=== PATIENT | female | born 1990 | race Caucasian/White ===

== ENCOUNTER 2022-11-29 22:08 | Outpatient (REF) | payer BC, SELFPAY ==
[2022-12-04 10:08] LABS: Age Gdln ACOG Testing Note (.); HPV Aptima Negative (Negative); IGP, Aptima HPV, rfx 16/18,45 Note (.)
== END 2022-11-29 22:09 | disposition home or self-care (01) ==
LOC: LAB 22:08
PROVIDERS: Visit Provider Physician Assistant
DX: Z01.419 Encounter for gynecological examination (general) (routine) without abnormal findings (principal)
CPT/HCPCS: 87624; G0145

== ENCOUNTER 2024-08-06 13:46 | Outpatient (OUT) | payer BC, SELFPAY ==
[2024-08-06 14:48] LABS: BOX Test Reference Lab UNITY; BOX Test Sent Out UNITY BOX
[2024-08-06 14:50] LABS: Basophils Absolute Auto 0.1 10^3/uL (0.0-0.1); Basophils Percent Auto 0.5 % (0.2-2.0); Eosinophils Absolute Auto 0.1 10^3/uL (0.0-0.7); Eosinophils Percent Auto 0.9 % (0.9-7.0); Hematocrit 37.8 % (36.0-48.0); Hemoglobin 13.3 g/dL (12.0-16.0); Immature Granulocytes Abs Auto 0.03 10^3/uL (0.00-0.03); Immature Granulocytes Pct Auto 0.3 % (0.0-0.5); Lymphocytes Absolute Auto 2.6 10^3/uL (1.2-3.8); Lymphocytes Percent Auto 24.1 % (20.5-60.0); Mean Corpuscular HGB Conc 35.2 g/dL (29.9-35.2); Mean Corpuscular Hemoglobin 30.8 pg (26.7-34.0); Mean Corpuscular Volume 87.5 fL (81.0-99.0); Mean Platelet Volume 9.7 fL (9.5-13.5); Monocytes Absolute Auto 0.7 10^3/uL (0.3-0.8); Monocytes Percent Auto 6.1 % (1.7-12.0); Neutrophils Absolute Auto 7.4 10^3/uL (1.4-6.5); Neutrophils Percent Auto 68.1 % (43.0-75.0); Platelet Count 323 10^3/uL (150-450); Red Blood Count 4.32 10^6/uL (4.20-5.40); Red Cell Distribution Width 11.5 % (11.0-15.0); White Blood Count 10.8 10^3/uL (4.0-11.0)
[2024-08-06 15:08] LABS: Estimated Average Glucose 85 mg/dL; Glycohemoglobin A1C 4.6 % (4.5-6.2)
[2024-08-06 15:29] LABS: Amphetamine Screen Urine NEGATIVE (NEGATIVE); Barbiturates Screen Urine NEGATIVE (NEGATIVE); Benzodiazepines Screen Urine NEGATIVE (NEGATIVE); Buprenorphine Screen Urine NEGATIVE (NEGATIVE); Cannabinoid Screen Urine POSITIVE (NEGATIVE); Cocaine Screen Urine NEGATIVE (NEGATIVE); Methadone Screen Urine NEGATIVE (NEGATIVE); Methamphetamines Screen Urine NEGATIVE (NEGATIVE); Opiate Screen Urine NEGATIVE (NEGATIVE); Oxycodone Screen Urine NEGATIVE (NEGATIVE); Phencyclidine Screen Urine NEGATIVE (NEGATIVE); Tricyclic Antidepressant Urine NEGATIVE (NEGATIVE)
[2024-08-07 05:18] LABS: HIV Ab/p24 Ag Screen Non Reactive (Non Reactive)
[2024-08-07 06:08] LABS: HBsAg Screen Negative (Negative); HCV Ab Non Reactive (Non Reactive); Rubella Antibodies, IgG 6.09 index (Immune >0.99)
[2024-08-07 13:09] LABS: Rapid Plasma Reagin, Quant Non Reactive titer (NonRea<1:1)
[2024-08-08 21:09] LABS: Cannabinoid Positive (.); Carboxy THC Conf, MS, UR >750 ng/mL (Cutoff=10)
== END 2024-08-06 13:47 | disposition home or self-care (01) ==
PROVIDERS: PCP Internal Medicine; Visit Provider Obstetrics & Gynecology
DX: Z34.01 Encounter for supervision of normal first pregnancy, first trimester (principal); Z36.0 Encounter for antenatal screening for chromosomal anomalies; N92.6 Irregular menstruation, unspecified
CPT/HCPCS: 36415; 80307; 80349; 83036; 85025; 86592; 86762; 86803; 86850; 86900; 86901; 87086; 87340; 87389

== ENCOUNTER 2024-10-01 20:09 | Outpatient (REF) | payer BC, SELFPAY ==
--- OUTSIDE RECORDS SUMMARY | 2024-10-01 20:15 | XMS_ITS | CCD ---
Author Organization [facility] Care Team Providers Care Pot Runner Name Role Phone STEPHEN DOWNEY Unavailable Unavailable STEPHEN DOWNEY Unavailable Unavailable LUZMARIA BRUNO Unavailable Unavailable RONI JIMENEZ Admitting Unavailable BARBARA, RONI Attending Unavailable RONI JIMENEZ Consulting Unavailable LUZMARIA BRUNO Admitting Unavailable LUZMARIA BRUNO Attending Unavailable RONI JIMENEZ Admitting Unavailable RONI JIMENEZ Attending Unavailable STEPHANIE MONTGOMERY Consulting Unavailable RONI JIMENEZ Consulting Unavailable Colten Lam MD Primary Care Provider Colten Lam MD Unavailable Moraima-Nossek LEAD CASHIER-HARNESS BRUSHER, Ema M Unavailable Colten Lam MD Primary Care Provider [phone] MARY VAZQUEZ Attending Unavailable LUZMARIA BRUNO Referring Unavailable COLTEN LAM Primary Care Unavailable MARY VAZQUEZ Attending Unavailable COLTEN LAM Referring Unavailable COLTEN LAM Primary Care Unavailable LOIS VALDERRAMA Attending Unavailable COLTEN LAM Attending Unavailable TJ ODONNELL Attending Unavailable Medications Current Medications Medication Drug Class(es) Dates Sig (Normalized) Sig (Original) lamoTRIgine 200 mg oral tablet (19 sources) Mood Stabilizer, Anti-epileptic Agent Start: 01-09-2024 take 1 tablet by mouth once daily lamoTRIgine (LaMICtal) 200 MG tablet Indications: Bipolar affective disorder, currently depressed, mild (CMS/HCC) Take 1 tablet (200 mg) by mouth Daily 90 tablet 1 01/09/2024 Active Start: 10-03-2023 take 1 tablet by paulo once daily lamoTRIgine (LaMICtal) 200 MG tablet Indications: Bipolar affective disorder, currently depressed, mild (CMS/HCC) Take 1 tablet (200 mg) by mouth Daily 30 tablet 2 10/03/2023 Active Start: 03-30-2023 End: 08-07-2023 take 1 tablet by mouth in the morning lamoTRIgine (LaMICtal) 200 MG tablet Indications: Bipolar affective disorder, currently depressed, mild (CMS/HCC) Take 1 tablet (200 mg) by mouth in the morning. 30 tablet 2 06/08/2023 08/07/2023 Active magnesium oxide 400 mg oral tablet (2 sources) Start: 10-01-2024 End: 04-29-2025 take 1 tablet by mouth once daily magnesium oxide (Mag-Ox) 400 MG tablet Indications: Second trimester Take 1 tablet (400 mg) by mouth Daily 30 tablet 6 10/01/2024 04/29/2025 Active ondansetron 4 mg disintegrating oral tablet (5 sources) Serotonin-3 Receptor Antagonist Start: 09-03-2024 End: 10-03-2024 take 1 tablet by mouth every six hours for nausea ondansetron ODT (Zofran-ODT) 4 MG disintegrating tablet Indications: Nausea and vomiting, unspecified vomiting type Take 1 tablet (4 mg) by mouth every 6 (six) hours if needed for nausea or vomiting 30 tablet 2 09/03/2024 10/03/2024 Active MV & Min w/FA-DHA ( Gummies) 0.18-25 MG chewable tablet (2 sources) Start: 08-02-2024 End: 09-01-2024 MV & Min w/FA-DHA ( Gummies) 0.18-25 MG chewable tablet Indications: Encounter for supervision of normal first in first trimester Chew 1 tablet Daily 30 tablet 11 08/02/2024 09/01/2024 Active Vit-Fe Fumarate-FA (PNV Plus Multivitamin) 27-1 MG tablet (3 sources) Start: 08-07-2024 End: 09-06-2024 take 1 tablet by mouth once daily Vit-Fe Fumarate-FA (PNV Plus Multivitamin) 27-1 MG tablet Indications: Encounter for supervision of normal first in first trimester Take 1 tablet by mouth Daily 30 tablet 11 08/07/2024 09/06/2024 Active tiZANidine 4 mg oral tablet (18 sources) Central alpha-2 Adrenergic Agonist Start: 07-12-2024 take 1 tablet by mouth every eight hours for muscle spasms tiZANidine (Zanaflex) 4 MG tablet Indications: Trapezius muscle spasm Take 1 tablet (4 mg) by mouth every 8 (eight) hours if needed for muscle spasms 30 tablet 07/12/2024 Active Start: 05-28-2024 End: 06-25-2024 take 1 tablet by mouth every eight hours for muscle spasms tiZANidine (Zanaflex) 4 MG tablet Indications: Trapezius muscle spasm Take 1 tablet (4 mg) by mouth every 8 (eight) hours if needed for muscle spasms 30 tablet 05/28/2024 06/25/2024 Discontinued (Reorder) Start: 05-03-2024 take 1 tablet by paulo th every eight hours for muscle spasms tiZANidine (Zanaflex) 4 MG tablet Indications: Trapezius muscle spasm Take 1 tablet (4 mg) by mouth every 8 (eight) hours if needed for muscle spasms 30 tablet 05/03/2024 Active Start: 04-02-2024 End: 05-01-2024 take 1 tablet by mouth every eight hours as needed for muscle spasms tiZANidine (Zanaflex) 4 MG tablet Indications: Trapezius muscle spasm TAKE 1 TABLET BY MOUTH EVERY 8 HOURS NEEDED FOR MUSCLE SPASM 30 tablet 04/04/2024 05/01/2024 Discontinued (Reorder) Start: 03-07-2024 take 1 tablet by paulo th every eight hours for muscle spasms tiZANidine (Zanaflex) 4 MG tablet Indications: Trapezius muscle spasm Take 1 tablet (4 mg) by mouth every 8 (eight) hours if needed for muscle spasms 30 tablet 03/07/2024 Active Start: 01-31-2024 take 1 tablet by paulo th once daily tiZANidine (ZANAFLEX) 4 mg tablet Take 1 tablet (4 mg total) by mouth nightly. 01/31/2024 Active Start: 12-15-2023 take 1 tablet by paulo th every eight hours for muscle spasms tiZANidine (Zanaflex) 4 MG tablet Indications: Trapezius muscle spasm Take 1 tablet (4 mg) by mouth every 8 (eight) hours if needed for muscle spasms for up to 10 days 30 tablet 12/15/2023 Active 24 hr venlafaxine 150 mg extended release oral capsule (20 sources) Serotonin and Norepinephrine Reuptake Inhibitor Start: 08-09-2024 take 1 capsule by mouth once daily venlafaxine XR (Effexor XR) 150 MG 24 hr capsule Take 150 mg by mouth Daily 08/09/2024 Active Start: 07-06-2024 take 1 capsule by [facility] every twenty-four hours in the morning venlafaxine XR (EFFEXOR-XR) 150 mg 24 hr capsule Indications: Generalized anxiety disorder Take 1 capsule by mouth in the morning 30 capsule 07/06/2024 Active Start: 11-07-2023 End: 01-09-2024 take 1 capsule by mouth once daily in the morning venlafaxine XR (Effexor XR) 75 MG 24 hr capsule Indications: Bipolar affective disorder, currently depressed, mild (CMS/HCC) take 1 capsule by mouth every morning 30 capsule 1 11/07/2023 01/09/2024 Discontinued (Reorder) Start: 03-30-2023 End: 06-07-2024 take 1 capsule by mouth every twenty-four hours in the morning venlafaxine XR (Effexor XR) 37.5 MG 24 hr capsule Indications: Bipolar affective disorder, currently depressed, mild (CMS/HCC) Take 1 capsule by mouth in the morning 60 capsule 3 01/04/2024 Active Start: 03-30-2023 End: 06-07-2024 take 1 capsule by mouth every twenty-four hours in the morning venlafaxine XR (Effexor XR) 75 MG 24 hr capsule Indications: Bipolar affective disorder, currently depressed, mild (CMS/HCC) Take 1 capsule (75 mg) by mouth in the morning. 90 capsule 1 01/09/2024 Active Completed/Discontinued Medications Medication Drug Class(es) Dates Sig (Normalized) Sig (Original) Ethinyl Estradiol / Ferrous fumarate / Norethindrone (10 sources) Estrogen Start: 04-15-2023 End: 08-02-2024 take 1 tablet by mouth in the morning norethindrone-ethin yl estradiol-iron (Lo Loestrin Fe) 1 MG-10 MCG / 10 MCG tablet Indications: Amenorrhea Take 1 tablet by mouth in the morning. 28 tablet 11 04/15/2023 08/02/2024 Discontinued (Ineffective) Start: 04-15-2023 take 1 tablet by paulo th in the morning norethindrone-ethinyl estradiol-iron (Lo Loestrin Fe) 1 MG-10 MCG / 10 MCG tablet Indications: Amenorrhea Take 1 tablet by mouth in the morning. 28 tablet 11 04/15/2023 Active phentermine hydrochloride 37.5 mg oral tablet (17 sources) Sympathomimetic Amine Anorectic Start: 05-03-2024 End: 08-02-2024 take 31-31.9 tablets by mouth in the morning phentermine (Adipex-P) 37.5 MG tablet Indications: Class 1 obesity without serious comorbidity with body mass index (BMI) of 31.0 to 31.9 in adult, unspecified obesity type Take 1 tablet (37.5 mg) by mouth in the morning. 30 tablet 06/20/2024 08/02/2024 Discontinued (Therapy completed) Start: 02-13-2024 End: 05-01-2024 take 31-31.9 tablets by mouth in the morning phentermine (Adipex-P) 37.5 MG tablet Indications: Class 1 obesity without serious comorbidity with body mass index (BMI) of 31.0 to 31.9 in adult, unspecified obesity type Take 1 tablet (37.5 mg) by mouth in the morning. 30 tablet 03/19/2024 05/01/2024 Discontinued (Reorder) Start: 01-09-2024 take 31-31.9 tablets by mouth in the morning phentermine (Adipex-P) 37.5 MG tablet Indications: Class 1 obesity without serious comorbidity with body mass index (BMI) of 31.0 to 31.9 in adult, unspecified obesity type Take 1 tablet (37.5 mg) by mouth in the morning. 30 tablet 01/09/2024 Active Start: 12-15-2023 End: 01-09-2024 take 31-31.9 tablets by mouth in the morning phentermine (Adipex-P) 37.5 MG tablet Indications: Class 1 obesity without serious comorbidity with body mass index (BMI) of 31.0 to 31.9 in adult, unspecified obesity type TAKE 1 TABLET BY MOUTH IN THE MORNING 30 tablet 01/09/2024 01/09/2024 Discontinued (Reorder) Start: 05-19-2023 End: 06-18-2023 take 30-30.9 tablets by mouth before mealtime phentermine (Adipex-P) 37.5 MG tablet Indications: Class 1 obesity without serious comorbidity with body mass index (BMI) of 30.0 to 30.9 in adult, unspecified obesity type Take 1 tablet (37.5 mg) by mouth in the morning. Take before meals. 30 tablet 0 05/19/2023 06/18/2023 Active Problems Active Problems Problem Classification Problem Date Documented Date Episodic/Chronic Anxiety disorders (20 sources) Anxiety; Translations: [Anxiety disorder, unspecified] Onset: 08-31-2022 08-31-2022 Chronic Complication of device; implant or graft (4 sources) Unspecified complication of genitourinary prosthetic device, implant and graft, initial encounter; Translations: [UNS COMP PROS DEVC IMPL GFT INIT] Onset: 12-10-2019 Episodic Headache; including migraine (20 sources) Migraine without aura, not refractory ; Translations: [Migraine without aura, not intractable, with status migrainosus] Onset: 02-23-2023 02-23-2023 Chronic Immunizations and screening for infectious disease (2 sources) Exposure to sexually transmissible disorder; Translations: [Contact with and (suspected) exposure to infections with a predominantly sexual mode of transmission] 10-01-2024 Episodic Menstrual disorders (18 sources) Amenorrhea; Translations: [Amenorrhea, unspecified] Onset: 02-23-2023 02-23-2023 Chronic Mood disorders (20 sources) Bipolar affective disorder, currently depressed, mild; Translations: [Bipolar disorder, current episode depressed, mild] Onset: 08-31-2022 06-08-2023 Chronic Nausea and vomiting (2 sources) Nausea and vomiting; Translations: [Nausea with vomiting, unspecified] 09-03-2024 Episodic Normal and/or delivery (20 sources) Encounter for supervision of other normal , unspecified trimester; Translations: [Term ] Onset: 10-04-2017 02-23-2023 Episodic Other connective tissue disease (2 sources) Muscle spasm of cervical muscle of neck; Translations: [Other muscle spasm] 04-04-2024 Episodic Other nervous system disorders (17 sources) Disturbance of attention; Translations: [Attention and concentration deficit] Onset: 02-23-2023 02-23-2023 Chronic Other nervous system disorders (17 sources) Chronic pain; Translations: [Other chronic pain] Onset: 02-23-2023 02-23-2023 Chronic Other nutritional; endocrine; and metabolic disorders (17 sources) Insulin resistance; Translations: [Insulin resistance] Onset: 02-23-2023 02-23-2023 Chronic Other nutritional; endocrine; and metabolic disorders (20 sources) Obesity; Translations: [Obesity, unspecified] Onset: 04-19-2023 04-19-2023 Chronic Other screening for suspected conditions (not mental disorders or infectious disease) (6 sources) Encounter for screening for malignant neoplasm of cervix; Translations: [Patient encounter status] Onset: 06-12-2019 10-01-2024 Episodic Residual codes; unclassified (17 sources) Daytime hypersomnia; Translations: [Hypersomnia, unspecified] Onset: 02-23-2023 02-23-2023 Chronic Residual codes; unclassified (2 sources) Gestation period, 15 weeks; Translations: [15 weeks gestation of ] 09-03-2024 Episodic Residual codes; unclassified (2 sources) Gestation period, 19 weeks; Translations: [19 weeks gestation of ] 10-01-2024 Episodic Spondylosis; intervertebral disc disorders; other back problems (17 sources) Cervical spondylosis without myelopathy; Translations: [Spondylosis without myelopathy or radiculopathy, cervical region] Onset: 02-23-2023 02-23-2023 Chronic Past or Other Problems Problem Classification Problem Date Documented Date Episodic/Chronic Mood disorders (18 sources) Mood disorders Onset: 03-30-2023 Resolved: 02-06-2024 03-30-2023 Other female genital disorders (17 sources) Vaginal odor; Translations: [Other specified noninflammatory disorders of vagina] Onset: 02-23-2023 02-23-2023 Episodic Other upper respiratory infections (1 source) Upper respiratory infection; Translations: [Acute upper respiratory infection, unspecified] 01-03-2024 Episodic Spondylosis; intervertebral disc disorders; other back problems (17 sources) Stenosis of intervertebral foramina; Translations: [Spinal stenosis, cervical region] Onset: 02-23-2023 02-23-2023 Episodic Results Test Name Value Interpretation Reference Range Facility BOX TESTon 08-06-2024 BOX TEST SENT OUT [facility] BOX1 [facility] BOX2 08/06/24 [facility] HCG ( test) Ql (U)o n 08-02-2024 Interpretation and review of laboratory results Abnormal [facility] Preg Test, Ur Positive Negative [facility] US OB TRANSVAGINALon 025 US OB TRANSVAGINAL EXAM: US OB TRANSVAGINAL HISTORY: Dating. COMPARISON: None available. TECHNIQUE: Two-dimensional transvaginal grayscale ultrasound imaging of the pelvis was performed. Color Doppler evaluation of the ovaries was also performed. FINDINGS: The uterus demonstrates a normal homogeneous echotexture. The cervix measures 5.2 cm and the cervical os is closed. The right ovary measures 2.7 x 1.5 x 2.6 cm and demonstrates a normal echotexture. There is normal color Doppler flow. The left ovary is not visualized. No fluid is present within the cul-de-sac. There is a single, live intrauterine gestation identified with a heart rate of 168 beats per minute and a crown-rump length measurement of 3.4 cm, correlating to a gestational age of 10 weeks 2 days (+/- 6 days). There is a 1.5 cm subchorionic hemorrhage visualized. A yolk sac is visualized. IMPRESSION: 1. Single, live intrauterine gestation 10 weeks, 3 days by LMP. Today's ultrasound measurements correlate with a gestational age of 10 weeks 2 days (+/- 6 days). LAURA by today's ultrasound is 02/26/2025. 2. Subchorionic hemorrhage. A short-term follow-up ultrasound is recommended to monitor for resolution. 3. Normal color Doppler evaluation of the right ovary, the left ovary was not visualized. Electronically Signed:Electronically signed by RASHMI GUAJARDO II, MD, PHD at 03-Aug-2024 08:40:26 AM [facility] Normal Not Available Comment on above: Order Comment: US OB TRANSVAGINAL No LMP recorded. Urinalysis macro (dipstick) panel (U)on 08-02-2024 Bilirubin, UA Negative Negative - 4(70) +++ mg/dL [facility] Blood, UA Negative Negative - 50 Aneudy/mcL [facility] Clarity, UA Clear [facility] Color, UA Yellow [facility] Glucose, UA Negative Negative - 1999(110) ++++ mg/dL [facility] Interpretation and review of laboratory results Abnormal [facility] Ketones, UA Negative Negative - 160(16) ++++ mg/dL [facility] Leukocytes, UA Positive Negative - 500+++ Migdalia/mcL [facility] Comment on above: small Nitrite, UA Negative Negative - Positive [facility] pH, UA 6 5 - 9 [facility] Protein, UA Negative Negative - 1999(20) ++++ mg/dL [facility] Spec Grav, UA 1.02 1 - 1.03 [facility] Urobilinogen, UA 0.2 0.2 - 12 mg/dL [facility] XR Spine Cervical Complete w /Flex AND Rice 05-12-2021 XR Spine Cervical Complete w/Flex AND Ext FINDINGS: Minimal disc space loss, no significant oseophyte formation. Mild facet arthropathy, moderate. right C2-3, C4-5 neuroforaminal stenosis. No acute fracture or dislocation or significant spondylolisthesis is seen. Prevertebral soft tissues are normal. No significant carotid bulb calcifications are identified. Flexion and extension: Normal alignment, no instability. IMPRESSION: 1. 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 2. Normal alignment, no instability with flexion and extension. Report reported and signed by Miah Suero on 05/12/2021 1444 Normal [facility] Spindle Repairer US PELVIS AND TRANSVAGon US PELVIS AND TRANSVAG EXAMINATION: US PELVIS AND TRANSVAG HISTORY: Disorders of urogenital prostheses or implants ; pelvic pain since IUD placement 1 month ago COMPARISON: No relevant comparison available. TECHNIQUE: Transabdominal and transvaginal sonographic examination. FINDINGS: UTERUS: Normal size and appearance. Uterus size: 8.7 x 5.3 x 4.2 cm ENDOMETRIUM: IUD within the endometrial cavity. Normal thickness and echogenicity of the endometrium. Endometrial thickness: 8 mm RIGHT OVARY: Normal size and appearance. Blood flow present within ovary on color Doppler. Ovary size: 2.4 x 1.9 x 1.4 cm LEFT OVARY: Normal size and appearance. Blood flow present within ovary on color Doppler. Ovary size: 2.4 x 1.7 x 1.5 cm CUL-DE-SAC: Unremarkable. No significant free fluid. BLADDER: Unremarkable. OTHER: None. IMPRESSION: 1. The IUD appears normally positioned within the endometrium. No abnormal or suspicious findings. Electronically authenticated by: STEPHANIE MONTGOMERY Date: 2019-12-10 10:21 Normal [facility] PAP ONLYon 06-14-2019 COMMENT Comment Normal [facility] Comment on above: Result Comment: [id number] Performed By: #### [id number] #### [facility] [address] [place] [address] Leno Mac DIAGNOSIS: Comment Normal [facility] Comment on above: Result Comment: NEGATIVE FOR INTRAEPITHE LIAL LESION OR MALIGNANCY. Performed By: #### [id number] #### [facility] [address] [place] [address] Leno Mac Methodology: Comment Normal [facility] Comment on above: Result Comment: This liquid based ThinPr ep(R) pap test was screened with the use of an image guided system. Performed By: #### [id number] #### [facility] [address] [place] [address] Leno Mac Note: Comment Normal [facility] Comment on above: Result Comment: The Pap smear is a scree ricky test designed to aid in the detection of premalignant and malignant conditions of the uterine cervix. It is not a diagnostic procedure and should not be used as the sole means of detecting cervical cancer. Both false-positive and false-negative reports do occur. . Performed By: #### [id number] #### [facility] [address] [place] [address] Leno Mac Performed by: Comment Normal [facility] Comment on above: Result Comment: Lauryn Barraza, Cytotechno logist (ASCP) Performed By: #### [id number] #### [facility] [address] [place] [address] Leno Mac Specimen adequacy: Comment Normal [facility] Comment on above: Result Comment: Satisfactory for evaluat ion. Endocervical and/or squamous metaplastic cells (endocervical component) are present. Performed By: #### [id number] #### [facility] [address] [place] [address] Leno Mac . . Normal [facility] Comment on above: Performed By: #### [id number] #### [facility] [address] [place], [place] [address] Leno Mac Discharge Summaryon 10-08-19 18 HIM IP Note OR Jewelry Sales Representative Normal [facility] 10-07-2017 HIM IP Note OR Jewelry Sales Representative Normal [facility] HIM IP Note OR Jewelry Sales Representative Normal [facility] Progress Noteon 10-07-2017 HIM IP Note OR Jewelry Sales Representative Normal [facility] HIM IP Note OR Jewelry Sales Representative Normal [facility] HIM IP Note OR Jewelry Sales Representative Normal [facility] HIM IP Note OR Jewelry Sales Representative Normal [facility] HIM IP Note OR Jewelry Sales Representative Normal [facility] 10-06-2017 HIM IP Note OR Jewelry Sales Representative Normal [facility] HIM IP Note OR Jewelry Sales Representative Normal [facility] Progress Noteon 10-06-2017 HIM IP Note OR Jewelry Sales Representative Normal [facility] HIM IP Note OR Jewelry Sales Representative Normal [facility] HIM IP Note OR Jewelry Sales Representative Normal [facility] Surgical Pathologyon 018 Surgical Pathology (NOTE)[id number] LABORATORIESCONSULTING PATHOLOGISTS [facility] [id number] [place], [place] [phone] Fax: SURGICAL PATHOLOGY CONSULTATIONPatient Name: Mary GA Rec: [id number] Number: [id number]: 10/06/2017Received: 10/06/2017Reported: 10/07/2017 12:37-- Diagnosis --PLACENTA MEMBRANES AND UMBILICAL CORD: MATURE PLACENTA WITHINTERVILLOUS THROMBI, UNREMARKABLE MEMBRANES AND THREE-VESSELUMBILICAL CORD.Tammie NgElectronically Signed Out ajb/10/07/2017Clinical InformationOperative Findings: PLACENTA (PER CONTAINER)Source of Specimen1: PLACENTA (PER CONTAINER)Gross Description STEVAN GA, UNDESIGNATED Placenta with attached membranes andumbilical cord.UMBILICAL CORD Length: 47.0 cm Diameter: 1.5 cmTrue knots: NoNumber of vessels: 3Spiraling: NormalInsertion into surface: ParacentralMEMBRANESColor: Paoli-yates, focally opacified with a circummarginateinsertionMeconium staining: NoFETAL SURFACEColor: Purple-paulson, with a normal array of surface vesselsSubchorionic fibrin: Patchy and marginal and involvesapproximately 10% of the discMATERNAL SURFACECotyledons: -All present and intact: Yes-Focal lesions: There is a 0.4 cm area of yellow induration thatoccupies less than 5% of the disc.Placental size: 19.5 x 18.5 x 2.5 cmShape: OvoidWeight: 446 gramsNumber of cassettes: 5cs tmMicroscopic DescriptionUmbilical cord: Negative for funisitisMembranes: Negative for chorioamnionitisMeconium staining: NoInfarcts: NoIntervillous thrombi: PresentSubchorionic fibrin: Slight increaseVillous maturation: MatureNucleated erythrocytes invillous capillaries: RareOther: Few microcalcifications Normal [facility] CBC with Diffon 10-05-2017 Abs. Basophil <0.03 Normal 0.00-0.20 [facility] Comment on above: Performed By: #### CDP ####[address] [place] [address] Abs.Neutrophil (Seg) 7.93 k/uL Normal 1.50-8.10 [facility] Comment on above: Performed By: #### CDP ####[address] [place] [address] Basophils/100 WBC Auto (Bld) 0 % Normal 0-2 [facility] Comment on above: Performed By: #### CDP ####[address] [place] [address] Eosinophils 0.10 10*3/uL Normal 0.00-0.44 [facility] Comment on above: Performed By: #### CDP ####[address] [place] [address] Eosinophils/100 leukocytes 1 % Normal 1-4 [facility] Comment on above: Performed By: #### CDP ####[address] [place] [address] Erythrocyte distribution width Auto Ratio (RBC) 13.6 % Normal 11.8-14.4 [facility] Comment on above: Performed By: #### CDP ####[address] [place] [address] Erythrocytes (RBC) 4.18 10*6/uL Normal 3.95-5.11 [facility] Comment on above: Performed By: #### CDP ####[address] [place] [address] Erythrocytes (RBC) 0.0 per 100 WBC Normal 0.0 [facility] Comment on above: Performed By: #### CDP ####[address] [place] [address] Granulocytes/100 WBC (Bld) 0.15 k/uL Normal 0.00-0.30 [facility] Comment on above: Result Comment: Performed at [address] [place] [address] Performed By: #### C DP ####[address] [place] [address] Hematocrit (HCT) 36.5 % Normal 36.3-47.1 [facility] Comment on above: Performed By: #### CDP ####[address] [place] [address] Hemoglobin mass conc (Bld) 12.2 g/dL Normal 11.9-15.1 [facility] Comment on above: Performed By: #### CDP ####[address] [place] [address] Immature granulocytes #/vol (Bld) 1 % High 0 [facility] Comment on above: Performed By: #### CDP ####[address] [place] [address] Lymphocytes 2.28 10*3/uL Normal 1.10-3.70 [facility] Comment on above: Performed By: #### CDP ####[address] [place] [address] Lymphocytes/100 leukocytes 20 % Low 24-43 [facility] Comment on above: Performed By: #### CDP ####[address] , [facility]83 MCH 29.2 pg Normal 25.2-33.5 [facility] Comment on above: Performed By: #### CDP ####[address] [facility]83 MCHC mass conc (RBC) 33.4 g/dL Normal 28.4-34.8 [facility] Comment on above: Performed By: #### CDP ####[address] [place] [address] MCV 87.3 fL Normal 82.6-102.9 [facility] Comment on above: Performed By: #### CDP ####[address] [place] [address] Monocytes 0.81 10*3/uL Normal 0.10-1.20 [facility] Comment on above: Performed By: #### CDP ####[address] , [facility]83 Monocytes/100 leukocytes 7 % Normal 3-12 [facility] Comment on above: Performed By: #### CDP ####[address] [place] [address] Neutrophil (Seg) 71 % High 36-65 [facility] Comment on above: Performed By: #### CDP ####[address] [place] [address] Platelet mean volume (PMV) 10.4 fL Normal 8.1-13.5 [facility] Comment on above: Performed By: #### CDP ####[address] [place] [address] Platelets 207 10*3/uL Normal 138-453 [facility] Comment on above: Performed By: #### CDP ####[address] [place] [address] WBC (Leukocytes) 11.3 10*3/uL Normal 3.5-11.3 [facility] Comment on above: Performed By: #### CDP ####[address] [place] [address] Auto Diff Performed NOT REPORTED Normal [facility] Comment on above: Performed By: #### CDP ####[address] [place] [address] Erythrocyte morphology NOT REPORTED Normal [facility] Comment on above: Performed By: #### CDP ####[address] [place] [address] Platelets NOT REPORTED Normal [facility] Comment on above: Performed By: #### CDP ####[address] [place] [address] WBC Morphology NOT REPORTED Normal [facility] Comment on above: Performed By: #### CDP ####[address] [place] [address] Drug Scr, Abuse, Uron 2017 Amphetamine(s),U r Negative Normal NEG [facility] Comment on above: Performed By: #### GINA ####[address] [place] [address] Barbiturate(s),U r Negative Normal NEG [facility] Comment on above: Performed By: #### GINA ####[address] [place] [address] Base excess Negative Normal NEG [facility] Comment on above: Performed By: #### GINA ####[address] [place] [address] Benzodiazepine(s ) Negative Normal NEG [facility] Comment on above: Performed By: #### GINA ####[address] [place] [address] Buprenorphrine, Ur Negative Normal NEG [facility] Comment on above: Result Comment: Performed at [address] [place] [address] Performed By: #### D AU ####[address] [place] [address] Cannabinoid(s),U r Negative Normal NEG [facility] Comment on above: Performed By: #### GINA ####[address] [place] [address] Methamphetamine, Ur Negative Normal NEG [facility] Comment on above: Performed By: #### GINA ####[address] [place] [address] Opiate(s), Ur Negative Normal NEG [facility] Comment on above: Performed By: #### GINA ####[address] [place] [address] Oxycodone, Urine Negative Normal NEG [facility] Comment on above: Performed By: #### GINA ####[address] [place] [address] Phencyclidine, Ur Negative Normal NEG [facility] Comment on above: Performed By: #### GINA ####[address] [place] [address] Propoxyphene,Uri ne Negative Normal NEG [facility] Comment on above: Performed By: #### GINA ####[address] [place] [address] Urine, methadone presence Negative Normal NEG [facility] Comment on above: Performed By: #### GINA ####[address] [place], [place] [id number] Urine, tricyclic antidepressants Negative Normal NEG [facility] Comment on above: Result Comment: Drug screen results are to be used for medical purposes only. All positive results are unconfirmed. Testing for employment or legal uses should be sent to a reference laboratory for confirmation. Performed By: #### D AU ####[address] , [place] [id number] Interpretive Info NOT REPORTED Normal [facility] Comment on above: Performed By: #### GINA ####[address] , [place] [id number] MDMA, Urine NOT REPORTED Normal NEG [facility] Comment on above: Performed By: #### GINA ####[address] [place] [address] History and Physicalon 10-05 HIM IP Note OR Jewelry Sales Representative Normal [facility] Plan of Careon 10-05-2017 HIM IP Note OR Jewelry Sales Representative Normal [facility] HIM IP Note OR Jewelry Sales Representative Normal [facility] Progress Noteon 10-05-2017 HIM IP Note OR Jewelry Sales Representative Normal [facility] HIM IP Note OR Jewelry Sales Representative Normal [facility] HIM IP Note OR Jewelry Sales Representative Normal [facility] HIM IP Note OR Jewelry Sales Representative Normal [facility] Vital Signs Date Time Vital Sign Value Performing Clinician Estrada disla 10-01-2024 16:11-0400 Body mass index (BMI) [Ratio] 35.21 kg/m2 Uma WELLINGTON Work Phone: [facility] 10-01-2024 16:11-0400 Body weight 90.15 kg Uma WELLINGTON Work Phone: [facility] 10-01-2024 16:11-0400 Diastolic blood pressure 82 mm[Hg] Uma WELLINGTON Work Phone: [facility] 10-01-2024 16:11-0400 Systolic blood pressure 120 mm[Hg] Uma Da Silva PA Work Phone: [facility] 09-03-2024 15:51-0400 Body mass index (BMI) [Ratio] 34.26 kg/m2 Tj Blas DO Work Phone: [facility] 09-03-2024 15:51-0400 Body weight 87.73 kg Tj Blas DO Work Phone: [facility] 09-03-2024 15:51-0400 Diastolic blood pressure 68 mm[Hg] Jt Blas DO Work Phone: [facility] 09-03-2024 15:51-0400 Systolic blood pressure 112 mm[Hg] Tj Blas DO Work Phone: [facility] 08-02-2024 14:29-0400 Body mass index (BMI) [Ratio] 33.66 kg/m2 Nom Nurse [facility] 08-02-2024 14:29-0400 Body weight 86.18 kg [facility] Nurse [facility] 08-02-2024 14:29-0400 Diastolic blood pressure 72 mm[Hg] [facility] Nurse [facility] 08-02-2024 14:29-0400 Systolic blood pressure 120 mm[Hg] [facility] Nurse [facility] 06-20-2024 13:30-0500 Body height 160 cm Lois Valderrama COMPUTER SERVICE TECHNICIAN Work Phone: [facility] 06-20-2024 13:30-0500 Body mass index (BMI) [Ratio] 33.66 kg/m2 Lois Valderrama COMPUTER SERVICE TECHNICIAN Work Phone: [facility] 06-20-2024 13:30-0500 Body weight 86.18 kg Lois Valderrama COMPUTER SERVICE TECHNICIAN Work Phone: [facility] 06-20-2024 13:30-0500 Diastolic blood pressure 78 mm[Hg] Lois Valderrama COMPUTER SERVICE TECHNICIAN Work Phone: [facility] 06-20-2024 13:30-0500 Heart rate 78 /min Lois Valderrama COMPUTER SERVICE TECHNICIAN Work Phone: [facility] 06-20-2024 13:30-0500 Respiratory rate 17 /min Lois Valderrama COMPUTER SERVICE TECHNICIAN Work Phone: [facility] 06-20-2024 13:30-0500 SaO2% (BldA) [Mass fraction] 98 % Lois Valderrama COMPUTER SERVICE TECHNICIAN Work Phone: [facility] 06-20-2024 13:30-0500 Systolic blood pressure 138 mm[Hg] Lois Valderrama COMPUTER SERVICE TECHNICIAN Work Phone: [facility] Encounters Encounter Date Encounter Type Care Provider Facility Start: 10-01-2024 End: 10-01-2024 Patient encounter procedure Uma WELLINGTON Work Phone: [facility] Start: 10-01-2024 End: 10-01-2024 Periodic preventive med est patient 18-39 yrs Uma WELLINGTON Work Phone: [facility] Comment on above: Second trimester pre gnancy; 19 weeks gestation of ; Well woman exam with routine gynecological exam; Screening, , for anatomic survey; STD exposure Start: 10-01-2024 End: 10-01-2024 Bamboo flowsheet Uma WELLINGTON Work Phone: [facility] Start: 10-01-2024 End: 10-01-2024 Bamboo flowsheet Uma WELLINGTON Work Phone: [facility] Start: 09-03-2024 End: 09-03-2024 flow sheet Tj Blas DO Work Phone: [facility] Comment on above: Second trimester pre gnancy; 15 weeks gestation of ; Nausea and vomiting, unspecified vomiting type; Bipolar affective disorder, currently depressed, mild (CMS/[facility]) Start: 09-03-2024 End: 09-03-2024 ambulatory TJ BLAS Not Available Start: 09-03-2024 End: 09-03-2024 Bamboo flowsheet Tj Blas DO Work Phone: [facility] Start: 09-03-2024 End: 09-03-2024 Bamboo flowsheet Tj Blas DO Work Phone: [facility] Start: 08-16-2024 End: 08-16-2024 ambulatory MARY VAZQUEZ [facility] Start: 08-06-2024 End: 08-06-2024 Clinisync Result Encounter Generic External Data Provider [facility] Unsolicited Start: 08-06-2024 End: 08-06-2024 Clinisync Result Encounter Generic External Data Provider [facility] Unsolicited Start: 08-02-2024 End: 08-02-2024 Office outpatient visit 5 minutes [facility] Blas Nurse [facility] Comment on above: GA: 10w3d Start: 08-02-2024 End: 08-02-2024 ambulatory LOIS VALDERRAMA Not Available Start: 07-06-2024 End: 07-06-2024 Orders Only Mary Vazquez LEAD CASHIER-CHIEF PRIVACY OFFICER Work Phone: [facility] Start: 06-20-2024 End: 06-20-2024 Bamboo flowsheet Lois Valderrama COMPUTER SERVICE TECHNICIAN Work Phone: [facility] Start: 06-20-2024 End: 06-20-2024 Bamboo flowsheet Lois Valderrama COMPUTER SERVICE TECHNICIAN Work Phone: [facility] Start: 06-20-2024 End: 06-20-2024 Office outpatient visit 25 minutes Lois Valderrama COMPUTER SERVICE TECHNICIAN Work Phone: [facility] Comment on above: Class 1 obesity with out serious comorbidity with body mass index (BMI) of 31.0 to 31.9 in adult, unspecified obesity type Start: 06-20-2024 End: 06-20-2024 ambulatory LOIS VALDERRAMA Not Available Start: 05-01-2024 End: 05-03-2024 Refrobin Lam MD Work Phone: [facility] Comment on above: Class 1 obesity with out serious comorbidity with body mass index (BMI) of 31.0 to 31.9 in adult, unspecified obesity type; Trapezius muscle spasm Start: 04-04-2024 End: 04-04-2024 Refrobin Lam MD Work Phone: [facility] Comment on above: Trapezius muscle spa sm Start: 03-19-2024 End: 03-19-2024 Refill Estefania WELLINGTON Work Phone: [facility] Comment on above: Class 1 obesity with out serious comorbidity with body mass index (BMI) of 31.0 to 31.9 in adult, unspecified obesity type Start: 02-06-2024 End: 02-06-2024 ambulatory MARY WINSLOWAlexandre GARDUNODamari [facility] Start: 01-07-2024 End: 01-09-2024 Refill Colten Lam MD Work Phone: [facility] Comment on above: Class 1 obesity with out serious comorbidity with body mass index (BMI) of 31.0 to 31.9 in adult, unspecified obesity type; Bipolar affective disorder, currently depressed, mild (CMS/HCC) Start: 01-03-2024 End: 01-04-2024 Refill Colten Lam MD Work Phone: [facility] Comment on above: Upper respiratory tr act infection, unspecified type Start: 12-15-2023 End: 12-15-2023 ambulatory COLTEN LAM Not Available Start: 06-08-2023 Telephone encounter Allison Kirkpatrick [facility] Start: 12-10-2019 End: 12-11-2019 Patient encounter procedure RONI JIMENEZ Facility:[facility] Start: 11-23-2019 Patient encounter procedure LUZMARIA BRUNO Facility:[facility] Start: 06-12-2019 End: 06-12-2019 Patient encounter procedure RONI JIMENEZ Facility:[facility] Start: 10-05-2017 End: 10-07-2017 Evaluation and management of inpatient [facility] Procedures Date Procedure Procedure Detail Performing Clinician Start: 08-06-2024 BOX TEST Tj Fazi o DO Work Phone: Start: 08-02-2024 End: 08-02-2024 Urnls dip stick/tablet rgnt non-auto w/o micrscp Tj Blas DO Work Phone: Start: 02-06-2024 Adult depression scr eening assessment Mary Vazquez LEAD CASHIER-CHIEF PRIVACY OFFICER Work Phone: Start: 11-29-2022 Microscopic observat ion [Identifier] in Cervix by Cyto stain Uma WELLINGTON Work Phone: Start: 06-11-2019 Microscopic observat ion [Identifier] in Cervix by Cyto stain Allison Arreola MA Start: 10-07-2017 DISCHARGE PATIENT BRADLEY DOWNEY Start: 10-06-2017 SURGICAL PATHOLOGY HERRERA DOWNEY Start: 10-06-2017 ADVANCE DIET TOLE RATED (NURSING COMMUNICATION) STEPHEN DOWNEY Start: 10-06-2017 AMBULATE PATIENT STEPHEN DOWNEY Start: 10-06-2017 ASSESS STEPHEN PAZ GES Start: 10-06-2017 DIET GENERAL STEPHEN PAZ GES Start: 10-06-2017 FULL CODE STEPHEN PAZ GES Start: 10-06-2017 ICE TO AFFECTED AREA WE URSZULA PAREDESGeorgi Start: 10-06-2017 NOTIFY PHYSICIAN (SPECIFY) STEPHENSHERRY DOWNEY Start: 10-06-2017 PATIENT STATUS (DIRECT) STEPHEN SHAYAN Start: 10-06-2017 PLACE INTERMITTENT PNEUMATIC COMPRESSION DEVICE STEPHENSHERRY DOWNEY Start: 10-06-2017 SALINE LOCK IV STEPHEN Zhu EDGES Start: 10-06-2017 SPECIMEN TO PATHOLOGY W SHABBIR PAREDESGeorgi Start: 10-06-2017 STRAIGHT CATH STEPHEN DAMICO DGES Start: 10-06-2017 VITAL SIGNS STEPHEN PAZ GES Start: 10-06-2017 PATIENT STATUS (FROM ED OR OR/PROCEDURAL) STEPHEN PAREDESGeorgi Start: 10-06-2017 TRANSFER PATIENT STEPHEN DOWNEY Start: 10-05-2017 Blood count complete auto&auto difrntl wbc STEPHEN PAREDESGeorgi Start: 10-05-2017 IP CONSULT [facility] STEPHENSHERRY DOWNEY Start: 10-05-2017 URINE DRUG SCREEN BRADLEY DOWNEY Plan of Treatment Date Care Activity Detail Author Start: 12-11-2027 Screening for malign ant neoplasm of cervix [facility] Start: 09-28-2027 DTaP,Tdap and Td Vaccines (2 - Td or Tdap) DTaP,Tdap and Td Vaccines (2 - Td or Tdap) [facility] Start: 11-29-2025 Screening for malign ant neoplasm of cervix Pap Smear [facility] Start: 02-05-2025 Depression Screening Depression Scre ening [facility] Start: 02-05-2025 Tobacco Screening Tobacco Screening [facility] Start: 12-31-2024 Influenza vaccination Influenz a Vaccine (Season Ended) [facility] Start: 12-25-2024 End: 12-25-2024 Patient encounter procedure 12/25/2024 10:00 AM EDT Office Visit [facility] [address] [address] Tj Odonnell DO [address] [place] [address] [facility] Start: 10-01-2024 End: 10-01-2024 Patient encounter procedure [facility] Comment on above: Arrived Start: 10-01-2024 End: 10-31-2024 Alpha fetoprotein, maternal Alpha fetoprotein, maternal Lab Routine Second trimester Expected: 10/01/2024 (Approximate), Expires: 10/31/2024 [facility] Comment on above: Expected: 10/01/2024 (Approximate), Expires: 10/31/2024 Start: 10-01-2024 End: 01-01-2025 US for US OB 14+ weeks anatomy scan Imaging Routine Screening, , for anatomic survey Expected: 10/01/2024, Expires: 01/01/2025 [facility] Comment on above: Expected: 10/01/2024 , Expires: 01/01/2025 Start: 09-03-2024 End: 09-03-2024 Patient encounter procedure [facility] Comment on above: Arrived Start: 08-02-2024 End: 08-02-2025 ABO/Rh ABO/Rh Lab Routine Missed menses , unspecified gestational age Expected: 08/02/2024 (Approximate), Expires: 08/02/2025 [facility] Comment on above: Expected: 08/02/2024 (Approximate), Expires: 08/02/2025 Start: 08-02-2024 End: 08-02-2025 Blood type and Indirect antibody screen panel - Blood Type and screen Lab Routine Missed menses , unspecified gestational age Expected: 08/02/2024 (Approximate), Expires: 08/02/2025 [facility] Work Phone: Comment on above: Expected: 08/02/2024 (Approximate), Expires: 08/02/2025 Start: 08-02-2024 End: 08-02-2025 Drugs of abuse panel - Urine by Screen method Rapid drug screen, urine Lab Routine , unspecified gestational age Encounter for supervision of normal first in first trimester Expected: 08/02/2024 (Approximate), Expires: 08/02/2025 [facility] Comment on above: Expected: 08/02/2024 (Approximate), Expires: 08/02/2025 Start: 07-18-2024 End: 07-18-2024 Patient encounter procedure 07/18/2024 1:00 PM EDT Office Visit [facility] [address] [place] [address] Lois Valderrama, COMPUTER SERVICE TECHNICIAN [address] [place] [address] [facility] Start: 06-20-2024 End: 06-20-2024 Patient encounter procedure 06/20/2024 1:30 PM EST Office Visit [facility] [address] [place] [address] Lois Valderrama, COMPUTER SERVICE TECHNICIAN [address] [place] [address] Arrived [facility] Comment on above: Arrived Start: 06-11-2024 Screening for malign ant neoplasm of cervix Pap Smear [facility] Start: 04-18-2024 End: 04-18-2024 Patient encounter procedure 04/18/2024 10:30 AM EST Office Visit [facility] [address] [place] [address] Colten Lam MD [address] [place] [address] [facility] Start: 01-01-2024 Influenza vaccination [facility] Start: 10-30-2023 Influenza vaccination Influenza Vacc ine (#1) [facility] Comment on above: Postponed from 12/31 (Patient Refused) Start: 06-20-2023 End: 06-20-2023 Patient encounter procedure 06/20/2023 11:15 AM EST Office Visit [facility] [address] [facility] [address] [place] [address] Colten Lam MD [address] [facility] [address] [place] [address] [facility] Start: 06-11-2022 Screening for malign ant neoplasm of cervix Pap Smear [facility] Start: 09-13-2009 Adult BMI Screening Adult BMI Screen ing [facility] Bacteria identified in Urine by Culture Urine culture Microbiology Routine Missed menses Ordered: 08/02/2024 [facility] Comment on above: Ordered: 08/02/2024 CBC W Auto Different ial panel - Blood CBC and differential Lab Routine Missed menses , unspecified gestational age Ordered: 08/02/2024 [facility] Comment on above: Ordered: 08/02/2024 CHLAMYDIA TRACHOMATI S (GENITO/STI) CHLAMYDIA TRACHOMATIS (GENITO/STI) Lab Routine STD exposure Ordered: 10/01/2024 [facility] Comment on above: Ordered: 10/01/2024 Cytology Cervical or vaginal smear or scraping study Pap Smear Pathology and Cytology Routine Well woman exam with routine gynecological exam Ordered: 10/01/2024 [facility] Work Phone: Comment on above: Ordered: 10/01/2024 Hemoglobin A1c/Hemoglobin.total in Blood Hemoglobin A1c Lab Routine Missed menses , unspecified gestational age Ordered: 08/02/2024 [facility] Comment on above: Ordered: 08/02/2024 Hepatitis B virus surface Ag [Presence] in Serum or Plasma by Immunoassay Hepatitis B surface antigen Lab Routine Missed menses , unspecified gestational age Ordered: 08/02/2024 [facility] Comment on above: Ordered: 08/02/2024 Hepatitis C virus Ab [Presence] in Serum or Plasma by Immunoassay Hepatitis C antibody Lab Routine Missed menses , unspecified gestational age Ordered: 08/02/2024 [facility] Comment on above: Ordered: 08/02/2024 HIV-1/HIV-2 antigen/antibody combination immunoassay HIV-1 and HIV-2 antibodies Lab Routine Missed menses , unspecified gestational age Ordered: 08/02/2024 [facility] Comment on above: Ordered: 08/02/2024 Human papilloma viru s DNA [Presence] in Unspecified specimen by Probe with amplification HPV DNA probe, amplified Microbiology Routine Well woman exam with routine gynecological exam Ordered: 10/01/2024 [facility] Comment on above: Ordered: 10/01/2024 Neisseria gonorrhoea e DNA [Presence] in Unspecified specimen by MAURICE with probe detection Neisseria gonorrhea DNA probe, direct Lab Routine STD exposure Ordered: 10/01/2024 [facility] Comment on above: Ordered: 10/01/2024 Reagin Ab [Presence] in Serum by RPR RPR Lab Routine Missed menses , unspecified gestational age Ordered: 08/02/2024 [facility] Comment on above: Ordered: 08/02/2024 Rubella antibody, IgG Rubella an tibody, IgG Lab Routine Missed menses , unspecified gestational age Ordered: 08/02/2024 [facility] Comment on above: Ordered: 08/02/2024 SURESWAB(R) ADVANCED VAGINITIS PLUS, TMA SURESWAB(R) ADVANCED VAGINITIS PLUS, TMA Pathology and Cytology Routine STD exposure Ordered: 10/01/2024 [facility] Comment on above: Ordered: 10/01/2024 Immunizations Immunization Date Immunization Notes Care Provider Fa cility 09-27-2017 tetanus toxoid, redu sdae diphtheria toxoid, and acellular pertussis vaccine, adsorbed Allisonher Elba CABRAL [facility] 05-17-2017 influenza, injectabl e, quadrivalent, preservative free Allisonher [place] CABRAL [facility] 05-17-2017 influenza virus vacc ine, unspecified formulation Allisonher [place] CABRAL [facility] Payers Date Payer Category Payer [facility] [id number] 2023 [employer] Blue [employer] Managed Care - Other [employer] [place] [id number] 2023 Unknown BCBS BCBS xxxxxx [id number] 2023-Present [phone] [address] [place] [address] [id number] 2023 Unknown [id number] 2014 Unknown [id number] 1991 Unknown [id number] 9.2.593 1991 Unknown [id number] [id number] 1991 Unknown [id number] [id number] 1991 Unknown [id number] 9.2.1286 1991 Unknown [id number] 9.2.1286 1991 Unknown [id number] 9.2.1259 1991 Unknown [id number] 9.2.1259 1991 Unknown [id number] 9.2.1259 1991 Unknown [id number] 9.2.9 1991 Unknown [id number] 9.2.1259 1959 Self-pay 1959 Unknown [id number] Social History Date Type Detail Facility Start: 11-05-2022 End: 02-06-2024 Tobacco smoking status WYIS Never smoked tobacco [facility] Work Phone: Start: 11-05-2022 End: 02-06-2024 Tobacco use and exposure Smokeless tobacco non-user [facility] Start: 05-19-2023 End: 09-03-2024 Alcohol intake Current drinker of alcohol (finding) [facility] Start: 12-20-2022 End: 05-19-2023 Alcohol intake [facility] Start: 12-20-2022 End: 06-20-2024 Alcohol Use Disorder Identification Test - Consumption [AUDIT-C] [facility] How often to you hav e a drink containing alcohol? 2-4 times a month [facility] How many standard dr inks containing alcohol do you have on a typical day? 1 or 2 [facility] How often do you hav e 6 or more drinks on 1 occasion? Never [facility] Start: 09-16-2022 End: 02-06-2024 Education 13 [facility] Start: 12-20-2022 Alcohol Comment Caffeine intak e: 1-2 cups coffee per day [facility] Start: 1990 Sex Assigned At Not on file [facility] Adolescent depressio n screening assessment 10 [facility] Start: 02-06-2024 Alcohol Comment 1-2 times a month [facility] Start: 12-05-2014 Sex Female (finding) [facility] Start: 06-04-2024 [facility] NEGATED: Highlighted rowStart: NINF History of tobacco use Passive smoker [facility] Clinical Notes 06-08-2023 to 10-01-2024 AMISH Toussaint - 10/01/2024 3:20 PM EDIna Osman NP - 09/03/2024 3:40 PM EDCherie Ryan MA - 08/02/2024 1:30 PM Joan Valderrama NP - 06/20/2024 1:30 PM EST Note Date & Type Note Facility 10-01-2024 History of Presen t illness Narrative Reason for Appointment: Patient ID: Stevan Ga is a 34 y.o. female who presents for Routine Visit Patient presents today for Annual Exam. and Return OB appointment. MEDICATIONS Current Outpatient Medications Medication Instructions lamoTRIgine (LAMICTAL) 200 mg, Oral, Daily magnesium oxide (MAG-OX) 400 mg, Oral, Daily ondansetron ODT (ZOFRAN-ODT) 4 mg, Oral, Every 6 hours PRN tiZANidine (ZANAFLEX) 4 mg, Oral, Every 8 hours PRN venlafaxine XR (EFFEXOR XR) 37.5 mg, Oral, Daily venlafaxine XR (EFFEXOR XR) 75 mg, Oral, Every morning venlafaxine XR (EFFEXOR XR) 150 mg, Daily ALLERGIES No Known Allergies PROBLEMS Active Ambulatory Problems Diagnosis Date Noted Bipolar affective disorder, currently depressed, mild ([facility]) 08/31/2022 Anxiety 08/31/2022 Mild episode of recurrent major depressive disorder (HCC) (CMS/HCC) 08/31/2022 Amenorrhea 02/23/2023 Attention deficit 02/23/2023 Daytime hypersomnia 02/23/2023 Foraminal stenosis of cervical region 02/23/2023 Insulin resistance 02/23/2023 Migraine without aura and with status migrainosus, not intractable (CMS/HCC) 02/23/2023 Other chronic pain 02/23/2023 Spondylosis of cervical region without myelopathy or radiculopathy 02/23/2023 Tension headache 02/23/2023 Term 10/04/2017 Vaginal odor 02/23/2023 Class 1 obesity without serious comorbidity with body mass index (BMI) of 31.0 to 31.9 in adult 04/19/2023 Bipolar II disorder ([facility]/HCC) 02/06/2024 Generalized anxiety disorder ([facility]/HCC) 02/06/2024 Resolved Ambulatory Problems Diagnosis Date Noted No Resolved Ambulatory Problems Past Medical History: Diagnosis Date Acute headache Depression (CMS/HCC) IUD (intrauterine device) in place 05/2018 HISTORY PAST MEDICAL HISTORY SOCIAL HISTORY Past Medical History: Diagnosis Date Acute headache Anxiety Depression (CMS/HCC) IUD (intrauterine device) in place 05/2018 Liletta IUD Social History Tobacco Use Smoking status: Never Smokeless tobacco: Never Vaping Use Vaping status: Never Used Substance Use Topics Alcohol use: Yes Alcohol/week: 2.0 standard drinks of alcohol Types: 2 Standard drinks or equivalent per week Comment: Caffeine intake: 1-2 cups coffee per day Drug use: Never FAMILY HISTORY Family History Problem Relation Name Age of Onset Heart disease Father No Known Problems Brother No Known Problems Daughter Mental illness Paternal Grandfather committed suicide Diabetes Neg Hx Coronary artery disease Neg Hx Cancer Neg Hx Melanoma Neg Hx SURGICAL HISTORY No past surgical history on file. REVIEW OF SYSTEMS Review of Systems: Review of Systems Constitutional: Negative. HENT: Negative. Eyes: Negative. Respiratory: Negative. Cardiovascular: Negative. Gastrointestinal: Negative. Genitourinary: Negative. Musculoskeletal: Negative. Skin: Negative. Neurological: Negative. All other systems reviewed and are negative. Hematological: Negative. Endocrine: Negative. Allergic/Immunologic: Negative. OBJECTIVE Objective: Physical Exam Constitutional: Appearance: Normal appearance. She is normal weight. HENT: Head: Normocephalic. Cardiovascular: Rate and Rhythm: Normal rate. Pulses: Normal pulses. Pulmonary: Effort: Pulmonary effort is normal. Breath sounds: Normal breath sounds. Abdominal: Palpations: Abdomen is soft. Musculoskeletal: General: Normal range of motion. Neurological: General: No focal deficit present. Mental Status: She is alert and oriented to person, place, and time. Psychiatric: Mood and Affect: Mood normal. Behavior: Behavior normal. Thought Content: Thought content normal. Judgment: Judgment normal. Vitals and nursing note reviewed. Vitals: Estimated body mass index is 35.21 kg/m as calculated from the following: Height as of 06/20/24: 5' 3 . Weight as of this encounter: 198 lb 12 oz. BP: 120/82 Patient's last menstrual period was 05/21/2024. ASSESSMENT & PLAN ICD-10-CM 1. Second trimester Z34.92 Alpha fetoprotein, maternal Alpha fetoprotein, maternal magnesium oxide (Mag-Ox) 400 MG tablet 2. 19 weeks gestation of Z3A.19 3. Well woman exam with routine gynecological exam Z01.419 Pap Smear HPV DNA probe, amplified 4. Screening, , for anatomic survey Z36.89 US OB 14+ weeks anatomy scan US OB 14+ weeks anatomy scan 5. STD exposure Z20.2 SURESWAB(R) ADVANCED VAGINITIS PLUS, TMA CHLAMYDIA TRACHOMATIS (GENITO/STI) Neisseria gonorrhea DNA probe, direct Return OB/Annual Exam: Patient presents today for a annual exam/routine obstetrics appointment. Patient is currently 19w0d . Patient states she is doing well but has complaints of nausea in the morning. Pap and cultures was obtained without difficulty and patient was given orders for anatomy scan and msAFP to be obtained. Orders Placed This Encounter Procedures HPV DNA probe, amplified US OB 14+ weeks anatomy scan CHLAMYDIA TRACHOMATIS (GENITO/STI) Neisseria gonorrhea DNA probe, direct Alpha fetoprotein, maternal Follow Up: Patient is to schedule annual exam for next year and return to office in 4 weeks for OB appointment. Documented by AMISH Toussaint on behalf of: AMISH Toussaint documented in this encounter [facility] 09-03-2024 History of Presen t illness Narrative Reason for Appointment: Patient ID: Stevan Ga is a 33 y.o. female who presents for Routine Visit Patient presents today for Return OB appointment. MEDICATIONS Current Outpatient Medications Medication Instructions lamoTRIgine (LAMICTAL) 200 mg, Oral, Daily ondansetron ODT (ZOFRAN-ODT) 4 mg, Oral, Every 6 hours PRN Vit-Fe Fumarate-FA (PNV Plus Multivitamin) 27-1 MG tablet 1 tablet, Oral, Daily tiZANidine (ZANAFLEX) 4 mg, Oral, Every 8 hours PRN venlafaxine XR (EFFEXOR XR) 37.5 mg, Oral, Daily venlafaxine XR (EFFEXOR XR) 75 mg, Oral, Every morning venlafaxine XR (EFFEXOR XR) 150 mg, Daily ALLERGIES No Known Allergies PROBLEMS Active Ambulatory Problems Diagnosis Date Noted Bipolar affective disorder, currently depressed, mild ([facility]) 08/31/2022 Anxiety 08/31/2022 Mild episode of recurrent major depressive disorder (HCC) ([facility]) 08/31/2022 Amenorrhea 02/23/2023 Attention deficit 02/23/2023 Daytime hypersomnia 02/23/2023 Foraminal stenosis of cervical region 02/23/2023 Insulin resistance 02/23/2023 Migraine without aura and with status migrainosus, not intractable ([facility]) 02/23/2023 Other chronic pain 02/23/2023 Spondylosis of cervical region without myelopathy or radiculopathy 02/23/2023 Tension headache 02/23/2023 Term 10/04/2017 Vaginal odor 02/23/2023 Class 1 obesity without serious comorbidity with body mass index (BMI) of 31.0 to 31.9 in adult 04/19/2023 Bipolar II disorder ([facility]) 02/06/2024 Generalized anxiety disorder ([facility]) 02/06/2024 Resolved Ambulatory Problems Diagnosis Date Noted No Resolved Ambulatory Problems Past Medical History: Diagnosis Date Acute headache Depression ([facility]) IUD (intrauterine device) in place 05/2018 HISTORY PAST MEDICAL HISTORY SOCIAL HISTORY Past Medical History: Diagnosis Date Acute headache Anxiety Depression ([facility]) IUD (intrauterine device) in place 05/2018 Liletta IUD Social History Tobacco Use Smoking status: Never Smokeless tobacco: Never Vaping Use Vaping status: Never Used Substance Use Topics Alcohol use: Yes Alcohol/week: 2.0 standard drinks of alcohol Types: 2 Standard drinks or equivalent per week Comment: Caffeine intake: 1-2 cups coffee per day Drug use: Never FAMILY HISTORY Family History Problem Relation Name Age of Onset Heart disease Father No Known Problems Brother No Known Problems Daughter Mental illness Paternal Grandfather committed suicide Diabetes Neg Hx Coronary artery disease Neg Hx Cancer Neg Hx Melanoma Neg Hx SURGICAL HISTORY History reviewed. No pertinent surgical history. REVIEW OF SYSTEMS Review of Systems: Review of Systems Constitutional: Negative. HENT: Negative. Eyes: Negative. Respiratory: Negative. Cardiovascular: Negative. Gastrointestinal: Negative. Genitourinary: Negative. Musculoskeletal: Negative. Skin: Negative. Neurological: Negative. All other systems reviewed and are negative. Hematological: Negative. Endocrine: Negative. Allergic/Immunologic: Negative. OBJECTIVE Objective: Physical Exam Constitutional: Appearance: Normal appearance. She is well-developed. Cardiovascular: Rate and Rhythm: Normal rate and regular rhythm. Pulmonary: Effort: Pulmonary effort is normal. Breath sounds: Normal breath sounds. Abdominal: General: Bowel sounds are normal. There is no distension. Palpations: Abdomen is soft. Tenderness: There is no abdominal tenderness. There is no guarding or rebound. Musculoskeletal: General: No swelling. Normal range of motion. Right lower leg: No edema. Left lower leg: No edema. Neurological: Mental Status: She is alert and oriented to person, place, and time. Skin: General: Skin is warm and dry. Psychiatric: Mood and Affect: Mood normal. Behavior: Behavior normal. Vitals and nursing note reviewed. Exam conducted with a primary school teacher librarian present. Vitals: Estimated body mass index is 34.26 kg/m as calculated from the following: Height as of 06/20/24: 5' 3 . Weight as of this encounter: 193 lb 6.4 oz. BP: 112/68 Patient's last menstrual period was 05/21/2024. ASSESSMENT & PLAN ICD-10-CM 1. Second trimester Z34.92 2. 15 weeks gestation of Z3A.15 3. Nausea and vomiting, unspecified vomiting type R11.2 ondansetron ODT (Zofran-ODT) 4 MG disintegrating tablet 4. Bipolar affective disorder, currently depressed, mild (CMS/HCC) F31.31 Return OB: Patient presents today for a routine obstetrics appointment. Patient is currently 15w0d . Patient states she is doing well but has complaints of being tired due to current . Patient has verbalizes frequent movement. labor precautions was discussed/given and patient was instructed to perform kick counts three times a day. No orders of the defined types were placed in this encounter. Follow Up: Patient is to return to office in 4 week for routine OB appointment. Documented by Annabel Osman NP on behalf of: Tj Odonnell DO documented in this encounter [facility] 08-02-2024 History of Presen t illness Narrative Reason for Appointment: Patient ID: Stevan Ga is a 33 y.o. female who presents for Amenorrhea Patient presents today for a Nurse OB Intake appointment. Patient is 10w3d with a Estimated Date of Delivery: 02/25/25 OB History Para Term AB Living 3 1 1 1 1 SAB IAB Ectopic Multiple Live Births 1 # Outcome Date GA Lbr Joss/2nd Weight Sex Type Anes PTL Lv 3 Current 2 Term 10/06/17 40w1d 02:28 7 lb 8.4 oz F Vag-Spont EPI N LOREN 1 AB 2005 Current Medications: has a current medication list which includes the following prescription(s): lamotrigine, gummies, tizanidine, venlafaxine xr, and venlafaxine xr. Medical History: Active Ambulatory Problems Diagnosis Date Noted Bipolar affective disorder, currently depressed, mild ([facility]) 08/31/2022 Anxiety 08/31/2022 Mild episode of recurrent major depressive disorder (HCC) ([facility]) 08/31/2022 Amenorrhea 02/23/2023 Attention deficit 02/23/2023 Daytime hypersomnia 02/23/2023 Foraminal stenosis of cervical region 02/23/2023 Insulin resistance 02/23/2023 Migraine without aura and with status migrainosus, not intractable ([facility]) 02/23/2023 Other chronic pain 02/23/2023 Spondylosis of cervical region without myelopathy or radiculopathy 02/23/2023 Tension headache 02/23/2023 Term 10/04/2017 Vaginal odor 02/23/2023 Class 1 obesity without serious comorbidity with body mass index (BMI) of 31.0 to 31.9 in adult 04/19/2023 Bipolar II disorder ([facility]/HCC) 02/06/2024 Generalized anxiety disorder ([facility]) 02/06/2024 Resolved Ambulatory Problems Diagnosis Date Noted No Resolved Ambulatory Problems Past Medical History: Diagnosis Date Acute headache Depression ([facility]) IUD (intrauterine device) in place 05/2018 Family History Problem Relation Name Age of Onset Heart disease Father No Known Problems Brother No Known Problems Daughter Mental illness Paternal Grandfather committed suicide Diabetes Neg Hx Coronary artery disease Neg Hx Cancer Neg Hx Melanoma Neg Hx Social History Tobacco Use Smoking status: Never Smokeless tobacco: Never Vaping Use Vaping status: Never Used Substance Use Topics Alcohol use: Yes Alcohol/week: 2.0 standard drinks of alcohol Types: 2 Standard drinks or equivalent per week Comment: Caffeine intake: 1-2 cups coffee per day Drug use: Never No past surgical history on file. No Known Allergies Vitals: Estimated body mass index is 33.66 kg/m as calculated from the following: Height as of 06/20/24: 5' 3 . Weight as of this encounter: 190 lb. BP: 120/72 Patient's last menstrual period was 05/21/2024. Assessment/Plan Diagnoses and all orders for this visit: Missed menses - Type and screen; Future - ABO/Rh; Future - CBC and differential - Hemoglobin A1c - RPR - Rubella antibody, IgG - Hepatitis B surface antigen - Hepatitis C antibody - HIV-1 and HIV-2 antibodies - Urine culture - POCT , urine manually resulted - POCT urinalysis dipstick manually resulted , unspecified gestational age - Type and screen; Future - ABO/Rh; Future - CBC and differential - Hemoglobin A1c - RPR - Rubella antibody, IgG - Hepatitis B surface antigen - Hepatitis C antibody - HIV-1 and HIV-2 antibodies - Rapid drug screen, urine; Future Encounter for supervision of normal first in first trimester - Rapid drug screen, urine; Future - MV & Min w/FA-DHA ( Gummies) 0.18-25 MG chewable tablet; Chew 1 tablet Daily Nurse Note: Pt states she is on Lamitcal by her psychiatrist for bipolar along w/Effexor. Was advised by her doctor to discuss w/OB doctor. Pt will discuss these medications w/Dr. Odonnell at next visit. Pt will have [place] and labs done. Pt is in need of PNV and rx was sent to pharmacy. OB Intake: Patient presents today for first OB visit. Patients history has been reviewed in great detail including any potential risks. Patient signed consent forms and patient desires testing in both trimesters. Patient currently has no complaints and has been advised to drink 6-8 glasses of water a day, eat no raw or undercooked meat, and stay away from [facility]. Patient has also been advised to not change litter boxes and eat 6 small meals a day. Patient has been consulted regarding the do's and don'ts of . Patient was given labs and all questions and concerns were answered. Follow Up: Patient is to return in 4 weeks for routine OB appointment. Follow Up: Patient is to have labs drawn at directed and return to office for initial OB appointment with provider. Patient may call office as needed with any concerns or questions. Nurse Visit Completed by: Alida Ryan MA documented in this encounter [facility] 06-20-2024 History of Presen t illness Narrative Images from the original note were not included. Subjective Patient ID: Stevan Ga is a 33 y.o. female who presents for medication F/U. Stevan presents today for a medication F/U, weight check. She started Adipex on 04-19-23, weight was 174.2. On weight was 177 and today's weight is 190. She h.as been off the Adiopex for 2 months Current Outpatient Medications on File Prior to Visit Medication Sig Dispense Refill lamoTRIgine (LaMICtal) 200 MG tablet Take 1 tablet (200 mg) by mouth Daily 90 tablet 1 norethindrone-ethinyl estradiol-iron (Lo Loestrin Fe) 1 MG-10 MCG / 10 MCG tablet Take 1 tablet by mouth in the morning. 28 tablet 11 phentermine (Adipex-P) 37.5 MG tablet Take 1 tablet (37.5 mg) by mouth in the morning. 30 tablet 0 tiZANidine (Zanaflex) 4 MG tablet Take 1 tablet (4 mg) by mouth every 8 (eight) hours if needed for muscle spasms 30 tablet 0 venlafaxine XR (Effexor XR) 37.5 MG 24 hr capsule Take 1 capsule by mouth in the morning 60 capsule 3 venlafaxine XR (Effexor XR) 75 MG 24 hr capsule Take 1 capsule (75 mg) by mouth in the morning. 90 capsule 1 No current facility-administered medications on file prior to visit. I have reviewed and reconciled the history and medication list with the patient today. No Known Allergies Social History Tobacco Use Smoking status: Never Smokeless tobacco: Never Vaping Use Vaping status: Never Used Substance Use Topics Alcohol use: Yes Alcohol/week: 2.0 standard drinks of alcohol Types: 2 Standard drinks or equivalent per week Comment: Caffeine intake: 1-2 cups coffee per day Drug use: Never Family History Problem Relation Name Age of Onset Heart disease Father No Known Problems Brother No Known Problems Daughter Mental illness Paternal Grandfather committed suicide Diabetes Neg Hx Coronary artery disease Neg Hx Cancer Neg Hx Melanoma Neg Hx Past Medical History: Diagnosis Date Acute headache Anxiety Depression (CMS/HCC) IUD (intrauterine device) in place 05/2018 Liletta IUD History reviewed. No pertinent surgical history. Visit Vitals OB Status Having periods Smoking Status Never Review of Systems Constitutional: Negative. HENT: Negative. Eyes: Negative. Respiratory: Negative. Cardiovascular: Negative. Gastrointestinal: Negative. Genitourinary: Negative. Musculoskeletal: Negative. Skin: Negative. Neurological: Negative. Psychiatric/Behavioral: Negative. Hematological: Negative. Endocrine: Negative. Allergic/Immunologic: Negative. Objective Physical Exam Vitals reviewed. Constitutional: Appearance: Normal appearance. HENT: Head: Normocephalic and atraumatic. Right Ear: External ear normal. Left Ear: External ear normal. Mouth/Throat: Mouth: Mucous membranes are moist. Eyes: Conjunctiva/sclera: Conjunctivae normal. Cardiovascular: Rate and Rhythm: Normal rate and regular rhythm. Pulses: Normal pulses. Heart sounds: Normal heart sounds. Pulmonary: Effort: Pulmonary effort is normal. Breath sounds: Normal breath sounds. Abdominal: Palpations: Abdomen is soft. Musculoskeletal: General: Normal range of motion. Cervical back: Normal range of motion. Skin: General: Skin is warm and dry. Neurological: General: No focal deficit present. Mental Status: She is alert and oriented to person, place, and time. Psychiatric: Mood and Affect: Mood normal. Behavior: Behavior normal. Thought Content: Thought content normal. Judgment: Judgment normal. Assessment/Plan 1. Class 1 obesity without serious comorbidity with body mass index (BMI) of 31.0 to 31.9 in adult, unspecified obesity type Discussed diagnosis, use of adipex. Discussed its most common side effects. We discussed diet and exercise. She declines a vice president investor relations consult at this time. She states that her insurance will not cover the cost. We will restart the phentermine today - phentermine (Adipex-P) 37.5 MG tablet; Take 1 tablet (37.5 mg) by mouth in the morning. Dispense: 30 tablet; Refill: 0 No follow-ups on file. documented in this encounter [facility] 04-04-2024 Telephone encount er Note Refill sent. [facility] 04-04-2024 Miscellaneous Notes Formattin g of this note might be different from the original. Refill sent. documented in this encounter [facility] 01-09-2024 Telephone encount er Note OARRS reviewed, Rx sent into patient's pharmacy. [facility] 01-09-2024 Miscellaneous Notes Formattin g of this note might be different from the original. OARRS reviewed, Rx sent into patient's pharmacy. venlafaxine XR (Effexor XR) 75 MG 24 hr capsule lamoTRIgine (LaMICtal) 200 MG tablet BOTH OF THESE NEED SENT TO [facility] - the effexor 37.5 was sent already but she takes 75 mg as well. documented in this encounter [facility] 01-09-2024 Telephone encount er Note venlafaxine XR (Effexor XR) 75 MG 24 hr capsule lamoTRIgine (LaMICtal) 200 MG tablet BOTH OF THESE NEED SENT TO [facility] [place] - the effexor 37.5 was sent already but she takes 75 mg as well. [facility] 01-04-2024 Telephone encount er Note Refill not appropriate. [facility] 01-04-2024 Miscellaneous Notes Formattin g of this note might be different from the original. Refill not appropriate. Refills have been requested for the following medications: Other - Cough medicine Preferred pharmacy: [facility] [address] [place] [address] [address] Delivery method: Pickup documented in this encounter [facility] 01-03-2024 Telephone encount er Note Refills have been requested for the following medications: Other - Cough medicine Preferred pharmacy: [facility] [address] [place] [address] [address] Delivery method: Pickup [facility] 06-08-2023 Telephone encount er Note Pt is trying to get a different waiter and cashier and wanted to find out if you would be will in send in a refill lamictal, effexor both of these to [facility] [place] [facility] 06-08-2023 Miscellaneous Notes Formattin g of this note might be different from the original. Pt is trying to get a different waiter and cashier and wanted to find out if you would be will in send in a refill lamictal, effexor both of these to [facility] [place] documented in this encounter [facility] Evaluation note Diagnosis Bipolar affective disorder, currently depressed, mild (CMS/HCC) Bipolar I disorder, most recent episode (or current) depressed, mild documented in this encounter [facility]* Diagnosis Class 1 obesity without serious comorbidity with body mass index (BMI) of 31.0 to 31.9 in adult, unspecified obesity type documented [facility]* Diagnosis Trapezius muscle spasm documented [facility]* Diagnosis Upper respiratory tract infection, unspecified type documented [facility]* Diagnosis Class 1 obesity without serious comorbidity with body mass index (BMI) of 31.0 to 31.9 in adult, unspecified obesity type Bipolar affective disorder, currently depressed, mild (CMS/HCC) Bipolar I disorder, most recent episode (or current) depressed, mild [facility]* Diagnosis Class 1 obesity without serious comorbidity with body mass index (BMI) of 31.0 to 31.9 in adult, unspecified obesity type Trapezius muscle spasm documented [facility]* Diagnosis Class 1 obesity without serious comorbidity with body mass index (BMI) of 31.0 to 31.9 in adult, unspecified obesity type documented [facility]* Diagnosis Missed menses , unspecified gestational age Encounter for supervision of normal first in first trimester documented [facility]* Diagnosis Second trimester state, incidental 15 weeks gestation of Nausea and vomiting, unspecified vomiting type Bipolar affective disorder, currently depressed, mild (CMS/HCC) Bipolar I disorder, most recent episode (or current) depressed, mild [facility]* Diagnosis Second trimester state, incidental 19 weeks gestation of Well woman exam with routine gynecological exam Routine gynecological examination Screening, , for anatomic survey Encounter for anatomic survey STD exposure documented in this encounter [facility]Not on [facility]ocumented [facility] Purpose Family History No Family History Records FoundNo Family History Records FoundNo Family History Records FoundNo Family History Records FoundNo Family History Records Found Advance Directives No Advanced Directives Records FoundNo Advanced Directives Records FoundNo Advanced Directives Records FoundNo Advanced Directives Records FoundNo Advanced Directives Records Found Additional Source Comments INFORMATION SOURCE (unrecogn ized section and content) DATE CREATED AUTHOR 10/18/2017 [facility] DATE CREATED AUTHOR AUTHOR'S ORGANIZ ATION 12/19/2019 [facility] DATE CREATED AUTHOR AUTHOR'S ORGANIZ ATION 05/13/2021 [facility] dical Specialist DATE CREATED AUTHOR AUTHOR'S ORGANIZ ATION 08/19/2024 [facility] DATE CREATED AUTHOR AUTHOR'S ORGANIZ ATION 09/06/2024 [facility] dical Specialists EPIC Care Teams (unrecognized sec tion and content) Pot Runner Relationship Specialty Start Date End Date Colten Lam MD [address] [place] [address] PCP - General Internal Medicine 09/23/22 Pot Runner Relationship Specialty Start Date End Date Colten Lam MD [address] [place] [address] PCP - [employer] 04/01/22 Colten Lam MD [address] [place] [address] PCP - General Internal Medicine 09/23/22 Pot Runner Relationship Specialty Start Date End Date Colten Lam MD [address] [place] [address] PCP - [employer] 04/01/22 Colten Lam MD [address] [place] [address] PCP - General Internal Medicine 09/23/22 Pot Runner Relationship Specialty Start Date End Date Colten Lam MD [address] [place] [address] PCP - [employer] 04/01/22 Colten Lam MD [address] [place] [address] PCP - General Internal Medicine 09/23/22 Pot Runner Relationship Specialty Start Date End Date Colten Lam MD [address] [place] [address] PCP - [employer] 04/01/22 Colten Lam MD [address] [place] [address] PCP - General Internal Medicine 09/23/22 Pot Runner Relationship Specialty Start Date End Date Colten Lam MD [address] [place] [address] PCP - [employer] 04/01/22 Colten Lam MD [address] [place] [address] PCP - General Internal Medicine 09/23/22 Pot Runner Relationship Specialty Start Date End Date Colten Lam MD [address] [place] [address] PCP - General Internal Medicine 09/23/22 Ema Cruz [employer] BR[employer]HER [address] [place] [address] PCP - [employer] 04/01/24 Pot Runner Relationship Specialty Start Date End Date Colten Lam MD [address] [place] [address] PCP - General Internal Medicine 09/23/22 Ema Cruz LEAD CASHIER[employer]HARNESS BRUSHER [address] [place] [address] PCP - [employer] 04/01/24 Pot Runner Relationship Specialty Start Date End Date Colten Lam MD [address] [place] [address] PCP - General Internal Medicine 01/30/24 Pot Runner Relationship Specialty Start Date End Date Colten Lam MD [address] [place] [address] PCP - General Internal Medicine 09/23/22 Ema Cruz, [facility] [address] [place] [address] PCP - [employer] 04/01/24 Pot Runner Relationship Specialty Start Date End Date Colten Lam MD [address] [place] [address] PCP - General Internal Medicine 09/23/22 Ema Cruz, [facility] [address] [place] [address] PCP - [employer] 04/01/24 Pot Runner Relationship Specialty Start Date End Date Colten Lam MD [address] [place] [address] PCP - General Internal Medicine 09/23/22 Ema Cruz, [facility] [address] [place] [address] PCP - [employer] 04/01/24 Pot Runner Relationship Specialty Start Date End Date Colten Lam MD [address] [place] [address] PCP - General Internal Medicine 09/23/22 Pot Runner Relationship Specialty Start Date End Date Colten Lam MD [address] [place] [address] PCP - General Internal Medicine 09/23/22 Reason for Visit (unrecogniz ed section and content) Reason Onset Date Comments Med Refill 03/19/2024 Reason Comments Med Refill Reason Onset Date Comments Med Refill 01/03/2024 Reason Onset Date Comments Med Refill 05/01/2024 Reason Comments Amenorrhea Reason Comments Routine Visit FOR RECORDS PERTAINING TO PATIENTS WHO ARE OR HAVE BEEN ENROLLED IN A CHEMICAL DEPENDENCY/SUBSTANCEABUSE PROGRAM, SOME INFORMATION MAY BE OMITTED. This clinical summary was aggregated from multiple sources. Caution should be exercised in using it in the provision of clinical care. This summary normalizes information from multiple sources, and as a consequence, information in this document may materially change the coding, format and clinical context of patient data. In addition, data may be omitted in some cases. CLINICAL DECISIONS SHOULD BE BASED ON THE PRIMARY CLINICAL RECORDS. [employer] provides no warranty or guarantee of the accuracy or completeness of information in this document.
[2024-10-08 12:09] LABS: Age Gdln ACOG Testing Note (.); HPV Aptima Negative (Negative); IGP, Aptima HPV, rfx 16/18,45 Note (.)
== END 2024-10-01 20:10 | disposition home or self-care (01) ==
LOC: LAB 20:09
PROVIDERS: PCP Internal Medicine; Visit Provider Obstetrics & Gynecology
DX: Z01.419 Encounter for gynecological examination (general) (routine) without abnormal findings (principal)
CPT/HCPCS: 87624; 88175

== ENCOUNTER 2024-11-12 13:14 | Outpatient (OUT) | payer BC, SELFPAY ==
[2024-11-12 14:37] LABS: Hematocrit 33.6 % (36.0-48.0); Hemoglobin 11.5 g/dL (12.0-16.0); Immature Granulocytes Abs Auto 0.19 10^3/uL (0.00-0.03); Immature Granulocytes Pct Auto 1.3 % (0.0-0.5); Lymphocytes Absolute Auto 2.2 10^3/uL (1.2-3.8); Mean Corpuscular HGB Conc 34.2 g/dL (29.9-35.2); Mean Corpuscular Hemoglobin 30.7 pg (26.7-34.0); Mean Corpuscular Volume 89.8 fL (81.0-99.0); Platelet Count 253 10^3/uL (150-450); Red Blood Count 3.74 10^6/uL (4.20-5.40); White Blood Count 14.3 10^3/uL (4.0-11.0)
[2024-11-12 15:37] LABS: Glucose 1 Hour 105 mg/dL (<130)
== END 2024-11-12 13:15 | disposition home or self-care (01) ==
LOC: LAB 13:16
PROVIDERS: PCP Internal Medicine; Visit Provider Obstetrics & Gynecology
DX: Z13.1 Encounter for screening for diabetes mellitus (principal)
CPT/HCPCS: 36415; 82950; 85025

== ENCOUNTER 2024-12-27 17:22 | Observation (INO) | payer BC, SELFPAY ==
[2024-12-27 17:40] VITALS: BP 137/83; PULSE 96
--- NOTE | 2024-12-27 19:20 | US_ITS ---
[place] [id number] Patient Name: STEVAN GA MRN: [id number] date: 1990 Sex: F Assigned Patient Location: [facility] Current Patient Location: Accession/Order Number: [id number] Exam Date: 12/27/2024 19:25 Report Date: 12/27/2024 20:34 At the request of: TJ CALDWELL DO Procedure: US OB cervical length US OB placenta, US OB cervical length 12/27/2024 7:21 PM SIGNS AND SYMPTOMS: ^bleeding PROTOCOL: Transabdominal and transvaginal imaging of the gravid uterus COMPARISON: None FINDINGS: The placenta is homogeneous in appearance and anteriorly located. The cervix measures 4.2 cm in length. A small amount of fluid is noted in the cervical canal. The internal cervical os appears to be closed. Estimated gestational age: 31 weeks and 3 days heart rate: 164 bpm. presentation: Cephalic US/US OB placenta IMPRESSION: The placenta is homogeneous in appearance and anteriorly located. The cervix measures 4.2 cm in length. A small amount of fluid is noted in the cervical canal. The internal cervical os appears to be closed. Impression dictated by: Tyson Pina M.D. 12/27/2024 8:34 PM Dictation Location: [place] [address] Electronically authenticated by: [id number] Y Date: 12/27/2024 20:34
--- NOTE | 2024-12-27 19:21 | US_ITS ---
[address] [address] Patient Name: STEVAN GA MRN: [id number] date: 1990 Sex: F Assigned Patient Location: [facility] Current Patient Location: Accession/Order Number: [id number] Exam Date: 12/27/2024 19:25 Report Date: 12/27/2024 20:34 At the request of: TJ CALDWELL DO Procedure: US OB cervical length US OB placenta, US OB cervical length 12/27/2024 7:21 PM SIGNS AND SYMPTOMS: ^bleeding PROTOCOL: Transabdominal and transvaginal imaging of the gravid uterus COMPARISON: None FINDINGS: The placenta is homogeneous in appearance and anteriorly located. The cervix measures 4.2 cm in length. A small amount of fluid is noted in the cervical canal. The internal cervical os appears to be closed. Estimated gestational age: 31 weeks and 3 days heart rate: 164 bpm. presentation: Cephalic US/US OB cervical length IMPRESSION: The placenta is homogeneous in appearance and anteriorly located. The cervix measures 4.2 cm in length. A small amount of fluid is noted in the cervical canal. The internal cervical os appears to be closed. Impression dictated by: Tyson Pina M.D. 12/27/2024 8:34 PM Dictation Location: [place] [address] Electronically authenticated by: [id number] Y Date: 12/27/2024 20:34
== END 2024-12-27 20:05 | disposition home or self-care (01) ==
PROVIDERS: Admitting Provider Obstetrics & Gynecology; PCP Internal Medicine; Visit Provider Obstetrics & Gynecology
DX: O46.93 Antepartum hemorrhage, unspecified, third trimester (principal); Z3A.31 31 weeks gestation of pregnancy
CPT/HCPCS: 59025; 76815; 76817; G0378; G0379

== ENCOUNTER 2025-01-30 14:55 | Outpatient (OUT) | payer BC, SELFPAY ==
--- OUTSIDE RECORDS SUMMARY | 2025-01-16 11:20 | XMS_ITS | Encounter Summary ---
Author Organization [facility] Address [address] [facility] [place] [address] Care Team Providers Care Disposal Worker Name Role Phone Colten Lam MD Primary Care Provider [phone] Reason for Visit * Reason Comments Routine Visit Encounter Details Date Type Department Care Team (Late st Contact Info) Description 01/16/2025 11:20 AM EDT Routine LINDY RIOS [address] [place] [address] Uma Da Silva PA [address] [place], [id number] Third trimester ([facility]); 34 weeks gestation of ([facility]) Social History Tobacco Use Types Packs/Day Years Used Date Smoking Tobacco: Never Smokeless Tobacco: Never Alcohol Use Standard Drinks/Week Comments Yes 2 (1 standard drink = 0.6 oz pure alcohol) Caffeine intake: 1-2 cups coffee per day AUDIT-C Answer Date Recorded Q1: How often do you have a drink containing alc ohol? 2-4 times a month 12/20/2022 Q2: How many drinks containi ng alcohol do you have on a typical day when you are drinking? 1 or 2 12/20/2022 Q3: How often do you have si x or more drinks on one occasion? Never 12/20/2022 PHQ-2 Answer Date Recorded Patient Health Questionnaire-2 Score 3 12/20/2022 Education Answer Date Recorded What is the highest level of school you have completed or the highest degree you have received? 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 female who presents for Routine Visit Patient presents today for Return OB appointment. MEDICATIONS Current Outpatient Medications Medication Instructions lamoTRIgine (LAMICTAL) 200 mg, Oral, Daily magnesium oxide (MAG-OX) 400 mg, Oral, Daily promethazine (PHENERGAN) 12.5 mg, Oral, Every 4 hours tiZANidine (ZANAFLEX) 4 mg, Oral, Every 8 hours PRN venlafaxine XR (EFFEXOR XR) 37.5 mg, Oral, Daily venlafaxine XR (EFFEXOR XR) 75 mg, Oral, Every morning venlafaxine XR (EFFEXOR XR) 150 mg, Daily ALLERGIES No Known Allergies PROBLEMS Active Ambulatory Problems Diagnosis Date Noted Bipolar affective disorder, currently depressed, mild (HCC) 08/31/2022 Anxiety 08/31/2022 Mild episode of recurrent major depressive disorder 08/31/2022 Amenorrhea 02/23/2023 Attention deficit 02/23/2023 Daytime hypersomnia 02/23/2023 Foraminal stenosis of cervical region 02/23/2023 Insulin resistance 02/23/2023 Migraine without aura and with status migrainosus, not intractable 02/23/2023 Other chronic pain 02/23/2023 Spondylosis of cervical region without myelopathy or radiculopathy 02/23/2023 Tension headache 02/23/2023 Term ([facility]) 10/04/2017 Vaginal odor 02/23/2023 Class 1 obesity without serious comorbidity with body mass index (BMI) of 31.0 to 31.9 in adult 04/19/2023 Bipolar II disorder ([facility]) 02/06/2024 Generalized anxiety disorder 02/06/2024 32 weeks gestation of ([facility]) 01/02/2025 Resolved Ambulatory Problems Diagnosis Date Noted No Resolved Ambulatory Problems Past Medical History: Diagnosis Date Acute headache Depression IUD (intrauterine device) in place 05/2018 HISTORY PAST MEDICAL HISTORY SOCIAL HISTORY Past Medical History: Diagnosis Date Acute headache Anxiety Depression IUD (intrauterine device) in place 05/2018 Liletta [...] reviewed. Vitals: Estimated body mass index is 36.63 kg/m?? as calculated from the following: Height as of 06/20/24: 5' 3 . Weight as of this encounter: 206 lb 12.8 oz. BP: 112/76 Patient's last menstrual period was 05/21/2024. ASSESSMENT & PLAN ICD-10-CM 1. Third trimester ([facility]) Z34.93 POCT urinalysis dipstick manually resulted 2. 34 weeks gestation of ([facility]) Z3A.34 POCT urinalysis dipstick manually resulted Return OB: Patient presents today for a routine obstetrics appointment. Patient is currently 34w2d . Patient states she is doing well but has complaints of being tired due to current . Patient has verbalizes frequent movement. labor precautions was discussed/given and patient was instructed to perform kick counts three times a day. Orders Placed This Encounter Procedures POCT urinalysis dipstick manually resulted Follow Up: Patient is to return to office in 2 week for routine OB appointment. Documented by AMISH Toussaint on behalf of: AMISH Toussaint documented in this encounter Plan of Treatment Upcoming Encounters Date Type Department Care Team (Late st Contact Info) Description 02/06/2025 1:20 PM EDT Routine [facility] [address] [place] [address] Annabel Osman, QUALITY MEASUREMENT SPECIALIST [address] [place] [address] documented as of this encounter Procedures Procedure Name Priority Date/Time Associated Diagnosis Comments POCT URINALYSIS DIPSTICK Routine 01/16/2025 11:42 AM EDT Third trimester ([facility]) 34 weeks gestation of ([facility]) documented in this encounter Results * (ABNORMAL) POCT urinalysis dipstick manually resulted (01/16/2025 11:42 AM EDT) Color, UA Yellow Clarity, UA Clear Glucose, UA Negative Negative - 1999(110) ++++ mg/dL Bilirubin, UA Negative Negative - 4(70) +++ mg/dL Ketones, UA Negative Negative - 160(16) ++++ mg/dL Spec Grav, UA 1.025 1 - 1.03 Blood, UA Negative Negative - 50 Aneudy/mcL pH, UA 6.0 5 - 9 Protein, UA Negative Negative - 1999(20) ++++ mg/dL Urobilinogen, UA 1.0 0.2 - 12 mg/dL Leukocytes, UA Positive Negative - 500+++ Migdalia/mcL Nitrite, UA Negative Negative - Positive Urine 01/16/2025 11:4 2 AM EDT Dominik Odonnell DO POINT OF CARE TEST ENTER/EDIT OR DERABLES Final Result documented in this encounter Visit Diagnoses Diagnosis Third trimester ([facility]) state, incidental 34 weeks gestation of ([facility]) documented in this encounter Additional Health Concerns Assessment Noted Time PHQ-9 Depression Total Score: 15 023 2:06 PM EST documented as of this encounter Care Teams Disposal Worker Relationship Specialty Start Date End Date Colten Lam MD [address] [address] PCP - General Internal Medicine 09/23/22 documented as of this encounter
--- OUTSIDE RECORDS SUMMARY | 2025-01-30 13:30 | XMS_ITS ---
Author Name Auto Generated Organization [facility] Care Team Providers Care Manager Games Name Role Phone WERO VALDERRAMA Attending Unavailable TJ CALDWELL Attending Unavailable KATY MCCORMICK Attending Unavailable TJ CALDWELL Attending Unavailable KATY MCCORMICK Attending Unavailable TJ CALDWELL Attending Unavailable KATY MCCORMICK Attending Unavailable TJ CALDWELL Attending Unavailable KATY MCCORMICK Attending Unavailable QUINN MACIAS Attending Unavailable AYESHA VAZQUEZ Attending Unavailable LUZMARIA BRUNO Referring Unavailable LESLEY TONEY Primary Care Unavailable GEORGE AYESHA MAXWELL Attending Unavailable LESLEY TONEY Referring Unavailable LESLEY TONEY Primary Care Unavailable PROBLEMS DATE TYPE CONDITION / CODE ATTENDING STATUS JAY CARVAJAL 02/06/2024 Unknown Generalized anxi ety disorder / F41.1(ICD-10) NOAHDamari AYESHA MAXWELL Active [facility] 02/06/2024 Unknown Bipolar II disor kirstin / F31.81(ICD-10) SHAANSONY AYESHA MAXWELL Active [facility] PROCEDURES No Procedure Records Found RESULTS US OB FOLLOW UP TRANSABDOMINAL APPROACH Observed: 12/19/2024 10:18 AM Status: F Source: [facility] EPIC Order Comment: US OB SCAN FO R GROWTH Estimated Date of Delivery: 02/25/25 Gestational Age as of 12/05/2024: 28w2d EXAM: US OB FOLLOW UP TRANSA BDOMINAL APPROACH HISTORY: Inconsistent size. COMPARISON: Ob ultrasound 11/07/2024. TECHNIQUE: Two-dimensional transabdominal grayscale ultrasound imaging of the pelvis was performed. FINDINGS: Gestation: Single Presentation: Breech Cardiac Activity: 144 beats per minute Amniotic Fluid Index: 16.5 cm MEASUREMENTS: BPD: 7.3 cm EGA: 29 weeks 1 days HC: 28.1 cm EGA: 30 weeks 5 days AC: 28.2 cm EGA: 32 weeks 2 days FL: 6.0 cm EGA: 31 weeks 2 days HC/AC Ratio: 1.00 The gestational age by today's ultrasound is 30 weeks 6 days (+/- 15 days gestation). Estimated Weight: 1784 grams, +/- 268 grams ( 3 lb 15 oz). Weight Percentile for gestational age: 80 % IMPRESSION: 1. Single, live intrauterine gestation 30 weeks, 2 days by LMP. Today's ultrasound measurements correlate with a gestational age of 30 weeks 6 days. Estimated weight is 1784 grams, +/- 268 grams ( 3 lb 15 oz) which correlates to 80 %. LAURA by today's ultrasound is 02/21/2025. Interpreted by: Electronically signed by RASHMI GUAJARDO II, MD, PHD at 20-Dec-2024 08:06:10 AM [facility] US OB LIMITED 1+ FETUSES Observed: 11/07 10:23 AM Status: F Source: [facility] EPIC Order Comment: US OB INCOMPL ETE ANATOMY Estimated Date of Delivery: 02/25/25 Gestational Age as of 10/16/2024: 21w1d FINDINGS: Single viable intrauterine with anterior placenta not associated with the cervical os. Current heart rate identified at 155 bpm. Normal four chamber, RVOT, LVOT adequately visualized on today's exam, appropriate for gestational age. IMPRESSION: Normal cardiac morphology, single viable intrauterine . TRANSCRIBED BY: ELECTRONICALLY SIGNED BY: Miah Suero MD US OB 14+ WEEKS ANATOMY SCAN Observed: 0 10/01/2024 4:04 PM Status: F Source: [facility] EPIC Order Comment: US OB ANATOMY SINGLE W US OB CERVICAL LENGTH Estimated Date of Delivery: 02/25/25 Gestational Age as of 10/01/2024: 19w0d EXAM: US OB 14+ WEEKS ANATOM Y SCAN HISTORY: anatomy. COMPARISON: Ob ultrasound 08/02/2024. TECHNIQUE: Two-dimensional transabdominal grayscale ultrasound imaging of the pelvis was performed. Limited exam due to patient body habitus. FINDINGS: Gestation: Single Presentation: Transverse Cardiac Activity: 142 beats per minute Placental Location: Anterior with no sonographic abnormalities identified. Distance from Placental Tip to Cervix: 3.3 cm Cervical Length: 4.7 cm Amniotic Fluid: Appears adequate MEASUREMENTS: BPD: 4.6 cm EGA: 19 weeks 6 days HC: 17.6 cm EGA: 20 weeks 1 days AC: 14.6 cm EGA: 19 weeks 6 days FL: 3.4 cm EGA: 20 weeks 6 days HC/AC Ratio: 1.20 The gestational age by today's ultrasound is 20 weeks 1 days (+/- 10 days gestation). Estimated Weight: 345 grams, +/- 52 grams ( 0 lb 12 oz). Weight Percentile for gestational age: 46 % ANATOMY C-Spine: Unremarkable T-Spine: Unremarkable L-Spine: Unremarkable Sacrum: Unremarkable Four Chamber Heart: Limited LVOT: Not visualized RVOT: Not visualized Stomach: Unremarkable Kidneys: Unremarkable Bladder: Unremarkable Diaphragm: Unremarkable Cord insertion: Unremarkable Cord vessels: Three Lateral Ventricles: Unremarkable Cerebellum: Unremarkable Cisterna Magna: Unremarkable Posterior Fossa: Unremarkable Right Femur: Unremarkable Left Femur: Unremarkable Right Tib/Fib: Unremarkable Left Tib/Fib: Unremarkable Right Rad/Ulnar: Unremarkable Left Rad/Ulnar: Unremarkable Right Humerus: Unremarkable Left Humerus: Unremarkable Nose/Lips: Unremarkable Profile: Unremarkable Orbits: Unremarkable IMPRESSION: 1. Single, live intrauterine gestation 20 weeks, 2 days by LMP. Today's ultrasound measurements correlate with a gestational age of 20 weeks 1 days. Estimated weight is 345 grams, +/- 52 grams ( 0 lb 12 oz) which correlates to 46 %. LAURA is 02/26/2025. 2. Limited visualization of the four-chamber heart and outflow tracts. A short- term follow-up ultrasound is recommended. Interpreted by: Electronically signed by RASHMI GUAJARDO II, MD, PHD at 12-Oct-2024 10:22:11 AM [facility] US OB TRANSVAGINAL Observed: 08/02/2024 12:59 PM Status: F Source: [facility] EPIC Order Comment: US OB TRANSVA GINAL No LMP recorded. EXAM: US OB TRANSVAGINAL HISTORY: Dating. COMPARISON: [...] II, MD, PHD at 03-Aug-2024 08:40:26 AM [facility] ALLERGIES DATE TYPE / CODE NAME / CODE REACTION SEVERITY SOURCE Drug Class/[id number](SNO MED CT) NO KNOWN ALLERGIES [facility] ENCOUNTERS ADMIT/DISCHARGE ACCOUNT NUMBER ADMITTING ENCOUNTER CLASS LOCATION SOURCE 01/30/2025/01/31/20 [id number] Ambulatory Building:[facility] EPIC 01/16/2025/01/17/20 25 [id number] Ambulatory Building:[facility] 01/02/2025/01/03/20 25 [id number] Ambulatory Building:[facility] 12/19/2024/12/20/19 25 [id number] Ambulatory Building:[facility] OB [facility] 12/19/2024/12/20/19 25 [id number] Ambulatory Building:[facility] 12/05/2024/12/06/19 25 [id number] Ambulatory Building:[facility] 11/12/2024/11/13/19 25 [id number] Ambulatory Building:[facility] 11/07/2024/11/08/19 25 [id number] Ambulatory Building:[facility] 10/29/2024/10/30/19 25 [id number] Ambulatory Building:[facility] 10/10/2024/10/11/19 25 [id number] Ambulatory Building:[facility] 10/01/2024/10/02/19 25 [id number] Ambulatory Building:[facility] EPIC 09/03/2024/09/04/19 25 [id number] Ambulatory Building:[facility] OB [facility] 08/16/2024/08/17/19 25 [id number] Ambulatory Building:[facility] 08/02/2024/08/03/19 25 [id number] Ambulatory Building:[facility] OB [facility] 08/02/2024/08/03/19 25 [id number] Ambulatory Building:[facility] EPIC 06/20/2024/06/20/19 [id number] Ambulatory Building:[facility] EPIC 02/06/2024/02/06/20 24 [id number] Ambulatory Building:[facility] _BH [facility] PAYERS ENCOUNTER GUARANTOR PAYER SUBSCRIBER SOURCE 01/30/2025 STEVAN Laureano ADAMARISOB: [place] [address]Gpn: (HP) (WP) Primary Insurance:BCBSPol icy Number: [id number] tive Date:2023-05-02 KP BAILONOB: [id number] [place] [address] [facility] EPIC 01/16/2025 STEVAN Laureano ADAMARISOB: [place] [address]Fpf: (HP) (WP) Primary Insurance:BCBSPol icy Number: [id number] tive Date:2023-05-02 KP BAILONOB: [id number] INFRASTRUCTURE [facility] [facility] [address] [facility] EPIC 01/02/2025 STEVAN Laureano ADAMARISOB: INFRASTRUCTURE [facility] [place] [address]Oux: (HP) (WP) Primary Insurance:BCBSPol icy Number: [id number] tive Date:2023-05-02 KP BAILONOB: [id number] INFRASTRUCTURE ANALY[facility] [place] [address] [facility] EPIC 12/19/2024 STEVAN Laureano ADAMARISOB: INFRASTRUCTURE A[facility] [place] [address]Lte: (HP) (WP) Primary Insurance:BCBSPol icy Number: [id number] tive Date:2023-05-02 KP BAILONOB: [id number] [place] [address] [facility] EPIC 12/19/2024 STEVAN Laureano HOLLYGDOB: [place] [address]Fbq: (HP) (WP) Primary Insurance:BCBSPol icy Number: [id number] tive Date:2023-05-02 KP BAILONOB: [id number] [place] [address] [facility] EPIC 12/05/2024 STEVAN Laureano HOLLYGDOB: [place] [address]Nzv: (HP) (WP) Primary Insurance:BCBSPol icy Number: [id number] tive Date:2023-05-02 KP BAILONOB: [id number] [place] [address] [facility] EPIC 11/12/2024 STEVAN Laureano ADAMARISOB: [place] [address]Rcl: (HP) (WP) Primary Insurance:BCBSPol icy Number: [id number] tive Date:2023-05-02 KP BAILONOB: [id number] [place] [address] [facility] EPIC 11/07/2024 STEVAN Laureano ADAMARISOB: [place] [address]Cdq: (HP) (WP) Primary Insurance:BCBSPol icy Number: [id number] tive Date:2023-05-02 KP BAILONOB: [id number] [place] [address] [facility] EPIC 10/29/2024 STEVAN Laureano ADAMARSIOB: [place] [address]Ljv: (HP) (WP) Primary Insurance:BCBSPol icy Number: [id number] tive Date:2023-05-02 KP BAILONOB: [id number] [place] [address] [facility] EPIC 10/10/2024 STEVAN Laureano ADAMARISOB: [place] [address]Dja: (HP) (WP) Primary Insurance:BCBSPol icy Number: [id number] tive Date:2023-05-02 KP BAILONOB: [id number] [place] [address] [facility] EPIC 10/01/2024 STEVAN Laureano ADAMARISOB: [place] [address]Iyx: (HP) (WP) Primary Insurance:BCBSPol icy Number: [id number] tive Date:2023-05-02 KP BAILONOB: [id number] [place] [address] [facility] EPIC 09/03/2024 STEVAN Laureano ADAMARISOB: [place] [address]Wqp: (HP) (WP) Primary Insurance:BCBSPol icy Number: [id number] tive Date:2023-05-02 KP BAILONOB: [id number] [place] [address] [facility] EPIC 08/16/2024 STEVAN RUIZ ADAMARISOB: INFRASTRUCTURE ANALYST [place], [place] [address]Mfn: (HP) Primary Insurance:[employer] HMO/PPO/TRUSTPoli cy Number: [id number] tive Date:2023-05-02 KP Enio BARRERAGDOB: [id number] [place] [address] [facility] 08/02/2024 STEVAN Laureano HOLLYGDOB: [place] [address]Rkx: (HP) (WP) Primary Insurance[facility] icy Number: [id number] tive Date:2023-05-02 KP BAILONOB: [id number] [place] [address] [facility] EPIC 08/02/2024 STEVAN Laureano ADAMARISOB: [place] [address]Bcv: (HP) (WP) Primary Insurance:[facility] icy Number: [id number] tive Date:2023-05-02 KP BAILONOB: [id number] [place] [address] [facility] 06/20/2024 STEVAN Laureano ADAMARISOB: [place] [address]Wnm: (HP) (WP) Primary Insurance:[employer] icy Number: [id number] tive Date:2023-05-02 KP BAILONOB: [id number] [place] [address] [facility] EPIC 02/06/2024 STEVAN RUIZ ADAMARISOB: INFRASTRUCTURE [place] [address]Pxx: () Primary Insurance:[employer] HMO/PPO/TRUSTPoli cy Number: [id number] tive Date:2023-05-02 KP BAILONOB: [id number] [place] [id number] [place] [address]
--- OUTSIDE RECORDS SUMMARY | 2025-01-30 13:30 | XMS_ITS | Encounter Summary ---
Author Organization [facility] Address [address] [facility] [place] [address] Care Team Providers Care Leaf Blender Name Role Phone Colten Lam MD Primary Care Provider Reason for Visit * Reason Comments Routine Visit Encounter Details Date Type Department Care Team (Late st Contact Info) Description 01/30/2025 1:30 PM EDT Routine [facility] [place] [facility] [address] [place] [address] Annabel Osman, WEAPONS DESIGNER [address] [place] [address] 36 weeks gestation of ([facility]); Third trimester ([facility]); Excessive growth affecting management of , antepartum, single or unspecified fetus ([facility]); induced hypertension, antepartum ([facility]) Social History Tobacco Use Types Packs/Day Years [...] Job Start Date Job End Date 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 Not on fi le [...] PM EDT Routine [facility] [address] [place] [address] Annabel Osman, WEAPONS DESIGNER [address] [facility] [place] [address] Scheduled Orders Name Type Priority Associated Diagnoses Orde r Schedule CULTURE, GROUP B STREP WITH SUSCEPTIBLITY Lab Routine Third trimester ([facility]) Expected: 01/30/2025, Expires: 01/30/2026 Creatinine Lab Routine induced hypertension, antepartum ([facility]) Expected: 01/30/2025 (Approximate), Expires: 01/30/2026 Protein, urine, 24 hour Lab Routine induced hypertension, antepartum ([facility]) Expected: 01/30/2025 (Approximate), Expires: 01/30/2026 Pt and ptt Lab Routine induced hypertension, antepartum ([facility]) Expected: 01/30/2025, Expires: 01/30/2026 CBC and differential Lab Routine induced hypertension, antepartum ([facility]) Expected: 01/30/2025 (Approximate), Expires: 01/30/2026 Uric acid Lab Routine induced hypertension, antepartum ([facility]) Expected: 01/30/2025 (Approximate), Expires: 01/30/2026 Lactate dehydrogenase Lab Routine induced hypertension, antepartum ([facility]) Expected: 01/30/2025, Expires: 01/30/2026 ALT Lab Routine induced hypertension, antepartum ([facility]) Expected: 01/30/2025 (Approximate), Expires: 01/30/2026 AST Lab Routine induced hypertension, antepartum ([facility]) Expected: 01/30/2025 (Approximate), Expires: 01/30/2026 BUN Lab Routine induced hypertension, antepartum ([facility]) Expected: 01/30/2025, Expires: 01/30/2026 US biophysical profile w non stress test Imaging Routine 36 weeks gestation of ([facility]) Third trimester ([facility]) Excessive growth affecting management of , antepartum, single or unspecified fetus ([facility]) induced hypertension, antepartum ([facility]) Expected: 01/30/2025 (Approximate), Expires: 07/31/2025 documented as of this encounter Procedures Procedure Name Priority Date/Time Associated Diagnosis Comments POCT URINALYSIS DIPSTICK Routine 01/30/2025 1:47 PM EDT 36 weeks gestation of ([facility]) Third trimester ([facility]) documented in this encounter Results * [...] Visit Diagnoses Diagnosis 36 weeks gestation of ([facility]) Third trimester ([facility]) state, incidental Excessive growth affecting management of , antepartum, single or unspecified fetus ([facility]) induced hypertension, antepartum ([facility]) Transient hypertension of , antepartum documented in this encounter Additional Health Concerns Assessment Noted Time PHQ-9 Depression Total Score: 15 023 2:06 PM EST documented as of this encounter Care Teams Leaf Blender Relationship Specialty Start Date End Date Colten Lam MD [address] [place] [address] PCP - General Internal Medicine 09/23/22 documented as of this encounter
--- OUTSIDE RECORDS SUMMARY | 2025-01-30 14:40 | XMS_ITS | Encounter Summary ---
Author Organization [facility] Address [address] [place] [address] Care Team Providers Care Research Computing Specialist Name Role Phone Colten Lam MD Unavailable [phone] Colten Lam MD Primary Care Provider [phone] Ema Cruz CORK COMPOUNDER-AUTO CLEANER Unavailable Reason for Visit * Reason Comments Med Refill Encounter Details Date Type Department Care Team (Late st Contact Info) Description 02/17/2023 Refill [facility] [address] [facility] [address] [place] [address] Ema Cruz, CORK COMPOUNDER-[facility] 112 [facility] [address] [place] [address] Bipolar affective disorder, currently depressed, mild (HCC) Social History Tobacco Use Types Packs/Day Years [...] you have received? 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 Not on file Not on fi le Not on file documented as of this encounter Plan of Treatment Upcoming Encounters Date Type Department Care Team (Late st Contact Info) Description 02/06/2025 1:20 PM EDT Routine [facility] [address] [place] [address] Annabel Osman NP [address] [facility] [place] [address] documented as of this encounter Visit Diagnoses Diagnosis Bipolar affective disorder, currently depressed, mild (HCC) Bipolar I disorder, most recent episode (or current) depressed, mild documented in this encounter Additional Health Concerns Assessment Noted Time PHQ-9 Depression Total Score: 14 023 10:19 AM EDT documented as of this encounter Care Teams Research Computing Specialist Relationship Specialty Start Date End Date Colten Lam MD [address] [facility] 110 [place] [address] PCP - Brenda Commercial 04/01/2203/31 Colten Lam MD [address] [facility] 110 [place] [address] PCP - General Internal Medicine 09/23/22 Ema Cruz APRN-AUTO CLEANER [address] [facility] [address] [place] [address] PCP - Brenda Commercial 04/01/24 documented as of this encounter
--- OUTSIDE RECORDS SUMMARY | 2025-01-30 14:40 | XMS_ITS ---
Author Organization [facility] Source Produ ction (ClinicalSummary Clone) Address Unknown Care Team Providers Care Poultry Breeder Name Role Phone Unavailable Primary Care Physician Unavailab le Results * [UNITY] ANEUPLOIDY NIPT Performed by: Inveni Component Value Range Date Fraction 2.2% 08/12/2024 04 :13 pm UTC Rh(D) NIPT RhD DETECTED 08/12/2024 04:1 3 pm UTC Sex Chromosome Aneuploidy NOT DETECTED 04:13 pm UTC Monosomy X LOW RISK <1 in 10,000 2024 04:13 pm UTC Trisomy 13 LOW RISK <1 in 10,000 2024 04:13 pm UTC Trisomy 18 LOW RISK <1 in 10,000 2024 04:13 pm UTC Trisomy 21 LOW RISK <1 in 10,000 2024 04:13 pm UTC Sex FEMALE 08/12/2024 04:1 3 pm UTC Gestation PARRA 08/13/19 04:13 pm UTC For detailed report, see PDF See PDF 08/12/2024 04:13 pm UTC 08/12/2024 04:1 3 pm UTC Social History Observation Value Start Date End Date
--- OUTSIDE RECORDS SUMMARY | 2025-01-30 14:40 | XMS_ITS | Encounter Summary ---
Author Organization [facility] Address [address] [place] [address] Care Team Providers Care Electrical Controls Assembler Name Role Phone Colten Lam MD Unavailable [phone] Colten Lam MD Primary Care Provider [phone] MoraimaEma Hawkins ONSITE CASE MANAGER-MOONER Unavailable Encounter Details Date Type Department Care Team (Late Contact Info) Description 09/16/2022 Abstract [facility] [place] [facility] [address] [facility] [place] [address] Uma Da Silva PA [address] [facility] [address] [place], [facility] [address] Social History Tobacco Use Types Packs/Day Years Used Date Smoking Tobacco: Never Tobacco Cessation:Counseling Given: Not Answered Alcohol Use Standard Drinks/Week Comments Yes 2 (1 standard drink = 0.6 oz pure alcohol) Caffeine intake: 1-2 cups per day Education Answer Date Recorded What is the highest level of school you have completed or the highest degree you have received? 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 Not on file Not on fi le Not on file documented as of this encounter Plan of Treatment Upcoming Encounters Date Type Department Care Team (Late Contact Info) Description 02/06/2025 1:20 PM EDT Routine [facility] [address] [facility] [place] [address] Annabel Osman, CLINICAL ADMINISTRATIVE COORDINATOR [address] [facility] [place] [address] documented as of this encounter Visit Diagnoses Not on filedocumented in this encounter Care Teams Electrical Controls Assembler Relationship Specialty Start Date End Date Colten Lam MD 112 [facility] 110 [place] [address] PCP - [place] Commercial 04/01/2203/31 Colten Lam MD 112 [facility] 110 [place] [address] PCP - General Internal Medicine 09/23/22 Ema Cruz APRN-MOONER 112 [facility] 160 [place] [address] PCP - [place] Commercial 04/01/24 documented as of this encounter
--- OUTSIDE RECORDS SUMMARY | 2025-01-30 14:40 | XMS_ITS | Encounter Summary ---
Author Organization [facility] Address [address] [facility] [place] [address] Care Team Providers Care Server Security Administrator Name Role Phone Colten Lam MD Unavailable [phone] Colten Lam MD Primary Care Provider [phone] MoraimaEma Hawkins DRY PRESS OPERATOR HELPER-PROJECT MANAGEMENT ENGINEER Unavailable Encounter Details Date Type Department Care Team (Late st Contact Info) Description 11/03/2022 Abstract [facility] [address] [facility] [address] [place] [address] [place] [address] [place] [id number] Social History Tobacco Use Types Packs/Day Years Used Date Smoking Tobacco: Never Alcohol Use Standard Drinks/Week Comments [...] Job Start Date Job End Date 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 No / Unsure 11/05/2022 10:59 AM EDT documented as of this encounter Plan of Treatment Upcoming Encounters Date Type Department Care Team (Late st Contact Info) Description 02/06/2025 1:20 PM EDT Routine [facility] [address] [facility] [place] [address] Annabel Osman, CHOP SAW OPERATOR [address] [facility] [place] [address] documented as of this encounter Visit Diagnoses Not on filedocumented in this encounter Care Teams Server Security Administrator Relationship Specialty Start Date End Date Colten Lam MD [address] [facility] [address] [place] [address] PCP - [place] [employer] 04/01/2203/31 Colten Lam MD [address] [facility] 110 [place] [address] PCP - General Internal Medicine 09/23/22 Ema Cruz APRN-PROJECT MANAGEMENT ENGINEER [address] [facility] [address] [place] [address] PCP - [place] [employer] 04/01/24 documented as of this encounter
--- OUTSIDE RECORDS SUMMARY | 2025-01-30 14:40 | XMS_ITS | Encounter Summary ---
Author Organization [facility] Address [address] [place] [address] Care Team Providers Care Emulsion Coater Name Role Phone Colten Lam MD Primary Care Provider [phone] Ema Cruz CABINET ABRASIVE SANDBLASTER-SWING TYPE LATHE OPERATOR Unavailable Reason for Visit * Reason Onset Date Comments Med Refill 05/28/2024 Encounter Details Date Type Department Care Team (Late st Contact Info) Description 05/28/2024 [facility] [address] [facility] [address] [place] [phone] Colten Lam MD [address] [facility] 110 [place], [place] [id number] Class 1 obesity without serious comorbidity with body mass index (BMI) of 31.0 to 31.9 in adult, unspecified obesity type; Trapezius muscle spasm Social History Tobacco Use Types Packs/Day Years [...] Job Start Date Job End Date 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 No refill on Adipex until seen. She is two months overdue for a follow up. Last seen November. Please help pt get set up for an appointment. documented in this encounter Plan of Treatment Upcoming Encounters Date Type Department Care Team (Late st Contact Info) Description 02/06/2025 1:20 PM EDT Routine [facility] [address] [facility] [place] [address] Annabel Osman NP [address] [place] [address] documented as of this encounter Visit Diagnoses Diagnosis Class 1 obesity without serious comorbidity with body mass index (BMI) of 31.0 to 31.9 in adult, unspecified obesity type Trapezius muscle spasm documented in this encounter Additional Health Concerns Assessment Noted Time PHQ-9 Depression Total Score: 15 023 2:06 PM EST documented as of this encounter Care Teams Emulsion Coater Relationship Specialty Start Date End Date Colten Lam MD [address] [facility] 110 [place] [address] PCP - General Internal Medicine 09/23/22 Ema Cruz APRN-SWING TYPE LATHE OPERATOR [address] [facility] 160 [place] [address] PCP - Alexey Fairbanks 04/01/24 documented as of this encounter
--- OUTSIDE RECORDS SUMMARY | 2025-01-30 14:40 | XMS_ITS | Encounter Summary ---
Author Organization [facility] Address [address] [facility] [place] [address] Care Team Providers Care Shop Assistant Name Role Phone Colten Lam MD Unavailable [phone] Colten Lam MD Primary Care Provider [phone] MoraimaEma Hawkins SENIOR CYBER INTELLIGENCE ANALYST-CONCRETE BATCHING PLANT OPERATOR Unavailable Reason for Visit * Reason Comments Med Refill Encounter Details Date Type Department Care Team ([facility] Contact Info) Description 09/28/2022 Refill [facility] [address] [facility] [address] [place] [address] [place] [address] [place] [phone] Social History Tobacco Use Types Packs/Day Years [...] Job Start Date 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 Date 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 Not on file Not on fi le Not on file documented as of this encounter Plan of Treatment Upcoming Encounters Date Type Department Care Team (Late Contact Info) Description 02/06/2025 1:20 PM EDT Routine [facility] [address] [facility] [address] Annabel Osman, WALLY [address] [facility] [place] [address] documented as of this encounter Visit Diagnoses Not on filedocumented in this encounter Care Teams Shop Assistant Relationship Specialty Start Date End Date Colten Lam MD [address] [facility] [address] [place] [address] PCP - [place] [employer] 04/01/2203/31 Colten Lam MD [address] [facility] 110 [place] [address] PCP - General Internal Medicine 09/23/22 Ema Cruz, SENIOR CYBER INTELLIGENCE ANALYST-CONCRETE BATCHING PLANT OPERATOR [address] [facility] [address] [place] [address] PCP - [place] [employer] 04/01/24 documented as of this encounter
--- OUTSIDE RECORDS SUMMARY | 2025-01-30 14:40 | XMS_ITS | Encounter Summary ---
Author Organization [facility] Address [address] [place] [facility] [place] [address] Care Team Providers Care Instructional Developer Name Role Phone Colten Lam MD Unavailable [phone] Colten Lam MD Primary Care Provider [phone] Ema Cruz TAX COMPLIANCE MANAGER-TELETYPE ADJUSTER Unavailable Reason for Visit * Reason Onset Date Comments Med Refill 02/13/2024 Encounter Details Date Type Department Care Team (Late st Contact Info) Description 02/13/2024 [facility] [address] [facility] 110 [place] [address] Estefania Rashid PA [address] [facility] 110 [place] [address] Class 1 obesity without serious comorbidity with body mass index (BMI) of 31.0 to 31.9 in adult, unspecified obesity type Social History Tobacco Use Types Packs/Day Years [...] Job Start Date Job End Date 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 Please help pt get set up for her medication follow up in March. documented in this encounter Plan of Treatment Upcoming Encounters Date Type Department Care Team (Late st Contact Info) Description 02/06/2025 1:20 PM EDT Routine [facility] [address] [facility] [place] [address] Annabel Osman NP [address] [facility] [place] [address] documented as of this encounter Visit Diagnoses Diagnosis Class 1 obesity without serious comorbidity with body mass index (BMI) of 31.0 to 31.9 in adult, unspecified obesity type documented in this encounter Additional Health Concerns Assessment Noted Time PHQ-9 Depression Total Score: 15 023 2:06 PM EST documented as of this encounter Care Teams Instructional Developer Relationship Specialty Start Date End Date Colten Lam MD [address] [facility] 110 [place] [address] PCP - [place] [employer] 04/01/2203/31 Colten Lam MD [address] [facility] 110 [place], [place] [phone] PCP - General Internal Medicine 09/23/22 Ema Cruz, TAX COMPLIANCE MANAGER-TELETYPE ADJUSTER [address] [facility] 160 [place] [address] PCP - [place] [employer] 04/01/24 documented as of this encounter
--- OUTSIDE RECORDS SUMMARY | 2025-01-30 14:40 | XMS_ITS | Encounter Summary ---
Author Organization [facility] Address [address] [place] [address] Care Team Providers Care Deputy Assessor Name Role Phone Colten Lma MD Unavailable [phone] Colten Lam MD Primary Care Provider [phone] Ema Cruz DRY HEAT ROOM ATTENDANT-CANE FLUME WATCHMAN Unavailable Reason for Visit * Reason Onset Date Comments Med Refill 10/18/2023 Encounter Details Date Type Department Care Team (Late st Contact Info) Description 10/18/2023 Refill [facility] [address] [facility] [address] [place] [address] Colten Lam MD [address] [facility] [address] [place] [address] Class 1 obesity without serious comorbidity with [...] Job Start Date Job End Date 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 Last refill until seen. OARRS reviewed, Rx sent into patient's pharmacy. documented in this encounter Plan of Treatment Upcoming Encounters Date Type Department Care Team (Late st Contact Info) Description 02/06/2025 1:20 PM EDT Routine [facility] [address] [place] [address] Annabel Osman, WALLY [address] [place] [address] documented as of this encounter Visit Diagnoses Diagnosis Class 1 obesity without serious comorbidity with body mass index (BMI) of 31.0 to 31.9 in adult, unspecified obesity type documented in this encounter Additional Health Concerns Assessment Noted Time PHQ-9 Depression Total Score: 15 023 2:06 PM EST documented as of this encounter Care Teams Deputy Assessor Relationship Specialty Start Date End Date Colten Lam MD [address] [facility] [address] [place] [address] PCP - [place] [employer] 04/01/2203/31 Colten Lam MD [address] [facility] [address] [place] [address] PCP - General Internal Medicine 09/23/22 Ema Cruz, DRY HEAT ROOM ATTENDANT-CANE FLUME WATCHMAN 112 [facility] 160 [place] [address] PCP - [place] [employer] 04/01/24 documented as of this encounter
--- OUTSIDE RECORDS SUMMARY | 2025-01-30 14:40 | XMS_ITS | Encounter Summary ---
Author Organization [facility] Address [address] [facility] [place] [address] Care Team Providers Care Aircraft Tool Maker Name Role Phone Colten Lam MD Unavailable [phone] Colten Lam MD Primary Care Provider [phone] Moraima-Ema Hawkins SWITCH ENGINEER-SLACKLINE OPERATOR Unavailable Reason for Visit * Reason Comments Med Refill Encounter Details Date Type Department Care Team ([facility] Contact Info) Description 11/01/2022 Refill [facility] [address] [place] [address] [place] [address] [place] [address] Bipolar affective disorder, currently depressed, mild (HCC) [...] Date 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 Not on file Not on fi le Not on file documented as of this encounter Plan of Treatment Upcoming Encounters Date Type Department Care Team (Late Contact Info) Description 02/06/2025 1:20 PM EDT Routine [facility] [address] [place] [address] Annabel Osman, PREFLIGHT MECHANIC [address] [facility] [place] [address] documented as of this encounter Visit Diagnoses Diagnosis Bipolar affective disorder, currently depressed, mild (HCC) Bipolar I disorder, most recent episode (or current) depressed, mild documented in this encounter Care Teams Aircraft Tool Maker Relationship Specialty Start Date End Date Colten Lam MD [address] [facility] 110 [place] [address] PCP - [place] [employer] 04/01/2203/31 Colten Lam MD 112 [facility] 110 [place] [address] PCP - General Internal Medicine 09/23/22 Ema Cruz APRN-SLACKLINE OPERATOR 112 [facility] 160 [place] [address] PCP - [place] [employer] 04/01/24 documented as of this encounter
--- OUTSIDE RECORDS SUMMARY | 2025-01-30 14:41 | XMS_ITS | Encounter Summary ---
Author Organization [facility] Address [address] [place] [address] Care Team Providers Care Etl Consultant Name Role Phone Colten Lam MD Primary Care Provider [phone] Encounter Details Date Type Department Care Team (Late st Contact Info) Description 08/13/2024 Abstract [facility] [address] [facility] [address] Dominik Odonnell, [address] 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 [place] [address] documented as of this encounter Visit Diagnoses Not on filedocumented in this encounter Additional Health Concerns Assessment Noted Time PHQ-9 Depression Total Score: 15 03/30/ 023 2:06 PM EST documented as of this encounter Care Teams Etl Consultant Relationship Specialty Start Date End Date Colten Lam MD 112 [facility] 110 [place] [address] PCP - General Internal Medicine 09/23/22 documented as of this encounter
--- OUTSIDE RECORDS SUMMARY | 2025-01-30 14:41 | XMS_ITS | Clinical Summary ---
Author Organization [facility] Address [address] [place] [address] Care Team Providers Care Manager Channel Name Role Phone Colten Lam MD Primary Care Provider [phone] Allergies No known active allergies Medications venlafaxine XR (Effexor XR) 37.5 MG 24 hr capsuleIndicati ons:Bipolar affective disorder, currently depressed, mild (HCC) Take 1 capsule by mouth in the morning 60 capsule 3 4 Active venlafaxine XR (Effexor XR) 75 MG 24 hr capsuleIndicati ons:Bipolar affective disorder, currently depressed, mild (HCC) Take 1 capsule (75 mg) by mouth in the morning. 90 capsule 1 4 Active lamoTRIgine (LaMICtal) 200 MG tabletIndicatio ns:Bipolar affective disorder, currently depressed, mild (HCC) Take 1 tablet (200 mg) by mouth Daily 90 tablet 1 4 Active venlafaxine XR (Effexor XR) 150 MG 24 hr capsule Take 150 mg by mouth Daily 5 Active magnesium oxide (Mag-Ox) 400 MG tabletIndicatio ns:Second trimester (HHS-HCC) Take 1 tablet (400 mg) by mouth Daily 30 tablet 6 5 025 Active tiZANidine (Zanaflex) 4 MG tabletIndicatio ns:Trapezius muscle spasm Take 1 tablet (4 mg) by mouth every 8 (eight) hours if needed for muscle spasms 30 tablet 5 025 Discontinued promethazine (Phenergan) 12.5 MG tabletIndicatio ns:Nonintractab le headache, unspecified chronicity pattern, unspecified headache type Take 1 tablet (12.5 mg) by mouth every 4 (four) hours 180 tablet 1 5 025 Active Problems Problem Noted Date Diagnosed Date 32 weeks gestation of ([facility]) 2024 Bipolar II disorder 02/06/2024 Generalized anxiety disorder 02/06/2024 Class 1 obesity without seri ous comorbidity with body mass index (BMI) of 31.0 to 31.9 in adult 04/19/2023 Amenorrhea 02/23/2023 Attention deficit 02/23/2023 Daytime hypersomnia 02/23/2023 Foraminal stenosis of cervical region 02/23/2023 Insulin resistance 02/23/2023 Migraine without aura and wi th status migrainosus, not intractable 02/23/2023 Other chronic pain 02/23/2023 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 02/23/2023 Tension headache 02/23/2023 Vaginal odor 02/23/2023 Bipolar affective disorder, currently depressed, mild 08/31/2022 Anxiety 08/31/2022 Mild episode of recurrent major depressive disor kirstin 08/31/2022 Term ([facility]) 10/04/2017 Estimated Date of Delivery Comme nts Yes 02/25/2025 Based on last me nstrual period of 05/21/2024 Encounters Date Type Department Care Team Description 01/30/2025 1:30 PM ED[place] [id number] Annabel Osman NP 36 weeks gestation of ([facility]); Third trimester ([facility]); Excessive growth affecting management of , antepartum, single or unspecified fetus ([facility]); induced hypertension, antepartum ([facility]) 01/30/2025 [place]amboo [place] [id number] Annabel Osman NP 01/16/2025 11:20 AM EDT Routine [facility] [address] [place] [address] Uma Da Silva PA Third trimester ([facility]); 34 weeks gestation of ([facility]) 01/16/2025 Bamboo flowsheet [facility] [address] [place] [address] Uma Da Silva PA 01/02/2025 11:00 AM EDT Routine [facility] [address] [place] [address] Tj Odonnell, 32 weeks gestation of ([facility]); Third trimester ([facility]); Excessive growth affecting management of , antepartum, single or unspecified fetus ([facility]) 01/02/2025 Bamboo flowsheet [facility] [address] [place] [address] Tj Odonnell, 12/27/2024 Clinisync Result Encounter [facility]OM[facility] External Department Unsolicited jT Odonnell, DO 12/27/2024 Clinisync Result Encounter NOMS External Department Unsolicited Tj Odonnell, DO 12/27/2024 Telephone [facility] [address] [place] [address] Tj Odonnell, DO 12/19/2024 11:20 AM EDT Routine [facility] [address] [place] [address] Uma Da Silva PA Third trimester ([facility]); 30 weeks gestation of ([facility]) 12/19/2024 10:30 AM EDT Ancillary Procedure [facility] [address] [place] [address] size inconsistent with dates ([facility]) 12/05/2024 3:30 PM EDT Routine [facility] [address] [place] [address] Tj Odonnell, DO Third trimester ([facility]); 28 weeks gestation of ([facility]); size inconsistent with dates ([facility]) 12/05/2024 Bamboo flowsheet [facility] [place] [address] Tj Odonnell, 11/12/2024 3:50 PM EDT Routine [facility] [address] Uma Da Silva PA Second trimester ([facility]); 25 weeks gestation of ([facility]) 11/12/2024 Clinisync Result Encounter NOMS External Department Unsolicited Tj Odonnell, 11/07/2024 10:30 AM EDT Ancillary Procedure [facility] [address] [place] [address] Encounter for follow-up ultrasound of anatomy ([facility]) from Last 3 Months Immunizations Immunization Administration Dates Next Due Influenza, injectable, quadrivalent, preservativ e free 05/17/2017 Tdap 09/27/2017 Family History Medical History Relation Name Comments No Known Problems Brother No Known Problems Daughter Heart disease Father Mental illness Paternal Grandfather commi tted suicide Cancer Neg Hx Coronary artery disease Neg Hx Diabetes Neg Hx Melanoma Neg Hx Relation Name Status Comments Brother 1 brother Daughter Alive 1 daughter Father Mother Alive Paternal Grandfather Social History Tobacco Use Types Packs/Day Years Used Date Smoking Tobacco: Never Smokeless Tobacco: Never Tobacco Cessation:Counseling Given: Yes Alcohol Use Standard Drinks/Week Comments Yes 2 [...] Date Job End Date 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 Not on file Not on fi le Not on file Last Filed Vital Signs Vital Sign Reading Time Taken Comments Blood Pressure 112/76 01/16/2025 11:37 AM EDT Pulse 78 06/20/2024 1:30 PM EST Temperature 37.1 C (98.7 F) 02/23/2023 10:31 AM EDT Respiratory Rate 17 06/20/2024 1:30 PM EST Oxygen Saturation 98% 06/20/2024 1:30 PM EST Inhaled Oxygen Concentration - - Weight 107 kg (236 lb 6.4 oz) 01/30/2025 1:41 PM EDT Height 160 cm (5' 3 ) 06/20/2024 1:30 PM EST Body Mass Index 41.88 06/20/2024 1:30 PM EST Plan of Treatment Upcoming Encounters Date Type Department Care Team (Late st Contact Info) Description 02/06/2025 1:20 PM EDT Routine [facility] OBANNE MARIEN [address] [place] [address] Annabel Osman, W[place] [address] [place] [address] Health Maintenance Due Date Last Done Comments Influenza Vaccine (#1) 2024 05/17/2017 Pap Smear 10/02/2027 10/01/2024, 11/29/2022, 06/02 Cervical Cancer Screening 12/11/2027 HPV/Cotest 12/11/2027 12/10/2022 Procedures Procedure Name Priority Date/Time Associated Diagnosis Comments POCT URINALYSIS DIPSTICK Routine 01/30/2025 1:47 PM EDT 36 weeks gestation of ([facility]) Third trimester ([facility] POCT URINALYSIS DIPSTICK Routine 01/16/2025 11:42 AM EDT Third trimester ([facility]) 34 weeks gestation of ([facility]) US OB CERVICAL LENGTH 12/27/2024 8:34 PM EDT US OB PLACENTA 12/27/2024 8:34 PM EDT US OB FOLLOW UP TRANSABDOMINAL APPROACH Routine 12/19/2024 10:55 AM EDT size inconsistent with dates ([facility]) POCT URINALYSIS DIPSTICK Routine 12/05/2024 3:45 PM EDT Third trimester ([facility]) POCT URINALYSIS DIPSTICK Routine 11/12/2024 3:58 PM EDT Second trimester ([facility]) GLUCOSE 1 HOUR Routine 11/12/2024 2:24 PM EDT ALL CBC WITH AUTO DIFF Routine 2:24 PM EDT US OB LIMITED 1+ FETUSES Routine 11/07/2024 11:08 AM EDT Encounter for follow-up ultrasound of anatomy ([facility]) PAP SMEAR Routine 10/01/2024 12:00 AM EDT THINPREP PAP AND HPV MRNA E6/E7 W/RFL HPV 16,18/45 Routine 12/10/2022 8:18 AM EDT Well woman exam with routine gynecological exam from Last 3 Months or Most Recently Relevant to Health Maintenance Results * (ABNORMAL) POCT urinalysis dipstick manually resulted (01/30/2025 1:47 PM EDT) Only the most recent of4 resultswithin the time period is included. Color, UA Yellow Clarity, UA Clear Glucose, UA Negative Negative - 1999(110) ++++ mg/dL Bilirubin, UA Negative Negative - 4(70) +++ mg/dL Ketones, UA Negative Negative - 160(16) ++++ mg/dL Spec Grav, UA 1.015 1 - 1.03 Blood, UA Negative Negative - 50 Aneudy/mcL pH, UA 7.0 5 - 9 Protein, UA Positive Negative - 1999(20) ++++ mg/dL Urobilinogen, UA 1.0 0.2 - 12 mg/dL Leukocytes, UA Positive Negative - 500+++ Migdalia/mcL Comment:1+ Nitrite, UA Negative Negative - Positive Urine 01/30/2025 1:47 PM EDT Annabel Osman NP POINT OF CARE TEST ENTER/EDIT ORDERABLES Final Result * US OB PLACENTA (12/27/2024 8:34 PM EDT) Anatomical Region Laterality Modality Other 12/27/2024 8:34 PM EDT Narrative 12/27/2024 8:44 PM EDT [address] [address] Ultrasound Report Signed Patient: STEVAN GA MR#: [id number] : 1990 Acct:[id number] Age/Sex: 34 / F ADM Date: Loc: [facility] [address]: Tj Odonnell D.O. Ordering Physician: Tj Odonnell D.O. Date of Service: 12/27/24 Procedure(s): US OB placenta Accession Number(s): [id number] cc: COLTEN LAM ; Tj Odonnell D.O. [address] [address] Patient Name: STEVAN GA MRN: [facility]:[id number] date: 1990 Sex: F Assigned Patient Location: [facility] Current Patient Location: Accession/Order Number: [id number] Exam Date: 12/27/2024 19:25 Report Date: 12/27/2024 20:34 At the request of: TJ ODONNELL DO Procedure: US OB cervical length US OB placenta, US OB cervical length 12/27/2024 7:21 PM SIGNS AND SYMPTOMS: bleeding PROTOCOL: Transabdominal and transvaginal imaging of the gravid uterus COMPARISON: None FINDINGS: The placenta is homogeneous in appearance and anteriorly located. The cervix measures 4.2 cm in length. A small amount of fluid is noted in the cervical canal. The internal cervical os appears to be closed. Estimated gestational age: 31 weeks and 3 days heart rate: 164 bpm. presentation: Cephalic US/US OB placenta IMPRESSION: The placenta is homogeneous in appearance and anteriorly located. The cervix measures 4.2 cm in length. A small amount of fluid is noted in the cervical canal. The internal cervical os appears to be closed. Impression dictated by: Tyson Pina M.D. 12/27/2024 8:34 PM Dictation Location: [place] [address] Electronically authenticated by: [id number] Y Date: 12/27/2024 20:34 Dictated By: Tyson Pina M.D. Signed By: 12/27/242043 DD/ 33 TD/TT: Boat Designer: Procedure Note Radiology, Radiologist, MD - 12/27/2024 [place] [address] Ultrasound Report Signed Patient: STEVAN GA [facility]#: [id number] : 1990Acct:[id number] Age/Sex: 34 / FADM Date: Loc: [facility] 250-[address]: Tj Odonnell D.O. Ordering Physician: Tj Odonnell D.O. Date of Service: 12/27/24 Procedure(s): US OB placenta Accession Number(s): [id number] cc: COLTEN LAM ; Tj Odonnell D.O. The [place] [address] Patient Name: STEVAN GA MRN: [facility]:[id number] date: 1990 Sex: F Assigned Patient Location: [facility] Current Patient Location: Accession/Order Number: [id number] Exam Date: 12/27/2024 19:25 Report Date: 12/27/2024 20:34 At the request of: TJ ODONNELL DO Procedure: US OB cervical length US OB placenta, US OB cervical length 12/27/2024 7:21 PM SIGNS AND SYMPTOMS: bleeding PROTOCOL: Transabdominal and transvaginal imaging of the gravid uterus COMPARISON: None FINDINGS: The placenta is homogeneous in appearance and anteriorly located. Thecervix measures 4.2 cm in length. A small amount of fluid is noted in thecervical canal. The internal cervical os appears to be closed. Estimated gestational age: 31 weeks and 3 days heart rate: 164 bpm. presentation: Cephalic US/US OB placenta IMPRESSION: The placenta is homogeneous in appearance and anteriorly located. The cervix measures 4.2 cm in length. A small amount of fluid is notedin the cervical canal. The internal cervical os appears to be closed. Impression dictated by: Tyson Pina M.D. 12/27/2024 8:34 PM Dictation Location: [place] [address] Electronically authenticated by: [id number] Y Date: 0:34 Dictated By: Tyson Pina M.D. Signed By:12/27/242043 DD/ 33 TD/TT: Boat Designer: us Tj Odonnell DO [facility] Final Result * US OB CERVICAL LENGTH (12/27/2024 8:34 PM EDT) Anatomical Region Laterality Modality Other 12/27/2024 8:34 PM EDT Narrative 12/27/2024 8:44 PM EDT [address] [address] Ultrasound Report Signed Patient: STEVAN GA MR#: [id number] : 1990 Acct:[id number] Age/Sex: 34 / F ADM Date: Loc: [facility] 250- Attending Dr: Tj Odonnell D.O. Ordering Physician: Tj Odonnell D.O. Date of Service: 12/27/24 Procedure(s): US OB cervical length Accession Number(s): [id number] cc: COLTEN LAM ; Tj Odonnell D.O. The [place] [address] Patient Name: STEVAN GA MRN: [facility]:[id number] date: 1990 Sex: F Assigned Patient Location: [facility] Current Patient Location: Accession/Order Number: [id number] Exam Date: 12/27/2024 19:25 Report Date: 12/27/2024 20:34 At the request of: TJ ODONNELL DO Procedure: US OB cervical length US OB placenta, US OB cervical length 12/27/2024 7:21 PM SIGNS AND SYMPTOMS: bleeding PROTOCOL: Transabdominal and transvaginal imaging of the gravid uterus COMPARISON: None FINDINGS: The placenta is homogeneous in appearance and anteriorly located. The cervix measures 4.2 cm in length. A small amount of fluid is noted in the cervical canal. The internal cervical os appears to be closed. Estimated gestational age: 31 weeks and 3 days heart rate: 164 bpm. presentation: Cephalic US/US OB cervical length IMPRESSION: The placenta is homogeneous in appearance and anteriorly located. The cervix measures 4.2 cm in length. A small amount of fluid is noted in the cervical canal. The internal cervical os appears to be closed. Impression dictated by: Tyson Pina M.D. 12/27/2024 8:34 PM Dictation Location: [place] [address] Electronically authenticated by: [id number] Y Date: 12/27/2024 20:34 Dictated By: Tyson Pina M.D. Signed By: 12/27/242043 DD/ 33 TD/TT: Boat Designer: Procedure Note Radiology, Radiologist, MD - 12/27/2024 [place] [address] Ultrasound Report Signed Patient: STEVAN GA [facility]#: [id number] : 1990Acct:[id number] Age/Sex: 34 / FADM Date: Loc: [facility] 250-[address]: Tj Odonnell D.O. Ordering Physician: Tj Odonnell D.O. Date of Service: 12/27/24 Procedure(s): US OB cervical length Accession Number(s): [id number] cc: COLTEN LAM ; Tj Odonnell D.O. [place] [address] Patient Name: STEVAN GA MRN: [facility]:[id number] date: 1990 Sex: F Assigned Patient Location: [facility] Current Patient Location: Accession/Order Number: [id number] Exam Date: 12/27/2024 19:25 Report Date: 12/27/2024 20:34 At the request of: TJ ODONNELL DO Procedure: US OB cervical length US OB placenta, US OB cervical length 12/27/2024 7:21 PM SIGNS AND SYMPTOMS: bleeding PROTOCOL: Transabdominal and transvaginal imaging of the gravid uterus COMPARISON: None FINDINGS: The placenta is homogeneous in appearance and anteriorly located. Thecervix measures 4.2 cm in length. A small amount of fluid is noted in thecervical canal. The internal cervical os appears to be closed. Estimated gestational age: 31 weeks and 3 days heart rate: 164 bpm. presentation: Cephalic US/US OB cervical length IMPRESSION: The placenta is homogeneous in appearance and anteriorly located. The cervix measures 4.2 cm in length. A small amount of fluid is notedin the cervical canal. The internal cervical os appears to be closed. Impression dictated by: Tyson Pina M.D. 12/27/2024 8:34 PM Dictation Location: [place] [address] Electronically authenticated by: [id number] Y Date: 0:34 Dictated By: Tyson Pina M.D. Signed By:12/27/242043 DD/ 33 TD/TT: Boat Designer: us Tj Odonnell DO [facility] Final Result * US OB follow up transabdominal approach (12/19/2024 10:55 AM EDT) Anatomical Region Laterality Modality Body Ultrasound 12/20/2024 8:07 AM EDT Narrative 12/20/2024 8:07 AM EDT EXAM: US OB FOLLOW UP TRANSABDOMINAL APPROACH HISTORY: Inconsistent size. COMPARISON: Ob ultrasound [...] II, MD, PHD at 20-Dec-2024 08:06:10 AM [facility] Procedure Note Rashmi Guajardo MD - 12/20/2024 EXAM: US OB FOLLOW UP TRANSABDOMINAL APPROACH HISTORY: Inconsistent size. COMPARISON: Ob ultrasound 11/07/2024. TECHNIQUE: Two-dimensional transabdominal grayscale ultrasound imaging ofthe pelvis was performed. FINDINGS: Gestation: Single Presentation: [...] is 30 weeks 6 days (+/- 15 daysgestation). Estimated Weight: 1784 grams, +/- 268 grams ( 3 lb 15 oz). Weight Percentile for gestational age: 80 % IMPRESSION: 1. Single, live intrauterine gestation 30 weeks, 2 days by LMP. Today'sultrasound measurements correlate with a gestational age of 30 weeks 6days. Estimated weight is 1784 grams, +/- 268 grams ( 3 lb 15 oz)which correlates to 80 %. LAURA by today's ultrasound is 02/21/2025. Interpreted by: Electronically signed by RASHMI GUAJARDO II, MD, PHD [id number] 08:06:10 AM [facility] us Tj Bals DO IMG OB US PROCEDURES Final Resul t * GLUCOSE 1 HOUR (11/12/2024 2:24 PM EDT) Pathologist [facility] GLUCOSE 1 HOUR 105 <130 mg/dL [facility] 11/12/2024 2:24 PM EDT 11/12/2024 2:25 PM EDT Narrative [facility] - 11/12/2024 3:42 PM EDT us Generic External Data Provider LAB BLOOD ORDERAB LES Final Result [facility] * (ABNORMAL) ALL CBC WITH AUTO DIFF (11/12/2024 2:24 PM EDT) [facility] WBC 14.3(H) 4.0 - 11.0 10 3/uL [facility] RBC 3.74(L) 4.20 - 5.40 10 6/uL [facility] HGB 11.5(L) 12.0 - 16.0 g/dL [facility] HCT 33.6(L) 36.0 - 48.0 % [facility] MCV 89.8 81.0 - 99.0 fL TBH [facility] MCH 30.7 26.7 - 34.0 pg TBH [facility] MCHC 34.2 29.9 - 35.2 g/dL [facility] RDW 13.1 11.0 - 15.0 % [facility] PLT 253 150 - 450 10 3/uL TBH TBH MPV 9.2(L) 9.5 - 13.5 fL [facility] NEUTROPHILS PERCENT AUTO 76.4(H) 43.0 - 75.0 % [facility] LYMPHOCYTES PERCENT AUTO 15.3(L) 20.5 - 60.0 % [facility] MONOCYTES PERCENT AUTO 5.7 1.7 - 12.0 % [facility] EO % 0.8(L) 0.9 - 7.0 % [facility] BASOPHILS PERCENT AUTO 0.5 0.2 - 2.0 % [facility] IMMATURE GRANULOCYTES PCT AUTO 1.3(H) 0.0 - 0.5 % [facility] NEUTROPHILS ABSOLUTE AUTO 10.9(H) 1.4 - 6.5 10 3/uL [facility] LYMPHOCYTES ABSOLUTE AUTO 2.2 1.2 - 3.8 10 3/uL [facility] MONOCYTES ABSOLUTE AUTO 0.8 0.3 - 0.8 10 3/uL TB[facility] TBH EO # 0.1 0.0 - 0.7 10 3/uL [facility] BASOPHILS ABSOLUTE AUTO 0.1 0.0 - 0.1 10 3/uL [facility] IMMATURE GRANULOCYTES ABS AUTO 0.19(H) 0.00 - 0.03 10 3/uL [facility] 11/12/2024 2:24 PM EDT 11/12/2024 2:25 PM EDT Narrative [facility] - 11/12/2024 2:45 PM EDT us Generic External Data Provider [facility] F inal Result [facility] * US OB limited 1+ fetuses (11/07/2024 11:08 AM EDT) Anatomical Region Laterality Modality Body Ultrasound 11/08/2024 1:23 PM EDT Impressions 11/08/2024 1:47 PM EDT Normal cardiac morphology, single viable intrauterine . TRANSCRIBED BY: ELECTRONICALLY SIGNED BY: Miah Suero MD Narrative 11/08/2024 1:47 PM EDT FINDINGS: Single viable intrauterine with anterior placenta not associated with the cervical os. Current heart rate identified at 155 bpm. Normal four chamber, RVOT, LVOT adequately visualized on today's exam, appropriate for gestational age. Procedure Note Miah Suero MD - 11/08/2024 FINDINGS: Single viable intrauterine with anterior placenta not associatedwith the cervical os. Current heart rate identified at 155 bpm. Normalfour chamber, RVOT, LVOT adequately visualized on today's exam,appropriate for gestational age. IMPRESSION: Normal cardiac morphology, single viable intrauterine . TRANSCRIBED BY: ELECTRONICALLY SIGNED BY: Miah Suero MD us Tj Blas DO IMG OB US PROCEDURES Final Resul t * Pap Smear (10/01/2024 12:00 AM EDT) Swab Cervical swab / Unknown us Tj Blas DO LAB CYTOLOGY ORDERABLES Final Re sult Performing Organization Address [facility]/ZIP Co de Phone Number EXTERNAL LAB * THINPREP PAP AND HPV MRNA E6/E7 W/RFL HPV 16,18/45 (12/10/2022 8:18 AM EDT) us Uma [facility] LAB BLOOD ORDERABLES Final Resul t Performing Organization Address [facility] Co de Phone Number EXTERNAL LAB from Last 3 Months or Most Recently Relevant to Health Maintenance Insurance [facility] Care Teams Manager Channel Relationship Specialty Start Date End Date Colten Lam MD [address] [address] PCP - General Internal Medicine 09/23/22
--- OUTSIDE RECORDS SUMMARY | 2025-01-30 14:41 | XMS_ITS | Clinical Summary ---
Author Organization [facility] Address [address], [address] [place] [address] Care Team Providers Care Pharmacy Data Analyst Name Role Phone Hortensia Sheriff MD Primary Care Provider [phone] Allergies No known active allergies Medications Sjpdnizt-Kxo-Nj -FA ( 1 + IRON PO) Take by mouth daily Active ibuprofen (ADVIL;MOTRIN) 800 MG tablet Take 1 tablet by mouth every 8 hours 120 tablet 3 8 Active benzocaine-ment hol (DERMOPLAST) 20-0.5 % AERO spray Apply topically 2 times daily 1 Can 2 8 Active docusate sodium (COLACE, DULCOLAX) 100 MG CAPS Take 100 mg by mouth 2 times daily as needed for Constipation 120 capsule 2 8 Active Active Problems Problem Noted Date Diagnosed Date Term 10/04/2017 Family History Medical History Relation Name Comments Cancer Maternal Grandmother Relation Name Status Comments Maternal Grandmother Social History Tobacco Use Types Packs/Day Years Used Date Smoking Tobacco: Never Smokeless Tobacco: Never Alcohol Use Standard Drinks/Week Comments No 0 (1 standard drink = 0.6 oz pur e alcohol) Comments No Sex and Gender Information Value Date Recorded Sex Assigned at Not on file Legal Sex Female 2:12 PM EST Gender Identity Not on file Sexual Orientation Not on file Last Filed Vital Signs Vital Sign Reading Time Taken Comments Blood Pressure 133/77 10/07/2017 8:00 AM EDT Pulse 85 10/07/2017 8:00 AM EDT Temperature 36.5 C (97.7 F) 10/07/2017 8:00 AM EDT Respiratory Rate 18 10/07/2017 8:00 AM EDT Oxygen Saturation - - Inhaled Oxygen Concentration - - Weight 112 kg (247 lb) 10/06/2017 2:58 AM EDT Height 160 cm (5' 3 ) 10/06/2017 2:58 AM EDT Body Mass Index 43.75 10/06/2017 2:58 AM EDT Plan of Treatment Not on file Insurance [place] [employer] Advance Directives * Full Code (Latest Code Status on File) Date Activated Date Inactivated Comments 10/06/2017 3:44 AM 10/07/2017 5:06 PM * Full Code Date Activated Date Inactivated Comments 10/05/2017 6:02 AM 10/06/2017 3:44 AM Care Teams Pharmacy Data Analyst Relationship Specialty Start Date End Date Hortensia Sheriff MD [address] [place] [address] PCP - General 10/06/17
--- OUTSIDE RECORDS SUMMARY | 2025-01-30 14:41 | XMS_ITS | Clinical Summary ---
Author Organization [facility] tem Address [id number] [address] [place] [address] Care Team Providers Care Long Lines Operator Name Role Phone Colten Lam MD Primary Care Provider [phone] Allergies No known active allergies Medications * This document contains information received from the source organization and may not represent a complete record from that organization. lamoTRIgine (LaMICtal) 200 mg tabletIndicatio ns:Bipolar II disorder ([facility]) Take 1 tablet (200 mg total) by mouth in the morning. 90 tablet 1 08/16/2024 Active venlafaxine XR (EFFEXOR-XR) 150 mg 24 hr capsuleIndicati ons:Generalized anxiety disorder Take 1 capsule (150 mg total) by mouth in the morning. Take with the Effexor XR 75mg capsule for a total daily dose of 225mg. 90 capsule 1 08/16/2024 Active venlafaxine XR (EFFEXOR XR) 75 mg 24 hr capsuleIndicati ons:Bipolar II disorder ([facility]),Gener alized anxiety disorder Take 1 capsule (75 mg total) by mouth in the morning. Take with Effexor XR 150mg capsule for a total daily dose of 225mg. 90 capsule 1 08/16/2024 Active Active Problems Problem Noted Date Diagnosed Date 13 weeks gestation of 08/17/2024 Bipolar II disorder 02/06/2024 Generalized anxiety disorder 02/06/2024 Comments Yes Family History Medical History Relation Name Comments Suicide Attempts Paternal Grandfather Relation Name Status Comments Paternal Grandfather Social History Tobacco Use Types Packs/Day Years Used Date Smoking Tobacco: Never Passive Smoke Exposure: Never Smokeless Tobacco: Never Tobacco Cessation:Counseling Given: Not Answered Alcohol Use Standard Drinks/Week Comments Yes 2 (1 standard drink = 0.6 oz pur e alcohol) 1-2 times a month PHQ-2 Answer Date Recorded Total Score 10 02/06/2024 Childcare Answer Date Recorded Childcare Unknown 10/11/2018 Employment Answer Date Recorded Employment Unknown 10/11/2018 Hunger Screening Answer Date Recorded Within the past 12 months we worried whether our food would run out before we got money to buy more. Patient Declined 024 Within the past 12 months th e food we bought just didn't last and we didn't have money to get more. Patient Declined 10/2023 Purpose - Life Answer Date Recorded Purpose and direction in life Unknown Education Answer Date Recorded What is the highest level of school you have completed or the highest degree you have received? High school graduate 02/06/2024 Comments Yes Sex and Gender Information Value Date Recorded Sex Assigned at Not on file Legal Sex Female 11:45 AM EDT Gender Identity Not on file Sexual Orientation Not on file Last Filed Vital Signs Vital Sign Reading Time Taken Comments Blood Pressure 130/84 02/06/2024 9:27 AM EDT Pulse 84 02/06/2024 9:27 AM EDT Temperature - - Respiratory Rate - - Oxygen Saturation - - Inhaled Oxygen Concentration - - Weight 82.6 kg (182 lb) 02/06/2024 9:27 AM EDT Height - - Body Mass Index - - Plan of Treatment Health Maintenance Due Date Last Done Comments Adult BMI Screening 09/13/2009 Pap Smear 06/11/2022 06/11/2019 Influenza Vaccine 12/31/2024 05/17/2017 Depression Screening 02/05/2025 02/06/2024 Tobacco Screening 08/17/2025 08/17/2024 DTaP,Tdap and Td Vaccines (2 - Td or Tdap) 09/28/2027 09/27/2017 Medical Devices Not on file Insurance [place] [address] Care Teams Long Lines Operator Relationship Specialty Start Date End Date Colten Lam MD [address] [place] [address] PCP - General Internal Medicine 01/30/24
--- OUTSIDE RECORDS SUMMARY | 2025-01-30 14:41 | XMS_ITS | Encounter Summary ---
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 on file Not on fi le Not on file documented as of this encounter Plan of Treatment Upcoming Encounters Date Type Department Care Team (Late st Contact Info) Description 02/06/2025 1:20 PM EDT Routine [facility] [address] [facility] [place] [address] Annabel Osman, WALLY [address] [facility] [place] [address] documented as of this encounter Procedures Procedure Name Priority Date/Time Associated Diagnosis Comments PAP SMEAR Routine 10/01/2024 12:00 AM EDT documented in this encounter Results * Pap Smear (10/01/2024 12:00 AM EDT) Swab Cervical swab / Unknown us Dominik Blas DO LAB CYTOLOGY ORDERABLES Final Re sult EXTERNAL LAB documented in this encounter Visit Diagnoses Not on filedocumented in this encounter Additional Health Concerns Assessment Noted Time PHQ-9 Depression Total Score: 15 023 2:06 PM EST documented as of this encounter Care Teams Aircraft Ordnance Systems Mechanic Relationship Specialty Start Date End Date Colten Lam MD 112 [facility] [address] [place] [address] PCP - General Internal Medicine 09/23/22 documented as of this encounter
--- OUTSIDE RECORDS SUMMARY | 2025-01-30 14:41 | XMS_ITS | Encounter Summary ---
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 Not on fi le Not on file documented as of this encounter Miscellaneous Notes * Result Encounter Note - Gemini Hanna LPN - 10/16/2024 2:10 PM EDT Pt notified * Result Encounter Note - Gemini Hanna LPN - 10/16/2024 11:14 AM EDT Left detailed voicemail for pt to call office back documented in this encounter Plan of Treatment Upcoming Encounters Date Type Department Care Team (Late st Contact Info) Description 02/06/2025 1:20 PM EDT Routine [facility] [address] [facility] [place] [address] Annabel Osman NP [address] [place] [address] documented as of this encounter Visit Diagnoses Not on filedocumented in this encounter Additional Health Concerns Assessment Noted Time PHQ-9 Depression Total Score: 15 023 2:06 PM EST documented as of this encounter Care Teams Microstrategy Architect Relationship Specialty Start Date End Date Colten Lam MD [address] [address] [place] [address] PCP - General Internal Medicine 09/23/22 documented as of this encounter
--- OUTSIDE RECORDS SUMMARY | 2025-01-30 14:41 | XMS_ITS | Encounter Summary ---
Author Organization [facility] Address [address] [place] [address] Care Team Providers Care Diesel Technician Name Role Phone Colten Lam MD Primary Care Provider [phone] Encounter Details Date Type Department Care Team (Late st Contact Info) Description 01/16/2025 Bamboo flowsheet [facility] [address] 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 Not on fi le Not on file documented as of this encounter Plan of Treatment Upcoming Encounters Date Type Department Care Team (Late st Contact Info) Description 02/06/2025 1:20 PM EDT Routine [facility] [address] [facility] [place] [address] Annabel Osman NP [address] [facility] [place] [address] documented as of this encounter Visit Diagnoses Not on filedocumented in this encounter Additional Health Concerns Assessment Noted Time PHQ-9 Depression Total Score: 15 03/30/ 023 2:06 PM EST documented as of this encounter Care Teams Diesel Technician Relationship Specialty Start Date End Date Colten Lam MD [address] [facility] 110 [place] [address] PCP - General Internal Medicine 09/23/22 documented as of this encounter
--- OUTSIDE RECORDS SUMMARY | 2025-01-30 14:41 | XMS_ITS | Encounter Summary ---
Author Organization [facility] Address [address] [facility], [address] [place] [address] Care Team Providers Care Specimen Accessioner Name Role Phone Hortensia Sheriff MD Primary Care Provider [phone] Encounter Details Date Type Department Care Team (Late st Contact Info) Description 10/13/2017 FollowUp Telephone Encounter [facility] [address] [place], [place] [id number] Sharon Oswald, IBCLC OB Unit at [place] [id number] Social History Tobacco Use Types Packs/Day Years Used Date Smoking Tobacco: Never Smokeless Tobacco: Never Alcohol Use Standard Drinks/Week Comments No 0 (1 standard drink = 0.6 oz pur e alcohol) Comments No Sex and Gender Information Value Date Recorded Sex Assigned at Not on file Legal Sex Female 2:12 PM EST Gender Identity Not on file Sexual Orientation Not on file documented as of this encounter Progress Notes * Sharon Oswald RN - 10/13/2017 2:51 PM EDT Discharge Phone Call Log Patient Name: Shobha Dougherty OB Care Provider: No admitting provider for patient encounter. Most Recent Discharge Date: 10/07/17 Disposition of baby: (home) Call made 10/13/2017 2:51 PM [x] No answer [x] Message left [x] Postcard sent [] documented in this encounter Plan of Treatment Not on file documented as of this encounter Visit Diagnoses Not on filedocumented in this encounter Care Teams Specimen Accessioner Relationship Specialty Start Date End Date Hortensia Sheriff MD [address] [place] [address] PCP - General 10/06/17 documented as of this encounter
--- OUTSIDE RECORDS SUMMARY | 2025-01-30 14:41 | XMS_ITS | Encounter Summary ---
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 Not on file Not on fi le Not on file documented as of this encounter Plan of Treatment Upcoming Encounters Date Type Department Care Team (Late st Contact Info) Description 02/06/2025 1:20 PM EDT Routine [facility] [address] [facility] [address] Annabel Osman NP [address] [facility] [place] [address] documented as of this encounter Visit Diagnoses Not on filedocumented in this encounter Additional Health Concerns Assessment Noted Time PHQ-9 Depression Total Score: 15 03/30/ 023 2:06 PM EST documented as of this encounter Care Teams Rotating Field Assembler Relationship Specialty Start Date End Date Colten Lam MD 112 [facility] [address] [place] [address] PCP - General Internal Medicine 09/23/22 documented as of this encounter
--- OUTSIDE RECORDS SUMMARY | 2025-01-30 14:41 | XMS_ITS | Encounter Summary ---
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 Not on fi le Not on file documented as of this encounter Plan of Treatment Upcoming Encounters Date Type Department Care Team (Late st Contact Info) Description 02/06/2025 1:20 PM EDT Routine [facility] [address] [facility] [place] [address] Annabel Osman, WALLY [address] [facility] [place] [address] documented as of this encounter Procedures Procedure Name Priority Date/Time Associated Diagnosis Comments PAP SMEAR Routine 11/29/2022 12:00 AM EDT documented in this encounter Results * Pap Smear (11/29/2022 12:00 AM EDT) Swab Cervical swab / Unknown us Blas Nurse [facility] LAB CYTOLOGY ORDERABLES Final Result EXTERNAL LAB documented in this encounter Visit Diagnoses Not on filedocumented in this encounter Additional Health Concerns Assessment Noted Time PHQ-9 Depression Total Score: 15 023 2:06 PM EST documented as of this encounter Care Teams Baler Operator Relationship Specialty Start Date End Date Colten Lam MD 112 [facility] 110 [place] [address] PCP - General Internal Medicine 09/23/22 documented as of this encounter
--- NOTE | 2025-01-30 15:14 | US_ITS ---
[place] [address] Patient Name: STEVAN GA MRN: [id number] date: 1990 Sex: F Assigned Patient Location: [facility] Current Patient Location: Accession/Order Number: [id number] Exam Date: 01/30/2025 16:09 Report Date: 01/30/2025 19:43 At the request of: QUINN MACIAS Procedure: US OB growth US OB BPP w non-stress, US OB growth 01/30/2025 4:54 PM SIGNS AND SYMPTOMS: increased bp ^Y COMPARISON: 12/27/2024. TECHNIQUE: Limited pelvic ultrasound using transvesical sonography. FINDINGS: An intrauterine is identified. The visualized pole has an estimated gestational age of 36 weeks and 5 days. A heart rate is identified at 142 bpm. A normal amount of amniotic fluid is present. The amniotic fluid index is 19.4 cm centimeters vertical pocket measuring 6.3 cm. There is no evidence for placenta previa or subchorionic hemorrhage. Estimated weight is 6 lbs. 13 oz. Pelvic survey reveals no gross abnormalities. Biophysical profile: breathing movements: 2/2 Gross body movements: 2/2 tone: 2/2. Amniotic fluid behind: 2/2 US/US OB growth IMPRESSION: Single live IUP with an estimated gestational age of 36 weeks and 5 days with a normal heart rate. Amniotic fluid index: 19.4 cm Biophysical profile: 12/07 Impression dictated by: Tyson Pina M.D. 01/30/2025 7:43 PM Dictation Location: [place] [address] Electronically authenticated by: [id number] Y Date: 01/30/2025 19:43
--- NOTE | 2025-01-30 15:14 | US_ITS ---
[address] [address] Patient Name: STEVAN GA MRN: [facility]:[id number] date: 1990 Sex: F Assigned Patient Location: [facility] Current Patient Location: Accession/Order Number: [id number] Exam Date: 01/30/2025 16:09 Report Date: 01/30/2025 19:43 At the request of: QUINN MACIAS Procedure: US OB growth US OB BPP w non-stress, US OB growth 01/30/2025 4:54 PM SIGNS AND SYMPTOMS: increased bp ^Y COMPARISON: 12/27/2024. TECHNIQUE: Limited pelvic ultrasound using transvesical sonography. FINDINGS: An intrauterine is identified. The visualized pole has an estimated gestational age of 36 weeks and 5 days. A heart rate is identified at 142 bpm. A normal amount of amniotic fluid is present. The amniotic fluid index is 19.4 cm centimeters vertical pocket measuring 6.3 cm. There is no evidence for placenta previa or subchorionic hemorrhage. Estimated weight is 6 lbs. 13 oz. Pelvic survey reveals no gross abnormalities. Biophysical profile: breathing movements: 2/2 Gross body movements: 2/2 tone: 2/2. Amniotic fluid behind: 2/2 US/US OB BPP w non-stress IMPRESSION: Single live IUP with an estimated gestational age of 36 weeks and 5 days with a normal heart rate. Amniotic fluid index: 19.4 cm Biophysical profile: 12/07 Impression dictated by: Tyson Pina M.D. 01/30/2025 7:43 PM Dictation Location: [facility] Electronically authenticated by: [id number] Y Date: 01/30/2025 19:43
[2025-01-30 15:20] VITALS: BP 146/93; PULSE 82
[2025-01-30 15:21] LABS: Aspartate Amino Transferase 20 U/L (15-37); Blood Urea Nitrogen 5.0 mg/dL (7.0-18.0); Estimated GFR (African America >60 (>=60 mL/min/1.73m^2); Estimated GFR (Non-African Ame >60 (>=60 mL/min/1.73m^2); Uric Acid 5.2 mg/dL (2.6-6.0)
[2025-01-30 15:37] VITALS: BP 135/86; PULSE 73
[2025-01-30 15:45] LABS: Hematocrit 30.9 % (36.0-48.0); Hemoglobin 10.7 g/dL (12.0-16.0); Immature Granulocytes Abs Auto 0.25 10^3/uL (0.00-0.03); Immature Granulocytes Pct Auto 1.9 % (0.0-0.5); Lymphocytes Absolute Auto 2.0 10^3/uL (1.2-3.8); Mean Corpuscular HGB Conc 34.6 g/dL (29.9-35.2); Mean Corpuscular Hemoglobin 30.0 pg (26.7-34.0); Mean Corpuscular Volume 86.6 fL (81.0-99.0); Platelet Count 176 10^3/uL (150-450); Red Blood Count 3.57 10^6/uL (4.20-5.40); White Blood Count 13.5 10^3/uL (4.0-11.0)
[2025-01-30 15:57] LABS: INR 0.97; Partial Thromboplastin Time 21.9 sec (22.3-36.2); Prothrombin Time 10.3 sec (9.0-11.6)
[2025-01-30 16:44] VITALS: BP 159/98; PULSE 82
--- OUTSIDE RECORDS SUMMARY | 2025-02-01 03:43 | XMS_ITS | CCD ---
Author Organization [facility] Care Team Providers Care Car Racer Name Role Phone STEPHEN DOWNEY Unavailable Unavailable STEPHEN DOWNEY Unavailable Unavailable LUZMARIA BRUNO Unavailable Unavailable RONI JIMENEZ Admitting Unavailable RONI JIMENEZ Attending Unavailable RONI JIMENEZ Consulting Unavailable LUZMARIA BRUNO Admitting Unavailable LUZMARIA BRUNO Attending Unavailable RONI JIMENEZ Admitting Unavailable RONI JIMENEZ Attending Unavailable STEPHANIE MONTGOMERY Consulting Unavailable RONI JIMENEZ Consulting Unavailable Colten Lam MD Primary Care Provider [phone] Colten Lam MD Unavailable Moraima-Shruthi FABRIC COATING SUPERVISOR-NURSE ANESTHETIST, Ema M Unavailable Colten Lam MD Primary Care Provider AYESHA VAZQUEZ Attending Unavailable KIANA, LUZMARIA F Referring Unavailable COLTEN LAM Primary Care Unavailable AYESHA VAZQUEZ Attending Unavailable COLTEN LAM Referring Unavailable COLTEN LAM Primary Care Unavailable WERO VALDERRAMA Attending Unavailable DOMINIK ODONNELL Attending Unavailable UMA MCCORMICK Attending Unavailable DOMINIK ODONNELL Attending Unavailable UMA MCCORMICK Attending Unavailable DOMINIK ODONNELL Attending Unavailable UMA MCCORMICK Attending Unavailable DOMINIK ODONNELL Attending Unavailable UMA MCCORMICK Attending Unavailable Medications Current Medications Medication Drug Class(es) Dates Sig (Normalized) Sig (Original) lamoTRIgine 200 mg oral tablet (20 sources) Mood Stabilizer, Anti-epileptic Agent Start: 01-09-2024 take 1 tablet by mouth once daily lamoTRIgine (LaMICtal) 200 MG tablet Indications: Bipolar affective disorder, currently depressed, mild (HCC) Take 1 tablet (200 mg) by mouth Daily 90 tablet 1 01/09/2024 Active Start: 10-03-2023 take 1 tablet by paulo th once daily lamoTRIgine (LaMICtal) 200 MG tablet [...] Active magnesium oxide 400 mg oral tablet (20 sources) Start: 10-01-2024 End: 04-29-2025 take 1 tablet by mouth once daily magnesium oxide (Mag-Ox) 400 MG tablet Indications: Second trimester (HHS-HCC) Take 1 tablet (400 mg) by mouth Daily 30 tablet 6 10/01/2024 04/29/2025 Active ondansetron 4 mg disintegrating oral tablet (12 sources) Serotonin-3 Receptor Antagonist Start: 10-26-2024 End: 11-25-2024 take 1 tablet by mouth every six hours ondansetron ODT (Zofran-ODT) 4 MG disintegrating tablet Indications: Nausea and vomiting, unspecified vomiting type Take 1 tablet (4 mg) by mouth every 6 (six) hours 120 tablet 10/26/2024 11/25/2024 Active Start: 09-03-2024 End: 10-03-2024 take 1 tablet [...] Daily 30 tablet 11 08/07/2024 09/06/2024 Active promethazine hydrochloride 12.5 mg oral tablet (19 sources) Phenothiazine Start: 10-23-2024 End: 01-21-2025 take 1 tablet by mouth every four hours for headache and headache promethazine (Phenergan) 12.5 MG tablet Indications: Nonintractable headache, unspecified chronicity pattern, unspecified headache type Take 1 tablet (12.5 mg) by mouth every 4 (four) hours 180 tablet 1 10/23/2024 01/21/2025 Active tiZANidine 4 mg oral tablet (20 sources) Central alpha-2 Adrenergic Agonist Start: 07-12-2024 [...] Start: 05-03-2024 take 1 tablet by paulo every eight hours for muscle spasms tiZANidine [...] Active Start: 07-06-2024 take 1 capsule by mo [facility] every twenty-four hours in the morning [...] Indications: Bipolar affective disorder, currently depressed, mild (HCC) Take 1 capsule by mouth in the morning 60 capsule 3 01/04/2024 Active Start: 03-30-2023 End: 06-07-2024 take 1 capsule by mouth every twenty-four hours in the morning venlafaxine XR (Effexor XR) 75 MG 24 hr capsule Indications: Bipolar affective disorder, currently depressed, mild (HCC) Take [...] mode of transmission] 10-01-2024 Episodic Menstrual disorders (20 sources) Amenorrhea; Translations: [Amenorrhea, unspecified] Onset: 02-23-2023 [...] [Term ] Onset: 10-04-2017 02-23-2023 Episodic Other complications of (2 sources) size does not accord with dates; Translations: [Uterine size-date discrepancy, unspecified trimester] 12-05-2024 Episodic Other complications of (2 sources) Excessive growth affecting management of mother; Translations: [Maternal care for excessive growth, unspecified trimester, not applicable or unspecified] 01-02-2025 Episodic Other connective tissue disease (2 sources) Muscle spasm of cervical muscle of neck; Translations: [Other muscle spasm] 04-04-2024 Episodic Other nervous system disorders (20 sources) Disturbance of attention; Translations: [Attention and concentration deficit] Onset: 02-23-2023 02-23-2023 Chronic Other nervous system disorders (20 sources) Chronic pain; Translations: [Other chronic pain] Onset: 02-23-2023 02-23-2023 Chronic Other nutritional; endocrine; and metabolic disorders (20 sources) Insulin resistance; Translations: [Insulin resistance] Onset: 02-23-2023 02-23-2023 Chronic Other nutritional; endocrine; and metabolic disorders (20 sources) Obesity; Translations: [Obesity, unspecified] Onset: 04-19-2023 04-19-2023 Chronic Other screening for suspected conditions (not mental disorders or infectious disease) (8 sources) Encounter for screening for malignant neoplasm of cervix; Translations: [Patient encounter status] Onset: 06-12-2019 10-01-2024 Episodic Residual codes; unclassified (20 sources) Daytime hypersomnia; Translations: [Hypersomnia, unspecified] Onset: 02-23-2023 02-23-2023 Chronic Residual codes; unclassified (2 sources) Gestation period, 15 weeks; Translations: [15 weeks gestation of ] 09-03-2024 Episodic Residual codes; unclassified (2 sources) Gestation period, 19 weeks; Translations: [19 weeks gestation of ] 10-01-2024 Episodic Residual codes; unclassified (2 sources) Gestation period, 23 weeks; Translations: [23 weeks gestation of ] 10-29-2024 Episodic Residual codes; unclassified (2 sources) Gestation period, 25 weeks; Translations: [25 weeks gestation of ] 11-12-2024 Episodic Residual codes; unclassified (2 sources) Gestation period, 28 weeks; Translations: [28 weeks gestation of ] 12-05-2024 Episodic Residual codes; unclassified (2 sources) Gestation period, 30 weeks; Translations: [30 weeks gestation of ] 12-19-2024 Episodic Residual codes; unclassified (7 sources) Gestation period, 32 weeks; Translations: [32 weeks gestation of ] Onset: 01-02-2025 01-02-2025 Episodic Residual codes; unclassified (2 sources) Gestation period, 34 weeks; Translations: [34 weeks gestation of ] 01-16-2025 Episodic Spondylosis; intervertebral disc disorders; other back problems (20 sources) Cervical spondylosis without myelopathy; Translations: [Spondylosis without myelopathy or radiculopathy, cervical region] Onset: 02-23-2023 02-23-2023 Chronic Past or Other Problems Problem Classification Problem Date Documented Date Episodic/Chronic Mood disorders (20 sources) Mood disorders Onset: 03-30-2023 Resolved: 02-06-2024 03-30-2023 Other female genital disorders (20 sources) Vaginal odor; Translations: [Other specified noninflammatory disorders of vagina] Onset: 02-23-2023 02-23-2023 Episodic Other upper respiratory infections (1 source) Upper respiratory infection; Translations: [Acute upper respiratory infection, unspecified] 01-03-2024 Episodic Spondylosis; intervertebral disc disorders; other back problems (20 sources) Stenosis of intervertebral foramina; Translations: [Spinal stenosis, cervical region] Onset: 10-25-2023 10-25-2023 Episodic Results Test Name Value Interpretation Reference Range Facility Urinalysis macro (dipstick) panel (U)on 01-16-2025 Bilirubin, UA Negative Negative - 4(70) +++ mg/dL [facility] Blood, UA Negative Negative - 50 Aneudy/mcL [facility] Clarity, UA Clear [facility] Color, UA Yellow [facility] Glucose, UA Negative Negative - 1999(110) ++++ mg/dL [facility] Interpretation and review of laboratory results Abnormal [facility] Ketones, UA Negative Negative - 160(16) ++++ mg/dL [facility] Leukocytes, UA Positive Negative - 500+++ Migdalia/mcL [facility] Nitrite, UA Negative Negative - Positive [facility] pH, UA 6 5 - 9 [facility] Protein, UA Negative Negative - 1999(20) ++++ mg/dL [facility] Spec Grav, UA 1.025 1 - 1.03 [facility] Urobilinogen, UA 1.0 0.2 - 12 mg/dL [facility] No Panel InformationOrdered By: Radiologist Radiology on 12-27-2024 [facility] Work Phone: No Panel Informationon 12-27 Radiology Study observation (narrative) [facility] US OB CERVICAL LENGTHon 12-01 [place] [address] Ultrasound Report Signed Patient: SHOBHA GA MR#: [id number] : 1990 Acct:[id number] Age/Sex: 34 / F ADM Date: Loc: [place] [address]- Attending Dr: Dominik Odonnell D.O. Ordering Physician: Dominik Odonnell D.O. Date of Service: 12/27/24 Procedure(s): US OB cervical length Accession Number(s): [id number] cc: COLTEN LAM ; Dominik Odonnell D.O. [address] [address] Patient Name: SHOBHA GA MRN: [facility]:[id number] date: 1990 Sex: F Assigned Patient Location: [facility] Current Patient Location: Accession/Order Number: [id number] Exam Date: 12/27/2024 19:25 Report Date: 12/27/2024 20:34 At the request of: DOMINIK ODONNELL DO Procedure: US OB cervical length [...] Pina M.D. 12/27/2024 8:34 PM Dictation Location: [place] [address] Electronically authenticated by: [id number] Y Date: 12/27/2024 20:34 Dictated By: Tyson Pina M.D. Signed By: 12/27/242043 DD/ 33 TD/TT: Compilation Clerk: [facility], Radiologi MD romi - 12/27/2024 [place] [address] Ultrasound Report Signed Patient: SHOBHA GA MR#: [id number] : 1990 Acct:[id number] Age/Sex: 34 / F ADM Date: Loc: [facility] 250-[address]: Dominik Odonnell D.O. Ordering Physician: Dominik Odonnell D.O. Date of Service: 12/27/24 Procedure(s): US OB cervical length Accession Number(s): [id number] cc: COLTEN LAM ; Dominik Odonnell D.O. The [address] [address] Patient Name: SHOBHA GA MRN: [facility]:[id number] date: 1990 Sex: F Assigned Patient Location: [facility] Current Patient Location: Accession/Order Number: [id number] Exam Date: 12/27/2024 19:25 Report Date: 12/27/2024 20:34 At the request of: DOMINIK ODONNELL DO Procedure: US OB cervical length [...] Pina M.D. 12/27/2024 8:34 PM Dictation Location: [place] [address] Electronically authenticated by: [id number] Y Date: 12/27/2024 20:34 Dictated By: Tyson Pina M.D. Signed By: 12/27/242043 DD/ 33 TD/TT: Compilation Clerk: [facility] US OB PLACENTAon 12-27-2024 [place] [address] Ultrasound Report Signed Patient: SHOBHA GA MR#: [id number] : 1990 Acct:[id number] Age/Sex: 34 / F ADM Date: Loc: [facility] 250- Attending Dr: Dominik Odonnell D.O. Ordering Physician: Dominik Odonnell D.O. Date of Service: 12/27/24 Procedure(s): US OB placenta Accession Number(s): [id number] cc: COLTEN LAM ; Dominik Odonnell D.O. [place] [address] Patient Name: SHOBHA GA MRN: [facility]:[id number] date: 1990 Sex: F Assigned Patient Location: [facility] Current Patient Location: Accession/Order Number: [id number] Exam Date: 12/27/2024 19:25 Report Date: 12/27/2024 20:34 At the request of: DOMINIK ODONNELL DO Procedure: US OB cervical length [...] Pina M.D. 12/27/2024 8:34 PM Dictation Location: [place] [address] Electronically authenticated by: [id number] Y Date: 12/27/2024 20:34 Dictated By: Tyson Pina M.D. Signed By: 12/27/242043 DD/ 33 TD/TT: Compilation Clerk: [facility] Radiology, Radiologi MD romi - 12/27/2024 [place] [address] Ultrasound Report Signed Patient: SHOBHA GA MR#: [id number] : 1990 Acct:[id number] Age/Sex: 34 / F ADM Date: Loc: [facility] 250-[address]: Dominik Odonnell D.O. Ordering Physician: Dominik Odonnell D.O. Date of Service: 12/27/24 Procedure(s): US OB placenta Accession Number(s): [id number] cc: COLTEN LAM ; Dominik Odonnell D.O. [place] [address] Patient Name: SHOBHA GA MRN: [facility]:[id number] date: 1990 Sex: F Assigned Patient Location: [facility] Current Patient Location: Accession/Order Number: [id number] Exam Date: 12/27/2024 19:25 Report Date: 12/27/2024 20:34 At the request of: DOMINIK ODONNELL DO Procedure: US OB cervical length [...] Pina M.D. 12/27/2024 8:34 PM Dictation Location: [place] [address] Electronically authenticated by: [id number] Y Date: 12/27/2024 20:34 Dictated By: Tyson Pina M.D. Signed By: 12/27/242043 DD/ 33 TD/TT: Compilation Clerk: [facility] US OB FOLLOW UP TRANSABDOMIN AL APPROACHon 12-19-2024 US OB FOLLOW UP TRANSABDOMINAL APPROACH EXAM: US OB FOLLOW UP TRANSABDOMINAL APPROACH [...] II, MD, PHD at 20-Dec-2024 08:06:10 AM [facility] Normal Not Available Comment on above: Order Comment: US OB SCAN FOR GROWTH Estimated Date of Delivery: 02/25/25 Gestational Age as of 12/05/2024: 28w2d Urinalysis macro (dipstick) panel (U)on 12-05-2024 Bilirubin, UA Negative Negative - 4(70) +++ mg/dL [facility] Blood, UA Negative Negative - 50 Aneudy/mcL [facility] Clarity, UA Clear [facility] Color, UA Yellow [facility] Glucose, UA Negative Negative - 1999(110) ++++ mg/dL [facility] Interpretation and review of laboratory results Abnormal [facility] Ketones, UA Negative Negative - 160(16) ++++ mg/dL [facility] Leukocytes, UA 2+ Negative - 500+++ Migdalia/mcL [facility] Nitrite, UA Negative Negative - Positive [facility] pH, UA 7.5 5 - 9 [facility] Protein, UA Negative Negative - 1999(20) ++++ mg/dL [facility] Spec Grav, UA 1.015 1 - 1.03 [facility] Urobilinogen, UA 1.0 0.2 - 12 mg/dL [facility] ALL CBC WITH AUTO DIFFon BASOPHILS ABSOLUTE AUTO 0.1 [facility] Basophils/100 WBC (Bld) 0.5 % 0.2 - 2.0 % [facility] Eosinophils/100 WBC (Bld) 0.8 % Low 0.9 - 7.0 % [facility] Erythrocyte distribution width (RBC) [Ratio] 13.1 % 11.0 - 15.0 % [facility] Hematocrit (Bld) [Volume fraction] 33.6 % Low 36.0 - 48.0 % [facility] Hemoglobin (Bld) [Mass/Vol] 11.5 g/dL Low 12.0 - 16.0 g/dL [facility] IMMATURE GRANULOCYTES ABS AUTO 0.19 High [facility] Immature granulocytes/100 WBC (Bld) 1.3 % High 0.0 - 0.5 % [facility] Interpretation and review of laboratory results Abnormal [facility] LYMPHOCYTES ABSOLUTE AUTO 2.2 [facility] Lymphocytes/100 WBC (Bld) 15.3 % Low 20.5 - 60.0 % [facility] MCH (RBC) [Entitic mass] 30.7 pg 26.7 - 34.0 pg [facility] MCHC (RBC) [Mass/Vol] 34.2 g/dL 29.9 - 35.2 g/dL [facility] MCV (RBC) [Entitic vol] 89.8 fL 81.0 - 99.0 fL [facility] MONOCYTES ABSOLUTE AUTO 0.8 [facility] Monocytes/100 WBC (Bld) 5.7 % 1.7 - 12.0 % [facility] NEUTROPHILS ABSOLUTE AUTO 10.9 High [facility] Neutrophils/100 WBC (Bld) 76.4 % High 43.0 - 75.0 % [facility] Platelet mean volume (Bld) [Entitic vol] 9.2 fL Low 9.5 - 13.5 fL [facility] EO # 0.1 [facility] TB PLT 253 [facility] RBC 3.74 Low [facility] WBC 14.3 High [facility] Urinalysis macro (dipstick) panel (U)on 11-12-2024 Bilirubin, UA Negative Negative - 4(70) +++ mg/dL [facility] Blood, UA Negative Negative - 50 Aneudy/mcL [facility] Clarity, UA Clear [facility] Color, UA Yellow [facility] Glucose, UA Negative Negative - 2000(110) ++++ mg/dL [facility] Interpretation and review of laboratory results Normal [facility] Ketones, UA Negative Negative - 160(16) ++++ mg/dL [facility] Leukocytes, UA Moderate Negative - 500+++ Migdalia/mcL [facility] Nitrite, UA Negative Negative - Positive [facility] pH, UA 7 5 - 9 [facility] Protein, UA Negative Negative - 2000(20) ++++ mg/dL [facility] Spec Grav, UA 1.015 1 - 1.03 [facility] Urobilinogen, UA 0.2 0.2 - 12 mg/dL [facility] US OB LIMITED 1+ FETUSESon 0 11-07-2024 US OB LIMITED 1+ FETUSES FINDINGS: Single viable intrauterine with anterior placenta not associated with the cervical os. Current heart rate identified at 155 bpm. Normal four chamber, RVOT, LVOT adequately visualized on today's exam, appropriate for gestational age. IMPRESSION: Normal cardiac morphology, single viable intrauterine . TRANSCRIBED BY: ELECTRONICALLY SIGNED BY: Miah Suero MD Normal Not Available Comment on above: Order Comment: US OB INCOMPLETE ANATOMY Estimated Date of Delivery: 02/25/25 Gestational Age as of 10/16/2024: 21w1d IGP,APTIMA HPV,AGE GDLNon AGE GDLN ACOG TESTING Note . [facility] Comment on above: TESTS RESULT FLAG UN ITS REF RANGE LAB Clinician Provided Cytology Information Source.............Endocervix No. of containers..01 ThinPrep Vial Age Algo ACOG Jayne... 30-65 01 FLAG LEGEND: L-Low Normal,H-High Normal,LL-Alert Low,HH-Alert High <-Panic Low,>-Panic High,A-Abnormal,AA-Critical Abnormal Performed at: 01 =[address] [address] Chelo Watt MD, HPV APTIMA Negative Negative [facility] Comment on above: This nucleic acid am plification test detects fourteen high- risk HPV types (16,18,31,33,35,39,45,51,52,56,58,59,66,68) without differentiation. Performed at: =[address] [id number] Hand Funnel Coater: Chelo Watt MD, Phone: [phone] Performed at: [address] [id number] Hand Funnel Coater: Chelo Watt MD, Phone: [phone] IGP, APTIMA HPV, RFX 16/18,45 Note . [facility] Comment on above: TESTS RESULT FLAG UN ITS REF RANGE LAB DIAGNOSIS: 02 UNSATISFACTORY FOR EVALUATION. Recommendation: 02 Suggest follow up as clinically appropriate. Specimen adequacy: 02 Specimen processed and examined but unsatisfactory for evaluation of epithelial abnormality because of obscuring inflammatory exudate. Performed by: 02 Omar Gilmore, Nursing Home Physician ([facility]) QC reviewed by: 02 Paty Bear, Supervisory Nursing Home Physician ([facility]) . 02 Note: Note 02 The Pap smear is a screening test designed to aid in the detection of premalignant and malignant conditions of the uterine cervix. It is not a diagnostic procedure and should not be used as the sole means of detecting cervical cancer. Both false-positive and false-negative reports do occur. Test Methodology: Note 02 The [employer] Ch[employer](R) Amusement Equipment Operator was unable to read this specimen. Therefore a manual review was performed. FLAG LEGEND: L-Low Normal,H-High Normal,LL-Alert Low,HH-Alert High <-Panic Low,>-Panic High,A-Abnormal,AA-Critical Abnormal Performed at: [address] [address] Chelo Watt MD, HPV Genotype Reflex Note 02 Criteria not met, HPV Genotype not performed. Criteria not met, HPV Genotype not performed. SPATULA-ALONE ENDOCERVIX [facility] RECURRENT VAGINITIS (HTRX)on 10-03-2024 ATOPOBIUM VAGINAE 0 [facility] ATOPOBIUM VAGINAE Not detected [facility] BVAB 2,3 (BACTERIAL VAGINOSIS ASSOCIATED BACTERIA 2, 3); MOBILUNCUS SPP 0 [facility] BVAB 2,3 (BACTERIAL VAGINOSIS ASSOCIATED BACTERIA 2, 3); MOBILUNCUS SPP Not detected [facility] MANUELA ALBICANS, PARAPSILOSIS, TROPICALIS 0 [facility] MANUELA ALBICANS, PARAPSILOSIS, TROPICALIS Not detected [facility] MANUELA GLABRATA 0 [facility] MANUELA GLABRATA Not detected [facility] MANUELA KRUSEI 0 [facility] MANUELA KRUSEI Not detected [facility] CHLAMYDIA TRACHOMATIS 0 [facility] CHLAMYDIA TRACHOMATIS Not detected [facility] GARDNERELLA VAGINALIS 0 [facility] GARDNERELLA VAGINALIS Not detected [facility] MEGASPHAERA (TYPES 1, 2) 0 [facility] MEGASPHAERA (TYPES 1, 2) Not detected [facility] MYCOPLASMA GENITALIUM 0 [facility] MYCOPLASMA GENITALIUM Not detected [facility] NEISSERIA GONORRHOEAE 0 [facility] NEISSERIA GONORRHOEAE Not detected [facility] TRICHOMONAS VAGINALIS 0 [facility] TRICHOMONAS VAGINALIS Not detected [facility] US OB 14+ WEEKS ANATOMY SCAN on 10-01-2024 US OB 14+ WEEKS ANATOMY SCAN EXAM: US OB 14+ WEEKS ANATOMY SCAN HISTORY: anatomy. COMPARISON: Ob ultrasound 08/02/2024. [...] the four-chamber heart and outflow tracts. A short-term follow-up ultrasound is recommended. Interpreted by: Electronically signed by RASHMI GUAJARDO II, MD, PHD at 12-Oct-2024 10:22:11 AM [facility] Normal Not Available Comment on above: Order Comment: US OB ANATOMY SINGLE W US OB CERVICAL LENGTH Estimated Date of Delivery: 02/25/25 Gestational Age as of 10/01/2024: 19w0d BOX TESTon 08-06-2024 BOX TEST SENT OUT [employer] [facility] BOX1 [facility] BOX2 08/06/24 [facility] HCG ( test) Ql (U)o n 08-02-2024 Interpretation and review of laboratory results Abnormal [facility] Preg Test, Ur Positive Negative [facility] US OB TRANSVAGINALon 025 US OB TRANSVAGINAL EXAM: US OB TRANSVAG INAL HISTORY: Dating. COMPARISON: None available. TECHNIQUE: Two-dimensional [...] II, MD, PHD at 03-Aug-2024 08:40:26 AM [facility] Normal Not Available Comment on above: Order Comment: US OB TRANSVAGINAL No LMP recorded. Urinalysis macro (dipstick) panel (U)on 08-02-2024 Bilirubin, UA Negative Negative - 4(70) +++ mg/dL [facility] Blood, UA Negative Negative - 50 Aneudy/mcL [facility] Clarity, UA Clear [facility] Color, UA Yellow [facility] Glucose, UA Negative Negative - 1999(110) ++++ mg/dL [facility] Interpretation and review of laboratory results Abnormal [facility] Ketones, UA Negative Negative - 160(16) ++++ mg/dL [facility] Leukocytes, UA Positive Negative - 500+++ Migdalia/mcL [facility] Comment on above: small Nitrite, UA Negative Negative - Positive [facility] pH, UA 6 5 - 9 [facility] Protein, UA Negative Negative - 1999(20) ++++ mg/dL [facility] Spec Grav, UA 1.02 1 - 1.03 [facility] Urobilinogen, UA 0.2 0.2 - 12 mg/dL [facility] XR Spine Cervical Complete w /Flex AND [place] 05-12-2021 XR Spine Cervical Complete w/Flex AND [...] by Miah Suero on 05/12/2021 1444 Normal [facility] Hearing Therapist US PELVIS AND TRANSVAGon US PELVIS AND [...] by: STEPHANIE MONTGOMERY Date: 2019-12-10 10:21 Normal [facility] PAP ONLYon 06-14-2019 COMMENT Comment Normal [facility] Comment on above: Result Comment: Z01. [id number] Performed By: #### [id number] #### [facility] [address] [place] [address] Leno Mac DIAGNOSIS: Comment Normal [facility] Comment on above: Result Comment: NEGA TIVE FOR INTRAEPITHELIAL LESION OR MALIGNANCY. Performed By: #### [id number] #### [facility] [address] [place] [address] Leno Mac Methodology: Comment Normal [facility] Comment on above: Result Comment: This liquid based ThinPrep(R) pap test was screened with the use of an image guided system. Performed By: #### [id number] #### [facility] [address] [place] [address] Leno Mac Note: Comment [facility] Comment on above: Result Comment: The Pap smear is a screening test designed to aid in the detection of premalignant and malignant conditions of the uterine cervix. It is not a diagnostic procedure and should not be used as the sole means of detecting cervical cancer. Both false-positive and false-negative reports do occur. . Performed By: #### [id number] #### [facility] [address] [place] [address] Leno Mac Performed by: Comment Normal [facility] Comment on above: Result Comment: Stephanie Barraza Tractor Operator (ASCP) Performed By: #### [id number] #### [facility] [address] [place] [address] Leno Mac Specimen adequacy: Comment [facility] Comment on above: Result Comment: Sati sfactory for evaluation. Endocervical and/or squamous metaplastic cells (endocervical component) are present. Performed By: #### [id number] #### [facility] [address], [place] [address] Leno Mac . . Normal [facility] Comment on above: Performed By: #### [id number] #### [facility] [address] [place], [place] [address] Leno Mac Discharge Summaryon 10-08-19 18 HIM IP Note OR Pediatrician/Medical Doctor Normal [facility] Plan of Careon 10-07-2017 HIM IP Note OR Pediatrician/Medical Doctor Normal [facility] HIM IP Note OR Pediatrician/Medical Doctor Normal [facility] Progress Noteon 10-07-2017 HIM IP Note OR Pediatrician/Medical Doctor [facility] HIM IP Note OR Pediatrician/Medical Doctor [facility] HIM IP Note OR Pediatrician/Medical Doctor [facility] HIM IP Note OR Pediatrician/Medical Doctor Normal [facility] HIM IP Note OR Pediatrician/Medical Doctor Normal [facility] Plan of Careon 10-06-2017 HIM IP Note OR Pediatrician/Medical Doctor Normal [facility] HIM IP Note OR Pediatrician/Medical Doctor Normal [facility] Progress Noteon 10-06-2017 HIM IP Note OR Pediatrician/Medical Doctor Normal [facility] HIM IP Note OR Pediatrician/Medical Doctor [facility] HIM IP Note OR Pediatrician/Medical Doctor Normal [facility] Surgical Pathologyon 018 Surgical Pathology (NOTE)[id number] RIVER MEM[facility]IAL [facility]OSP[facility]ALSUN[facility] PATHOLOGISTS [facility]USANATOMIC [id number] [place], [place] [id number] Fax: SURGICAL PATHOLOGY CONSULTATIONPatient Name: Mary GA Rec: [id number] Number: [id number]: 10/06/2017Received: 10/06/2017Reported: 10/07/2017 12:37-- Diagnosis --PLACENTA MEMBRANES AND UMBILICAL CORD: MATURE PLACENTA WITHINTERVILLOUS THROMBI, UNREMARKABLE MEMBRANES AND THREE-VESSELUMBILICAL CORD.Tammie NgElectronically Signed Out ajb/10/07/2017Clinical InformationOperative Findings: PLACENTA (PER CONTAINER)Source of Specimen1: PLACENTA (PER CONTAINER)Gross Description SHOBHA GA, UNDESIGNATED Placenta with attached membranes andumbilical cord.UMBILICAL CORD Length: 47.0 cm Diameter: 1.5 cmTrue knots: NoNumber of vessels: 3Spiraling: NormalInsertion into surface: ParacentralMEMBRANESColor: [place]-yates, focally opacified with a circummarginateinsertionMeconi um staining: NoFETAL SURFACEColor: Purple-paulson, with a normal [...] erythrocytes invillous capillaries: RareOther: Few microcalcifications Normal [facility] CBC with Diffon 10-05-2017 Abs. Basophil <0.03 Normal 0.00-0.20 [facility] Comment on above: Performed By: #### C DP ####[address] [place] [id number] Abs.Neutrophil (Seg) 7.93 k/uL Normal 1.50-8.10 [facility] Comment on above: Performed By: #### C DP ####[address] [place] [id number] Basophils/100 WBC Auto (Bld) 0 % Normal 0-2 [facility] Comment on above: Performed By: #### C DP ####[address] [place] [id number] Eosinophils 0.10 10*3/uL Normal 0.00-0.44 [facility] Comment on above: Performed By: #### C DP ####[address] [place] [address] Eosinophils/100 leukocytes 1 % Normal 1-4 [facility] Comment on above: Performed By: #### C DP ####[address] [place] [address] Erythrocyte distribution width Auto Ratio (RBC) 13.6 % Normal 11.8-14.4 [facility] Comment on above: Performed By: #### C DP ####[address] [place] [address] Erythrocytes (RBC) 4.18 10*6/uL Normal 3.95-5.[address] [facility] Comment on above: Performed By: #### C DP ####[address] [place] [address] Erythrocytes (RBC) 0.0 per 100 WBC Normal 0.0 [facility] Comment on above: Performed By: #### C DP ####[address] [place] [address] Granulocytes/100 WBC (Bld) 0.15 k/uL Normal 0.00-0.30 [facility] Comment on above: Result Comment: Perf ormed at [address] [place] [address] Performed By: #### C DP ####[address] [place] [address] Hematocrit (HCT) 36.5 % Normal 36.3-47.1 [facility] Comment on above: Performed By: #### C DP ####[address] [place] [address] Hemoglobin mass conc (Bld) 12.2 g/dL Normal 11.9-15.1 [facility] Comment on above: Performed By: #### C DP ####[address] [place] [address] Immature granulocytes #/vol (Bld) 1 % High 0 [facility] Comment on above: Performed By: #### C DP ####[facility] [place] [id number] Lymphocytes 2.28 10*3/uL Normal 1.10-3.70 [facility] Comment on above: Performed By: #### C DP ####[address] , [facility]83 Lymphocytes/100 leukocytes 20 % Low 24-43 [facility] Comment on above: Performed By: #### C DP ####[address] [place] [id number] MCH 29.2 pg Normal 25.2-33.5 [facility] Comment on above: Performed By: #### C DP ####[address] , [facility]83 MCHC mass conc (RBC) 33.4 g/dL Normal 28.4-34.8 [facility] Comment on above: Performed By: #### C DP ####[address] [place] [id number] MCV 87.3 fL Normal 82.6-102.9 [facility] Comment on above: Performed By: #### C DP ####[address] , [facility]83 Monocytes 0.81 10*3/uL Normal 0.10-1.20 [facility] Comment on above: Performed By: #### C DP ####[address] [place] [id number] Monocytes/100 leukocytes 7 % Normal 3-12 [facility] Comment on above: Performed By: #### C DP ####[address] , [facility]83 Neutrophil (Seg) 71 % High 36-65 [facility] Comment on above: Performed By: #### C DP ####[address] [place] [address] Platelet mean volume (PMV) 10.4 fL Normal 8.1-13.5 [facility] Comment on above: Performed By: #### C DP ####[address] [place] [address] Platelets 207 10*3/uL Normal 138-453 [facility] Comment on above: Performed By: #### C DP ####[address] [place] [address] WBC (Leukocytes) 11.3 10*3/uL Normal 3.5-11.3 [facility] Comment on above: Performed By: #### C DP ####[address] [place] [address] Auto Diff Performed NOT REPORTED Normal [facility] Comment on above: Performed By: #### C DP ####[address] [place] [address] Erythrocyte morphology NOT REPORTED Normal [facility] Comment on above: Performed By: #### C DP ####[address] [place] [address] Platelets NOT REPORTED Normal [facility] Comment on above: Performed By: #### C DP ####[address] [place] [address] WBC Morphology NOT REPORTED Normal [facility] Comment on above: Performed By: #### C DP ####[address] [place] [address] Drug Scr, Abuse, Uron 2017 Amphetamine(s),Ur Negative Normal NEG [facility] Comment on above: Performed By: #### D AU ####[address] [place] [address] Barbiturate(s),Ur Negative Normal NEG [facility] Comment on above: Performed By: #### D AU ####[address] [place] [address] Base excess Negative Normal [facility] Comment on above: Performed By: #### D AU ####[address] [place] [address] Benzodiazepine(s) Negative Normal NEG [facility] Comment on above: Performed By: #### D AU ####[address] [place] [address] Buprenorphrine, Ur Negative Normal NEG [facility] Comment on above: Result Comment: Perf ormed at [address] [place] [address] Performed By: #### D AU ####[address] [place] [address] Cannabinoid(s),Ur Negative Normal [facility] Comment on above: Performed By: #### D AU ####[address] [place] [address] Methamphetamine, Ur Negative Normal [facility] Comment on above: Performed By: #### D AU ####[address] [place] [address] Opiate(s), Ur Negative Normal [facility] Comment on above: Performed By: #### D AU ####[address] [place] [address] Oxycodone, Urine Negative Normal [facility] Comment on above: Performed By: #### D AU ####[address] [place] [address] Phencyclidine, Ur Negative Normal NEG [facility] Comment on above: Performed By: #### D AU ####[address] [place] [address] Propoxyphene,Urine Negative Normal NEG [facility] Comment on above: Performed By: #### D AU ####[address] [place] [address] Urine, methadone presence Negative Normal NEG [facility] Comment on above: Performed By: #### D AU ####[address] [place] [address] Urine, tricyclic antidepressants Negative Normal NEG [facility] Comment on above: Result Comment: Drug screen results are to be used for medical purposes only. All positive results are unconfirmed. Testing for employment or legal uses should be sent to a reference laboratory for confirmation. Performed By: #### D AU ####[address] [place] [address] Interpretive Info NOT REPORTED Normal [facility] Comment on above: Performed By: #### D AU ####[address] [place] [address] MDMA, Urine NOT REPORTED Normal NEG [facility] Comment on above: Performed By: #### D AU ####[address] , [place] [id number] History and Physicalon 10-05 HIM IP Note OR Pediatrician/Medical Doctor Normal [facility] Plan of Careon 10-05-2017 HIM IP Note OR Pediatrician/Medical Doctor Normal [facility] HIM IP Note OR Pediatrician/Medical Doctor Normal [facility] Progress Noteon 10-05-2017 HIM IP Note OR Pediatrician/Medical Doctor Normal [facility] HIM IP Note OR Pediatrician/Medical Doctor Normal [facility] HIM IP Note OR Pediatrician/Medical Doctor Normal [facility] HIM IP Note OR Pediatrician/Medical Doctor Normal [facility] Vital Signs Date Time Vital Sign Value Performing Clinician Faci [facility] 01-16-2025 11:37-0400 Body mass index (BMI) [Ratio] 36.63 kg/m2 Uma WELLINGTON Work Phone: [facility] 01-16-2025 11:37-0400 Body weight 93.8 kg Uma [place] PA Work Phone: [facility] 01-16-2025 11:37-0400 Diastolic blood pressure 76 mm[Hg] Uma Avinash PA Work Phone: [facility] 01-16-2025 11:37-0400 Systolic blood pressure 112 mm[Hg] Uma [place] PA Work Phone: [facility] 01-02-2025 11:20-0400 Body mass index (BMI) [Ratio] 39.4 kg/m2 Dominik Blas DO Work Phone: [facility] 01-02-2025 11:20-0400 Body weight 100.88 kg Dominik Blas DO Work Phone: [facility] 01-02-2025 11:20-0400 Diastolic blood pressure 78 mm[Hg] Dominik Blas DO Work Phone: [facility] 01-02-2025 11:20-0400 Systolic blood pressure 122 mm[Hg] Dominik Blas DO Work Phone: [facility] 12-19-2024 11:03-0400 Body mass index (BMI) [Ratio] 38.75 kg/m2 Uma Avinash PA Work Phone: [facility] 12-19-2024 11:03-0400 Body weight 99.22 kg Uma [place] PA Work Phone: [facility] 12-19-2024 11:03-0400 Diastolic blood pressure 74 mm[Hg] Uma Avinash PA Work Phone: [facility] 12-19-2024 11:03-0400 Systolic blood pressure 130 mm[Hg] Uma [place] PA Work Phone: [facility] 12-05-2024 15:42-0400 Body mass index (BMI) [Ratio] 37.55 kg/m2 Dominik Blas DO Work Phone: [facility] 12-05-2024 15:42-0400 Body weight 96.16 kg Dominik Blas DO Work Phone: [facility] 12-05-2024 15:42-0400 Diastolic blood pressure 70 mm[Hg] Dominik Blas DO Work Phone: [facility] 12-05-2024 15:42-0400 Systolic blood pressure 122 mm[Hg] Dominik Blas DO Work Phone: [facility] 11-12-2024 15:57-0400 Body mass index (BMI) [Ratio] 37.02 kg/m2 Uma Avinash PA Work Phone: [facility] 11-12-2024 15:57-0400 Body weight 94.8 kg Uma Avinash PA Work Phone: [facility] 11-12-2024 15:57-0400 Diastolic blood pressure 78 mm[Hg] Uma Avinash PA Work Phone: [facility] 11-12-2024 15:57-0400 Systolic blood pressure 122 mm[Hg] Uma Mccormick PA Work Phone: [facility] 10-29-2024 15:52-0400 Body mass index (BMI) [Ratio] 36.23 kg/m2 Dominik Blas DO Work Phone: [facility] 10-29-2024 15:52-0400 Body weight 92.76 kg Dominik Blas DO Work Phone: [facility] 10-29-2024 15:52-0400 Diastolic blood pressure 76 mm[Hg] Dominik Blas DO Work Phone: [facility] 10-29-2024 15:52-0400 Systolic blood pressure 140 mm[Hg] Dominik Blas DO Work Phone: [facility] 10-01-2024 16:11-0400 Body mass index (BMI) [Ratio] 35.21 kg/m2 Uma Avinash PA Work Phone: [facility] 10-01-2024 16:11-0400 Body weight 90.15 kg Uma Avinash PA Work Phone: [facility] 10-01-2024 16:11-0400 Diastolic blood pressure 82 mm[Hg] Uma Mccormick PA Work Phone: [facility] 10-01-2024 16:11-0400 Systolic blood pressure 120 mm[Hg] Uma Pateley PA Work Phone: [facility] 09-03-2024 15:51-0400 Body mass index (BMI) [Ratio] 34.26 kg/m2 Dominik Blas DO Work Phone: [facility] 09-03-2024 15:51-0400 Body weight 87.73 kg Dominik Blas DO Work Phone: [facility] 09-03-2024 15:51-0400 Diastolic blood pressure 68 mm[Hg] Dominik Blas DO Work Phone: [facility] 09-03-2024 15:51-0400 Systolic blood pressure 112 mm[Hg] Dominik Blas DO Work Phone: [facility] 08-02-2024 14:29-0400 Body mass index (BMI) [Ratio] 33.66 kg/m2 [facility] Nurse [facility] 08-02-2024 14:29-0400 Body weight 86.18 kg [facility] Nurse [facility] 08-02-2024 14:29-0400 Diastolic blood pressure 72 mm[Hg] [facility] Nurse [facility] 08-02-2024 14:29-0400 Systolic blood pressure 120 mm[Hg] [facility] Nurse [facility] 06-20-2024 13:30-0500 Body height 160 cm Wero Valderrama [employer]IVE [employer] Work Phone: [facility] 06-20-2024 13:30-0500 Body mass index (BMI) [Ratio] 33.66 kg/m2 Wero Valderrama [employer] Work Phone: [facility] 06-20-2024 13:30-0500 Body weight 86.18 kg Wero Valderrama [employer]IVE [employer] Work Phone: [facility] 06-20-2024 13:30-0500 Diastolic blood pressure 78 mm[Hg] Wero Valderrama [employer]IVE [employer]ER[employer]ER Work Phone: [facility] 06-20-2024 13:30-0500 Heart rate 78 /min Wero Valderrama [employer]OMOTIVE BOILER[employer]KER Work Phone: [facility] 06-20-2024 13:30-0500 Respiratory rate 17 /min Wero Valderrama [employer]OMOTIVE BOILER[employer]KER Work Phone: [facility] 06-20-2024 13:30-0500 SaO2% (BldA) [Mass fraction] 98 % Wero Valderrama [employer]ER[employer] Work Phone: [facility] 06-20-2024 13:30-0500 Systolic blood pressure 138 mm[Hg] Wero Valderrama [employer]OMOTIVE BO[employer]ER[employer]KER Work Phone: [facility] Encounters Encounter Date Encounter Type Care Provider Facility Start: 01-16-2025 End: 01-16-2025 Bamboo flowsheet Uma WELLINGTON Work Phone: [facility] Start: 01-16-2025 End: 01-16-2025 Bamboo flowsheet Uma Mccormick PA Work Phone: [facility] Start: 01-16-2025 End: 01-16-2025 ambulatory UMA MCCORMICK Not Available Start: 01-16-2025 End: 01-16-2025 flow sheet Uma WELLINGTON Work Phone: [facility] Comment on above: Third trimester preg ramon ([facility]); 34 weeks gestation of ([facility]) Start: 01-02-2025 End: 01-02-2025 Bamboo flowsheet Dominik Blas DO Work Phone: [facility] Start: 01-02-2025 End: 01-02-2025 Bamboo flowsheet Dominik Blas DO Work Phone: [facility] Start: 01-02-2025 End: 01-02-2025 ambulatory DOMINIK BLAS Not Available Start: 01-02-2025 End: 01-02-2025 flow sheet Dominik Blas DO Work Phone: [facility] Comment on above: 32 weeks gestation o f ([facility]); Third trimester ([facility]); Excessive growth affecting management of , antepartum, single or unspecified fetus ([facility]) Start: 12-27-2024 End: 12-27-2024 Clinisync Result Encounter Dominik Blas DO Work Phone: [facility] Unsolicited Start: 12-27-2024 End: 12-27-2024 Clinisync Result Encounter Dominik Blas DO Work Phone: [facility]solic[facility] Start: 12-19-2024 End: 12-19-2024 flow sheet Uma WELLINGTON Work Phone: [facility] OBANNE MARIEN Comment on above: Third trimester preg ramon ([facility]); 30 weeks gestation of ([facility]) Start: 12-19-2024 End: 12-19-2024 ambulatory UMA MCCORMICK Not Available Start: 12-05-2024 End: 12-05-2024 flow sheet Dominik Blas DO Work Phone: [facility] Comment on above: Third trimester preg ramon ([facility]); 28 weeks gestation of ([facility]); size inconsistent with dates ([facility]) Start: 12-05-2024 End: 12-05-2024 ambulatory DOMINIK BLAS Not Available Start: 12-05-2024 End: 12-05-2024 Bamboo flowsheet Dominik Blas DO Work Phone: [facility] Start: 12-05-2024 End: 12-05-2024 Bamboo flowsheet Dominik Blas DO Work Phone: [facility] Start: 11-12-2024 End: 11-12-2024 flow sheet Uma WELLINGTON Work Phone: [facility] Comment on above: Second trimester pre gnancy ([facility]); 25 weeks gestation of ([facility]) Start: 11-12-2024 End: 11-12-2024 ambulatory UMA MCCORMICK Not Available Start: 11-12-2024 End: 11-12-2024 Clinisync Result Encounter Dominik Blas DO Work Phone: [facility] External Department Unsolicited Start: 11-12-2024 End: 11-12-2024 Clinisync Result Encounter Dominik Blas DO Work Phone: [facility] External Department Unsolicited Start: 11-07-2024 End: 11-07-2024 ambulatory WERO VALDERRAMA Not Available Start: 10-29-2024 End: 10-29-2024 ambulatory DOMINIK BLAS Not Available Start: 10-29-2024 End: 10-29-2024 flow sheet Dominik Blas DO Work Phone: [facility] Comment on above: Diabetes mellitus sc reening; Second trimester ([facility]); 23 weeks gestation of ([facility]) Start: 10-29-2024 End: 10-29-2024 Bamboo flowsheet Dominik Blas DO Work Phone: [facility] Start: 10-29-2024 End: 10-29-2024 Bamboo flowsheet Dominik Blas DO Work Phone: [facility] Start: 10-10-2024 End: 10-10-2024 ambulatory WERO VALDERRAMA Not Available Start: 10-01-2024 End: 10-01-2024 Patient encounter procedure Uma WELLINGTON Work Phone: [facility] Start: 10-01-2024 End: 10-01-2024 Periodic preventive med est patient 18-39 yrs Uma WELLINGTON Work Phone: [facility] Comment on above: Second trimester pre gnancy; 19 weeks gestation of ; Well woman exam with routine gynecological exam; Screening, , for anatomic survey; STD exposure Start: 10-01-2024 End: 10-01-2024 ambulatory UMA MCCORMICK Not Available Start: 10-01-2024 End: 10-01-2024 Bamboo flowsheet Uma WELLINGTON Work Phone: [facility] Start: 10-01-2024 End: 10-08-2024 Bamboo flowsheet Uma WELLINGTON Work Phone: [facility] Start: 10-01-2024 End: 10-08-2024 Clinisync Result Encounter Generic External Data Provider [facility] Unsolicited Start: 10-01-2024 End: 10-03-2024 External Result Encounter Uma Avinash AMISH Work Phone: [facility] Unsolicited Start: 09-03-2024 End: 09-03-2024 flow sheet Dominik Blas DO Work Phone: [facility] Comment on above: Second trimester pre gnancy; 15 weeks gestation of ; Nausea and vomiting, unspecified vomiting type; Bipolar affective disorder, currently depressed, mild (CMS/HCC) Start: 09-03-2024 End: 09-03-2024 ambulatory DOMINIK BLAS Not Available Start: 09-03-2024 End: 09-03-2024 Bamboo flowsheet Dominik Blas DO Work Phone: [facility] Start: 09-03-2024 End: 09-03-2024 Bamboo flowsheet Dominik Blas DO Work Phone: [facility] Start: 08-16-2024 End: 08-16-2024 ambulatory AYESHA VAZQUEZ [facility] Start: 08-06-2024 End: 08-06-2024 Clinisync Result Encounter Generic External Data Provider [facility] Unsolicited Start: 08-06-2024 End: 08-06-2024 Clinisync Result Encounter Generic External Data Provider [facility] Unsolicited Start: 08-02-2024 End: 08-02-2024 Office outpatient visit 5 minutes [facility] Nurse [facility] Comment on above: GA: 10w3d Start: 08-02-2024 End: 08-02-2024 ambulatory WERO VALDERRAMA Not Available Start: 07-06-2024 End: 07-06-2024 Orders Only Ayesha Vazquez [employer] Work Phone: [facility] Start: 06-20-2024 End: 06-20-2024 Bamboo flowsheet Wero C Valderrama LOCOMOTIVE BOILERMAKER Work Phone: [facility] Start: 06-20-2024 End: 06-20-2024 Bamboo flowsheet Wero Valderrama LOCOMOTIVE BOILERMAKER Work Phone: [facility] Start: 06-20-2024 End: 06-20-2024 Office outpatient visit 25 minutes Wero Valderrama LOCOMOTIVE BOILERMAKER Work Phone: [facility] Comment on above: Class 1 obesity with out serious comorbidity with body mass index (BMI) of 31.0 to 31.9 in adult, unspecified obesity type Start: 06-20-2024 End: 06-20-2024 ambulatory WERO VALDERRAMA Not Available Start: 05-01-2024 End: 05-03-2024 Refill Colten Lam MD Work Phone: [facility] Comment on above: Class 1 obesity with out serious comorbidity with body mass index (BMI) of 31.0 to 31.9 in adult, unspecified obesity type; Trapezius muscle spasm Start: 04-04-2024 End: 04-04-2024 Refrobin Lam MD Work Phone: [facility] Comment on above: Trapezius muscle spa sm Start: 03-19-2024 End: 03-19-2024 Refill Estefania Rashid PA Work Phone: [facility] Comment on above: Class 1 obesity with out serious comorbidity with body mass index (BMI) of 31.0 to 31.9 in adult, unspecified obesity type Start: 02-06-2024 End: 02-06-2024 ambulatory [facility] Start: 01-07-2024 End: 01-09-2024 Refrobin Lam MD Work Phone: [facility] Comment on above: Class 1 obesity with out serious comorbidity with body mass index (BMI) of 31.0 to 31.9 in adult, unspecified obesity type; Bipolar affective disorder, currently depressed, mild (CMS/HCC) Start: 01-03-2024 End: 01-04-2024 Refrobin Lam MD Work Phone: [facility] Comment on above: Upper respiratory tr act infection, unspecified type Start: 06-08-2023 Telephone encounter Allison Arreola Tammie Kirkpatrick [facility] Start: 12-10-2019 End: 12-11-2019 Patient encounter procedure RONI JIMENEZ Facility:[facility] Start: 11-23-2019 Patient encounter procedure LUZMARIA BRUNO Facility:[facility] Start: 06-12-2019 End: 06-12-2019 Patient encounter procedure RONI JIMENEZ Facility:[facility] Start: 10-05-2017 End: 10-07-2017 Evaluation and management of inpatient [facility] Procedures Date Procedure Procedure Detail Performing Clinician Start: 01-16-2025 Urnls dip stick/tabl et rgnt non-auto w/o micrscp Dominik Blas DO Work Phone: Start: 12-27-2024 US OB CERVICAL LENGTH C orey Blas DO Work Phone: Start: 12-27-2024 US OB PLACENTA Dominik Fa zio DO Work Phone: Start: 12-05-2024 Urnls dip stick/tabl et rgnt non-auto w/o micrscp Dominik Blas DO Work Phone: Start: 11-12-2024 Urnls dip stick/tabl et rgnt non-auto w/o micrscp Uma WELLINGTON Work Phone: Start: 11-12-2024 ALL CBC WITH AUTO DIFF Generic External Data Provider Start: 10-01-2024 RECURRENT VAGINITIS (HTRX) Uma WELLINGTON Work Phone: Start: 10-01-2024 IGP,APTIMA HPV,AGE GDLN Dominik Blas DO Work Phone: Start: 10-01-2024 Microscopic observat ion [Identifier] in Cervix by Cyto stain Dominik Blas DO Work Phone: Start: 08-06-2024 BOX TEST Dominik Fazi o DO Work Phone: Start: 08-02-2024 End: 08-02-2024 Urnls dip stick/tablet rgnt non-auto w/o micrscp Dominik Blas DO Work Phone: Start: 02-06-2024 Adult depression scr eening assessment Ayesha Vazquez [employer]PER[employer]TER Work Phone: Start: 11-29-2022 Microscopic observat ion [Identifier] in Cervix by Cyto stain Uma WELLINGTON Work Phone: Start: 06-11-2019 Microscopic observat ion [Identifier] in Cervix by Cyto stain Allison Arreola MA Start: 10-07-2017 DISCHARGE PATIENT BRADLEY PAREDESGeorgi Start: 10-06-2017 SURGICAL PATHOLOGY LEXIL JUDSON DOWNEY Start: 10-06-2017 ADVANCE DIET TOLE RATED (NURSING COMMUNICATION) STEPHEN DOWNEY Start: 10-06-2017 AMBULATE PATIENT STEPHEN DOWNEY Start: 10-06-2017 ASSESS STEPHEN PAZ GES Start: 10-06-2017 DIET GENERAL STEPHEN PAZ GES Start: 10-06-2017 FULL CODE STEPHEN HED GES Start: 10-06-2017 ICE TO AFFECTED AREA WE URSZULA DOWNEY Start: 10-06-2017 NOTIFY PHYSICIAN (SPECIFY) STEPHEN DOWNEY Start: 10-06-2017 PATIENT STATUS (DIRECT) STEPHEN DOWNEY Start: 10-06-2017 PLACE INTERMITTENT PNEUMATIC COMPRESSION DEVICE STEPHEN DOWNEY Start: 10-06-2017 SALINE LOCK IV STEPHEN H EDGES Start: 10-06-2017 SPECIMEN TO PATHOLOGY W SHABBIR DOWNEY Start: 10-06-2017 STRAIGHT CATH STEPHEN HE DGES Start: 10-06-2017 VITAL SIGNS STEPHEN HED GES Start: 10-06-2017 PATIENT STATUS (FROM ED OR OR/PROCEDURAL) STEPHEN DOWNEY Start: 10-06-2017 TRANSFER PATIENT STEPHEN DOWNEY Start: 10-05-2017 Blood count complete auto&auto difrntl wbc STEPHEN DOWNEY Start: 10-05-2017 IP CONSULT TO [facility] STEPHEN DOWNEY Start: 10-05-2017 URINE DRUG SCREEN BRADLEY DOWNEY Plan of Treatment Date Care Activity Detail Author Start: 12-11-2027 Screening for malign ant neoplasm of cervix [facility] Start: 10-02-2027 Screening for malign ant neoplasm of cervix Pap Smear [facility] Start: 09-28-2027 DTaP,Tdap and Td Vaccines (2 - Td or Tdap) DTaP,Tdap and Td Vaccines (2 - Td or Tdap) [facility] Start: 11-29-2025 Screening for malign ant neoplasm of cervix Pap Smear [facility] Start: 02-05-2025 Depression Screening Depression Scre ening [facility] Start: 02-05-2025 Tobacco Screening Tobacco Screening [facility] Start: 01-30-2025 End: 01-30-2025 Patient encounter procedure 01/30/2025 1:30 PM EDT Routine [facility] [address] [phone] Annabel Osman, LOCOMOTIVE BOILERMAKER [address] [place] [address] [facility] Start: 01-30-2025 End: 01-30-2025 Professional / ancillary services management 01/30/2025 1:00 PM EDT Ancillary Procedure [facility] [address] [phone] [facility] Start: 01-16-2025 End: 01-16-2025 Patient encounter procedure 01/16/2025 11:20 AM EDT Routine [facility] [address] [address] Uma Mccormick PA [address] [place], [place] [id number] [facility] Start: 01-02-2025 End: 05-04-2025 US for US OB follow up transabdominal approach Imaging Routine Excessive growth affecting management of , antepartum, single or unspecified fetus ([facility]) Expected: 01/02/2025, Expires: 05/04/2025 [facility] Work Phone: Comment on above: Expected: 01/02/2025 , Expires: 05/04/2025 Start: 01-02-2025 End: 01-02-2025 Patient encounter procedure 01/02/2025 11:00 AM EDT Routine [facility] [address] [phone] Dominik Odonnell, [address] [place] [address] [facility] Start: 12-31-2024 Influenza vaccination [facility] Start: 12-25-2024 End: 12-25-2024 Patient encounter procedure 12/25/2024 10:00 AM EDT Office Visit [facility] [address] [address] Dominik Odonnell, [address] [place] [address] [facility] Start: 12-19-2024 End: 12-19-2024 Patient encounter procedure 12/19/2024 11:20 AM EDT Routine [facility] [address] [phone] Uma Mccormick PA [address] [place] [address] [facility] Start: 12-19-2024 End: 12-19-2024 Professional / ancillary services management 12/19/2024 10:30 AM EDT Ancillary Procedure [facility] [address] [phone] [facility] Start: 12-05-2024 End: 12-05-2024 Patient encounter procedure 12/05/2024 3:30 PM EDT Routine [facility] [address] [place] [phone] Dominik Odonnell, DO [address] [place] [address] Arrived [facility] Comment on above: Arrived Start: 12-05-2024 End: 04-06-2025 US for US OB follow up transabdominal approach Imaging Routine size inconsistent with dates ([facility]) Expected: 12/05/2024, Expires: 04/06/2025 [facility] Work Phone: Comment on above: Expected: 12/05/2024 , Expires: 04/06/2025 Start: 11-12-2024 End: 11-12-2024 Patient encounter procedure 11/12/2024 3:50 PM EDT Routine [facility] [address] [place] [address] Uma Mccormick PA [address] [place], [place] [id number] [facility] Start: 11-07-2024 End: 11-07-2024 Professional / ancillary services management 11/07/2024 10:30 AM EDT Ancillary Procedure [facility] [address] [place] [address] [facility] Start: 10-29-2024 End: 10-29-2024 Patient encounter procedure 10/29/2024 3:40 PM EDT Routine [facility] [address] [place] [address] Dominik Odonnell DO [address] [place], [place] [id number] [facility] Start: 10-29-2024 End: 10-29-2025 CBC panel - Blood by Automated count CBC Lab Routine Diabetes mellitus screening Expected: 10/29/2024 (Approximate), Expires: 10/29/2025 [facility] Work Phone: Comment on above: Expected: 10/29/2024 (Approximate), Expires: 10/29/2025 Start: 10-29-2024 End: 10-29-2025 Measurement of glucose 1 hour after glucose challenge for glucose tolerance test Glucose tolerance, 1 hour Lab Routine Diabetes mellitus screening Expected: 10/29/2024 (Approximate), Expires: 10/29/2025 [facility] Comment on above: Expected: 10/29/2024 (Approximate), Expires: 10/29/2025 Start: 10-10-2024 End: 10-10-2024 Professional / ancillary services management 10/10/2024 11:00 AM EDT Ancillary Procedure [facility] [address] [address] [facility] Start: 10-01-2024 End: 10-01-2024 Patient encounter procedure [facility] Comment on above: Arrived Start: 10-01-2024 End: 10-31-2024 Alpha fetoprotein, maternal Alpha fetoprotein, maternal Lab Routine Second trimester Expected: 10/01/2024 (Approximate), Expires: 10/31/2024 [facility] Comment on above: Expected: 10/01/2024 (Approximate), Expires: 10/31/2024 Start: 10-01-2024 End: 01-01-2025 US for US OB 14+ weeks anatomy scan Imaging Routine Screening, , for anatomic survey Expected: 10/01/2024, Expires: 01/01/2025 [facility] Comment on above: Expected: 10/01/2024 , Expires: 01/01/2025 Start: 09-03-2024 End: 09-03-2024 Patient encounter procedure [facility] Comment on above: Arrived Start: 08-02-2024 End: 08-02-2025 ABO/Rh ABO/Rh Lab Routine Missed menses , unspecified gestational age Expected: 08/02/2024 (Approximate), Expires: 08/02/2025 [facility] Comment on above: Expected: 08/02/2024 (Approximate), Expires: 08/02/2025 Start: 08-02-2024 End: 08-02-2025 Blood type and Indirect antibody screen panel - Blood Type and screen Lab Routine Missed menses , unspecified gestational age Expected: 08/02/2024 (Approximate), Expires: 08/02/2025 [facility] Work Phone: Comment on above: Expected: [...] [facility] [address] [place] [address] Wero Valderrama, LOCOMOTIVE BOILERMAKER [address] [place] [address] [facility] Start: 06-20-2024 End: 06-20-2024 Patient encounter procedure 06/20/2024 1:30 PM EST Office Visit [facility] [address] [place] [address] Wero Valderrama, LOCOMOTIVE BOILERMAKER [address] [place] [address] Arrived [facility] Comment on above: Arrived Start: 06-11-2024 Screening for malign ant neoplasm of cervix Pap Smear [facility] Start: 04-18-2024 End: 04-18-2024 Patient encounter procedure 04/18/2024 10:30 AM EST Office Visit [facility] [address] [place] [address] Colten [place] MD [address] [place] [address] [facility] Start: 01-01-2024 Influenza vaccination [facility] Start: 10-30-2023 Influenza vaccination Influenza Vacc ine (#1) [facility] Comment on above: Postponed from 12/31 (Patient Refused) Start: 06-20-2023 End: 06-20-2023 Patient encounter procedure 06/20/2023 11:15 AM EST Office Visit [facility] [address] [facility] [address] [place] [phone] Colten Lam MD [address] [facility] [address] [place] [address] [facility] Start: 06-11-2022 Screening for malign ant neoplasm of cervix Pap Smear [facility] Start: 09-13-2009 Adult BMI Screening Adult BMI Screen ing [facility] Bacteria identified in Urine by Culture Urine culture Microbiology Routine Missed menses Ordered: 08/02/2024 [facility] Comment on above: Ordered: 08/02/2024 CBC W Auto Different ial panel - Blood CBC and differential Lab Routine Missed menses , unspecified gestational age Ordered: 08/02/2024 [facility] Comment on above: Ordered: 08/02/2024 CHLAMYDIA TRACHOMATI S (GENITO/STI) CHLAMYDIA TRACHOMATIS (GENITO/STI) Lab Routine STD exposure Ordered: 10/01/2024 [facility] Comment on above: Ordered: 10/01/2024 Cytology Cervical or vaginal smear or scraping study Pap Smear Pathology and Cytology Routine Well woman exam with routine gynecological exam Ordered: 10/01/2024 [facility] Work Phone: Comment on above: Ordered: 10/01/2024 Hemoglobin A1c/Hemoglobin.total in Blood Hemoglobin A1c Lab Routine Missed menses , unspecified gestational age Ordered: 08/02/2024 [facility] Comment on above: Ordered: 08/02/2024 Hepatitis B virus surface Ag [Presence] in Serum or Plasma by Immunoassay Hepatitis B surface antigen Lab Routine Missed menses , unspecified gestational age Ordered: 08/02/2024 [facility] Comment on above: Ordered: 08/02/2024 Hepatitis C virus Ab [Presence] in Serum or Plasma by Immunoassay Hepatitis C antibody Lab Routine Missed menses , unspecified gestational age Ordered: 08/02/2024 [facility] Comment on above: Ordered: 08/02/2024 HIV-1/HIV-2 antigen/antibody combination immunoassay HIV-1 and HIV-2 antibodies Lab Routine Missed menses , unspecified gestational age Ordered: 08/02/2024 [facility] Comment on above: Ordered: 08/02/2024 Human papilloma viru s DNA [Presence] in Unspecified specimen by Probe with amplification HPV DNA probe, amplified Microbiology Routine Well woman exam with routine gynecological exam Ordered: 10/01/2024 [facility] Comment on above: Ordered: 10/01/2024 Neisseria gonorrhoea e DNA [Presence] in Unspecified specimen by MAURICE with probe detection Neisseria gonorrhea DNA probe, direct Lab Routine STD exposure Ordered: 10/01/2024 [facility] Comment on above: Ordered: 10/01/2024 Reagin Ab [Presence] in Serum by RPR RPR Lab Routine Missed menses , unspecified gestational age Ordered: 08/02/2024 [facility] Comment on above: Ordered: 08/02/2024 Rubella antibody, IgG Rubella an tibody, IgG Lab Routine Missed menses , unspecified gestational age Ordered: 08/02/2024 [facility] Comment on above: Ordered: 08/02/2024 SURESWAB(R) ADVANCED VAGINITIS PLUS, TMA SURESWAB(R) ADVANCED VAGINITIS PLUS, TMA Pathology and Cytology Routine STD exposure Ordered: 10/01/2024 [facility] Comment on above: Ordered: 10/01/2024 Immunizations Immunization Date Immunization Notes Care Provider Stacey saunders 09-27-2017 tetanus toxoid, redu sade diphtheria toxoid, and acellular pertussis vaccine, adsorbed Allison Arreola MA [facility] 05-17-2017 influenza, injectabl e, quadrivalent, preservative free Allisonher Elba CABRAL [facility] 05-17-2017 influenza virus vacc ine, unspecified formulation Allisonher Elba CABRAL [facility] Payers Date Payer Category Payer [facility] [id number] 2023 [employer] Blue [employer] Managed Care - Other [employer] [place] [id number] 2023 Unknown BCBS BCBS xxxxxx [id number] 2023-Present [phone] [address] [place] [address] [id number] 2023 Unknown [id number] 2014 Unknown [id number] 1991 Unknown [id number] [id number] 9.2.593 1991 Unknown [id number] 2.16840.1.626224.3.57 9.2.593 1991 Unknown [id number] 2.16840.1.330282.3.57 9.2.593 1991 Unknown [id number] 2.16840.1.735901.3.57 9.2.1286 1991 Unknown [id number] 2.16840.1.845980.3.57 9.2.1286 1991 Unknown [id number] 2.16.840.1.107004.3.57 9.2.1259 1991 Unknown [id number] 2.16.840.1.843375.3.57 9.2.1258 1991 Unknown [id number] 2.16.840.1.063025.3.57 9.2.1258 1991 Unknown [id number] 2.16.840.1.415355.3.57 9.2.1258 1991 Unknown [id number] 2.16.840.1.055551.3.57 9.2.1258 1991 Unknown [id number] 2.16.840.1.704298.3.57 9.2.1258 1991 Unknown [id number] 2.16.840.1.850194.3.57 9.2.1258 1991 Unknown [id number] 2.16.840.1.941942.3.57 9.2.1258 1991 Unknown [id number] 2.16.840.1.828243.3.57 9.2.1258 1991 Unknown [id number] 2.16.840.1.579770.3.57 9.2.1258 1991 Unknown [id number] 2.16.840.1.725142.3.57 9.2.1258 1991 Unknown [id number] 2.16.840.1.634819.3.57 9.2.1258 1991 Unknown [id number] 2.16.840.1.172547.3.57 9.2.1258 1991 Unknown [id number] [id number] 9.2.1259 1959 Self-pay 1959 Unknown [id number] Social History Date Type Detail Facility Start: 11-05-2022 End: 02-06-2024 Tobacco smoking status NYIS Never smoked tobacco [facility] Work Phone: Start: 11-05-2022 End: 02-06-2024 Tobacco use and exposure Smokeless tobacco non-user [facility] Start: 05-19-2023 End: 01-16-2025 Alcohol intake Current drinker of alcohol (finding) [facility] Start: 12-20-2022 End: 05-19-2023 Alcohol intake [...] or more drinks on 1 occasion? Never [facility] Start: 09-16-2022 End: 02-06-2024 Education 13 [facility] Start: 12-20-2022 Alcohol Comment Caffeine intak e: 1-2 cups coffee per day [facility] Start: 1990 Sex Assigned At Not on file [facility] Adolescent depressio n screening assessment 10 [facility] Start: 02-06-2024 Alcohol Comment 1-2 times a month Pr [facility] Start: 12-05-2014 Sex Female (finding) [facility] Start: 06-04-2024 [facility] NEGATED: Highlighted rowStart: NINF History of tobacco use Passive smoker [facility] Clinical Notes 06-08-2023 to 01-16-2025 AMISH Toussaint - 01/16/2025 11:20 AM Slim Haddad LPN - 01/02/2025 11:00 AM AMISH Cline - 12/19/2024 11:20 AM Slim Haddad LPN - 12/05/2024 3:30 PM AMISH Cline - 11/12/2024 3:50 PM EDT Note Date & Type Note Facility 01-16-2025 History of Presen t illness Narrative Reason for Appointment: Patient ID: Shobha Ga is a 34 y.o. female who [...] or radiculopathy 02/23/2023 Tension headache 02/23/2023 Term ([facility]) 10/04/2017 Vaginal odor 02/23/2023 Class 1 obesity without serious comorbidity with body mass index (BMI) of 31.0 to 31.9 in adult 04/19/2023 Bipolar II disorder (HCC) 02/06/2024 Generalized anxiety disorder 02/06/2024 32 weeks gestation of ([facility]) 01/02/2025 Resolved Ambulatory Problems Diagnosis Date Noted [...] Vitals: Estimated body mass index is 36.63 kg/m as calculated from the following: Height as of 06/20/24: 5' 3 . Weight as of this encounter: 206 lb 12.8 oz. BP: 112/76 Patient's last menstrual period was 05/21/2024. ASSESSMENT & PLAN ICD-10-CM 1. Third trimester ([facility]) Z34.93 POCT urinalysis dipstick manually resulted 2. 34 weeks gestation of ([facility]) Z3A.34 POCT urinalysis dipstick manually resulted Return [...] of: AMISH Toussaint documented in this encounter [facility] 01-02-2025 History of Presen t illness Narrative Reason for Appointment: Patient ID: Shobha Ga is a 34 y.o. female who presents for Routine Visit (Patient has no concerns at this time. Patient unable to void. ) Patient presents today for Return OB appointment. [...] Noted Bipolar affective disorder, currently depressed, mild ([facility]) 08/31/2022 Anxiety 08/31/2022 Mild episode of recurrent major depressive disorder 08/31/2022 Amenorrhea 02/23/2023 Attention deficit 02/23/2023 Daytime hypersomnia 02/23/2023 Foraminal stenosis of cervical region 02/23/2023 Insulin resistance 02/23/2023 Migraine without aura and with status migrainosus, not intractable 02/23/2023 Other chronic pain 02/23/2023 Spondylosis of cervical region without myelopathy or radiculopathy 02/23/2023 Tension headache 02/23/2023 Term ([facility]) 10/04/2017 Vaginal odor 02/23/2023 Class 1 obesity without serious comorbidity with body mass index (BMI) of 31.0 to 31.9 in adult 04/19/2023 Bipolar II disorder ([facility]) 02/06/2024 Generalized anxiety disorder 02/06/2024 32 weeks gestation of ([facility]) 01/02/2025 Resolved Ambulatory Problems Diagnosis Date Noted No Resolved Ambulatory Problems Past Medical History: Diagnosis Date Acute headache Depression IUD (intrauterine device) in place 05/2018 HISTORY PAST MEDICAL HISTORY SOCIAL HISTORY Past Medical History: Diagnosis Date Acute headache Anxiety Depression IUD (intrauterine device) in place 05/2018 Lydia IUD Social History Tobacco Use Smoking status: [...] nursing note reviewed. Exam conducted with a reliability technician present. Vitals: Estimated body mass index is 39.4 kg/m as calculated from the following: Height as of 06/20/24: 5' 3 . Weight as of this encounter: 222 lb 6.4 oz. BP: 122/78 Patient's last menstrual period was 05/21/2024. ASSESSMENT & PLAN ICD-10-CM 1. 32 weeks gestation of ([facility]) Z3A.32 2. Third trimester ([facility]) Z34.93 Return OB: Patient presents today for a routine obstetrics appointment. Patient is currently 32w2d . Patient states she is doing well [...] week for routine OB appointment. Documented by Estefania Haddad LPN on behalf of: Dominik Odonnell DO documented in this encounter [facility] 12-19-2024 History of Presen t illness Narrative Reason for Appointment: Patient ID: Shobha Ga is a 34 y.o. female who [...] or radiculopathy 02/23/2023 Tension headache 02/23/2023 Term ([facility]) 10/04/2017 Vaginal odor 02/23/2023 Class 1 obesity without serious comorbidity with body mass index (BMI) of 31.0 to 31.9 in adult 04/19/2023 Bipolar II disorder (HCC) 02/06/2024 Generalized anxiety disorder 02/06/2024 Resolved Ambulatory Problems Diagnosis Date Noted [...] reviewed. Vitals: Estimated body mass index is 38.75 kg/m as calculated from the following: Height as of 06/20/24: 5' 3 . Weight as of this encounter: 218 lb 12 oz. BP: 130/74 Patient's last menstrual period was 05/21/2024. ASSESSMENT & PLAN ICD-10-CM 1. Third trimester ([facility]) Z34.93 2. 30 weeks gestation of ([facility]) Z3A.30 Return OB: Patient presents today for a routine obstetrics appointment. Patient is currently 30w2d . Patient states she is doing well [...] of: AMISH Toussaint documented in this encounter [facility] 12-05-2024 History of Presen t illness Narrative Reason for Appointment: Patient ID: Shobha Ga is a 34 y.o. female who [...] Noted Bipolar affective disorder, currently depressed, mild ([facility]) 08/31/2022 Anxiety 08/31/2022 Mild episode of recurrent major depressive disorder 08/31/2022 Amenorrhea 02/23/2023 Attention deficit 02/23/2023 Daytime hypersomnia 02/23/2023 Foraminal stenosis of cervical region 02/23/2023 Insulin resistance 02/23/2023 Migraine without aura and with status migrainosus, not intractable 02/23/2023 Other chronic pain 02/23/2023 Spondylosis of cervical region without myelopathy or radiculopathy 02/23/2023 Tension headache 02/23/2023 Term ([facility]) 10/04/2017 Vaginal odor 02/23/2023 Class 1 obesity without serious comorbidity with body mass index (BMI) of 31.0 to 31.9 in adult 04/19/2023 Bipolar II disorder ([facility]) 02/06/2024 Generalized anxiety disorder 02/06/2024 Resolved Ambulatory Problems Diagnosis Date Noted [...] nursing note reviewed. Exam conducted with a reliability technician present. Vitals: Estimated body mass index is 37.55 kg/m as calculated from the following: Height as of 06/20/24: 5' 3 . Weight as of this encounter: 212 lb. BP: 122/70 Patient's last menstrual period was 05/21/2024. ASSESSMENT & PLAN ICD-10-CM 1. Third trimester ([facility]) Z34.93 POCT urinalysis dipstick manually resulted 2. 28 weeks gestation of ([facility]) Z3A.28 Return OB: Patient presents today for a routine obstetrics appointment. Patient is currently 28w2d . Patient states she is doing well [...] week for routine OB appointment. Documented by Estefania Haddad LPN on behalf of: Dominik Odonnell DO documented in this encounter [facility] 11-12-2024 History of Presen t illness Narrative Reason for Appointment: Patient ID: Shobha Ga is a 34 y.o. female who presents for Routine Visit Patient presents today for Return OB appointment. MEDICATIONS Current Outpatient Medications Medication Instructions lamoTRIgine (LAMICTAL) 200 mg, Oral, Daily magnesium oxide (MAG-OX) 400 mg, Oral, Daily ondansetron ODT (ZOFRAN-ODT) 4 mg, Oral, Every 6 hours promethazine (PHENERGAN) 12.5 mg, Oral, Every 4 [...] or radiculopathy 02/23/2023 Tension headache 02/23/2023 Term ([facility]) 10/04/2017 Vaginal odor 02/23/2023 Class 1 obesity without serious comorbidity with body mass index (BMI) of 31.0 to 31.9 in adult 04/19/2023 Bipolar II disorder ([facility]) 02/06/2024 Generalized anxiety disorder 02/06/2024 Resolved Ambulatory Problems Diagnosis Date Noted [...] Negative. Endocrine: Negative. Allergic/Immunologic: Negative. OBJECTIVE Objective: OBGyn Exam Vitals: Estimated body mass index is 37.02 kg/m as calculated from the following: Height as of 06/20/24: 5' 3 . Weight as of this encounter: 209 lb. BP: 122/78 Patient's last menstrual period was 05/21/2024. ASSESSMENT & PLAN ICD-10-CM 1. Second trimester ([facility]) Z34.92 POCT urinalysis dipstick manually resulted 2. 25 weeks gestation of ([facility]) Z3A.25 Return OB: Patient presents today for a routine obstetrics appointment. Patient is currently 25w0d . Patient states she is doing well but has complaints of being tired due to current . Patient has verbalizes frequent movement. Orders Placed This Encounter Procedures POCT urinalysis dipstick manually resulted Follow Up: Patient is to return to office in 3week for routine OB appointment. Documented by AMISH Toussaint on behalf of: AMISH Toussaint documented in this encounter [facility] 10-29-2024 History of Presen t illness Narrative Reason for Appointment: Patient ID: Shobha Ga is a 34 y.o. female who presents for Routine Visit Patient presents today for Return OB appointment. MEDICATIONS Current Outpatient Medications Medication Instructions lamoTRIgine (LAMICTAL) 200 mg, Oral, Daily magnesium oxide (MAG-OX) 400 mg, Oral, Daily ondansetron ODT (ZOFRAN-ODT) 4 mg, Oral, Every 6 hours promethazine (PHENERGAN) 12.5 mg, Oral, Every 4 hours tiZANidine (ZANAFLEX) 4 mg, Oral, Every 8 hours PRN venlafaxine XR (EFFEXOR XR) 37.5 mg, Oral, Daily venlafaxine XR (EFFEXOR XR) 75 mg, Oral, Every morning venlafaxine XR (EFFEXOR XR) 150 mg, Daily ALLERGIES No Known Allergies PROBLEMS Active Ambulatory Problems Diagnosis Date Noted Bipolar affective disorder, currently depressed, mild ([facility]) 08/31/2022 Anxiety 08/31/2022 Mild episode of recurrent major depressive disorder 08/31/2022 Amenorrhea 02/23/2023 Attention deficit 02/23/2023 Daytime hypersomnia 02/23/2023 Foraminal stenosis of cervical region 02/23/2023 Insulin resistance 02/23/2023 Migraine without aura and with status migrainosus, not intractable 02/23/2023 Other chronic pain 02/23/2023 Spondylosis of cervical region without myelopathy or radiculopathy 02/23/2023 Tension headache 02/23/2023 Term ([facility]) 10/04/2017 Vaginal odor 02/23/2023 Class 1 obesity without serious comorbidity with body mass index (BMI) of 31.0 to 31.9 in adult 04/19/2023 Bipolar II disorder ([facility]) 02/06/2024 Generalized anxiety disorder 02/06/2024 Resolved Ambulatory Problems Diagnosis Date Noted [...] nursing note reviewed. Exam conducted with a reliability technician present. Vitals: Estimated body mass index is 36.23 kg/m as calculated from the following: Height as of 06/20/24: 5' 3 . Weight as of this encounter: 204 lb 8 oz. BP: 140/76 Patient's last menstrual period was 05/21/2024. ASSESSMENT & PLAN ICD-10-CM 1. Diabetes mellitus screening Z13.1 CBC Glucose tolerance, 1 hour CBC Glucose tolerance, 1 hour 2. Second trimester ([facility]) Z34.92 3. 23 weeks gestation of ([facility]) Z3A.23 Return OB: Patient presents today for a routine obstetrics appointment. Patient is currently 23w0d . Patient states she is doing well but has complaints of being tired due to current . Patient has verbalizes frequent movement. labor precautions was discussed/given and patient was instructed to perform kick counts three times a day. Orders Placed This Encounter Procedures CBC Glucose tolerance, 1 hour Follow Up: Patient is to return to office in 2 week for routine OB appointment. Documented by Annabel Osman NP on behalf of: Dominik Odonnell DO documented in this encounter [facility] 10-01-2024 History of Presen t illness Narrative Reason for Appointment: Patient ID: Shobha Ga is a 34 y.o. female who [...] Noted Bipolar affective disorder, currently depressed, mild ([facility]) 08/31/2022 Anxiety 08/31/2022 Mild episode of recurrent major depressive disorder (HCC) ([facility]) 08/31/2022 Amenorrhea 02/23/2023 Attention deficit 02/23/2023 Daytime hypersomnia 02/23/2023 Foraminal stenosis of cervical region 02/23/2023 Insulin resistance 02/23/2023 Migraine without aura and with status migrainosus, not intractable ([facility]) 02/23/2023 Other chronic pain 02/23/2023 Spondylosis of cervical region without myelopathy or radiculopathy 02/23/2023 Tension headache 02/23/2023 Term 10/04/2017 Vaginal odor 02/23/2023 Class 1 obesity without serious comorbidity with body mass index (BMI) of 31.0 to 31.9 in adult 04/19/2023 Bipolar II disorder ([facility]) 02/06/2024 Generalized anxiety disorder ([facility]) 02/06/2024 Resolved Ambulatory Problems Diagnosis Date Noted No Resolved Ambulatory Problems Past Medical History: Diagnosis Date Acute headache Depression ([facility]) IUD (intrauterine device) in place 05/2018 HISTORY PAST MEDICAL HISTORY SOCIAL HISTORY Past Medical History: Diagnosis Date Acute headache Anxiety Depression ([facility]) IUD (intrauterine device) in place 05/2018 Liletta [...] of: AMISH Toussaint documented in this encounter [facility] 09-03-2024 History of Presen t illness Narrative Reason for Appointment: Patient ID: Shobha Ga is a 33 y.o. female who [...] Noted Bipolar affective disorder, currently depressed, mild ([facility]) 08/31/2022 Anxiety 08/31/2022 Mild episode of recurrent [...] 31.9 in adult 04/19/2023 Bipolar II disorder (CMS/HCC) 02/06/2024 Generalized anxiety disorder (CMS/HCC) 02/06/2024 Resolved Ambulatory Problems Diagnosis Date Noted [...] nursing note reviewed. Exam conducted with a reliability technician present. Vitals: Estimated body mass index is [...] by Annabel Osman NP on behalf of: Dominik Odonnell DO documented in this encounter [facility] 08-02-2024 History of Presen t illness Narrative Reason for Appointment: Patient ID: Shobha Ga is a 33 y.o. female who [...] Noted Bipolar affective disorder, currently depressed, mild (CMS/HCC) 08/31/2022 Anxiety 08/31/2022 Mild episode of recurrent major depressive disorder (HCC) ([facility]) 08/31/2022 Amenorrhea 02/23/2023 Attention deficit 02/23/2023 Daytime [...] 31.9 in adult 04/19/2023 Bipolar II disorder ([facility]) 02/06/2024 Generalized anxiety disorder ([facility]) 02/06/2024 Resolved Ambulatory Problems Diagnosis Date Noted No Resolved Ambulatory Problems Past Medical History: Diagnosis Date Acute headache Depression ([facility]) IUD (intrauterine device) in place 05/2018 Family [...] Odonnell at next visit. Pt will have [place] and labs done. Pt is in need [...] or undercooked meat, and stay away from [facility]. Patient has also been advised to not [...] Alida Ryan MA documented in this encounter [facility] 06-20-2024 History of Presen t illness Narrative Images from the original note were not included. Subjective Patient ID: Shobha Ga is a 33 y.o. female who presents for medication F/U. Shobha presents today for a medication F/U, weight [...] discussed diet and exercise. 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 She states that her insurance will not cover the cost. We will restart the phentermine today - phentermine (Adipex-P) 37.5 MG tablet; Take 1 tablet (37.5 mg) by mouth in the morning. Dispense: 30 tablet; Refill: 0 No follow-ups on file. documented in this encounter [facility] 04-04-2024 Telephone encount er Note Refill sent. [facility] 04-04-2024 Miscellaneous Notes Formattin g of this note might be different from the original. Refill sent. documented in this encounter [facility] 01-09-2024 Telephone encount er Note OARRS reviewed, Rx sent into patient's pharmacy. [facility] 01-09-2024 Miscellaneous Notes Formattin g of this note might be different from the original. OARRS reviewed, Rx sent into patient's pharmacy. venlafaxine XR (Effexor XR) 75 MG 24 hr capsule lamoTRIgine (LaMICtal) 200 MG tablet BOTH OF THESE NEED SENT TO [facility] [place] - the effexor 37.5 was sent already but she takes 75 mg as well. documented in this encounter [facility] 01-09-2024 Telephone encount er Note venlafaxine XR (Effexor XR) 75 MG 24 hr capsule lamoTRIgine (LaMICtal) 200 MG tablet BOTH OF THESE NEED SENT TO [facility] [place] - the effexor 37.5 was sent already but she takes 75 mg as well. [facility] 01-04-2024 Telephone encount er Note Refill not appropriate. [facility] 01-04-2024 Miscellaneous Notes Formattin g of this note might be different from the original. Refill not appropriate. Refills have been requested for the following medications: Other - Cough medicine Preferred pharmacy: [facility] [address] [place] [address] [address] Delivery method: Pickup documented in this encounter [facility] 01-03-2024 Telephone encount er Note Refills have been requested for the following medications: Other - Cough medicine Preferred pharmacy: [facility] [address] [place] [address] [address] Delivery method: Pickup [facility] 06-08-2023 Telephone encount er Note Pt is trying to get a different performance improvement manager and wanted to find out if you would be will in send in a refill lamictal, effexor both of these to in [place] [facility] 06-08-2023 Miscellaneous Notes Formattin g of this note might be different from the original. Pt is trying to get a different performance improvement manager and wanted to find out if you would be will in send in a refill lamictal, effexor both of these to [facility] in [place] documented in this encounter [facility] Evaluation note Diagnosis Bipolar affective disorder, currently [...] STD exposure [facility] Diagnosis Diabetes mellitus screening Screening for diabetes mellitus Second trimester ([facility]) state, incidental 23 weeks gestation of ([facility]) [facility] Diagnosis Second trimester ([facility]) state, incidental 25 weeks gestation of ([facility]) [facility] Diagnosis Third trimester ([facility]) state, incidental 28 weeks gestation of ([facility]) size inconsistent with dates ([facility]) [facility] Diagnosis Third trimester ([facility]) state, incidental 30 weeks gestation of ([facility]) [facility] Diagnosis 32 weeks gestation of ([facility]) Third trimester ([facility]) state, incidental Excessive growth affecting management of , antepartum, single or unspecified fetus ([facility]) [facility] Diagnosis Third trimester ([facility]) state, incidental 34 weeks gestation of ([facility]) documented in this encounter [facility]ructionsNot on filedocumented [facility] Purpose Family History No [...] section and content) DATE CREATED AUTHOR 10/18/2017 [facility] DATE CREATED AUTHOR AUTHOR'S ORGANIZ ATION 12/19/2019 [facility] DATE CREATED AUTHOR AUTHOR'S ORGANIZ ATION 05/13/2021 [facility] dical Specialist DATE CREATED AUTHOR AUTHOR'S ORGANIZ ATION 08/19/2024 [facility] DATE CREATED AUTHOR AUTHOR'S ORGANIZ ATION 01/17/2025 [facility] dical Specialists EPIC Care Teams (unrecognized sec tion and content) Car Racer Relationship Specialty Start Date End Date Colten Lam MD [address] [place] [address] PCP - General Internal Medicine 09/23/22 Car Racer Relationship Specialty Start Date End Date Colten Lam MD [address] [place] [address] PCP - Fernando Salinas Commercial 04/01/22 Colten Lam MD [address] [place] [address] PCP - General Internal Medicine 09/23/22 Car Racer Relationship Specialty Start Date End Date Colten Lam MD [address] [place] [address] PCP - Fernando Salinas Commercial 04/01/22 Colten Lam MD [address] [place] [address] PCP - General Internal Medicine 09/23/22 Car Racer Relationship Specialty Start Date End Date Colten Lam MD [address] [place] [address] PCP - Fernando Salinas Commercial 04/01/22 Colten Lam MD [address] [place] [address] PCP - General Internal Medicine 09/23/22 Car Racer Relationship Specialty Start Date End Date Colten Lam MD [address] [place] [address] PCP - Fernando Salinas Commercial 04/01/22 Colten Lam MD [address] [place] [address] PCP - General Internal Medicine 09/23/22 Car Racer Relationship Specialty Start Date End Date Colten Lam MD [address] [place] [address] PCP - Fernando Salinas Commercial 04/01/22 Colten Lam MD [address] [place] [address] PCP - General Internal Medicine 09/23/22 Car Racer Relationship Specialty Start Date End Date Colten Lam MD [address] [place] [address] PCP - General Internal Medicine 09/23/22 Ema Cruz, FABRIC COATING SUPERVISOR-NURSE ANESTHETIST [address] [place] [address] PCP - Fernando Salinas Commercial 04/01/24 Car Racer Relationship Specialty Start Date End Date Colten Lam MD [address] [place] [address] PCP - General Internal Medicine 09/23/22 Ema Cruz, FABRIC COATING SUPERVISOR-NURSE ANESTHETIST [address] [place] [address] PCP - Fernando Salinas Commercial 04/01/24 Car Racer Relationship Specialty Start Date End Date Colten Lam MD [address] [place] [address] PCP - General Internal Medicine 01/30/24 Car Racer Relationship Specialty Start Date End Date Colten Lam MD [address] [place] [address] PCP - General Internal Medicine 09/23/22 Ema Cruz, [facility] [address] [place] [address] PCP - Fernando Salinas Commercial 04/01/24 Car Racer Relationship Specialty Start Date End Date Colten Lam MD [address] [place] [address] PCP - General Internal Medicine 09/23/22 Ema Cruz, [facility] [address] [place] [address] PCP - Fernando Salinas Commercial 04/01/24 Car Racer Relationship Specialty Start Date End Date Colten Lam MD [address] [place] [address] PCP - General Internal Medicine 09/23/22 Ema Cruz, [facility] [address] [place] [address] PCP - Fernando Salinas Commercial 04/01/24 Car Racer Relationship Specialty Start Date End Date Colten Lam MD [address] [place] [address] PCP - General Internal Medicine 09/23/22 Car Racer Relationship Specialty Start Date End Date Colten Lam MD [address] [place] [address] PCP - General Internal Medicine 09/23/22 Car Racer Relationship Specialty Start Date End Date Colten Lam MD [address] [place] [address] PCP - General Internal Medicine 09/23/22 Car Racer Relationship Specialty Start Date End Date Colten Lam MD [address] [place] [address] PCP - General Internal Medicine 09/23/22 Car Racer Relationship Specialty Start Date End Date Cotlen Lam MD [address] [place] [address] PCP - General Internal Medicine 09/23/22 Car Racer Relationship Specialty Start Date End Date Colten Lam MD [address] [place] [address] PCP - General Internal Medicine 09/23/22 Car Racer Relationship Specialty Start Date End Date Colten Lam MD [address] [place] [address] PCP - General Internal Medicine 09/23/22 Car Racer Relationship Specialty Start Date End Date Colten Lam MD [address] [place] [address] PCP - General Internal Medicine 09/23/22 Car Racer Relationship Specialty Start Date End Date Colten Lam MD [address] [place] [address] PCP - General Internal Medicine 09/23/22 Reason for Visit (unrecogniz ed section and content) Reason Onset Date Comments Med Refill 03/19/2024 Reason Comments Med Refill Reason Onset Date Comments Med Refill 01/03/2024 Reason Onset Date Comments Med Refill 05/01/2024 Reason Comments Amenorrhea Reason Comments Routine Visit Reason Comments Routine Visit Patient has no co ncerns at this time. Patient unable to void. FOR RECORDS PERTAINING TO PATIENTS WHO ARE [...] BE BASED ON THE PRIMARY CLINICAL RECORDS. [facility]. provides no warranty or guarantee of the accuracy or completeness of information in this document.
== END 2025-01-30 17:00 | disposition home or self-care (01) ==
LOC: FBC 16:53 → FBCO 02-01 03:40
PROVIDERS: PCP Internal Medicine; Visit Provider Nurse Practitioner Family
DX: O36.63X0 Maternal care for excessive fetal growth, third trimester, not applicable or unspecified (principal); O13.3 Gestational [pregnancy-induced] hypertension without significant proteinuria, third trimester; Z3A.36 36 weeks gestation of pregnancy
CPT/HCPCS: 36415; 76816; 76818; 82565; 83615; 84450; 84520; 84550; 85025; 85610; 85730; 87081

== ENCOUNTER 2025-01-30 20:08 | Outpatient (REF) | payer BC, SELFPAY ==
--- OUTSIDE RECORDS SUMMARY | 2025-01-30 13:30 | XMS_ITS ---
Author Name Auto Generated Organization [facility] Care Team Providers Care Child Welfare Worker Name Role Phone AYESHA VAZQUEZ Attending Unavailable LUZMARIA BRUNO Referring Unavailable LESLEY TONEY Primary Care Unavailable AYESHA VAZQUEZ Attending Unavailable LESLEY TONEY Referring Unavailable LESLEY TONEY Primary Care Unavailable WERO VALDERRAMA Attending Unavailable TJ CALDWELL Attending Unavailable KATY MCCORMICK Attending Unavailable JAVI, TJ Attending Unavailable JACE, KATY Attending Unavailable JAVI, TJ Attending Unavailable JACE, KATY Attending Unavailable JAVI, TJ Attending Unavailable JACE, KATY Attending Unavailable QUINN MACIAS Attending Unavailable PROBLEMS DATE TYPE CONDITION / CODE ATTENDING STATUS [facility] 02/06/2024 Unknown Generalized anxi ety disorder / F41.1(ICD-10) NOAHALYSSA WetzelWANG MAXWELL Active [facility] 02/06/2024 Unknown Bipolar II disor ikrstin / F31.81(ICD-10) SHAANFEDEDamari AYESHA MAXWELL Active [facility] PROCEDURES No Procedure Records Found RESULTS US OB FOLLOW UP TRANSABDOMINAL APPROACH Observed: 12/19/2024 10:18 AM Status: F Source: [facility] EP[facility] Order Comment: US OB [...] II, MD, PHD at 20-Dec-2024 08:06:10 AM [facility] US OB LIMITED 1+ FETUSES Observed: 11/07 10:23 AM Status: F Source: [facility] EPIC Order Comment: US OB INCOMPL [...] 0 10/01/2024 4:04 PM Status: F Source: [facility] EPIC Order Comment: US OB ANATOMY [...] II, MD, PHD at 12-Oct-2024 10:22:11 AM [facility] US OB TRANSVAGINAL Observed: 08/02/2024 12:59 PM Status: F Source: [facility] EPIC Order Comment: US OB [...] II, MD, PHD at 03-Aug-2024 08:40:26 AM [facility] ALLERGIES DATE TYPE / CODE NAME / CODE REACTION SEVERITY SOURCE Drug Class/[id number](SNO MED CT) NO KNOWN ALLERGIES [facility] ENCOUNTERS ADMIT/DISCHARGE ACCOUNT NUMBER ADMITTING ENCOUNTER CLASS LOCATION SOURCE 01/30/2025/01/31/20 [id number] Ambulatory Building:[facility] EPIC 01/16/2025/01/17/20 25 [id number] Ambulatory Building:[facility] 01/02/2025/01/03/20 25 [id number] Ambulatory Building:[facility] 12/19/2024/12/20/19 25 [id number] Ambulatory Building:[facility] OB [facility] 12/19/2024/12/20/19 25 [id number] Ambulatory Building:[facility] 12/05/2024/12/06/19 25 [id number] Ambulatory Building:[facility] 11/12/2024/11/13/19 25 [id number] Ambulatory Building:[facility] 11/07/2024/11/08/19 25 [id number] Ambulatory Building:[facility] 10/29/2024/10/30/19 25 [id number] Ambulatory Building:[facility] 10/10/2024/10/11/19 25 [id number] Ambulatory Building:[facility] 10/01/2024/10/02/19 25 [id number] Ambulatory Building:[facility] EPIC 09/03/2024/09/04/19 25 [id number] Ambulatory Building:[facility] OB [facility] 08/16/2024/08/17/19 25 [id number] Ambulatory Building:[facility] 08/02/2024/08/03/19 25 [id number] Ambulatory Building:[facility] OB [facility] 08/02/2024/08/03/19 25 [id number] Ambulatory Building:[facility] EPIC 06/20/2024/06/20/19 [id number] Ambulatory Building:[facility] EPIC 02/06/2024/02/06/20 24 [id number] Ambulatory Building:[facility] _BH [facility] PAYERS ENCOUNTER GUARANTOR PAYER SUBSCRIBER SOURCE 01/30/2025 STEVAN Laureano ADAMARISOB: [place] [address]Yhu: (HP) (WP) Primary Insurance:BCBSPol icy Number: [id number] tive Date:2023-05-02 KP BAILONOB: [id number] [place] [address] [facility] EPIC 01/16/2025 STEVAN Laureano ADAMARISOB: [place] [address]Dlh: (HP) (WP) Primary Insurance:BCBSPol icy Number: [id number] tive Date:2023-05-02 KP BAILONOB: [id number] PA[place]ING [place] [address] [facility] EPIC 01/02/2025 STEVAN Laureano ADAMARISOB: [place]ING [place] [address]Otk: (HP) (WP) Primary Insurance:BCBSPol icy Number: [id number] tive Date:2023-05-02 KP BAILONOB: [id number] PA[place]ING [place] [address] [facility] EPIC 12/19/2024 STEVAN Laureano ADAMARISOB: [place]ING [place] [address]Vuk: (HP) (WP) Primary Insurance:BCBSPol icy Number: [id number] tive Date:2023-05-02 KP BAILONOB: [id number] [place] [address] [facility] EPIC 12/19/2024 STEVAN Laureano HOLLYGDOB: [place] [address]Xcw: (HP) (WP) Primary Insurance:BCBSPol icy Number: [id number] tive Date:2023-05-02 KP BAILONOB: [id number] [place] [address] [facility] EPIC 12/05/2024 STEVAN Laureano HOLLYGDOB: [place] [address]Xig: (HP) (WP) Primary Insurance:BCBSPol icy Number: [id number] tive Date:2023-05-02 KP BAILONOB: [id number] [place] [address] [facility] EPIC 11/12/2024 STEVAN Laureano ADAMARISOB: [place] [address]Zle: (HP) (WP) Primary Insurance:BCBSPol icy Number: [id number] tive Date:2023-05-02 KP BAILONOB: [id number] [place] [address] [facility] EPIC 11/07/2024 STEVAN Laureano ADAMARISOB: [place] [address]Thv: (HP) (WP) Primary Insurance:BCBSPol icy Number: [id number] tive Date:2023-05-02 KP BAILONOB: [id number] [place] [address] [facility] EPIC 10/29/2024 STEVAN Laureano ADAMARISOB: [place] [address]Igg: (HP) (WP) Primary Insurance:BCBSPol icy Number: [id number] tive Date:2023-05-02 KP BAILONOB: [id number] [place] [address] [facility] EPIC 10/10/2024 STEVAN Laureano ADAMARISOB: [place] [address]Awa: (HP) (WP) Primary Insurance:BCBSPol icy Number: [id number] tive Date:2023-05-02 KP BAILONOB: [id number] [place] [address] [facility] EPIC 10/01/2024 STEVAN Laureano ADAMARISOB: [place] [address]Lzf: (HP) (WP) Primary Insurance:BCBSPol icy Number: [id number] tive Date:2023-05-02 KP BAILONOB: [id number] [place] [address] [facility] EPIC 09/03/2024 STEVAN Laureano ADAMARISOB: [place] [address]Akf: (HP) (WP) Primary Insurance:BCBSPol icy Number: [id number] tive Date:2023-05-02 KP BAILONOB: [id number] [place] [address] [facility] EPIC 08/16/2024 STEVAN RUIZ ADAMARISOB: PAINTING [place] [address]Rjx: (HP) Primary Insurance:[facility] HMO/PPO/TRUSTPoli cy Number: [id number] tive Date:2023-05-02 KP Enio BARRERAGDOB: [id number] [place] [address] [facility] 08/02/2024 STEVAN Laureano HOLLYGDOB: [place] [address]Anb: (HP) (WP) [facility] Number: [id number] tive Date:2023-05-02 KP BAILONOB: [id number] [place] [address] [facility] EPIC 08/02/2024 STEVAN Laureano ADAMARISOB: [place] [address]Mrw: (HP) (WP) Primary Insurance:[facility] icy Number: [id number] tive Date:2023-05-02 KP BAILONOB: [id number] [place] [address] [facility] 06/20/2024 STEVAN Laureano ADAMARISOB: [place] [address]Bux: (HP) (WP) Primary Insurance:[employer] icy Number: [id number] tive Date:2023-05-02 KP BAILONOB: [id number] [place] [address] [facility] EPIC 02/06/2024 STEVAN RUIZ ADAMARISOB: PAINTING [place] [address]Yyi: () Primary Insurance:[facility] HMO/PPO/TRUSTPoli cy Number: [id number] tive Date:2023-05-02 KP BAILONOB: [id number] [place] [address] [place] [address]
== END 2025-01-30 20:09 | disposition home or self-care (01) ==
LOC: LAB 20:08
PROVIDERS: PCP Internal Medicine; Visit Provider Nurse Practitioner Family
DX: Z34.93 Encounter for supervision of normal pregnancy, unspecified, third trimester (principal); Z3A.36 36 weeks gestation of pregnancy
CPT/HCPCS: 87081

== ENCOUNTER 2025-02-01 12:58 | Outpatient (REF) | payer BC, SELFPAY ==
--- OUTSIDE RECORDS SUMMARY | 2025-01-30 13:30 | XMS_ITS | Encounter Summary ---
Author Organization [facility] Address [address] [facility] [place] [address] Care Team Providers Care [employer] Officer Name Role Phone Colten Lam MD Primary Care Provider Reason for Visit * Reason Comments Routine Visit Encounter Details Date Type Department Care Team (Late st Contact Info) Description 01/30/2025 1:30 PM EDT Routine [facility] [place] [facility] 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 Not on file Not on fi le Not on file documented as of this encounter Last Filed Vital Signs Vital Sign Reading Time Taken Comments Blood Pressure - - Pulse - - Temperature - - Respiratory Rate - - Oxygen Saturation - - Inhaled Oxygen Concentration - - Weight 107 kg (236 lb 6.4 oz) 01/30/2025 1:41 PM EDT Height - - Body Mass Index 41.88 06/20/2024 1:30 PM EST documented in this encounter Plan of Treatment Upcoming Encounters Date Type Department Care Team (Late st Contact Info) Description 02/06/2025 1:20 PM EDT Routine [facility] [address] [address] Annabel Osman, SOLAR DEVELOPMENT ENGINEER [address] [place] [address] Scheduled Orders Name Type Priority Associated Diagnoses Orde r Schedule CULTURE, GROUP B STREP WITH SUSCEPTIBLITY Lab Routine Third trimester ([facility]) Expected: 01/30/2025, Expires: 01/30/2026 Creatinine Lab Routine induced hypertension, antepartum ([facility]) Expected: 01/30/2025 (Approximate), Expires: 01/30/2026 Protein, urine, 24 hour Lab Routine induced hypertension, antepartum ([facility]) Expected: 01/30/2025 (Approximate), Expires: 01/30/2026 Pt and ptt Lab Routine induced hypertension, antepartum ([facility]) Expected: 01/30/2025, Expires: 01/30/2026 CBC and differential Lab Routine induced hypertension, antepartum ([facility]) Expected: 01/30/2025 (Approximate), Expires: 01/30/2026 Uric acid Lab Routine induced hypertension, antepartum ([facility]) Expected: 01/30/2025 (Approximate), Expires: 01/30/2026 Lactate dehydrogenase Lab Routine induced hypertension, antepartum ([facility]) Expected: 01/30/2025, Expires: 01/30/2026 ALT Lab Routine induced hypertension, antepartum ([facility]) Expected: 01/30/2025 (Approximate), Expires: 01/30/2026 AST Lab Routine induced hypertension, antepartum ([facility]) Expected: 01/30/2025 (Approximate), Expires: 01/30/2026 BUN Lab Routine induced hypertension, antepartum ([facility]) Expected: 01/30/2025, Expires: 01/30/2026 US biophysical profile w non stress test Imaging Routine 36 weeks gestation of ([facility]) Third trimester ([facility]) Excessive growth affecting management of , antepartum, single or unspecified fetus ([facility]) induced hypertension, antepartum ([facility]) Expected: 01/30/2025 (Approximate), Expires: 07/31/2025 documented as of this encounter Procedures Procedure Name Priority Date/Time Associated Diagnosis Comments POCT URINALYSIS DIPSTICK Routine 01/30/2025 1:47 PM EDT 36 weeks gestation of ([facility]) Third trimester ([facility]) documented in this encounter Results * (ABNORMAL) POCT urinalysis dipstick manually resulted (01/30/2025 1:47 PM EDT) Color, UA Yellow Clarity, UA Clear Glucose, UA Negative Negative - 2000(110) ++++ mg/dL Bilirubin, UA Negative Negative - 4(70) +++ mg/dL Ketones, UA Negative Negative - 160(16) ++++ mg/dL Spec Grav, UA 1.015 1 - 1.03 Blood, UA Negative Negative - 50 Aneudy/mcL pH, UA 7.0 5 - 9 Protein, UA Positive Negative - 2000(20) ++++ mg/dL Urobilinogen, UA 1.0 0.2 - 12 mg/dL Leukocytes, UA Positive Negative - 500+++ Migdalia/mcL Comment:1+ Nitrite, UA Negative Negative - Positive Urine 01/30/2025 1:47 PM EDT Annabel Osman NP POINT OF CARE TEST ENTER/EDIT ORDERABLES Final Result documented in this encounter Visit Diagnoses Diagnosis 36 weeks gestation of ([facility]) Third trimester ([facility]) state, incidental Excessive growth affecting management of , antepartum, single or unspecified fetus ([facility]) induced hypertension, antepartum ([facility]) Transient hypertension of , antepartum documented in this encounter Additional Health Concerns Assessment Noted Time PHQ-9 Depression Total Score: 15 023 2:06 PM EST documented as of this encounter Care Teams [employer] Officer Relationship Specialty Start Date End Date Colten Lam MD [address] [place] [address] PCP - General Internal Medicine 09/23/22 documented as of this encounter
--- OUTSIDE RECORDS SUMMARY | 2025-02-01 13:00 | XMS_ITS | Encounter Summary ---
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 Not on fi le Not on file documented as of this encounter Plan of Treatment Upcoming Encounters Date Type Department Care Team (Late st Contact Info) Description 02/06/2025 1:20 PM EDT Routine [facility] [address] [place] [address] Annabel Osman, [place] [address] [place] [address] documented as of this encounter Visit Diagnoses Not on filedocumented in this encounter Additional Health Concerns Assessment Noted Time PHQ-9 Depression Total Score: 15 03/30/ 023 2:06 PM EST documented as of this encounter Care Teams Patient Biller Relationship Specialty Start Date End Date Colten Lam MD [address] [facility] [address] [place] [address] PCP - General Internal Medicine 09/23/22 documented as of this encounter
--- OUTSIDE RECORDS SUMMARY | 2025-02-01 13:00 | XMS_ITS | Encounter Summary ---
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 [place] [id number] documented as of this encounter Procedures Procedure Name Priority Date/Time Associated Diagnosis Comments US OB GROWTH 01/30/2025 7:43 PM EDT documented in this encounter Results * US OB GROWTH (01/30/2025 7:43 PM EDT) Anatomical Region Laterality Modality Other 01/30/2025 7:43 PM EDT Narrative 01/30/2025 7:45 PM EDT [address] [address] Ultrasound Report Signed Patient: SHOBHA GA MR#: [id number] : 1990 Acct:[id number] Age/Sex: 34 / F ADM Date: Loc: [facility] 250-[address]: Quinn Osman Ordering Physician: Quinn Osman Date of Service: 01/30/25 Procedure(s): US OB growth Accession Number(s): [id number] cc: COLTEN LAM ; Quinn Osmna The [address] [address] Patient Name: SHOBHA GA MRN: [id number] date: 1990 Sex: F Assigned Patient Location: [facility] Current Patient Location: Accession/Order Number: [id number] Exam Date: 01/30/2025 16:09 Report Date: 01/30/2025 19:43 At the request of: QUINN OSMAN Procedure: US OB growth US OB BPP w non-stress, US OB growth 01/30/2025 4:54 PM SIGNS AND SYMPTOMS: increased bp Y COMPARISON: 12/27/2024. TECHNIQUE: Limited pelvic ultrasound using transvesical sonography. FINDINGS: An intrauterine is identified. The visualized pole has an estimated gestational age of 36 weeks and 5 days. A heart rate is identified at 142 bpm. A normal amount of amniotic fluid is present. The amniotic fluid index is 19.4 cm centimeters vertical pocket measuring 6.3 cm. There is no evidence for placenta previa or subchorionic hemorrhage. Estimated weight is 6 lbs. 13 oz. Pelvic survey reveals no gross abnormalities. Biophysical profile: breathing movements: 2/2 Gross body movements: 2/2 tone: 2/2. Amniotic fluid behind: 2/2 US/US OB growth IMPRESSION: Single live IUP with an estimated gestational age of 36 weeks and 5 days with a normal heart rate. Amniotic fluid index: 19.4 cm Biophysical profile: 12/07 Impression dictated by: Tyson Pina M.D. 01/30/2025 7:43 PM Dictation Location: [place] [address] Electronically authenticated by: [id number] Y Date: 01/30/2025 19:43 Dictated By: Tyson Pina M.D. Signed By: 01/30/251944 DD/ 42 TD/TT: Guard Driver: Procedure Note Radiology, Radiologist, MD - 01/30/2025 [place] [address] Ultrasound Report Signed Patient: SHOBHA GA [facility]#: [id number] : 1990Acct:[id number] Age/Sex: 34 / FADM Date: Loc: [facility] 250-[address]: Quinn Osman Ordering Physician: Quinn Osman Date of Service: 01/30/25 Procedure(s): US OB growth Accession Number(s): [id number] cc: COLTEN LAM ; Quinn Osman The [place] [id number] Patient Name: SHOBHA GA MRN: [id number] date: 1990 Sex: F Assigned Patient Location: [facility] Current Patient Location: Accession/Order Number: [id number] Exam Date: 01/30/2025 16:09 Report Date: 01/30/2025 19:43 At the request of: QUINN OSMAN Procedure: US OB growth US OB BPP w non-stress, US OB growth 01/30/2025 4:54 PM SIGNS AND SYMPTOMS: increased bp Y COMPARISON: 12/27/2024. TECHNIQUE: Limited pelvic ultrasound using transvesical sonography. FINDINGS: An intrauterine is identified. The visualized pole has an estimated gestational age of 36 weeks and 5 days. A heart rate isidentified at 142 bpm. A normal amount of amniotic fluid is present. The amnioticfluid index is 19.4 cm centimeters vertical pocket measuring 6.3 cm. There isno evidence for placenta previa or subchorionic hemorrhage. Estimated weight is 6 lbs. 13 oz. Pelvic survey reveals no gross abnormalities. Biophysical profile: breathing movements: 2/2 Gross body movements: 2/2 tone: 2/2. Amniotic fluid behind: 2/2 US/US OB growth IMPRESSION: Single live IUP with an estimated gestational age of 36 weeks and 5 dayswith a normal heart rate. Amniotic fluid index: 19.4 cm Biophysical profile: 12/07 Impression dictated by: Tyson Pina M.D. 01/30/2025 7:43 PM Dictation Location: [place] [address] Electronically authenticated by: [id number] Y Date: 9:43 Dictated By: Tyson Pina M.D. Signed By:01/30/251944 DD/ 42 TD/TT: Guard Driver: Quinn Osman LEAD [employer] [facility] Final Resul t documented in this encounter Visit Diagnoses Not on filedocumented in this encounter Additional Health Concerns Assessment Noted Time PHQ-9 Depression Total Score: 15 03/30/ 023 2:06 PM EST documented as of this encounter Care Teams Gluten Settling Tender Relationship Specialty Start Date End Date Colten Lam MD [address] [facility] [address] [place] [id number] PCP - General Internal Medicine 09/23/22 documented as of this encounter
--- OUTSIDE RECORDS SUMMARY | 2025-02-01 13:00 | XMS_ITS | Encounter Summary ---
Author Organization [facility] Address [address] [place] [address] Care Team Providers Care Dewaterer Operator Name Role Phone Colten Lam MD Unavailable [phone] Colten Lam MD Primary Care Provider [phone] Ema Cruz SUPERVISOR ROCKET PROPELLANT PLANT-WORKDAY MANAGER Unavailable Reason for Visit * Reason Onset Date Comments Med Refill 10/18/2023 Encounter Details Date Type Department Care Team (Late st Contact Info) Description 10/18/2023 Refill [facility] [address] [facility] 110 [place] [address] Colten Lam MD [address] [facility] 110 [place] [address] Class 1 obesity without serious comorbidity with [...] Start Date 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 Not on fi [...] [facility] [address] [place] [address] Annabel Osman, WALLY [address] [place] [address] documented as of this encounter Visit Diagnoses Diagnosis Class 1 obesity without serious comorbidity with body mass index (BMI) of 31.0 to 31.9 in adult, unspecified obesity type documented in this encounter Additional Health Concerns Assessment Noted Time PHQ-9 Depression Total Score: 15 023 2:06 PM EST documented as of this encounter Care Teams Dewaterer Operator Relationship Specialty Start Date End Date Colten Lam MD [address] [facility] 110 [place] [address] PCP - [place] [employer] 04/01/2203/31 Colten Lam MD [address] [facility] 110 [place] [address] PCP - General Internal Medicine 09/23/22 Ema Cruz, SUPERVISOR ROCKET PROPELLANT PLANT-WORKDAY MANAGER 112 [facility] 160 [place] [address] PCP - [place] [employer] 04/01/24 documented as of this encounter
--- OUTSIDE RECORDS SUMMARY | 2025-02-01 13:00 | XMS_ITS | Encounter Summary ---
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 [place] [address] documented as of this encounter Visit Diagnoses Not on filedocumented in this encounter Additional Health Concerns Assessment Noted Time PHQ-9 Depression Total Score: 15 03/30/ 023 2:06 PM EST documented as of this encounter Care Teams Logistics Clerk Relationship Specialty Start Date End Date Colten Lam MD 112 [facility] 110 [place] [address] PCP - General Internal Medicine 09/23/22 documented as of this encounter
--- OUTSIDE RECORDS SUMMARY | 2025-02-01 13:00 | XMS_ITS | Encounter Summary ---
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 110 [place] [address] PCP - General Internal Medicine 09/23/22 documented as of this encounter
--- OUTSIDE RECORDS SUMMARY | 2025-02-01 13:00 | XMS_ITS | Clinical Summary ---
Author Organization [facility] Address [address] [facility] [address], [address] [place] [address] Care Team Providers Care Retirement Officer Name Role Phone Hortensia Sheriff MD Primary Care Provider [phone] Allergies No known active allergies Medications [id number] -FA ( 1 + IRON PO) Take [...] Plan of Treatment Not on file Insurance [place] Directives * Full Code (Latest Code Status on File) Date Activated Date Inactivated Comments 10/06/2017 3:44 AM 10/07/2017 5:06 PM * Full Code Date Activated Date Inactivated Comments 10/05/2017 6:02 AM 10/06/2017 3:44 AM Care Teams Retirement Officer Relationship Specialty Start Date End Date Hortensia Sheriff MD [address] [place] [address] PCP - General 10/06/17
--- OUTSIDE RECORDS SUMMARY | 2025-02-01 13:00 | XMS_ITS | Encounter Summary ---
Author Organization [facility] Address [address] [facility] [place] [address] Care Team Providers Care Air Sealing Technician Name Role Phone Colten Lam MD Primary Care Provider [phone] Ema Cruz BRUSH STAINER-PRACTICE BILLING ASSOCIATE Unavailable Reason for Visit * Reason Onset Date Comments Med Refill 05/28/2024 Encounter Details Date Type Department Care Team (Late st Contact Info) Description 05/28/2024 [facility] [address] [facility] 110 [place] [phone] Colten Lam MD 112 [facility] 110 [place], [place] [id number] Class 1 obesity without serious comorbidity with [...] 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 Date 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 Not on [...] PM EDT Routine [facility] [address] [facility] [address] Annabel Osman NP [address] [place] [address] documented as of this encounter Visit Diagnoses Diagnosis Class 1 obesity without serious comorbidity with body mass index (BMI) of 31.0 to 31.9 in adult, unspecified obesity type Trapezius muscle spasm documented in this encounter Additional Health Concerns Assessment Noted Time PHQ-9 Depression Total Score: 15 023 2:06 PM EST documented as of this encounter Care Teams Air Sealing Technician Relationship Specialty Start Date End Date Colten Lam MD [address] [facility] 110 [place] [address] PCP - General Internal Medicine 09/23/22 Ema Cruz APRN-PRACTICE BILLING ASSOCIATE [address] [facility] 160 [place] [address] PCP - [place] 04/01/24 documented as of this encounter
--- OUTSIDE RECORDS SUMMARY | 2025-02-01 13:00 | XMS_ITS | Encounter Summary ---
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 [place] [address] documented as of this encounter Procedures Procedure Name Priority Date/Time Associated Diagnosis Comments TBH CREATININE Routine 01/30/2025 3:03 PM EDT [facility] PROTHROMBIN TIME INR W/O COUM Routine 01/30/2025 3:03 PM EDT [facility] AST Routine 01/30/2025 3:03 PM EDT [facility] APTT Routine 01/30/2025 3:03 PM EDT ALL URIC ACID Routine 01/30/2025 3:03 PM EDT ALL LDH Routine 01/30/2025 3:03 PM EDT ALL CBC WITH AUTO DIFF Routine 01/30/2025 3:03 PM EDT ALL BUN Routine 01/30/2025 3:03 PM EDT documented in this encounter Results * (ABNORMAL) [facility] APTT (01/30/2025 3:03 PM EDT) PARTIAL THROMBOPLASTIN TIME 21.9(L) 22.3 - 36.2 sec [facility] 01/30/2025 3:03 PM EDT 01/30/2025 3:05 PM EDT Narrative CLINISYNC - 01/30/2025 4:07 PM EDT Annabel Osman NP REINA Final Result Performing Organization Address [facility] Co de Phone Number [facility] * [facility] PROTHROMBIN TIME INR W/O COUM (01/30/2025 3:03 PM EDT) PROTHROMBIN TIME 10.3 9.0 - 11.6 sec TB TB INR 0.97 TB Comment: DESIRED INR: 2.0-3.0 CONDITIONS NOT LISTED BELOW 2.5-3.5 FOR PROSTHETIC HEART VALVE REPLACEMENT 2.5-3.5 RECURRENT THROMBOSIS 01/30/2025 3:03 PM EDT 01/30/2025 3:[address] [facility] CLINISYNC - 01/30/2025 4:07 PM EDT Annabel Osman NP REINA Final Result Performing Organization Address [facility] de Phone Number [facility] * (ABNORMAL) ALL CBC WITH AUTO DIFF (01/30/2025 3:03 PM EDT) TBH WBC 13.5(H) 4.0 - 11.0 10 3/uL TBH TBH RBC 3.57(L) 4.20 - 5.40 10 6/uL TBH TBH HGB 10.7(L) 12.0 - 16.0 g/dL TBH TBH HCT 30.9(L) 36.0 - 48.0 % TBH TBH MCV 86.6 81.0 - 99.0 fL TBH TBH MCH 30.0 26.7 - 34.0 pg TBH TBH MCHC 34.6 29.9 - 35.2 g/dL TBH TBH RDW 13.2 11.0 - 15.0 % TBH TBH PLT 176 150 - 450 10 3/uL TBH TBH MPV 10.1 9.5 - 13.5 fL TBH NEUTROPHILS PERCENT AUTO 74.7 43.0 - 75.0 % TBH LYMPHOCYTES PERCENT AUTO 15.0(L) 20.5 - 60.0 % TBH MONOCYTES PERCENT AUTO 7.3 1.7 - 12.0 % TBH TBH EO % 0.7(L) 0.9 - 7.0 % TBH BASOPHILS PERCENT AUTO 0.4 0.2 - 2.0 % TBH IMMATURE GRANULOCYTES PCT AUTO 1.9(H) 0.0 - 0.5 % TBH NEUTROPHILS ABSOLUTE AUTO 10.1(H) 1.4 - 6.5 10 3/uL TBH LYMPHOCYTES ABSOLUTE AUTO 2.0 1.2 - 3.8 10 3/uL TBH MONOCYTES ABSOLUTE AUTO 1.0(H) 0.3 - 0.8 10 3/uL TBH TBH EO # 0.1 0.0 - 0.7 10 3/uL TBH BASOPHILS ABSOLUTE AUTO 0.1 0.0 - 0.1 10 3/uL TBH IMMATURE GRANULOCYTES ABS AUTO 0.25(H) 0.00 - 0.03 10 3/uL TBH 01/30/2025 3:03 PM EDT 01/30/2025 3:05 PM EDT Narrative CLINISYNC - 01/30/2025 3:52 PM EDT Annabel Osman NP CLINISYNC Final Result Performing Organization Address [facility] Co de Phone Number CL[facility]NC TB * (ABNORMAL) ALL LDH (01/30/2025 3:03 PM EDT) LACTATE DEHYDROGENASE 308(H) 81 - 234 U/L TBH 01/30/2025 3:03 PM EDT 01/30/2025 3:05 PM EDT Narrative CLINISYNC - 01/30/2025 3:25 PM EDT Annabel Osman NP CLINISYNC Final Result Performing Organization Address City/[facility]/ZIP Co de Phone Number CL[facility]NC TB * [facility] AST (01/30/2025 3:03 PM EDT) ASPARTATE AMINO TRANSFERASE 20 15 - 37 U/L TBH 01/30/2025 3:03 PM EDT 01/30/2025 3:05 PM EDT Narrative CLINISYNC - 01/30/2025 3:25 PM EDT us Annabel Osman NP CLINISYNC Final Result CLINISYNC TBH * ALL URIC ACID (01/30/2025 3:03 PM EDT) URIC ACID 5.2 2.6 - 6.0 mg/dL TBH 01/30/2025 3:03 PM EDT 01/30/2025 3:05 PM EDT Narrative CLINISYNC - 01/30/2025 3:25 PM EDT us Annabel Osman NP CLINISYNC Final Result Performing Organization Address [facility]/ZIP Co de Phone Number CLINISYNC TBH * (ABNORMAL) TBH CREATININE (01/30/2025 3:03 PM EDT) CREATININE 0.48(L) 0.55 - 1.02 mg/dL TBH TBH EGFR-AF MONEGASQUE >60 >=60 mL/min/1.7 3m 2 TBH TBH EGFR-NON AF MONEGASQUE >60 >=60 mL/min/1.7 3m 2 TBH 01/30/2025 3:03 PM EDT 01/30/2025 3:05 PM EDT Narrative CLINISYNC - 01/30/2025 3:25 PM EDT us Annabel Osman NP CLINISYNC Final Result CLINISYNC TBH * (ABNORMAL) ALL BUN (01/30/2025 3:03 PM EDT) BLOOD UREA NITROGEN 5.0(L) 7.0 - 18.0 mg/dL TBH 01/30/2025 3:03 PM EDT 01/30/2025 3:05 PM EDT Narrative CLINISYNC - 01/30/2025 3:25 PM EDT Annabel Osman E MARKETING SPECIALIST CLINISYNC Final Result CLINISYNC [facility] documented in this encounter Visit Diagnoses Not on filedocumented in this encounter Additional Health Concerns Assessment Noted Time PHQ-9 Depression Total Score: 15 023 2:06 PM EST documented as of this encounter Care Teams Hotel Registration Clerk Relationship Specialty Start Date End Date Colten Lam MD 112 [place] [address] PCP - General Internal Medicine 09/23/22 documented as of this encounter
--- OUTSIDE RECORDS SUMMARY | 2025-02-01 13:00 | XMS_ITS | Clinical Summary ---
Author Organization [facility] Address [id number] [address] [place] [address] Care Team Providers Care Nurse Discharge Planner Name Role Phone Colten Lam MD Primary Care Provider [phone] Allergies No known active allergies Medications * This document contains information received from the source organization and may not represent a complete record from that organization. lamoTRIgine (LaMICtal) 200 mg tabletIndicatio ns:Bipolar II disorder ([facility]) Take 1 tablet (200 mg total) by [...] mg 24 hr capsuleIndicati ons:Bipolar II disorder ([facility]),Gener alized anxiety disorder Take 1 capsule (75 [...] 09/27/2017 Medical Devices Not on file [place] [address] [place] [address] Care Teams Nurse Discharge Planner Relationship Specialty Start Date End Date Colten Lam MD 112 [place] [address] PCP - General Internal Medicine 01/30/24
--- OUTSIDE RECORDS SUMMARY | 2025-02-01 13:00 | XMS_ITS | Encounter Summary ---
Author Organization [facility] Address [address] [place] [address] Care Team Providers Care Tin Recovery Worker Name Role Phone Colten Lam MD Unavailable [phone] Colten Lam MD Primary Care Provider [phone] Ema Cruz CASHIER TICKET SELLING-LEAD CASTER Unavailable Reason for Visit * Reason Comments Med Refill Encounter Details Date Type Department Care Team (Late st Contact Info) Description 02/17/2023 Refill [facility] 112 [facility] 160 [place] [address] Ema Cruz, CASHIER TICKET SELLING-[facility] 112 [facility] 160 [place] [address] Bipolar affective disorder, currently depressed, mild (HCC) [...] End Date 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 Not on file Not on fi le Not on file documented as of this encounter Plan of Treatment Upcoming Encounters Date Type Department Care Team (Late st Contact Info) Description 02/06/2025 1:20 PM EDT Routine [facility] [address] [place] [address] Annabel Osman NP [address] [facility] [place] [address] documented as of this encounter Visit Diagnoses Diagnosis Bipolar affective disorder, currently depressed, mild (HCC) Bipolar I disorder, most recent episode (or current) depressed, mild documented in this encounter Additional Health Concerns Assessment Noted Time PHQ-9 Depression Total Score: 14 023 10:19 AM EDT documented as of this encounter Care Teams Tin Recovery Worker Relationship Specialty Start Date End Date Colten Lam MD [address] [facility] 110 [place] [address] PCP - [place] [employer] 04/01/2203/31 Colten Lam MD [address] [facility] 110 [place] [address] PCP - General Internal Medicine 09/23/22 Ema Cruz APRN-LEAD CASTER [address] [facility] 160 [place] [address] PCP - [place] [employer] 04/01/24 documented as of this encounter
--- OUTSIDE RECORDS SUMMARY | 2025-02-01 13:00 | XMS_ITS | Encounter Summary ---
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 [place] [address] Annabel Osman, WALLY [address] [facility] [place] [address] documented as of this encounter Procedures [...] documented as of this encounter Care Teams Historic Sites Registrar Relationship Specialty Start Date End Date Colten Lam MD 112 [facility] 110 [place] [address] PCP - General Internal Medicine 09/23/22 documented as of this encounter
--- OUTSIDE RECORDS SUMMARY | 2025-02-01 13:00 | XMS_ITS | Encounter Summary ---
Author Organization [facility] Address [address] [place] [facility] [place] [address] Care Team Providers Care Channel Rebuilder Name Role Phone Colten Lam MD Unavailable [phone] Colten Lam MD Primary Care Provider [phone] Moraima-Ema Hawkins ROSE GROWER-BINDERY CHIEF Unavailable Reason for Visit * Reason Comments Med Refill Encounter Details Date Type Department Care Team ([facility] Contact Info) Description 11/01/2022 Refill [facility] [address] [place] [address] [place] [address] [place] [address] [place] [address] Bipolar affective disorder, currently depressed, mild (HCC) [...] Job Start Date Job End Date 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 file Not on fi le Not on file documented as of this encounter Plan of Treatment Upcoming Encounters Date Type Department Care Team (Late Contact Info) Description 02/06/2025 1:20 PM EDT Routine [facility] [address] [facility] [place] [address] Annabel Osman, ASSISTANT DIRECTOR OF ADMISSIONS [address] [facility] [place] [address] documented as of this encounter Visit Diagnoses Diagnosis Bipolar affective disorder, currently depressed, mild (HCC) Bipolar I disorder, most recent episode (or current) depressed, mild documented in this encounter Care Teams Channel Rebuilder Relationship Specialty Start Date End Date Colten Lam MD 112 [facility] 110 [place] [address] PCP - [place] [employer] 04/01/2203/31 Colten Lam MD 112 [facility] 110 [place] [address] PCP - General Internal Medicine 09/23/22 Ema Cruz APRN-BINDERY CHIEF 112 [facility] 160 [place] [address] PCP - [place] [employer] 04/01/24 documented as of this encounter
--- OUTSIDE RECORDS SUMMARY | 2025-02-01 13:00 | XMS_ITS | Encounter Summary ---
Author Organization [facility] Address [address] [facility] [place] [address] Care Team Providers Care Php Lamp Developer Name Role Phone Colten Lam MD Unavailable [phone] Colten Lam MD Primary Care Provider [phone] MoraimaEma Hawkins STAKING TECHNICIAN-COOPERAGE SHOP SUPERVISOR Unavailable Encounter Details Date Type Department Care Team (Late st Contact Info) Description 11/03/2022 Abstract [facility] [address] [facility] [place] [address] [place] [address] [place] [address] [place] [phone] Social History Tobacco Use Types Packs/Day Years [...] Job Start Date 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 Not on file Not on fi [...] PM EDT Routine [facility] [address] [facility] [place] [address] Annabel Osman, SHIRT MARKER [address] [facility] [place] [address] documented as of this encounter Visit Diagnoses Not on filedocumented in this encounter Care Teams Php Lamp Developer Relationship Specialty Start Date End Date Colten aLm MD [address] [facility] 110 [place] [address] PCP - [place] [employer] 04/01/2203/31 Colten Lam MD [address] [facility] 110 [place] [address] PCP - General Internal Medicine 09/23/22 Ema Cruz APRN-COOPERAGE SHOP SUPERVISOR [address] [facility] 160 [place] [address] PCP - [place] [employer] 04/01/24 documented as of this encounter
--- OUTSIDE RECORDS SUMMARY | 2025-02-01 13:00 | XMS_ITS | Clinical Summary ---
Author Organization [facility] Address [address] [place] [address] Care Team Providers Care Furnace Utility Operator Name Role Phone Colten Lam MD Primary Care Provider [phone] Allergies No known active allergies Medications venlafaxine [...] Date Diagnosed Date 32 weeks gestation of ([facility]) 2024 Bipolar II disorder 02/06/2024 Generalized anxiety [...] recurrent major depressive disor kirstin 08/31/2022 Term ([facility]) 10/04/2017 Estimated Date of Delivery Comme nts Yes 02/25/2025 Based on last me nstrual period of 05/21/2024 Encounters Date Type Department Care Team Description 01/30/2025 1:30 PM EDT Routine LINDY RIOS [address] [place] [address] [place] [address] Annabel Osman NP 36 weeks gestation of ([facility]); Third trimester ([facility]); Excessive growth affecting management of , antepartum, single or unspecified fetus ([facility]); induced hypertension, antepartum ([facility]) 01/30/2025 Clinisync Result Encounter NOMS External Department Unsolicited Annabel Osman NP 01/30/2025 Clinisync Result Encounter NOMS External Department Unsolicited Annabel Osman NP 01/30/2025 Clinisync Result Encounter NOMS External Department Unsolicited Annabel Osman, WALLY 01/30/2025 Bamboo flowsheet [facility] [address] [facility] [place] [phone] Annabel Osman, WALLY 01/16/2025 11:20 AM EDT Routine [facility] [address] [facility] [place] [address] Uma Da Silva PA Third trimester ([facility]); 34 weeks gestation of ([facility]) 01/16/2025 Bamboo flowsheet [facility] [address] [facility] [place] [phone] Uma Da Silva PA 01/02/2025 11:00 AM EDT Routine [facility] [address] [facility] [place] [address] Tj Odonnell, DO 32 weeks gestation of ([facility]); Third trimester ([facility]); Excessive growth affecting management of , antepartum, single or unspecified fetus ([facility]) 01/02/2025 Bamboo flowsheet [facility] [address] [facility] [place] [phone] Tj Odonnell, DO 12/27/2024 Clinisync Result Encounter NOMS External Department Unsolicited Tj Odonnell, DO 12/27/2024 Clinisync Result Encounter NOMS External Department Unsolicited Tj Odonnell, DO 12/27/2024 Telephone [facility] [address] [place] [address] Tj Odonnell, DO 12/19/2024 11:20 AM EDT Routine [facility] [address] [facility] [place] [address] Uma Da Silva PA Third trimester ([facility]); 30 weeks gestation of ([facility]) 12/19/2024 10:30 AM EDT Ancillary [place] [address] size inconsistent with dates ([facility]) 12/05/2024 3:30 PM EDT [facility]ine [facility] [place] [address] Tj Odonnell, Third trimester ([facility]); 28 weeks gestation of ([facility]); size inconsistent with dates ([facility]) 12/05/2024 Bamboo flowsheet [facility] [place] [address] Tj Odonnell DO 11/12/2024 3:50 PM EDT Routine [facility] [place] [phone] Uma Da Silva PA Second trimester ([facility]); 25 weeks gestation of ([facility]) 11/12/2024 Clinisync Result Encounter NOMS External Department Unsolicited Tj Odonnell DO 11/07/2024 10:30 AM EDT Ancillary [place] [phone] Encounter for follow-up ultrasound of anatomy ([facility]) from Last 3 Months Immunizations Immunization Administration [...] Job End Date 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 on 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 Not on fi le [...] [facility] [address] [place] [address] Annabel Osman, WALLY [address] [place] [address] Health Maintenance Due Date Last Done Comments Influenza Vaccine (#1) 2024 05/17/2017 Pap Smear 10/02/2027 10/01/2024, 11/29/2022, 06/02 Cervical Cancer Screening 12/11/2027 HPV/Cotest 12/11/2027 12/10/2022 Procedures Procedure Name Priority Date/Time Associated Diagnosis Comments US OB BPP W NON-STRESS 01/30/2025 7:43 PM EDT US OB GROWTH 01/30/2025 7:43 PM EDT C[facility] APTT Routine 01/30/2025 3:03 PM EDT SRMCOH PROTHROMBIN TIME INR W/O COUM Routine 01/30/2025 3:03 PM EDT ALL CBC WITH AUTO DIFF Routine 3:03 PM EDT ALL LDH Routine 01/30/2025 3:03 PM EDT CCF AST Routine 01/30/2025 3:03 PM EDT ALL URIC ACID Routine 01/30/2025 3:03 PM EDT TBH CREATININE Routine 01/30/2025 3:03 PM EDT ALL BUN Routine 01/30/2025 3:03 PM EDT POCT URINALYSIS DIPSTICK Routine 01/30/2025 1:47 PM EDT 36 weeks gestation of ([facility]) Third trimester ([facility]) POCT URINALYSIS DIPSTICK Routine 01/16/2025 11:42 AM EDT Third trimester ([facility]) 34 weeks gestation of ([facility]) US OB CERVICAL LENGTH 12/27/2024 8:34 PM EDT US OB PLACENTA 12/27/2024 8:34 PM EDT US OB FOLLOW UP TRANSABDOMINAL APPROACH Routine 12/19/2024 10:55 AM EDT size inconsistent with dates ([facility]) POCT URINALYSIS DIPSTICK Routine 12/05/2024 3:45 PM EDT Third trimester ([facility]) POCT URINALYSIS DIPSTICK Routine 11/12/2024 3:58 PM EDT Second trimester ([facility]) GLUCOSE 1 HOUR Routine 11/12/2024 2:24 PM EDT ALL CBC WITH AUTO DIFF Routine 2:24 PM EDT US OB LIMITED 1+ FETUSES Routine 11/07/2024 11:08 AM EDT Encounter for follow-up ultrasound of anatomy ([facility]) PAP SMEAR Routine 10/01/2024 12:00 AM EDT THINPREP PAP AND HPV MRNA E6/E7 W/RFL HPV 16,18/45 Routine 12/10/2022 8:18 AM EDT Well woman exam with routine gynecological exam from Last 3 Months or Most Recently Relevant to Health Maintenance Results * US OB GROWTH (01/30/2025 7:43 PM EDT) Anatomical Region Laterality Modality Other 01/30/2025 7:43 PM EDT Narrative 01/30/2025 7:45 [place] [address] Ultrasound Report Signed Patient: STEVAN GA MR#: [id number] : 1990 Acct:[id number] Age/Sex: 34 / F ADM Date: Loc: [facility] 250-[address]: Annabel Osman Ordering Physician: Annabel Osman Date of Service: 01/30/25 Procedure(s): US OB growth Accession Number(s): [id number] cc: COLTEN LAM ; Annabel Osman [address] [address] Patient Name: STEVAN GA MRN: TBH:[id number] date: 1990 Sex: F Assigned Patient Location: [facility] Current Patient Location: Accession/Order Number: [id number] Exam Date: 01/30/2025 16:09 Report Date: 01/30/2025 19:43 At the request of: ANNABEL OSMAN Procedure: US OB growth US OB [...] Pina M.D. 01/30/2025 7:43 PM Dictation Location: [place] [address] Electronically authenticated by: [id number] Y Date: 01/30/2025 19:43 Dictated By: Tyson Pina M.D. Signed By: 01/30/251944 DD/ 42 TD/TT: Cd Manufacturing Supervisor: Procedure Note Radiology, Radiologist, - 01/30/[address] [address] Ultrasound Report Signed Patient: STEVAN GA SMR#: [id number] : 1990Acct:[id number] Age/Sex: 34 / FADM Date: Loc: [facility] 250-[address]: Annabel Osman Ordering Physician: Annabel Osman Date of Service: 01/30/25 Procedure(s): US OB growth Accession Number(s): [id number] cc: COLTEN LAM ; Annabel Osman [place] [address] Patient Name: STEVAN GA MRN: [facility]:[id number] date: 1990 Sex: F Assigned Patient Location: [facility] Current Patient Location: Accession/Order Number: [id number] Exam Date: 01/30/2025 16:09 Report Date: 01/30/2025 19:43 At the request of: ANNABEL OSMAN Procedure: US OB growth US OB [...] Pina M.D. 01/30/2025 7:43 PM Dictation Location: [place] [address] Electronically authenticated by: [id number] Y Date: 9:43 Dictated By: Tyson Pina M.D. Signed By:01/30/251944 DD/ 42 TD/TT: Cd Manufacturing Supervisor: us Annabel Osman PENSION EXAMINER [facility] Final Resul t * US OB BPP W NON-STRESS (01/30/2025 7:43 PM EDT) Anatomical Region Laterality Modality Other 01/30/2025 7:43 PM EDT Narrative 01/30/2025 7:46 [place] [address] Ultrasound Report Signed Patient: STEVAN GA MR#: [id number] : 1990 Acct:[id number] Age/Sex: 34 / F ADM Date: Loc: [place] [address]: Annabel Osman Ordering Physician: Annabel Osman Date of Service: 01/30/25 Procedure(s): US OB BPP w non-stress Accession Number(s): [id number] cc: COLTEN LAM ; Annabel Osman [place] [id number] Patient Name: STEVAN GA MRN: TB[facility]:[id number] date: 1990 Sex: F Assigned Patient Location: [facility] Current Patient Location: Accession/Order Number: [id number] Exam Date: 01/30/2025 16:09 Report Date: 01/30/2025 19:43 At the request of: ANNABEL OSMAN Procedure: US OB growth US OB [...] 2/2. Amniotic fluid behind: 2/2 US/US OB BPP w non-stress IMPRESSION: Single live IUP with an estimated gestational age of 36 weeks and 5 days with a normal heart rate. Amniotic fluid index: 19.4 cm Biophysical profile: 12/07 Impression dictated by: Tyson Pina M.D. 01/30/2025 7:43 PM Dictation Location: [facility] Electronically authenticated by: [id number] Y Date: 01/30/2025 19:43 Dictated By: Tyson Pina M.D. Signed By: 01/30/251945 DD/ 42 TD/TT: Cd Manufacturing Supervisor: Procedure Note Radiology, Radiologist, MD - 01/30/2025 [place] [address] Ultrasound Report Signed Patient: STEVAN GA SMR#: [id number] : 1990Acct:[id number] Age/Sex: 34 / FADM Date: Loc: [place] [address]- Attending Dr: Annabel Osman Ordering Physician: Annabel Osman Date of Service: 01/30/25 Procedure(s): US OB BPP w non-stress Accession Number(s): [id number] cc: COLTEN LAM ; Annabel Osman The [place] [address] Patient Name: STEVAN GA MRN: [id number] date: 1990 Sex: F Assigned Patient Location: [facility] Current Patient Location: Accession/Order Number: [id number] Exam Date: 01/30/2025 16:09 Report Date: 01/30/2025 19:43 At the request of: ANNABEL OSMAN Procedure: US OB growth US OB [...] 2/2. Amniotic fluid behind: 2/2 US/US OB BPP w non-stress IMPRESSION: Single live IUP with an estimated gestational age of 36 weeks and 5 dayswith a normal heart rate. Amniotic fluid index: 19.4 cm Biophysical profile: 12/07 Impression dictated by: Tyson Pina M.D. 01/30/2025 7:43 PM Dictation Location: [facility] Electronically authenticated by: [id number] Y Date: 9:43 Dictated By: Tyson Pina M.D. Signed By:01/30/251945 DD/ 42 TD/TT: Cd Manufacturing Supervisor: us Annabel Osman NP [facility] Final Resul t * (ABNORMAL) TBH CREATININE (01/30/2025 3:03 PM EDT) CREATININE 0.48(L) 0.55 - 1.02 mg/dL TBH TBH EGFR-AF [place] >60 >=60 mL/min/1.7 3m 2 TBH TBH EGFR-NON AF [place] >60 >=60 mL/min/1.7 3m 2 TBH 01/30/2025 3:03 PM EDT 01/30/2025 3:05 PM EDT Narrative CLINISYNC - 01/30/2025 3:25 PM EDT us Annabel Osman NP CLINISYNC Final Result Performing Organization Address [facility] Co de Phone Number CLINISYAK TB * SRMCOH PROTHROMBIN TIME INR W/O COUM (01/30/2025 3:03 PM EDT) PROTHROMBIN TIME 10.3 9.0 - 11.6 sec TBH TBH INR 0.97 TBH Comment: DESIRED INR: 2.0-3.0 CONDITIONS NOT LISTED BELOW 2.5-3.5 FOR PROSTHETIC HEART VALVE REPLACEMENT 2.5-3.5 RECURRENT THROMBOSIS 01/30/2025 3:03 PM EDT 01/30/2025 3:05 PM EDT Narrative CLINISYNC - 01/30/2025 4:07 PM EDT us Annabel Osman NP CLINISYNC Final Result Performing Organization Address [facility] de Phone Number CLINISYNC TB * CCF AST (01/30/2025 3:03 PM EDT) ASPARTATE AMINO TRANSFERASE 20 15 - 37 U/L TB 01/30/2025 3:03 PM EDT 01/30/2025 3:05 PM EDT Narrative CLINISYNC - 01/30/2025 3:25 PM EDT us Annabel Osman NP CLINISYNC Final Result Performing Organization Address [facility] de Phone Number [facility] * (ABNORMAL) [facility]CF APTT (01/30/2025 3:03 PM EDT) PARTIAL THROMBOPLASTIN TIME 21.9(L) 22.3 - 36.2 sec TB 01/30/2025 3:03 PM EDT 01/30/2025 3:05 PM EDT Narrative CLINISYNC - 01/30/2025 4:07 PM EDT us Annabel Osman NP CLINISYNC Final Result Performing Organization Address [facility]/ZIP Co de Phone Number CLINISYNC TB * ALL URIC ACID (01/30/2025 3:03 PM EDT) URIC ACID 5.2 2.6 - 6.0 mg/dL TBH 01/30/2025 3:03 PM EDT 01/30/2025 3:05 PM EDT Narrative CLINISYNC - 01/30/2025 3:25 PM EDT Annabel Osman PENSION EXAMINER CLINISYNC Final Result Performing Organization Address [facility] de Phone Number CLINISYAK TB * (ABNORMAL) ALL LDH (01/30/2025 3:03 PM EDT) LACTATE DEHYDROGENASE 308(H) 81 - 234 U/L TBH 01/30/2025 3:03 PM EDT 01/30/2025 3:05 PM EDT Narrative CLINISYNC - 01/30/2025 3:25 PM EDT Annabel Osman NP CLINISYNC Final Result Performing Organization Address [facility] Phone Number CLINISYAK TB * (ABNORMAL) ALL CBC WITH AUTO DIFF (01/30/2025 3:03 PM EDT) Only the most recent of2 resultswithin the time period is included. TBH WBC 13.5(H) 4.0 - 11.0 10 [...] NP CLINISYNC Final Result Performing Organization Address City/[facility]/ZIP Co de Phone Number CLINISYNC TB * (ABNORMAL) ALL BUN (01/30/2025 3:03 PM EDT) [facility] BLOOD UREA NITROGEN 5.0(L) 7.0 - 18.0 mg/dL TBH 01/30/2025 3:03 PM EDT 01/30/2025 3:05 PM EDT Narrative CLINISYNC - 01/30/2025 3:25 PM EDT Annabel Osman NP CLINISYNC Final Result CLINISYNC TBH * (ABNORMAL) POCT urinalysis dipstick manually resulted [...] PM EDT Narrative 12/27/2024 8:44 PM EDT [address] [address] Ultrasound Report Signed Patient: STEVAN GA MR#: [id number] : 1990 Acct:[id number] Age/Sex: 34 / F ADM Date: Loc: [facility] 250- Attending Dr: Tj Odonnell D.O. Ordering Physician: Tj Odonnell D.O. Date of Service: 12/27/24 Procedure(s): US OB placenta Accession Number(s): [id number] cc: COLTEN LAM ; Tj Odonnell D.O. [address] [address] Patient Name: STEVAN GA MRN: [facility]:[id number] date: 1990 Sex: F Assigned Patient Location: [facility] Current Patient Location: Accession/Order Number: [id number] Exam Date: 12/27/2024 19:25 Report Date: 12/27/2024 [...] Pina M.D. 12/27/2024 8:34 PM Dictation Location: [place] [address] Electronically authenticated by: [id number] Y Date: 12/27/2024 20:34 Dictated By: Tyson Pina M.D. Signed By: 12/27/242043 DD/ 33 TD/TT: Cd Manufacturing Supervisor: Procedure Note Radiology, Radiologist, MD - 12/27/2024 [place] [address] Ultrasound Report Signed Patient: STEVAN GA [facility]#: [id number] : 1990Acct:[id number] Age/Sex: 34 / FADM Date: Loc: [facility] 250-[address]: Tj Odonnell D.O. Ordering Physician: Tj Odonnell D.O. Date of Service: 12/27/24 Procedure(s): US OB placenta Accession Number(s): [id number] cc: COLTEN LAM ; Tj Odonnell D.O. The [place] [address] Patient Name: STEVAN GA MRN: [facility]:[id number] date: 1990 Sex: F Assigned Patient Location: [facility] Current Patient Location: Accession/Order Number: [id number] Exam Date: 12/27/2024 19:25 Report Date: 12/27/2024 [...] Pina M.D. 12/27/2024 8:34 PM Dictation Location: [place] [address] Electronically authenticated by: [id number] Y Date: 0:34 Dictated By: Tyson Pina M.D. Signed By:12/27/242043 DD/ 33 TD/TT: Cd Manufacturing Supervisor: us Tj Odonnell DO [facility] Final Result * US OB CERVICAL LENGTH (12/27/2024 8:34 PM EDT) Anatomical Region Laterality Modality Other 12/27/2024 8:34 PM EDT Narrative 12/27/2024 8:44 [place] [address] Ultrasound Report Signed Patient: STEVAN GA MR#: [id number] : 1990 Acct:[id number] Age/Sex: 34 / F ADM Date: Loc: [facility] 250-[address]: Tj Odonnell D.O. Ordering Physician: Tj Odonnell D.O. Date of Service: 12/27/24 Procedure(s): US OB cervical length Accession Number(s): [id number] cc: COLTEN LAM ; Tj Odonnell D.O. The [place] [address] Patient Name: STEVAN GA MRN: [facility]:[id number] date: 1990 Sex: F Assigned Patient Location: [facility] Current Patient Location: Accession/Order Number: [id number] Exam Date: 12/27/2024 19:25 Report Date: 12/27/2024 [...] Pina M.D. 12/27/2024 8:34 PM Dictation Location: [place] [address] Electronically authenticated by: [id number] Y Date: 12/27/2024 20:34 Dictated By: Tyson Pina M.D. Signed By: 12/27/242043 DD/ 33 TD/TT: Cd Manufacturing Supervisor: Procedure Note Radiology, Radiologist, MD - 12/27/[address] [address] Ultrasound Report Signed Patient: STEVAN GA SMR#: [id number] : 1990Acct:[id number] Age/Sex: 34 / FADM Date: Loc: [facility] 250-[address]: Tj Odonnell D.O. Ordering Physician: Tj Odonnell D.O. Date of Service: 12/27/24 Procedure(s): US OB cervical length Accession Number(s): [id number] cc: COLTEN LAM ; Tj Odonnell D.O. The [place] [address] Patient Name: STEVAN GA MRN: [facility]:[id number] date: 1990 Sex: F Assigned Patient Location: [facility] Current Patient Location: Accession/Order Number: [id number] Exam Date: 12/27/2024 19:25 Report Date: 12/27/2024 [...] Pina M.D. 12/27/2024 8:34 PM Dictation Location: [facility] Electronically authenticated by: [id number] Y Date: 0:34 Dictated By: Tyson Pina M.D. Signed By:12/27/242043 DD/ 33 TD/TT: Cd Manufacturing Supervisor: us Tj Blas DO [facility] Final Result * US [...] II, MD, PHD at 20-Dec-2024 08:06:10 AM [facility] Procedure Note Rashmi Guajardo MD - [...] signed by RASHMI GUAJARDO II, MD, PHD [id number] 08:06:10 AM [facility] us Tj Blas DO IMG OB US PROCEDURES Final Resul t * GLUCOSE 1 HOUR (11/12/2024 2:24 PM EDT) GLUCOSE 1 HOUR 105 <130 mg/dL TBH 11/12/2024 2:24 PM EDT 11/12/2024 2:25 PM EDT Narrative REINA - 11/12/2024 3:42 PM EDT us Generic External Data Provider LAB BLOOD ORDERAB LES Final Result [facility] * US OB limited 1+ fetuses (11/07/2024 [...] ORDERABLES Final Re sult Performing Organization Address City/[facility] Co de Phone Number EXTERNAL LAB * THINPREP PAP AND HPV MRNA E6/E7 W/RFL HPV 16,18/45 (12/10/2022 8:18 AM EDT) us Uma [place] [facility] BLOOD ORDERABLES Final Resul t Performing Organization Address [facility] Co de Phone Number EXTERNAL LAB from Last 3 Months or Most Recently Relevant to Health Maintenance Insurance [facility] Care Teams Furnace Utility Operator Relationship Specialty Start Date End Date Cotlen Lam MD [address] [address] PCP - General Internal Medicine 09/23/22
--- OUTSIDE RECORDS SUMMARY | 2025-02-01 13:00 | XMS_ITS | Encounter Summary ---
Author Organization [facility] Address [address] [facility] [place] [address] Care Team Providers Care Predatory Hunter Name Role Phone Colten Lam MD Unavailable [phone] Colten Lam MD Primary Care Provider [phone] MoraimaEma Hawkins FUEL CELL ENGINEER-CHILD CARE CENTER ADMINISTRATOR Unavailable Reason for Visit * Reason Comments Med Refill Encounter Details Date Type Department Care Team ([facility] Contact Info) Description 09/28/2022 Refill [facility] [address] [facility] [address] [place] [phone] [place] [address] [place] [phone] Social History Tobacco Use Types Packs/Day Years [...] 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 Not on fi le Not on file documented as of this encounter Plan of Treatment Upcoming Encounters Date Type Department Care Team (Late Contact Info) Description 02/06/2025 1:20 PM EDT Routine [facility] [address] [facility] [place] [address] Annabel Osman, WALLY [address] [facility] [place] [address] documented as of this encounter Visit Diagnoses Not on filedocumented in this encounter Care Teams Predatory Hunter Relationship Specialty Start Date End Date Colten Lam MD [address] [facility] [address] [place] [address] PCP - [place] [employer] 04/01/2203/31 Colten Lam MD [address] [facility] [address] [place] [address] PCP - General Internal Medicine 09/23/22 Ema Cruz, FUEL CELL ENGINEER-CHILD CARE CENTER ADMINISTRATOR [address] [facility] [address] [place] [address] PCP - [place] [employer] 04/01/24 documented as of this encounter
--- OUTSIDE RECORDS SUMMARY | 2025-02-01 13:00 | XMS_ITS | Encounter Summary ---
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 Not [...] PM EDT Routine [facility] [address] [place] [address] Annabel Osman NP [address] [address] documented as of this encounter Visit Diagnoses Not on filedocumented in this encounter Additional Health Concerns Assessment Noted Time PHQ-9 Depression Total Score: 15 023 2:06 PM EST documented as of this encounter Care Teams Microbiological Lab Technician Relationship Specialty Start Date End Date Colten Lam MD [address] [facility] [address] [place] [address] PCP - General Internal Medicine 09/23/22 documented as of this encounter
--- OUTSIDE RECORDS SUMMARY | 2025-02-01 13:00 | XMS_ITS | Encounter Summary ---
Author Organization [facility] Address [address], [address] [place] [address] Care Team Providers Care Clearance Center Manager Name Role Phone Hortensia Sheriff MD Primary Care Provider [phone] Encounter Details Date Type Department Care Team (Late st Contact Info) Description 10/13/2017 FollowUp Telephone Encounter [facility] [address] [place], [place] [id number] Sharon Oswald, IBCLC OB Unit at [place] [id number] Social History Tobacco Use Types Packs/Day Years [...] on filedocumented in this encounter Care Teams Clearance Center Manager Relationship Specialty Start Date End Date Hortensia Sheriff MD [address] [place] [address] PCP - General 10/06/17 documented as of this encounter
--- OUTSIDE RECORDS SUMMARY | 2025-02-01 13:00 | XMS_ITS | Encounter Summary ---
Author Organization [facility] Address [address] [place] [address] Care Team Providers Care Exploration Manager Name Role Phone Colten Lam MD Unavailable Colten Lam MD Primary Care Provider [phone] MoraimaEma Hawkins CHILD CARE TEACHER-DOBBY LOOM FIXER Unavailable Encounter Details Date Type Department Care Team (Late Contact Info) Description 09/16/2022 Abstract [facility] [place] [facility] [address] [place] [address] Uma Da Silva PA [address] [place], [facility] Social History Tobacco Use Types Packs/Day Years [...] 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 Not on fi le Not on file documented as of this encounter Plan of Treatment Upcoming Encounters Date Type Department Care Team (Late Contact Info) Description 02/06/2025 1:20 PM EDT Routine [facility] [place] [facility] [address] [place] [address] Annabel Osman, HORTICULTURE/FLORICULTURE TEACHER [address] [place] [address] documented as of this encounter Visit Diagnoses Not on filedocumented in this encounter Care Teams Exploration Manager Relationship Specialty Start Date End Date Colten Lam MD [address] [facility] [address] [place] [address] PCP - [employer] 04/01/2203/31 Colten Lam MD [address] [facility] [address] [place] [address] PCP - General Internal Medicine 09/23/22 Ema Cruz APRN-DOBBY LOOM FIXER [address] [facility] [address] [place] [address] PCP - [employer] 04/01/24 documented as of this encounter
--- OUTSIDE RECORDS SUMMARY | 2025-02-01 13:00 | XMS_ITS | Encounter Summary ---
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 Not on file Not on fi le Not on file documented as of this encounter Plan of Treatment Upcoming Encounters Date Type Department Care Team (Late st Contact Info) Description 02/06/2025 1:20 PM EDT Routine [facility] [place] [facility] [address] [place] [id number] Quinn Osman, DIE CLEANER [address] [place] [phone] documented as of this encounter Procedures Procedure Name Priority Date/Time Associated Diagnosis Comments US OB BPP W NON-STRESS 01/30/2025 7:43 PM EDT documented in this encounter Results * US OB BPP W NON-STRESS (01/30/2025 7:43 PM EDT) Anatomical Region Laterality Modality Other 01/30/2025 7:43 PM EDT Narrative 01/30/2025 7:46 PM EDT [address] [address] Ultrasound Report Signed Patient: SHOBHA GA MR#: [id number] : 1990 Acct:[id number] Age/Sex: 34 / F ADM Date: Loc: [facility] 250-[address]: Quinn Osman Ordering Physician: Quinn Osman Date of Service: 01/30/25 Procedure(s): US OB BPP w non-stress Accession Number(s): [id number] cc: COLTEN LAM ; Quinn Osman The [address] [address] Patient Name: SHOBHA GA MRN: [id number] date: 1990 Sex: F Assigned Patient Location: [facility] Current Patient Location: Accession/Order Number: [id number] Exam Date: 01/30/2025 16:09 Report Date: 01/30/2025 [...] Pina M.D. 01/30/2025 7:43 PM Dictation Location: [place] [address] Electronically authenticated by: [id number] Y Date: 01/30/2025 19:43 Dictated By: Tyson Pina M.D. Signed By: 01/30/251945 DD/ 42 TD/TT: Graduate Rn: Procedure Note Radiology, Radiologist, - 01/30/2025 [place] [address] Ultrasound Report Signed Patient: SHOBHA GA [facility]#: [id number] : 1990Acct:[id number] Age/Sex: 34 / FADM Date: Loc: [facility] 250-[address]: Quinn Osman Ordering Physician: Quinn Osman Date of Service: 01/30/25 Procedure(s): US OB BPP w non-stress Accession Number(s): [id number] cc: COLTEN LAM ; Quinn Osman [place] [address] Patient Name: SHOBHA GA MRN: [facility]:[id number] date: 1990 Sex: F Assigned Patient Location: [facility] Current Patient Location: Accession/Order Number: [id number] Exam Date: 01/30/2025 16:09 Report Date: 01/30/2025 [...] Pina M.D. 01/30/2025 7:43 PM Dictation Location: [place] [address] Electronically authenticated by: [id number] Y Date: 9:43 Dictated By: Tyson Pina M.D. Signed By:01/30/251945 DD/ 42 TD/TT: Graduate Rn: Quinn Osman DIE [facility] Final Resul t documented in this encounter Visit Diagnoses Not on filedocumented in this encounter Additional Health Concerns Assessment Noted Time PHQ-9 Depression Total Score: 15 023 2:06 PM EST documented as of this encounter Care Teams Sourcing Specialist Relationship Specialty Start Date End Date Colten Lam MD [address] [facility] [address] [place] [address] PCP - General Internal Medicine 09/23/22 documented as of this encounter
--- OUTSIDE RECORDS SUMMARY | 2025-02-01 13:03 | XMS_ITS | CCD ---
Author Organization [facility] Care Team Providers Care Jack Tamp Operator Name Role Phone STEPHEN DOWNEY Unavailable Unavailable STEPHEN DOWNEY Unavailable Unavailable LUZMARIA BRUNO Unavailable Unavailable RONI JIMENEZ Admitting Unavailable RONI JIMENEZ Attending Unavailable RONI JIMENEZ Consulting Unavailable LUZMARIA BRUNO Admitting Unavailable LUZMARIA BRUNO Attending Unavailable RONI JIMENEZ Admitting Unavailable RONI JIMENEZ Attending Unavailable STEPHANIE MONTGOMERY Consulting Unavailable RONI JIMENEZ Consulting Unavailable Colten Lam MD Primary Care Provider Colten Lam MD Unavailable Moraima-Shruthi TECHNICAL PRODUCER-INTEGRITY DIRECTOR, Ema M Unavailable Colten Lam MD Primary Care Provider [phone] AYESHA VAZQUEZ Attending Unavailable KIANA, LUZMARIA F [...] Start: 07-06-2024 take 1 capsule by mo [facility] every twenty-four hours in the [...] UA Negative Negative - 4(70) +++ mg/dL [facility] Blood, UA Negative Negative - 50 Aneudy/mcL [facility] Clarity, UA Clear [facility] Color, UA Yellow [facility] Glucose, UA Negative Negative - 1999(110) ++++ mg/dL [facility] Interpretation and review of laboratory results Abnormal [facility] Ketones, UA Negative Negative - 160(16) ++++ mg/dL [facility] Leukocytes, UA Positive Negative - 500+++ Migdalia/mcL [facility] Nitrite, UA Negative Negative - Positive [facility] pH, UA 6 5 - 9 [facility] Protein, UA Negative Negative - 1999(20) ++++ mg/dL [facility] Spec Grav, UA 1.025 1 - 1.03 [facility] Urobilinogen, UA 1.0 0.2 - 12 mg/dL [facility] No Panel InformationOrdered By: Radiologist Radiology on 12-27-2024 [facility] Work Phone: No Panel Informationon 12-27 Radiology Study observation (narrative) [facility] US OB CERVICAL LENGTHon 12-01 [place] [address] Ultrasound Report Signed Patient: SHOBHA GA MR#: [id number] : 1990 Acct:[id number] Age/Sex: 34 / F ADM Date: Loc: [place] [address]- Attending Dr: Dominik Odonnell D.O. Ordering Physician: Dominik Odonnell D.O. Date of Service: 12/27/24 Procedure(s): US OB cervical length Accession Number(s): [id number] cc: COLTEN LAM ; Dominik Odonnell D.O. [address] [address] Patient Name: SHOBHA GA MRN: [id number] date: 1990 Sex: F Assigned Patient Location: [facility] Current Patient Location: Accession/Order Number: [id number] Exam Date: 12/27/2024 19:25 Report Date: 12/27/2024 [...] Pina M.D. 12/27/2024 8:34 PM Dictation Location: [place] [address] Electronically authenticated by: [id number] Y Date: 12/27/2024 20:34 Dictated By: Tyson Pina M.D. Signed By: 12/27/242043 DD/ 33 TD/TT: Equipment Service Technician: [facility], Radiologi MD romi - 12/27/2024 [place] [address] Ultrasound Report Signed Patient: SHOBHA GA MR#: [id number] : 1990 Acct:[id number] Age/Sex: 34 / F ADM Date: Loc: [facility] 250-[address]: Dominik Odonnell D.O. Ordering Physician: Dominik Odonnell D.O. Date of Service: 12/27/24 Procedure(s): US OB cervical length Accession Number(s): [id number] cc: COLTEN LAM ; Dominik Odonnell D.O. The [address] [address] Patient Name: SHOBHA GA MRN: [facility]:[id number] date: 1990 Sex: F Assigned Patient Location: [facility] Current Patient Location: Accession/Order Number: [id number] Exam Date: 12/27/2024 19:25 Report Date: 12/27/2024 [...] Pina M.D. 12/27/2024 8:34 PM Dictation Location: [place] [address] Electronically authenticated by: [id number] Y Date: 12/27/2024 20:34 Dictated By: Tyson Pina M.D. Signed By: 12/27/242043 DD/ 33 TD/TT: Equipment Service Technician: [facility] US OB PLACENTAon 12-27-2024 [place] [address] Ultrasound Report Signed Patient: SHOBHA GA MR#: [id number] : 1990 Acct:[id number] Age/Sex: 34 / F ADM Date: Loc: [facility] 250- Attending Dr: Dominik Odonnell D.O. Ordering Physician: Dominik Odonnell D.O. Date of Service: 12/27/24 Procedure(s): US OB placenta Accession Number(s): [id number] cc: COLTEN LAM ; Dominik Odonnell D.O. [place] [address] Patient Name: SHOBHA GA MRN: [facility]:[id number] date: 1990 Sex: F Assigned Patient Location: [facility] Current Patient Location: Accession/Order Number: [id number] Exam Date: 12/27/2024 19:25 Report Date: 12/27/2024 [...] Pina M.D. 12/27/2024 8:34 PM Dictation Location: [place] [address] Electronically authenticated by: [id number] Y Date: 12/27/2024 20:34 Dictated By: Tyson Pina M.D. Signed By: 12/27/242043 DD/ 33 TD/TT: Equipment Service Technician: [facility] Radiology, Radiologi MD romi - 12/27/2024 [place] [address] Ultrasound Report Signed Patient: SHOBHA GA MR#: [id number] : 1990 Acct:[id number] Age/Sex: 34 / F ADM Date: Loc: [facility] 250-[address]: Dominik Odonnell D.O. Ordering Physician: Dominik Odonnell D.O. Date of Service: 12/27/24 Procedure(s): US OB placenta Accession Number(s): [id number] cc: COLTEN LAM ; Dominik Odonnell D.O. [place] [address] Patient Name: SHOBHA GA MRN: [id number] date: 1990 Sex: F Assigned Patient Location: [facility] Current Patient Location: Accession/Order Number: [id number] Exam Date: 12/27/2024 19:25 Report Date: 12/27/2024 [...] Pina M.D. 12/27/2024 8:34 PM Dictation Location: [place] [address] Electronically authenticated by: [id number] Y Date: 12/27/2024 20:34 Dictated By: Tyson Pina M.D. Signed By: 12/27/242043 DD/ 33 TD/TT: Equipment Service Technician: [employer] Ludesi US OB FOLLOW UP TRANSABDOMIN AL APPROACHon [...] II, MD, PHD at 20-Dec-2024 08:06:10 AM [facility] Normal Not Available Comment on above: Order Comment: US OB SCAN FOR GROWTH Estimated Date of Delivery: 02/25/25 Gestational Age as of 12/05/2024: 28w2d Urinalysis macro (dipstick) panel (U)on 12-05-2024 Bilirubin, UA Negative Negative - 4(70) +++ mg/dL [facility] Blood, UA Negative Negative - 50 Aneudy/mcL [facility] Clarity, UA Clear [facility] Color, UA Yellow [facility] Glucose, UA Negative Negative - 1999(110) ++++ mg/dL [facility] Interpretation and review of laboratory results Abnormal [facility] Ketones, UA Negative Negative - 160(16) ++++ mg/dL [facility] Leukocytes, UA 2+ Negative - 500+++ Migdalia/mcL [facility] Nitrite, UA Negative Negative - Positive [facility] pH, UA 7.5 5 - 9 [facility] Protein, UA Negative Negative - 1999(20) ++++ mg/dL [facility] Spec Grav, UA 1.015 1 - 1.03 [facility] Urobilinogen, UA 1.0 0.2 - 12 mg/dL [facility] ALL CBC WITH AUTO DIFFon BASOPHILS ABSOLUTE AUTO 0.1 [facility] Basophils/100 WBC (Bld) 0.5 % 0.2 - 2.0 % [facility] Eosinophils/100 WBC (Bld) 0.8 % Low 0.9 - 7.0 % [facility] Erythrocyte distribution width (RBC) [Ratio] 13.1 % 11.0 - 15.0 % [facility] Hematocrit (Bld) [Volume fraction] 33.6 % Low 36.0 - 48.0 % [facility] Hemoglobin (Bld) [Mass/Vol] 11.5 g/dL Low 12.0 - 16.0 g/dL [facility] IMMATURE GRANULOCYTES ABS AUTO 0.[address] [facility] Immature granulocytes/100 WBC (Bld) 1.3 % High 0.0 - 0.5 % [facility] Interpretation and review of laboratory results Abnormal [facility] LYMPHOCYTES ABSOLUTE AUTO 2.2 [facility] Lymphocytes/100 WBC (Bld) 15.3 % Low 20.5 - 60.0 % [facility] MCH (RBC) [Entitic mass] 30.7 pg 26.7 - 34.[address] [facility] MCHC (RBC) [Mass/Vol] 34.2 g/dL 29.9 - 35.2 g/dL [facility] MCV (RBC) [Entitic vol] 89.8 fL 81.0 - 99.[address] [facility] MONOCYTES ABSOLUTE AUTO 0.8 [facility] Monocytes/100 WBC (Bld) 5.7 % 1.7 - 12.0 % [facility] NEUTROPHILS ABSOLUTE AUTO 10.[address] [facility] Neutrophils/100 WBC (Bld) 76.4 % High 43.0 - 75.0 % [facility] Platelet mean volume (Bld) [Entitic vol] 9.2 fL Low 9.5 - 13.5 fL [facility] EO # 0.1 [facility] TB PLT 253 [facility] RBC 3.74 Low [facility] WBC 14.[address] [facility] Urinalysis macro (dipstick) panel (U)on 11-12-2024 Bilirubin, UA Negative Negative - 4(70) +++ mg/dL [facility] Blood, UA Negative Negative - 50 Aneudy/mcL [facility] Clarity, UA Clear [facility] Color, UA Yellow [facility] Glucose, UA Negative Negative - 2000(110) ++++ mg/dL [facility] Interpretation and review of laboratory results Normal [facility] Ketones, UA Negative Negative - 160(16) ++++ mg/dL [facility] Leukocytes, UA Moderate Negative - 500+++ Migdalia/mcL [facility] Nitrite, UA Negative Negative - Positive [facility] pH, UA 7 5 - 9 [facility] Protein, UA Negative Negative - 2000(20) ++++ mg/dL [facility] Spec Grav, UA 1.015 1 - 1.03 [facility] Urobilinogen, UA 0.2 0.2 - 12 mg/dL [facility] US OB LIMITED 1+ FETUSESon 0 11-07-2024 [...] GDLNon AGE GDLN ACOG TESTING Note . [facility] Comment on above: TESTS RESULT FLAG UN ITS REF RANGE LAB Clinician Provided Cytology Information Source.............Endocervix No. of containers..01 ThinPrep Vial Age Algo ACOG Jayne... 30-65 01 FLAG LEGEND: L-Low Normal,H-High Normal,LL-Alert Low,HH-Alert High <-Panic Low,>-Panic High,A-Abnormal,AA-Critical Abnormal Performed at: 01 =[address] [address] Chelo Watt MD, HPV APTIMA Negative Negative [facility] Comment on above: This nucleic acid am plification test detects fourteen high- risk HPV types (16,18,31,33,35,39,45,51,52,56,58,59,66,68) without differentiation. Performed at: =[address] [id number] Remedy Developer: Chelo Watt MD, Phone: [phone] Performed at: [address] [id number] Remedy Developer: Chelo Watt MD, Phone: [phone] IGP, APTIMA HPV, RFX 16/18,[address] [facility] Comment on above: TESTS RESULT FLAG UN ITS REF RANGE LAB DIAGNOSIS: 02 UNSATISFACTORY FOR EVALUATION. Recommendation: 02 Suggest follow up as clinically appropriate. Specimen adequacy: 02 Specimen processed and examined but unsatisfactory for evaluation of epithelial abnormality because of obscuring inflammatory exudate. Performed by: 02 Omar Gilmore, Research Clerk ([facility]) QC reviewed by: 02 Paty Bear, Supervisory Research Clerk ([facility]) . 02 Note: Note 02 The Pap smear is a screening test designed to aid in the detection of premalignant and malignant conditions of the uterine cervix. It is not a diagnostic procedure and should not be used as the sole means of detecting cervical cancer. Both false-positive and false-negative reports do occur. Test Methodology: Note 02 The [employer] Automatic was unable to read this specimen. Therefore a manual review was performed. FLAG LEGEND: L-Low Normal,H-High Normal,LL-Alert Low,HH-Alert High <-Panic Low,>-Panic High,A-Abnormal,AA-Critical Abnormal Performed at: [address] [address] Chelo Watt MD, HPV Genotype Reflex Note 02 Criteria not met, HPV Genotype not performed. Criteria not met, HPV Genotype not performed. SPATULA-ALONE ENDOCERVIX [facility] RECURRENT VAGINITIS (HTRX)on 10-03-[address] [facility] ATOPOBIUM VAGINAE Not detected [facility] BVAB 2,3 (BACTERIAL VAGINOSIS ASSOCIATED BACTERIA 2, 3); MOBILUNCUS SPP 0 [facility] BVAB 2,3 (BACTERIAL VAGINOSIS ASSOCIATED BACTERIA 2, 3); MOBILUNCUS SPP Not detected [facility] MANUELA ALBICANS, PARAPSILOSIS, TROPICALIS 0 [facility] Healthcare MANUELA ALBICANS, PARAPSILOSIS, TROPICALIS Not detected [facility] MANUELA GLABRATA [address] [facility] MANUELA GLABRATA Not detected [facility] MANUELA KRUSEI 0 [facility] MANUELA KRUSEI Not detected [facility] CHLAMYDIA TRACHOMATIS 0 [facility] CHLAMYDIA TRACHOMATIS Not detected [facility] GARDNERELLA VAGINALIS 0 [facility] GARDNERELLA VAGINALIS Not detected [facility] MEGASPHAERA (TYPES 1, 2) 0 [facility] Healthcare MEGASPHAERA (TYPES 1, 2) Not detected [...] II, MD, PHD at 12-Oct-2024 10:22:11 AM [facility] Normal Not Available Comment on above: Order Comment: US OB ANATOMY SINGLE W US OB CERVICAL LENGTH Estimated Date of Delivery: 02/25/25 Gestational Age as of 10/01/2024: 19w0d BOX TESTon 08-06-2024 BOX TEST SENT OUT [place] [facility] BOX[facility] BOX2 08/06/24 [facility] BOX [facility] HCG ( test) Ql (U)o n 08-02-2024 Interpretation and review of laboratory results Abnormal [facility] Preg Test, Ur Positive Negative [facility] US OB TRANSVAGINALon 025 US OB TRANSVAGINAL [...] II, MD, PHD at 03-Aug-2024 08:40:26 AM [facility] Normal Not Available Comment on above: Order Comment: US OB TRANSVAGINAL No LMP recorded. Urinalysis macro (dipstick) panel (U)on 08-02-2024 Bilirubin, UA Negative Negative - 4(70) +++ mg/dL [facility] Blood, UA Negative Negative - 50 Aneudy/mcL [facility] Clarity, UA Clear [facility] Color, UA Yellow [facility] Glucose, UA Negative Negative - 1999(110) ++++ mg/dL [facility] Interpretation and review of laboratory results Abnormal [facility] Ketones, UA Negative Negative - 160(16) ++++ mg/dL [facility] Leukocytes, UA Positive Negative - 500+++ Migdalia/mcL [facility] Comment on above: small Nitrite, UA Negative Negative - Positive [facility] pH, UA 6 5 - 9 [facility] Protein, UA Negative Negative - 1999(20) ++++ mg/dL [facility] Spec Grav, UA 1.02 1 - 1.03 [facility] Urobilinogen, UA 0.2 0.2 - 12 mg/dL [facility] XR Spine Cervical Complete w /Flex AND [place] 05-12-2021 XR Spine Cervical Complete w/Flex AND [...] by Miah Suero on 05/12/2021 [address] [facility] [employer] Technician US PELVIS AND TRANSVAGon US PELVIS AND [...] by: STEPHANIE MONTGOMERY Date: 2019-12-10 10:21 Normal [facility] PAP ONLYon 06-14-2019 COMMENT Comment Normal [facility] Comment on above: Result Comment: Z01. [id number] Performed By: #### [id number] #### [facility] [address] [place] [address] Leno Mac DIAGNOSIS: Comment Normal [facility] Comment on above: Result Comment: NEGA TIVE FOR INTRAEPITHELIAL LESION OR MALIGNANCY. Performed By: #### 4 [id number] #### [facility] [address] [place] [address] Leno Mac Methodology: Comment Normal [facility] Comment on above: Result Comment: This liquid based ThinPrep(R) pap test was screened with the use of an image guided system. Performed By: #### 4 [id number] #### [facility] [address] [place] [address] Leno Mac Note: Comment [facility] Comment on above: Result Comment: The Pap smear is a screening test designed to aid in the detection of premalignant and malignant conditions of the uterine cervix. It is not a diagnostic procedure and should not be used as the sole means of detecting cervical cancer. Both false-positive and false-negative reports do occur. . Performed By: #### 4 [id number] #### [facility] [address] [place] [address] Leno Mac Performed by: Comment Normal [facility] Comment on above: Result Comment: Stephanie Barraza Swimmer (ASCP) Performed By: #### 4 [id number] #### [facility] [address] [place] [address] Leno Mac Specimen adequacy: Comment [facility] Comment on above: Result Comment: Sati sfactory for evaluation. Endocervical and/or squamous metaplastic cells (endocervical component) are present. Performed By: #### 4 [id number] #### [facility] [address] [place], [place] [address] Leno Mac . . Normal [facility] Comment on above: Performed By: #### 4 [id number] #### [facility] [address] [place], [place] [address] Leno Mac Discharge Summaryon 10-08-19 18 HIM IP Note OR [place] [place] Manager Normal [facility] Plan of Careon 10-07-2017 HIM IP Note OR [place] Manager Normal [facility] HIM IP Note OR [place] Manager Normal [facility] Progress Noteon 10-07-2017 HIM IP Note OR [place] Manager Normal [facility] HIM IP Note OR [place] Manager Normal [facility] HIM IP Note OR [place] Manager Normal [facility] HIM IP Note OR [place] Manager Normal [facility] HIM IP Note OR [place] Manager Normal [facility] Plan of Careon 10-06-2017 HIM IP Note OR [place] Manager Normal [facility] HIM IP Note OR [place] Manager Normal [facility] Progress Noteon 10-06-2017 HIM IP Note OR [place] Manager Normal [facility] HIM IP Note OR [place] Manager Normal [facility] HIM IP Note OR [place] Manager Normal [facility] Surgical Pathologyon 018 Surgical Pathology (NOTE)[id number] [facility]OSPITALSU[facility] PATH[facility]ISTS [facility] [id number] [place], [place] [phone] Fax: SURGICAL PATHOLOGY CONSULTATIONPatient Name: Mary GA Rec: [id number] Number: [id number]: 10/06/2017Received: 10/06/2017Reported: 10/07/2017 12:37-- Diagnosis --PLACENTA MEMBRANES AND UMBILICAL CORD: MATURE PLACENTA WITHINTERVILLOUS THROMBI, UNREMARKABLE MEMBRANES AND THREE-VESSELUMBILICAL CORD.Tammie NgElectronically Signed Out ajb/10/07/2017Clinical InformationOperative Findings: PLACENTA (PER CONTAINER)Source of Specimen1: PLACENTA (PER CONTAINER)Gross Description SHOBHA GA, UNDESIGNATED Placenta with attached membranes andumbilical cord.UMBILICAL CORD Length: 47.0 cm Diameter: 1.5 cmTrue knots: NoNumber of vessels: 3Spiraling: NormalInsertion into surface: ParacentralMEMBRANESColor: [place]-yates, focally opacified with a circummarginateinsertionMeconi um staining: [...] erythrocytes invillous capillaries: RareOther: Few microcalcifications Normal [facility] CBC with Diffon 10-05-2017 Abs. Basophil <0.03 Normal 0.00-0.20 [facility] Comment on above: Performed By: #### C DP ####[address] [place] [id number] Abs.Neutrophil (Seg) 7.93 k/uL Normal 1.50-8.10 [facility] Comment on above: Performed By: #### C DP ####[address] [place] [id number] Basophils/100 WBC Auto (Bld) 0 % Normal 0-2 [facility] Comment on above: Performed By: #### C DP ####[address] [place] [address] Eosinophils 0.10 10*3/uL Normal 0.00-0.44 [facility] Comment on above: Performed By: #### C DP ####[address] [place] [address] Eosinophils/100 leukocytes 1 % Normal 1-4 [facility] Comment on above: Performed By: #### C DP ####[address] [place] [address] Erythrocyte distribution width Auto Ratio (RBC) 13.6 % Normal 11.8-14.4 [facility] Comment on above: Performed By: #### C DP ####[address] [place] [address] Erythrocytes (RBC) 4.18 10*6/uL Normal 3.95-5.11 [facility] Comment on above: Performed By: #### C DP ####[address] [place] [address] Erythrocytes (RBC) 0.0 per 100 WBC Normal 0.0 [facility] Comment on above: Performed By: #### C DP ####[address] [place] [address] Granulocytes/100 WBC (Bld) 0.15 k/uL Normal 0.00-0.30 [facility] Comment on above: Result Comment: Perf ormed at [address] [place] [address] Performed By: #### C DP ####[address] [place] [address] Hematocrit (HCT) 36.5 % Normal 36.3-47.1 [facility] Comment on above: Performed By: #### C DP ####[address] [place] [address] Hemoglobin mass conc (Bld) 12.2 g/dL Normal 11.9-15.1 [facility] Comment on above: Performed By: #### C DP ####[address] [place] [address] Immature granulocytes #/vol (Bld) 1 % High 0 [facility] Comment on above: Performed By: #### C DP ####[facility] [place] [address] Lymphocytes 2.28 10*3/uL Normal 1.10-3.70 [facility] Comment on above: Performed By: #### C DP ####[address] , [facility]83 Lymphocytes/100 leukocytes 20 % Low 24-43 [facility] Comment on above: Performed By: #### C DP ####[address] [place] [id number] MCH 29.2 pg Normal 25.2-33.5 [facility] Comment on above: Performed By: #### C DP ####[address] , [facility]83 MCHC mass conc (RBC) 33.4 g/dL Normal 28.4-34.8 [facility] Comment on above: Performed By: #### C DP ####[address] [place] [id number] MCV 87.3 fL Normal 82.6-102.9 [facility] Comment on above: Performed By: #### C DP ####[address] , [facility]83 Monocytes 0.81 10*3/uL Normal 0.10-1.20 [facility] Comment on above: Performed By: #### C DP ####[address] [place] [id number] Monocytes/100 leukocytes 7 % Normal 3-12 [facility] Comment on above: Performed By: #### C DP ####[address] , [facility]83 Neutrophil (Seg) 71 % High 36-65 [facility] Comment on above: Performed By: #### C DP ####[address] [place] [address] Platelet mean volume (PMV) 10.4 fL Normal 8.1-13.5 [facility] Comment on above: Performed By: #### C DP ####[address] [place] [address] Platelets 207 10*3/uL Normal 138-453 [facility] Comment on above: Performed By: #### C DP ####[address] [place] [address] WBC (Leukocytes) 11.3 10*3/uL Normal 3.5-11.3 [facility] Comment on above: Performed By: #### C DP ####[address] [place] [address] Auto Diff Performed NOT REPORTED Normal [facility] Comment on above: Performed By: #### C DP ####[address] [place] [address] Erythrocyte morphology NOT REPORTED Normal [facility] Comment on above: Performed By: #### C DP ####[address] [place] [address] Platelets NOT REPORTED Normal [facility] Comment on above: Performed By: #### C DP ####[address] [place] [address] WBC Morphology NOT REPORTED Normal [facility] Comment on above: Performed By: #### C DP ####[address] [place] [address] Drug Scr, Abuse, Uron 2017 Amphetamine(s),Ur Negative Normal NEG [facility] Comment on above: Performed By: #### D AU ####[address] [place] [address] Barbiturate(s),Ur Negative Normal NEG [facility] Comment on above: Performed By: #### D AU ####[address] [place] [address] Base excess Negative Normal [facility] Comment on above: Performed By: #### D AU ####[address] [place] [address] Benzodiazepine(s) Negative Normal NEG [facility] Comment on above: Performed By: #### D AU ####[address] [place] [address] Buprenorphrine, Ur Negative Normal NEG [facility] Comment on above: Result Comment: Perf ormed at [address] [place] [address] Performed By: #### D AU ####[address] [place] [address] Cannabinoid(s),Ur Negative [facility] Comment on above: Performed By: #### D AU ####[address] [place] [address] Methamphetamine, Ur Negative [facility] Comment on above: Performed By: #### D AU ####[address] [place] [address] Opiate(s), Ur Negative [facility] Comment on above: Performed By: #### D AU ####[address] [place] [address] Oxycodone, Urine Negative [facility] Comment on above: Performed By: #### D AU ####[address] [place] [address] Phencyclidine, Ur Negative Normal NEG [facility] Comment on above: Performed By: #### D AU ####[address] [place] [address] Propoxyphene,Urine Negative Normal NEG [facility] Comment on above: Performed By: #### D AU ####[address] [place] [address] Urine, methadone presence Negative Normal NEG [facility] Comment on above: Performed By: #### D AU ####[address] [place] [address] Urine, tricyclic antidepressants Negative Normal NEG [facility] Comment on above: Result Comment: Drug screen results are to be used for medical purposes only. All positive results are unconfirmed. Testing for employment or legal uses should be sent to a reference laboratory for confirmation. Performed By: #### D AU ####[address] [place] [address] Interpretive Info NOT REPORTED Normal [facility] Comment on above: Performed By: #### D AU ####[address] [place] [address] MDMA, Urine NOT REPORTED Normal NEG [facility] Comment on above: Performed By: #### D AU ####[address] , [place] [id number] History and Physicalon 10-05 HIM IP Note OR [employer] [place] [employer] Manager Normal [facility] Plan of Careon 10-05-2017 HIM IP Note OR [employer] [place] [employer] Manager Normal [facility] HIM IP Note OR [employer] [place] [employer] Manager Normal [facility] Progress Noteon 10-05-2017 HIM IP Note OR [employer] [place] [employer] Manager Normal [facility] HIM IP Note OR [employer] [place] [employer] Manager Normal [facility] HIM IP Note OR [employer] [place] [employer] Manager Normal [facility] HIM IP Note OR [employer] [place] [employer] Manager Normal [facility] Vital Signs Date Time Vital Sign Value Performing Clinician [facility] 01-16-2025 11:37-0400 Body mass index (BMI) [Ratio] 36.63 kg/m2 Uma WELLINGTON Work Phone: [facility] 01-16-2025 11:37-0400 Body weight 93.8 kg Uma Tulsa PA Work Phone: [facility] 01-16-2025 11:37-0400 Diastolic blood pressure 76 mm[Hg] Uma Avinash PA Work Phone: [facility] 01-16-2025 11:37-0400 Systolic blood pressure 112 mm[Hg] Uma Tulsa PA Work Phone: [facility] 01-02-2025 11:20-0400 Body mass index (BMI) [Ratio] 39.4 kg/m2 Dominik Blas DO Work Phone: [facility] 01-02-2025 11:20-0400 Body weight 100.88 kg Dominik Blas DO Work Phone: [facility] 01-02-2025 11:20-0400 Diastolic blood pressure 78 mm[Hg] Dominik Blas DO Work Phone: [facility] 01-02-2025 11:20-0400 Systolic blood pressure 122 mm[Hg] Dominik Blas DO Work Phone: [facility] 12-19-2024 11:03-0400 Body mass index (BMI) [Ratio] 38.75 kg/m2 Uma Avinash PA Work Phone: [facility] 12-19-2024 11:03-0400 Body weight 99.22 kg Uma Tulsa PA Work Phone: [facility] 12-19-2024 11:03-0400 Diastolic blood pressure 74 mm[Hg] Uma Avinash PA Work Phone: [facility] 12-19-2024 11:03-0400 Systolic blood pressure 130 mm[Hg] Uma Tulsa PA Work Phone: [facility] 12-05-2024 15:42-0400 Body mass index (BMI) [Ratio] 37.55 kg/m2 Dominik Blas DO Work Phone: [facility] 12-05-2024 15:42-0400 Body weight 96.16 kg Dominik Blas DO Work Phone: [facility] 12-05-2024 15:42-0400 Diastolic blood pressure 70 mm[Hg] Dominik Blas DO Work Phone: [facility] 12-05-2024 15:42-0400 Systolic blood pressure 122 mm[Hg] Dominik Blas DO Work Phone: [facility] 11-12-2024 15:57-0400 Body mass index (BMI) [Ratio] 37.02 kg/m2 Uma Avinash PA Work Phone: [facility] 11-12-2024 15:57-0400 Body weight 94.8 kg Uma Avinash PA Work Phone: [facility] 11-12-2024 15:57-0400 Diastolic blood pressure 78 mm[Hg] Uma Avinash PA Work Phone: [facility] 11-12-2024 15:57-0400 Systolic blood pressure 122 mm[Hg] Uma Mccormick PA Work Phone: [facility] 10-29-2024 15:52-0400 Body mass index (BMI) [Ratio] 36.23 kg/m2 Dominik Blas DO Work Phone: [facility] 10-29-2024 15:52-0400 Body weight 92.76 kg Dominik Blas DO Work Phone: [facility] 10-29-2024 15:52-0400 Diastolic blood pressure 76 mm[Hg] Dominik Blas DO Work Phone: [facility] 10-29-2024 15:52-0400 Systolic blood pressure 140 mm[Hg] Dominik Blas DO Work Phone: [facility] 10-01-2024 16:11-0400 Body mass index (BMI) [Ratio] 35.21 kg/m2 Uma Avinash PA Work Phone: [facility] 10-01-2024 16:11-0400 Body weight 90.15 kg Uma Avinash PA Work Phone: [facility] 10-01-2024 16:11-0400 Diastolic blood pressure 82 mm[Hg] Uma Mccormick PA Work Phone: [facility] 10-01-2024 16:11-0400 Systolic blood pressure 120 mm[Hg] Uma Pateley PA Work Phone: [facility] 09-03-2024 15:51-0400 Body mass index (BMI) [Ratio] 34.26 kg/m2 Dominik Blas DO Work Phone: [facility] 09-03-2024 15:51-0400 Body weight 87.73 kg Dominik Blas DO Work Phone: [facility] 09-03-2024 15:51-0400 Diastolic blood pressure 68 mm[Hg] Dominik Blas DO Work Phone: [facility] 09-03-2024 15:51-0400 Systolic blood pressure 112 mm[Hg] Dominik Blas DO Work Phone: [facility] 08-02-2024 14:29-0400 Body mass index (BMI) [Ratio] 33.66 kg/m2 [facility] Nurse [facility] 08-02-2024 14:29-0400 Body weight 86.18 kg [facility] Nurse [facility] 08-02-2024 14:29-0400 Diastolic blood pressure 72 mm[Hg] [facility] Nurse [facility] 08-02-2024 14:29-0400 Systolic blood pressure 120 mm[Hg] [facility] Nurse [facility] 06-20-2024 13:30-0500 Body height 160 cm Wero Valderrama MAINTENANCE FITTER Work Phone: [facility] 06-20-2024 13:30-0500 Body mass index (BMI) [Ratio] 33.66 kg/m2 Wero Valderrama MAINTENANCE FITTER Work Phone: [facility] 06-20-2024 13:30-0500 Body weight 86.18 kg Wero Valderrama MAINTENANCE FITTER Work Phone: [facility] 06-20-2024 13:30-0500 Diastolic blood pressure 78 mm[Hg] Wero Valderrama MAINTENANCE FITTER Work Phone: [facility] 06-20-2024 13:30-0500 Heart rate 78 /min Wero Valderrama MAINTENANCE FITTER Work Phone: [facility] 06-20-2024 13:30-0500 Respiratory rate 17 /min Wero Valderrama MAINTENANCE FITTER Work Phone: [facility] 06-20-2024 13:30-0500 SaO2% (BldA) [Mass fraction] 98 % Wero Valderrama MAINTENANCE FITTER Work Phone: [facility] 06-20-2024 13:30-0500 Systolic blood pressure 138 mm[Hg] Wero Valderrama MAINTENANCE FITTER Work Phone: [facility] Encounters Encounter Date Encounter Type Care Provider Facility Start: 01-16-2025 End: 01-16-2025 Bamboo flowsheet Uma WELLINGTON Work Phone: [facility] Start: 01-16-2025 End: 01-16-2025 Bamboo flowsheet Uma Mccormick PA Work Phone: [facility] Start: 01-16-2025 End: 01-16-2025 ambulatory UMA MCCORMICK Not Available Start: 01-16-2025 End: 01-16-2025 flow sheet Uma WELLINGTON Work Phone: [facility] Comment on above: Third trimester preg ramon ([facility]); 34 weeks gestation of ([facility]) Start: 01-02-2025 End: 01-02-2025 Bamboo flowsheet Dominik Blas DO Work Phone: [facility] Start: 01-02-2025 End: 01-02-2025 Bamboo flowsheet Dominik Blas DO Work Phone: [facility] Start: 01-02-2025 End: 01-02-2025 ambulatory DOMINIK BLAS Not Available Start: 01-02-2025 End: 01-02-2025 flow sheet Dominik Blas DO Work Phone: [facility] Comment on above: 32 weeks gestation o f ([facility]); Third trimester ([facility]); Excessive growth affecting management of , antepartum, single or unspecified fetus ([facility]) Start: 12-27-2024 End: 12-27-2024 Clinisync Result Encounter Dominik Blas DO Work Phone: [facility] Unsolicited Start: 12-27-2024 End: 12-27-2024 Clinisync Result Encounter Dominik Blas DO Work Phone: [facility] Start: 12-19-2024 End: 12-19-2024 flow sheet Uma WELLINGTON Work Phone: [facility] Comment on above: Third trimester preg ramon ([facility]); 30 weeks gestation of ([facility]) Start: 12-19-2024 End: 12-19-2024 ambulatory UMA MCCORMICK Not Available Start: 12-05-2024 End: 12-05-2024 flow sheet Dominik Blas DO Work Phone: [facility] Comment on above: Third trimester preg ramon ([facility]); 28 weeks gestation of ([facility]); size inconsistent with dates ([facility]) Start: 12-05-2024 End: 12-05-2024 ambulatory DOMINIK BLAS Not Available Start: 12-05-2024 End: 12-05-2024 Bamboo flowsheet Dominik Blas DO Work Phone: [facility] Start: 12-05-2024 End: 12-05-2024 Bamboo flowsheet Dominik Blas DO Work Phone: [facility] Start: 11-12-2024 End: 11-12-2024 flow sheet Uma WELLINGTON Work Phone: [facility] Comment on above: Second trimester pre gnancy ([facility]); 25 weeks gestation of ([facility]) Start: 11-12-2024 End: 11-12-2024 ambulatory UMA MCCORMICK Not Available Start: 11-12-2024 End: 11-12-2024 Clinisync Result Encounter Dominik Blas DO Work Phone: [facility] External Department Unsolicited Start: 11-12-2024 End: 11-12-2024 Clinisync Result Encounter Dominik Blas DO Work Phone: [facility] External Department Unsolicited Start: 11-07-2024 End: 11-07-2024 ambulatory WERO VALDERRAMA Not Available Start: 10-29-2024 End: 10-29-2024 ambulatory DOMINIK BLAS Not Available Start: 10-29-2024 End: 10-29-2024 flow sheet Dominik Blas DO Work Phone: [facility] Comment on above: Diabetes mellitus sc reening; Second trimester ([facility]); 23 weeks gestation of ([facility]) Start: 10-29-2024 End: 10-29-2024 Bamboo flowsheet Dominik Blas DO Work Phone: [facility] Start: 10-29-2024 End: 10-29-2024 Bamboo flowsheet Dominik Blas DO Work Phone: [facility] Start: 10-10-2024 End: 10-10-2024 ambulatory WERO VALDERRAMA Not Available Start: 10-01-2024 End: 10-01-2024 Patient encounter procedure Uma WELLINGTON Work Phone: [facility] Start: 10-01-2024 End: 10-01-2024 Periodic preventive med est patient 18-39 yrs Uma WELLINGTON Work Phone: [facility] Comment on above: Second trimester pre gnancy; 19 weeks gestation of ; Well woman exam with routine gynecological exam; Screening, , for anatomic survey; STD exposure Start: 10-01-2024 End: 10-01-2024 ambulatory UMA MCCORMICK Not Available Start: 10-01-2024 End: 10-01-2024 Bamboo flowsheet Uma WELLINGTON Work Phone: [facility] Start: 10-01-2024 End: 10-08-2024 Bamboo [...] Start: 08-16-2024 End: 08-16-2024 ambulatory AYESHA VAZQUEZ [facility] Start: 08-06-2024 End: 08-06-2024 Clinisync Result [...] 07-06-2024 End: 07-06-2024 Orders Only Ayesha Vazquez TECHNICAL PRODUCER-COLLATERAL ANALYST Work Phone: [facility] Start: 06-20-2024 End: 06-20-2024 Bamboo flowsheet Wero C Valderrama MAINTENANCE FITTER Work Phone: [facility] Start: 06-20-2024 End: 06-20-2024 Bamboo flowsheet Wero Valderrama MAINTENANCE FITTER Work Phone: [facility] Start: 06-20-2024 End: 06-20-2024 Office outpatient visit 25 minutes Wero Valderrama MAINTENANCE FITTER Work Phone: [facility] Comment on [...] obesity type Start: 02-06-2024 End: 02-06-2024 ambulatory [facility] Start: 01-07-2024 End: 01-09-2024 Refrobin Lam MD [...] Evaluation and management of inpatient [facility] Procedures Date Procedure Procedure Detail Performing [...] Adult depression scr eening assessment Ayesha Vazquez TECHNICAL PRODUCER-COLLATERAL ANALYST Work Phone: Start: 11-29-2022 Microscopic observat ion [...] STEPHEN DOWNEY Start: 10-05-2017 IP CONSULT TO [facility] STEPHEN DOWNEY Start: 10-05-2017 URINE DRUG SCREEN BRADLEY DOWNEY Plan of Treatment Date Care Activity Detail Author Start: 12-11-2027 Screening for malign ant neoplasm of cervix [facility] Start: 10-02-2027 Screening for malign ant neoplasm of cervix Pap Smear [facility] Start: 09-28-2027 DTaP,Tdap and Td Vaccines (2 - Td or Tdap) DTaP,Tdap and Td Vaccines (2 - Td or Tdap) [facility] Start: 11-29-2025 Screening for malign ant neoplasm of cervix Pap Smear [facility] Start: 02-05-2025 Depression Screening Depression Scre ening [facility] Start: 02-05-2025 Tobacco Screening Tobacco Screening [facility] Start: 01-30-2025 End: 01-30-2025 Patient encounter procedure 01/30/2025 1:30 PM EDT Routine [facility] [address] [place] [id number] Annabel Osman, MAINTENANCE FITTER [address] [place] [address] [facility] Start: 01-30-2025 End: 01-30-2025 Professional / ancillary services management 01/30/2025 1:00 PM EDT Ancillary Procedure [facility] [address] [place] [phone] [facility] Start: 01-16-2025 End: 01-16-2025 Patient encounter procedure 01/16/2025 11:20 AM EDT Routine [facility] [address] [place] [address] Uma Mccormick PA [address] [place], [place] [id number] [facility] Start: 01-02-2025 End: 05-04-2025 US for US OB follow up transabdominal approach Imaging Routine Excessive growth affecting management of , antepartum, single or unspecified fetus ([facility]) Expected: 01/02/2025, Expires: 05/04/2025 [facility] Work Phone: Comment on above: Expected: 01/02/2025 , Expires: 05/04/2025 Start: 01-02-2025 End: 01-02-2025 Patient encounter procedure 01/02/2025 11:00 AM EDT Routine [facility] [address] [place] [address] Dominik Odonnell, [address] [place] [address] [facility] Start: 12-31-2024 Influenza vaccination [facility] Start: 12-25-2024 End: 12-25-2024 Patient encounter procedure 12/25/2024 10:00 AM EDT Office Visit [facility] [address] [place] [address] Dominik Odonnell, [address] [place] [address] [facility] Start: 12-19-2024 End: 12-19-2024 Patient encounter procedure 12/19/2024 11:20 AM EDT Routine [facility] [address] [place] [phone] Uma Mccormick PA [address] [place] [address] [facility] Start: 12-19-2024 End: 12-19-2024 Professional / ancillary services management 12/19/2024 10:30 AM EDT Ancillary Procedure [facility] [address] [place] [address] [facility] Start: 12-05-2024 End: 12-05-2024 Patient encounter procedure 12/05/2024 3:30 PM EDT Routine [facility] [address] [place] [phone] Dominik Odonnell, DO [address] [place] [address] Arrived [facility] Comment on above: Arrived Start: 12-05-2024 End: 04-06-2025 US for US OB follow up transabdominal approach Imaging Routine size inconsistent with dates ([facility]) Expected: 12/05/2024, Expires: 04/06/2025 [facility] Work Phone: Comment on above: Expected: 12/05/2024 , Expires: 04/06/2025 Start: 11-12-2024 End: 11-12-2024 Patient encounter procedure 11/12/2024 3:50 PM EDT Routine [facility] [address] [place] [address] Uma Mccormick PA [address] [place], [place] [id number] [facility] Start: 11-07-2024 End: 11-07-2024 Professional / ancillary services management 11/07/2024 10:30 AM EDT Ancillary Procedure [facility] [address] [place] [address] [facility] Start: 10-29-2024 End: 10-29-2024 Patient encounter procedure 10/29/2024 3:40 PM EDT Routine [facility] [address] [place] [address] Dominik Odonnell DO [address] [place], [place] [phone] [facility] Start: 10-29-2024 End: 10-29-2025 CBC panel - Blood by Automated count CBC Lab Routine Diabetes mellitus screening Expected: 10/29/2024 (Approximate), Expires: 10/29/2025 [facility] Work Phone: Comment on above: Expected: [...] EDT Ancillary Procedure [facility] [address] [place] [address] [facility] Start: 10-01-2024 End: [...] for anatomic survey Expected: 10/01/2024, Expires: 01/01/2025 [facility] Comment on above: Expected: 10/01/2024 , [...] [address] [place] [address] Wero Valderrama, MAINTENANCE FITTER [address] [place] [address] [facility] Start: 06-20-2024 End: 06-20-2024 Patient encounter procedure 06/20/2024 1:30 PM EST Office Visit [facility] [address] [place] [address] Wero Valderrama, MAINTENANCE FITTER [address] [place] [address] Arrived [facility] Comment on above: Arrived Start: 06-11-2024 Screening for malign ant neoplasm of cervix Pap Smear [facility] Start: 04-18-2024 End: 04-18-2024 Patient encounter procedure 04/18/2024 10:30 AM EST Office Visit [facility] [address] [place] [address] Colten Lam MD [address] [place] [address] [facility] Start: 01-01-2024 Influenza vaccination [facility] Start: 10-30-2023 Influenza vaccination Influenza Vacc ine (#1) [facility] Comment on above: Postponed from 12/31 (Patient Refused) Start: 06-20-2023 End: 06-20-2023 Patient encounter procedure 06/20/2023 11:15 AM EST Office Visit [facility] [address] [facility] [address] [place] [phone] Colten Lam MD [address] [facility] [address] [place] [address] [facility] Start: 06-11-2022 Screening for malign ant neoplasm of cervix Pap Smear [facility] Start: 09-13-2009 Adult BMI Screening Adult BMI Screen ing [facility] Bacteria identified in Urine by Culture Urine culture Microbiology Routine Missed menses Ordered: 08/02/2024 [facility] Comment on above: Ordered: 08/02/2024 CBC W Auto Different ial panel - Blood CBC and differential Lab Routine Missed menses , unspecified gestational age Ordered: 08/02/2024 [facility] Comment on above: Ordered: 08/02/2024 CHLAMYDIA TRACHOMATI S (GENITO/STI) CHLAMYDIA TRACHOMATIS (GENITO/STI) Lab Routine STD exposure Ordered: 10/01/2024 [facility] Comment on above: Ordered: 10/01/2024 Cytology Cervical or vaginal smear or scraping study Pap Smear Pathology and Cytology Routine Well woman exam with routine gynecological exam Ordered: 10/01/2024 [facility] Work Phone: Comment on above: Ordered: 10/01/2024 Hemoglobin A1c/Hemoglobin.total in Blood Hemoglobin A1c Lab Routine Missed menses , unspecified gestational age Ordered: 08/02/2024 [facility] Comment on above: Ordered: 08/02/2024 Hepatitis B virus surface Ag [Presence] in Serum or Plasma by Immunoassay Hepatitis B surface antigen Lab Routine Missed menses , unspecified gestational age Ordered: 08/02/2024 [facility] Comment on above: Ordered: 08/02/2024 Hepatitis C virus Ab [Presence] in Serum or Plasma by Immunoassay Hepatitis C antibody Lab Routine Missed menses , unspecified gestational age Ordered: 08/02/2024 [facility] Comment on above: Ordered: 08/02/2024 HIV-1/HIV-2 antigen/antibody combination immunoassay HIV-1 and HIV-2 antibodies Lab Routine Missed menses , unspecified gestational age Ordered: 08/02/2024 [facility] Comment on above: Ordered: 08/02/2024 Human papilloma viru s DNA [Presence] in Unspecified specimen by Probe with amplification HPV DNA probe, amplified Microbiology Routine Well woman exam with routine gynecological exam Ordered: 10/01/2024 [facility] Comment on above: Ordered: 10/01/2024 Neisseria gonorrhoea e DNA [Presence] in Unspecified specimen by MAURICE with probe detection Neisseria gonorrhea DNA probe, direct Lab Routine STD exposure Ordered: 10/01/2024 [facility] Comment on above: Ordered: 10/01/2024 Reagin Ab [Presence] in Serum by RPR RPR Lab Routine Missed menses , unspecified gestational age Ordered: 08/02/2024 [facility] Comment on above: Ordered: 08/02/2024 Rubella antibody, IgG Rubella an tibody, IgG Lab Routine Missed menses , unspecified gestational age Ordered: 08/02/2024 [facility] Comment on above: Ordered: 08/02/2024 SURESWAB(R) ADVANCED VAGINITIS PLUS, TMA SURESWAB(R) ADVANCED VAGINITIS PLUS, TMA Pathology and Cytology Routine STD exposure Ordered: 10/01/2024 [facility] Comment on above: Ordered: 10/01/2024 Immunizations Immunization Date Immunization Notes Care Provider Stacey saunders 09-27-2017 tetanus toxoid, redu sade diphtheria toxoid, and acellular pertussis vaccine, adsorbed Allison Arreola MA [facility] 05-17-2017 influenza, injectabl e, quadrivalent, preservative free Allisonher Elba CABR[facility] 05-17-2017 influenza virus vacc ine, unspecified formulation Allisonher [place] [facility] Payers Date Payer Category Payer [facility] [id number] 2023 [employer] Blue [employer]aged [employer] - Other [employer] [place] [id number] 2023 Unknown BCBS BCBS [id number] 2023-Present [phone] [address] [place] [address] [id number] 2023 Unknown [id number] 2014 Unknown [id number] 1991 Unknown [id number] [id number] 9.2.593 1991 Unknown [id number] 2.16840.1.339569.3.57 9.2.593 1991 Unknown [id number] 2.16840.1.257137.3.57 9.2.593 1991 Unknown [id number] 2.16840.1.546193.3.57 9.2.1286 1991 Unknown [id number] 2.16840.1.690858.3.57 9.2.1286 1991 Unknown [id number] 2.16.840.1.921600.3.57 9.2.1259 1991 Unknown [id number] 2.16.840.1.032029.3.57 9.2.1258 1991 Unknown [id number] 2.16.840.1.618493.3.57 9.2.1258 1991 Unknown [id number] 2.16.840.1.553735.3.57 9.2.1258 1991 Unknown [id number] 2.16.840.1.529981.3.57 9.2.1258 1991 Unknown [id number] 2.16.840.1.923481.3.57 9.2.1258 1991 Unknown [id number] 2.16.840.1.824925.3.57 9.2.1258 1991 Unknown [id number] 2.16.840.1.971145.3.57 9.2.1258 1991 Unknown [id number] 2.16.840.1.605836.3.57 9.2.1258 1991 Unknown [id number] 2.16.840.1.254686.3.57 9.2.1258 1991 Unknown [id number] 2.16.840.1.180290.3.57 9.2.1258 1991 Unknown [id number] 2.16.840.1.394418.3.57 9.2.1258 1991 Unknown [id number] 2.16.840.1.672765.3.57 9.2.1258 1991 Unknown [id number] 2.16.840.1.430696.3.57 9.2.1259 1959 Self-pay 1959 Unknown [id number] Social History Date Type Detail Facility Start: 11-05-2022 End: 02-06-2024 Tobacco smoking status VAIS Never smoked tobacco [facility] Work Phone: Start: 11-05-2022 End: 02-06-2024 Tobacco use and exposure Smokeless tobacco non-user [facility] Start: 05-19-2023 End: 01-16-2025 Alcohol intake Current drinker of alcohol (finding) [facility] Start: 12-20-2022 End: 05-19-2023 Alcohol intake [...] or more drinks on 1 occasion? Never [facility] Start: 09-16-2022 End: 02-06-2024 Education 13 [facility] Start: 12-20-2022 Alcohol Comment Caffeine intak e: 1-[address] [facility] Start: 1990 Sex Assigned At Not on file N [facility] Adolescent depressio n screening assessment 10 [facility] Start: 02-06-2024 Alcohol Comment 1-2 times a month [facility] Start: 12-05-2014 Sex Female (finding) [facility] Start: 06-04-2024 [facility] NEGATED: Highlighted rowStart: NINF History of tobacco use Passive smoker [facility] Clinical Notes 06-08-2023 to 01-16-2025 AMISH Toussaint [...] or radiculopathy 02/23/2023 Tension headache 02/23/2023 Term ([facility]) 10/04/2017 Vaginal odor 02/23/2023 Class 1 obesity without serious comorbidity with body mass index (BMI) of 31.0 to 31.9 in adult 04/19/2023 Bipolar II disorder (HCC) 02/06/2024 Generalized anxiety disorder 02/06/2024 32 weeks gestation of ([facility]) 01/02/2025 Resolved Ambulatory Problems Diagnosis Date [...] ASSESSMENT & PLAN ICD-10-CM 1. Third trimester ([facility]) Z34.93 POCT urinalysis dipstick manually resulted 2. 34 weeks gestation of ([facility]) Z3A.34 POCT urinalysis dipstick manually resulted [...] of: AMISH Toussaint documented in this encounter [facility] 01-02-2025 History of Presen t illness [...] Noted Bipolar affective disorder, currently depressed, mild ([facility]) 08/31/2022 Anxiety 08/31/2022 Mild episode of recurrent major depressive disorder 08/31/2022 Amenorrhea 02/23/2023 Attention deficit 02/23/2023 Daytime hypersomnia 02/23/2023 Foraminal stenosis of cervical region 02/23/2023 Insulin resistance 02/23/2023 Migraine without aura and with status migrainosus, not intractable 02/23/2023 Other chronic pain 02/23/2023 Spondylosis of cervical region without myelopathy or radiculopathy 02/23/2023 Tension headache 02/23/2023 Term ([facility]) 10/04/2017 Vaginal odor 02/23/2023 Class 1 obesity without serious comorbidity with body mass index (BMI) of 31.0 to 31.9 in adult 04/19/2023 Bipolar II disorder ([facility]) 02/06/2024 Generalized anxiety disorder 02/06/2024 32 weeks gestation of ([facility]) 01/02/2025 Resolved Ambulatory Problems Diagnosis Date [...] nursing note reviewed. Exam conducted with a site head present. Vitals: Estimated body mass index is 39.4 kg/m as calculated from the following: Height as of 06/20/24: 5' 3 . Weight as of this encounter: 222 lb 6.4 oz. BP: 122/78 Patient's last menstrual period was 05/21/2024. ASSESSMENT & PLAN ICD-10-CM 1. 32 weeks gestation of ([facility]) Z3A.32 2. Third trimester ([facility]) Z34.93 Return OB: Patient presents today for [...] Dominik Odonnell DO documented in this encounter [facility] 12-19-2024 History of Presen t illness [...] or radiculopathy 02/23/2023 Tension headache 02/23/2023 Term ([facility]) 10/04/2017 Vaginal odor 02/23/2023 Class 1 obesity [...] ASSESSMENT & PLAN ICD-10-CM 1. Third trimester ([facility]) Z34.93 2. 30 weeks gestation of ([facility]) Z3A.30 Return OB: Patient presents today [...] of: AMISH Toussaint documented in this encounter [facility] 12-05-2024 History of Presen t illness [...] Noted Bipolar affective disorder, currently depressed, mild ([facility]) 08/31/2022 Anxiety 08/31/2022 Mild episode of recurrent major depressive disorder 08/31/2022 Amenorrhea 02/23/2023 Attention deficit 02/23/2023 Daytime hypersomnia 02/23/2023 Foraminal stenosis of cervical region 02/23/2023 Insulin resistance 02/23/2023 Migraine without aura and with status migrainosus, not intractable 02/23/2023 Other chronic pain 02/23/2023 Spondylosis of cervical region without myelopathy or radiculopathy 02/23/2023 Tension headache 02/23/2023 Term ([facility]) 10/04/2017 Vaginal odor 02/23/2023 Class 1 obesity without serious comorbidity with body mass index (BMI) of 31.0 to 31.9 in adult 04/19/2023 Bipolar II disorder ([facility]) 02/06/2024 Generalized anxiety disorder 02/06/2024 Resolved Ambulatory [...] nursing note reviewed. Exam conducted with a site head present. Vitals: Estimated body mass index is 37.55 kg/m as calculated from the following: Height as of 06/20/24: 5' 3 . Weight as of this encounter: 212 lb. BP: 122/70 Patient's last menstrual period was 05/21/2024. ASSESSMENT & PLAN ICD-10-CM 1. Third trimester ([facility]) Z34.93 POCT urinalysis dipstick manually resulted 2. 28 weeks gestation of ([facility]) Z3A.28 Return OB: Patient presents today for [...] Dominik Odonnell DO documented in this encounter [facility] 11-12-2024 History of Presen t illness [...] or radiculopathy 02/23/2023 Tension headache 02/23/2023 Term ([facility]) 10/04/2017 Vaginal odor 02/23/2023 Class 1 obesity without serious comorbidity with body mass index (BMI) of 31.0 to 31.9 in adult 04/19/2023 Bipolar II disorder ([facility]) 02/06/2024 Generalized anxiety disorder 02/06/2024 Resolved Ambulatory [...] ASSESSMENT & PLAN ICD-10-CM 1. Second trimester ([facility]) Z34.92 POCT urinalysis dipstick manually resulted 2. 25 weeks gestation of ([facility]) Z3A.25 Return OB: Patient presents today [...] of: AMISH Toussaint documented in this encounter [facility] 10-29-2024 History of Presen t illness [...] Noted Bipolar affective disorder, currently depressed, mild ([facility]) 08/31/2022 Anxiety 08/31/2022 Mild episode of recurrent major depressive disorder 08/31/2022 Amenorrhea 02/23/2023 Attention deficit 02/23/2023 Daytime hypersomnia 02/23/2023 Foraminal stenosis of cervical region 02/23/2023 Insulin resistance 02/23/2023 Migraine without aura and with status migrainosus, not intractable 02/23/2023 Other chronic pain 02/23/2023 Spondylosis of cervical region without myelopathy or radiculopathy 02/23/2023 Tension headache 02/23/2023 Term ([facility]) 10/04/2017 Vaginal odor 02/23/2023 Class 1 obesity without serious comorbidity with body mass index (BMI) of 31.0 to 31.9 in adult 04/19/2023 Bipolar II disorder ([facility]) 02/06/2024 Generalized anxiety disorder 02/06/2024 Resolved Ambulatory [...] nursing note reviewed. Exam conducted with a site head present. Vitals: Estimated body mass index is 36.23 kg/m as calculated from the following: Height as of 06/20/24: 5' 3 . Weight as of this encounter: 204 lb 8 oz. BP: 140/76 Patient's last menstrual period was 05/21/2024. ASSESSMENT & PLAN ICD-10-CM 1. Diabetes mellitus screening Z13.1 CBC Glucose tolerance, 1 hour CBC Glucose tolerance, 1 hour 2. Second trimester ([facility]) Z34.92 3. 23 weeks gestation of ([facility]) Z3A.23 Return OB: Patient presents today [...] Dominik Odonnell DO documented in this encounter [facility] 10-01-2024 History of Presen t illness [...] Noted Bipolar affective disorder, currently depressed, mild ([facility]) 08/31/2022 Anxiety 08/31/2022 Mild episode of recurrent major depressive disorder (HCC) ([facility]) 08/31/2022 Amenorrhea 02/23/2023 Attention deficit 02/23/2023 Daytime hypersomnia 02/23/2023 Foraminal stenosis of cervical region 02/23/2023 Insulin resistance 02/23/2023 Migraine without aura and with status migrainosus, not intractable ([facility]) 02/23/2023 Other chronic pain 02/23/2023 Spondylosis of cervical region without myelopathy or radiculopathy 02/23/2023 Tension headache 02/23/2023 Term 10/04/2017 Vaginal odor 02/23/2023 Class 1 obesity without serious comorbidity with body mass index (BMI) of 31.0 to 31.9 in adult 04/19/2023 Bipolar II disorder ([facility]) 02/06/2024 Generalized anxiety disorder ([facility]) 02/06/2024 Resolved Ambulatory Problems Diagnosis Date Noted No Resolved Ambulatory Problems Past Medical History: Diagnosis Date Acute headache Depression ([facility]) IUD (intrauterine device) in place 05/2018 HISTORY PAST MEDICAL HISTORY SOCIAL HISTORY Past Medical History: Diagnosis Date Acute headache Anxiety Depression ([facility]) IUD (intrauterine device) in place [...] of: AMISH Toussaint documented in this encounter [facility] 09-03-2024 History of Presen t illness [...] Noted Bipolar affective disorder, currently depressed, mild ([facility]) 08/31/2022 Anxiety 08/31/2022 Mild episode [...] nursing note reviewed. Exam conducted with a site head present. Vitals: Estimated body mass index is [...] Dominik Odonnell DO documented in this encounter [facility] 08-02-2024 History of Presen t illness [...] episode of recurrent major depressive disorder (HCC) ([facility]) 08/31/2022 Amenorrhea 02/23/2023 Attention deficit [...] 31.9 in adult 04/19/2023 Bipolar II disorder ([facility]) 02/06/2024 Generalized anxiety disorder ([facility]) 02/06/2024 Resolved Ambulatory Problems Diagnosis Date Noted No Resolved Ambulatory Problems Past Medical History: Diagnosis Date Acute headache Depression ([facility]) IUD (intrauterine device) in place [...] Odonnell at next visit. Pt will have [place] and labs done. Pt is in need [...] or undercooked meat, and stay away from [facility]. Patient has also been advised to not [...] Alida Ryan MA documented in this encounter [facility] 06-20-2024 History of Presen t illness [...] discussed diet and exercise. She declines a contract project manager consult at this time. She states that her insurance will not cover the cost. We will restart the phentermine today - phentermine (Adipex-P) 37.5 MG tablet; Take 1 tablet (37.5 mg) by mouth in the morning. Dispense: 30 tablet; Refill: 0 No follow-ups on file. documented in this encounter [facility] 04-04-2024 Telephone encount er Note Refill sent. [facility] 04-04-2024 Miscellaneous Notes Formattin g of this note might be different from the original. Refill sent. documented in this encounter [facility] 01-09-2024 Telephone encount er Note OARRS reviewed, Rx sent into patient's pharmacy. [facility] 01-09-2024 Miscellaneous Notes Formattin g of this note might be different from the original. OARRS reviewed, Rx sent into patient's pharmacy. venlafaxine XR (Effexor XR) 75 MG 24 hr capsule lamoTRIgine (LaMICtal) 200 MG tablet BOTH OF THESE NEED SENT TO [facility] [place] - the effexor 37.5 was sent already but she takes 75 mg as well. documented in this encounter [facility] 01-09-2024 Telephone encount er Note venlafaxine XR (Effexor XR) 75 MG 24 hr capsule lamoTRIgine (LaMICtal) 200 MG tablet BOTH OF THESE NEED SENT TO [facility] [place] - the effexor 37.5 was sent already but she takes [address] [facility] 01-04-2024 Telephone encount er Note Refill not appropriate. [facility] 01-04-2024 Miscellaneous Notes Formattin g of this note might be different from the original. Refill not appropriate. Refills have been requested for the following medications: Other - Cough medicine Preferred pharmacy: [facility] [address] [place] [address] [address] Delivery method: Pickup documented in this encounter [facility] 01-03-2024 Telephone encount er Note Refills have been requested for the following medications: Other - Cough medicine Preferred pharmacy: [facility] [address] [place] [address] [address] Delivery method: Pickup [facility] 06-08-2023 Telephone encount er Note Pt is trying to get a different complaint investigations officer and wanted to find out if you would be will in send in a refill lamictal, effexor both of these to in [place] [facility] 06-08-2023 Miscellaneous Notes Formattin g of this note might be different from the original. Pt is trying to get a different complaint investigations officer and wanted to find out if you [...] encounter [facility]Not on filedocumented [facility] Purpose Family History No Family [...] DATE CREATED AUTHOR AUTHOR'S ORGANIZ ATION 05/13/2021 [facility] dical Specialist DATE CREATED AUTHOR AUTHOR'S ORGANIZ ATION 08/19/2024 [facility] DATE CREATED AUTHOR AUTHOR'S ORGANIZ ATION 01/17/2025 [facility] dical Specialists EPIC Care Teams (unrecognized sec tion and content) Jack Tamp Operator Relationship Specialty Start Date End Date Colten Lam MD [address] [place] [address] PCP - General Internal Medicine 09/23/22 Jack Tamp Operator Relationship Specialty Start Date End Date Colten Lam MD [address] [place] [address] PCP - [place] [employer] 04/01/22 Colten Lam MD [address] [place] [address] PCP - General Internal Medicine 09/23/22 Jack Tamp Operator Relationship Specialty Start Date End Date Colten Lam MD [address] [place] [address] PCP - [place] [employer] 04/01/22 Colten Lam MD [address] [place] [address] PCP - General Internal Medicine 09/23/22 Jack Tamp Operator Relationship Specialty Start Date End Date Colten Lam MD [address] [place] [address] PCP - [place] [employer] 04/01/22 Colten Lam MD [address] [place] [address] PCP - General Internal Medicine 09/23/22 Jack Tamp Operator Relationship Specialty Start Date End Date Colten Lam MD [address] [place] [address] PCP - [place] [employer] 04/01/22 Colten Lam MD [address] [place] [address] PCP - General Internal Medicine 09/23/22 Jack Tamp Operator Relationship Specialty Start Date End Date Colten Lam MD [address] [place] [address] PCP - [place] [employer] 04/01/22 Colten Lam MD [address] [place] [address] PCP - General Internal Medicine 09/23/22 Jack Tamp Operator Relationship Specialty Start Date End Date Colten Lam MD [address] [place] [address] PCP - General Internal Medicine 09/23/22 Ema Cruz, TECHNICAL PRODUCER-INTEGRITY DIRECTOR [address] [place] [address] PCP - [place] [employer] 04/01/24 Jack Tamp Operator Relationship Specialty Start Date End Date Colten Lam MD [address] [place] [address] PCP - General Internal Medicine 09/23/22 Ema Cruz, TECHNICAL PRODUCER-INTEGRITY DIRECTOR [address] [place] [address] PCP - [place] [employer] 04/01/24 Jack Tamp Operator Relationship Specialty Start Date End Date Colten Lam MD [address] [place] [address] PCP - General Internal Medicine 01/30/24 Jack Tamp Operator Relationship Specialty Start Date End Date Colten Lam MD [address] [place] [address] PCP - General Internal Medicine 09/23/22 Ema Cruz, [facility] [address] [place] [address] PCP - [place] [employer] 04/01/24 Jack Tamp Operator Relationship Specialty Start Date End Date Colten Lam MD [address] [place] [address] PCP - General Internal Medicine 09/23/22 Ema Cruz, [facility] [address] [place] [address] PCP - [place] [employer] 04/01/24 Jack Tamp Operator Relationship Specialty Start Date End Date Colten Lam MD [address] [place] [address] PCP - General Internal Medicine 09/23/22 Ema Cruz, [facility] [address] [place] [address] PCP - [place] [employer] 04/01/24 Jack Tamp Operator Relationship Specialty Start Date End Date Colten Lam MD [address] [place] [address] PCP - General Internal Medicine 09/23/22 Jack Tamp Operator Relationship Specialty Start Date End Date Colten Lam MD [address] [place] [address] PCP - General Internal Medicine 09/23/22 Jack Tamp Operator Relationship Specialty Start Date End Date Colten Lam MD [address] [place] [address] PCP - General Internal Medicine 09/23/22 Jack Tamp Operator Relationship Specialty Start Date End Date Colten Lam MD [address] [place] [address] PCP - General Internal Medicine 09/23/22 Jack Tamp Operator Relationship Specialty Start Date End Date Colten Lam MD [address] [place] [address] PCP - General Internal Medicine 09/23/22 Jack Tamp Operator Relationship Specialty Start Date End Date Colten Lam MD [address] [place] [address] PCP - General Internal Medicine 09/23/22 Jack Tamp Operator Relationship Specialty Start Date End Date Colten Lam MD [address] [place] [address] PCP - General Internal Medicine 09/23/22 Jack Tamp Operator Relationship Specialty Start Date End Date Colten Lam MD [address] [place] [address] PCP - General Internal Medicine 09/23/22 Jack Tamp Operator Relationship Specialty Start Date End Date Colten Lam MD [address] [place] [address] PCP - General Internal Medicine 09/23/22 Reason [...] BE BASED ON THE PRIMARY CLINICAL RECORDS. [facility] [employer] [facility]. provides no warranty or guarantee of the accuracy or completeness of information in this document.
[2025-02-01 13:12] LABS: Total Protein Urine Random 11.1 mg/dL (<=11.9)
[2025-02-01 13:13] LABS: Total Volume 24 Hour Urine 1150 mL/24hr
== END 2025-02-01 12:59 | disposition home or self-care (01) ==
LOC: LAB 12:58
PROVIDERS: PCP Internal Medicine; Visit Provider Nurse Practitioner Family
DX: O13.9 Gestational [pregnancy-induced] hypertension without significant proteinuria, unspecified trimester (principal)
CPT/HCPCS: 84156

== ENCOUNTER 2025-02-06 10:03 | Outpatient (OUT) | payer BC, SELFPAY ==
--- NOTE | 2025-02-06 | US_ITS ---
The [address] [address] Patient Name: STEVAN GA MRN: [facility]:[id number] date: 1990 Sex: F Assigned Patient Location: [facility] Current Patient Location: Accession/Order Number: [id number] Exam Date: 02/06/2025 10:07 Report Date: 02/06/2025 11:08 At the request of: QUINN MACIAS Procedure: US OB BPP w non-stress BIOPHYSICAL PROFILE: CLINICAL INFORMATION: Excessive growth O36.60X0 COMPARISON: 01/30/2025 There is a single live intrauterine gestation in cephalic presentation. The reported gestational age is 37 weeks 2 days. The heart rate measures 161 beats per minute. FINDINGS: TONE: 1 or more episodes of activity extension and flexion of extremity or opening and closing of the hand [Y] 2/2 GROSS BODY MOVEMENTS: 3 or more discrete body or limb movements [Y] 2/2 BREATHING MOVEMENTS: 1 or more episodes of breathing lasting at least 30 seconds [Y] 2/2 DAVID: A single deepest vertical pocket of amniotic fluid greater than 2 cm [Y] 2/2 DAVID: 20.4 cm. This is in upper normal range. Total score: 8/ US/US OB BPP w non-stress IMPRESSION: NORMAL BIOPHYSICAL PROFILE Impression dictated by: Estefania Arias M.D. 02/06/2025 11:08 AM Dictation Location: [place] [address] Electronically authenticated by: [id number] Y Date: 02/06/2025 11:08
--- OUTSIDE RECORDS SUMMARY | 2025-02-06 10:21 | XMS_ITS | CCD ---
Author Organization [facility] Care Team Providers Care Pillow Filler Name Role Phone STEPHEN DOWNEY Unavailable Unavailable STEPHEN DOWNEY Unavailable Unavailable LUZMARIA BRUNO Unavailable Unavailable RONI JIMENEZ Admitting Unavailable RONI JIMENEZ Attending Unavailable RONI JIMENEZ Consulting Unavailable LUZMARIA BRUNO Admitting Unavailable LUZMARIA BRUNO Attending Unavailable RONI JIMENEZ Admitting Unavailable RONI JIMENEZ Attending Unavailable STEPHANIE MONTGOMERY Consulting Unavailable RONI JIMENEZ Consulting Unavailable Colten Lam MD Primary Care Provider Colten Lam MD Unavailable Moraima-Shruthi HEALTH CARE FACILITIES INSPECTOR-CARRIER WASHER, Ema M Unavailable Colten Lam MD Primary [...] ODONNELL Attending Unavailable UMA MCCORMICK Attending Unavailable QUINN OSMAN Attending Unavailable Medications Current Medications Medication Drug [...] hours 180 tablet 1 10/23/2024 01/21/2025 Active 24 hr venlafaxine 150 mg extended release oral capsule (20 sources) Serotonin and Norepinephrine Reuptake Inhibitor Start: 08-09-2024 take 1 capsule by mouth once daily venlafaxine XR (Effexor XR) 150 MG 24 hr capsule Take 150 mg by mouth Daily 08/09/2024 Active Start: 07-06-2024 take 1 capsule by mo [facility] every twenty-four hours in the morning venlafaxine [...] meals. 30 tablet 0 05/19/2023 06/18/2023 Active tiZANidine 4 mg oral tablet (20 sources) Central alpha-2 Adrenergic Agonist Start: 07-12-2024 End: 01-30-2025 take 1 tablet by mouth every eight hours for muscle spasms tiZANidine (Zanaflex) 4 MG tablet Indications: Trapezius muscle spasm Take 1 tablet (4 mg) by mouth every 8 (eight) hours if needed for muscle spasms 30 tablet 07/12/2024 01/30/2025 Discontinued Start: 05-28-2024 End: 06-25-2024 take 1 tablet [...] to 10 days 30 tablet 12/15/2023 Active Problems Active Problems Problem Classification Problem [...] with status migrainosus] Onset: 02-23-2023 02-23-2023 Chronic Hypertension complicating ; childbirth and the puerperium (2 sources) -induced hypertension; Translations: [Gestational [-induced] hypertension without significant proteinuria, unspecified trimester] 01-30-2025 Episodic Immunizations and screening for infectious disease (2 [...] unspecified trimester] 12-05-2024 Episodic Other complications of (4 sources) Excessive growth affecting management of mother; [...] of ] 12-19-2024 Episodic Residual codes; unclassified (14 sources) Gestation period, 32 weeks; Translations: [32 weeks gestation of ] Onset: 01-02-2025 01-02-2025 Episodic Residual codes; unclassified (2 sources) Gestation period, 34 weeks; Translations: [34 weeks gestation of ] 01-16-2025 Episodic Residual codes; unclassified (2 sources) Gestation period, 36 weeks; Translations: [36 weeks gestation of ] 01-30-2025 Episodic Spondylosis; intervertebral disc disorders; other back [...] Test Name Value Interpretation Reference Range Facility TB TOTAL PROTEIN 24 HOUR UR INEon 02-01-2025 Protein (U) [Mass/Vol] 11.1 mg/dL NINF - 11.9 mg/dL [facility] TOTAL PROTEIN 24 HOUR URINE 127.7 NINF [facility] TOTAL VOLUME 24 HOUR URINE 1150 mL/24hr [facility] ALL BUNon 01-30-2025 Urea nitrogen [Mass/Vol] 5 mg/dL Low 7.0 - 18.0 mg/dL [facility] ALL LDHon 01-30-2025 LDH [Catalytic activity/Vol] 308 U/L High 81 - 234 U/L [facility] ALL URIC ACIDon 01-30-2025 Urate [Mass/Vol] 5.2 mg/dL 2.6 - 6.0 mg/dL [facility] 01-30-2025 AST [Catalytic activity/Vol] 20 U/L 15 - 37 U/L [facility] No Panel Informationon 01-30 Interpretation and review of laboratory results Abnormal [facility] Radiology Study observation (narrative) [facility] CREATININEon 01-30-2025 Creatinine [Mass/Vol] 0.48 mg/dL Low 0.55 - 1.02 mg/dL [facility] GFR/1.73 sq M.predicted CKD-EPI (S/P/Bld) [Vol rate/Area] >60 >=60 mL/min/1.7 3m 2 [facility] EGFR-NON AF HAITIAN >60 >=60 mL/min/1.7 3m 2 [facility] US OB BPP W NON-STRESS on 01-30-2025 [place] [address] Ultrasound Report Signed Patient: SHOBHA GA MR#: [id number] : 1990 Acct:[id number] Age/Sex: 34 / F ADM Date: Loc: [facility] 250-[address]: Quinn Osman Ordering Physician: Quinn Osman Date of Service: 01/30/25 Procedure(s): US OB BPP w non-stress Accession Number(s): [id number] cc: COLTEN LAM ; Quinn Osman [place] [address] Patient Name: SHOBHA GA MRN: [id number] date: 1990 Sex: F Assigned Patient Location: [facility] Current Patient Location: Accession/Order Number: [id number] Exam Date: 01/30/2025 16:09 Report Date: 01/30/2025 [...] Pina M.D. 01/30/2025 7:43 PM Dictation Location: [place] [address] Electronically authenticated by: [id number] Y Date: 01/30/2025 19:43 Dictated By: Tyson Pina M.D. Signed By: 01/30/251945 DD/ 42 TD/TT: Tester Operator: [facility] Radiology, Radiologjack llanos MD - 01/30/2025 [place] [address] Ultrasound Report Signed Patient: SHOBHA GA MR#: [id number] : 1990 Acct:[id number] Age/Sex: 34 / F ADM Date: Loc: [facility] [address]: Quinn Osman Ordering Physician: Quinn Osman Date of Service: 01/30/25 Procedure(s): US OB BPP w non-stress Accession Number(s): [id number] cc: COLTEN LAM ; Quinn Osman [place] [address] Patient Name: SHOBHA GA MRN: [facility]:[id number] date: 1990 Sex: F Assigned Patient Location: [facility] Current Patient Location: Accession/Order Number: [id number] Exam Date: 01/30/2025 16:09 Report Date: 01/30/2025 [...] Biophysical profile: 12/07 Impression dictated by: Tyson iPna M.D. 01/30/2025 7:43 PM Dictation Location: [place] [address] Electronically authenticated by: [id number] Y Date: 01/30/2025 19:43 Dictated By: Tyson Pina M.D. Signed By: 01/30/251945 DD/ 42 TD/TT: Tester Operator: [facility] US OB BPP W NON-STRESS Ordered By: Radiologist Radiology on 01-30-2025 [facility] Work Phone: US OB GROWTHon 01-30-2025 [place] [address] Ultrasound Report Signed Patient: SHOBHA GA MR#: [id number] : 1990 Acct:[id number] Age/Sex: 34 / F ADM Date: Loc: [place] [address]: Quinn Osman Ordering Physician: Quinn Osman Date of Service: 01/30/25 Procedure(s): US OB growth Accession Number(s): [id number] cc: COLTEN LAM ; Quinn Osman [place] [address] Patient Name: SHOBHA GA MRN: [facility]:[id number] date: 1990 Sex: F Assigned Patient Location: [facility] Current Patient Location: Accession/Order Number: [id number] Exam Date: 01/30/2025 16:09 Report Date: 01/30/2025 [...] Pina M.D. 01/30/2025 7:43 PM Dictation Location: [place] [address] Electronically authenticated by: [id number] Y Date: 01/30/2025 19:43 Dictated By: Tyson Pina M.D. Signed By: 01/30/251944 DD/ 42 TD/TT: Tester Operator: [facility] Radiology, Radiologi MD romi - 01/30/2025 [place] [address] Ultrasound Report Signed Patient: SHOBHA GA MR#: [id number] : 1990 Acct:[id number] Age/Sex: 34 / F ADM Date: Loc: [facility] 250-[address]: Quinn Osman Ordering Physician: Quinn Osman Date of Service: 01/30/25 Procedure(s): US OB growth Accession Number(s): [id number] cc: COLTEN LAM Kristina [place] [id number] Patient Name: SOHBHA GA MRN: [facility]:[id number] date: 1990 Sex: F Assigned Patient Location: [facility] Current Patient Location: Accession/Order Number: [id number] Exam Date: 01/30/2025 16:09 Report Date: 01/30/2025 [...] Pina M.D. 01/30/2025 7:43 PM [facility] by: [id number] Y Date: 01/30/2025 19:43 Dictated By: Tyson Pina M.D. Signed By: 01/30/251944 DD/ 42 TD/TT: Tester Operator: [facility] US OB GROWTHOrdered By: Andreina ologist Radiology on 01-30-2025 [facility] Work Phone: Urinalysis macro (dipstick) panel (U)on 01-30-2025 Bilirubin, UA Negative Negative - 4(70) +++ mg/dL [facility] Blood, UA Negative Negative - 50 Aneudy/mcL [facility] Clarity, UA Clear [facility] Color, UA Yellow [facility] Glucose, UA Negative Negative - 2000(110) ++++ mg/dL [facility] Interpretation and review of laboratory results Abnormal [facility] Ketones, UA Negative Negative - 160(16) ++++ mg/dL [facility] Leukocytes, UA Positive Negative - 500+++ Migdalia/mcL [facility] Comment on above: 1+ Nitrite, UA Negative Negative - Positive [facility] pH, UA 7 5 - 9 [facility] Protein, UA Positive Negative - 1999(20) ++++ mg/dL [facility] Spec Grav, UA 1.015 1 - 1.03 [facility] Urobilinogen, UA 1.0 0.2 - 12 mg/dL [facility] Urinalysis macro (dipstick) panel (U)on 01-16-2025 Bilirubin, UA Negative Negative - 4(70) +++ mg/dL [facility] Blood, UA Negative Negative - 50 Aneudy/mcL [facility] Clarity, UA Clear [facility] Color, UA Yellow [facility] Glucose, UA Negative Negative - 1999(110) ++++ mg/dL [facility] Interpretation and review of laboratory results Abnormal [facility] Ketones, UA Negative Negative - 160(16) ++++ mg/dL [facility] Leukocytes, UA Positive Negative - 500+++ Migdalia/mcL [facility] Nitrite, UA Negative Negative - Positive [facility] pH, UA 6 5 - 9 [facility] Protein, UA Negative Negative - 1999(20) ++++ mg/dL [facility] Spec Grav, UA 1.025 1 - 1.03 [facility] Urobilinogen, UA 1.0 0.2 - 12 mg/dL [facility] No Panel InformationOrdered By: Radiologist Radiology on 12-27-2024 [facility] Work Phone: No Panel Informationon 12-27 Radiology Study observation (narrative) [facility] US OB CERVICAL LENGTHon 12-01 [place] [address] Ultrasound Report Signed Patient: SHOBHA GA MR#: [id number] : 1990 Acct:[id number] Age/Sex: 34 / F ADM Date: Loc: [facility] 250-[address]: Dominik Odonnell D.O. Ordering Physician: Dominik Odonnell D.O. Date of Service: 12/27/24 Procedure(s): US OB cervical length Accession Number(s): [id number] cc: COLTEN LAM ; Dominik Odonnell D.O. [place] [id number] Patient Name: SHOBHA GA MRN: [facility]:[id number] date: 1990 Sex: F Assigned Patient Location: [facility] Current Patient Location: Accession/Order Number: [id number] Exam Date: 12/27/2024 19:25 Report Date: 12/27/2024 [...] Pina M.D. 12/27/2024 8:34 PM Dictation Location: [place] [address] Electronically authenticated by: [id number] Y Date: 12/27/2024 20:34 Dictated By: Tyson Pina M.D. Signed By: 12/27/242043 DD/ 33 TD/TT: Tester Operator: [facility] Radiology, Radiologi MD romi - 12/27/2024 [place] [address] Ultrasound Report Signed Patient: SHOBHA GA MR#: [id number] : 1990 Acct:[id number] Age/Sex: 34 / F ADM Date: Loc: [facility] 250-[address]: Dominik Odonnell D.O. Ordering Physician: Dominik Odonnell D.O. Date of Service: 12/27/24 Procedure(s): US OB cervical length Accession Number(s): [id number] cc: COLTEN LAM ; Dominik Odonnell D.O. [place] [address] Patient Name: SHOBHA GA MRN: [facility]:[id number] date: 1990 Sex: F Assigned Patient Location: [facility] Current Patient Location: Accession/Order Number: [id number] Exam Date: 12/27/2024 19:25 Report Date: 12/27/2024 [...] Pina M.D. 12/27/2024 8:34 PM Dictation Location: [place] [address] Electronically authenticated by: [id number] Y Date: 12/27/2024 20:34 Dictated By: Tyson Pina M.D. Signed By: 12/27/242043 DD/ 33 TD/TT: Tester Operator: LINDY [facility] US OB PLACENTAon 12-27-2024 [place] [address] Ultrasound Report Signed Patient: SHOBHA GA MR#: [id number] : 1990 Acct:[id number] Age/Sex: 34 / F ADM Date: Loc: [facility] 250-[address]: Dominik Odonnell D.O. Ordering Physician: Dominik Odonnell D.O. Date of Service: 12/27/24 Procedure(s): US OB placenta Accession Number(s): [id number] cc: COLTEN LAM ; Dominik Odonnell D.O. [place] [address] Patient Name: SHOBHA GA MRN: [facility]:[id number] date: 1990 Sex: F Assigned Patient Location: [facility] Current Patient Location: Accession/Order Number: [id number] Exam Date: 12/27/2024 19:25 Report Date: 12/27/2024 [...] Pina M.D. 12/27/2024 8:34 PM Dictation Location: [place] [address] Electronically authenticated by: [id number] Y Date: 12/27/2024 20:34 Dictated By: Tyson Pina M.D. Signed By: 12/27/242043 DD/ 33 TD/TT: Tester Operator: [facility] Radiology, Radiologi MD romi - 12/27/[address] [address] Ultrasound Report Signed Patient: SHOBHA GA MR#: [id number] : 1990 Acct:[id number] Age/Sex: 34 / F ADM Date: Loc: [facility] 250-[address]: Dominik Odonnell D.O. Ordering Physician: Dominik Odonnell D.O. Date of Service: 12/27/24 Procedure(s): US OB placenta Accession Number(s): [id number] cc: COLTEN LAM ; Dominik Odonnell D.O. [place] [address] Patient Name: SHOBHA GA MRN: [facility]:[id number] date: 1990 Sex: F Assigned Patient Location: [facility] Current Patient Location: Accession/Order Number: [id number] Exam Date: 12/27/2024 19:25 Report Date: 12/27/2024 [...] Pina M.D. 12/27/2024 8:34 PM Dictation Location: [place] [address] Electronically authenticated by: [id number] Y Date: 12/27/2024 20:34 Dictated By: Tyson Pina M.D. Signed By: 12/27/242043 DD/ 33 TD/TT: Tester Operator: [facility] US OB FOLLOW UP TRANSABDOMIN AL APPROACHon [...] II, MD, PHD at 20-Dec-2024 08:06:10 AM [facility] Normal Not Available Comment on above: Order Comment: US OB SCAN FOR GROWTH Estimated Date of Delivery: 02/25/25 Gestational Age as of 12/05/2024: 28w2d Urinalysis macro (dipstick) panel (U)on 12-05-2024 Bilirubin, UA Negative Negative - 4(70) +++ mg/dL [facility] Blood, UA Negative Negative - 50 Aneudy/mcL [facility] Clarity, [facility] Color, UA Yellow [facility] Glucose, UA Negative Negative - 2000(110) ++++ mg/dL [facility] Interpretation and review of laboratory results Abnormal [facility] Ketones, UA Negative Negative - 160(16) ++++ mg/dL [facility] Leukocytes, UA 2+ Negative - 500+++ Migdalia/mcL [facility] Nitrite, UA Negative Negative - Positive [facility] pH, UA 7.5 5 - 9 [facility] Protein, UA Negative Negative - 2000(20) ++++ mg/dL [facility] Spec Grav, UA 1.015 1 - 1.03 [facility] Urobilinogen, UA 1.0 0.2 - 12 mg/dL [facility] ALL CBC WITH AUTO DIFFon BASOPHILS ABSOLUTE AUTO 0.1 [facility] Basophils/100 WBC (Bld) 0.5 % 0.2 - 2.0 % [facility] Eosinophils/100 WBC (Bld) 0.8 % Low 0.9 - 7.0 % [facility] Erythrocyte distribution width (RBC) [Ratio] 13.1 % 11.0 - 15.0 % [facility] Hematocrit (Bld) [Volume fraction] 33.6 % Low 36.0 - 48.0 % [facility] Hemoglobin (Bld) [Mass/Vol] 11.5 g/dL Low 12.0 - 16.0 g/dL [facility] IMMATURE GRANULOCYTES ABS AUTO 0.19 High [facility] Immature granulocytes/100 WBC (Bld) 1.3 % High 0.0 - 0.5 % [facility] Interpretation and review of laboratory results Abnormal [facility] LYMPHOCYTES ABSOLUTE AUTO 2.2 [facility] Lymphocytes/100 WBC (Bld) 15.3 % Low 20.5 - 60.0 % [facility] MCH (RBC) [Entitic mass] 30.7 pg 26.7 - 34.0 pg [facility] MCHC (RBC) [Mass/Vol] 34.2 g/dL 29.9 - 35.2 g/dL [facility] MCV (RBC) [Entitic vol] 89.8 fL 81.0 - 99.0 fL [facility] MONOCYTES ABSOLUTE AUTO 0.8 [facility] Monocytes/100 WBC (Bld) 5.7 % 1.7 - 12.0 % [facility] NEUTROPHILS ABSOLUTE AUTO 10.9 High [facility] Neutrophils/100 WBC (Bld) 76.4 % High 43.0 - 75.0 % [facility] Platelet mean volume (Bld) [Entitic vol] 9.2 fL Low 9.5 - 13.5 fL [facility] TBH EO # 0.1 [facility] TB PLT 253 [facility] RBC 3.74 Low [facility] WBC 14.3 High [facility] Urinalysis macro (dipstick) panel (U)on 11-12-2024 Bilirubin, UA Negative Negative - 4(70) +++ mg/dL [facility] Blood, UA Negative Negative - 50 Aneudy/mcL [facility] Clarity, UA Clear [facility] Color, UA Yellow [facility] Glucose, UA Negative Negative - 1999(110) ++++ mg/dL [facility] Interpretation and review of laboratory results Normal [facility] Ketones, UA Negative Negative - 160(16) ++++ mg/dL [facility] Leukocytes, UA Moderate Negative - 500+++ Migdalia/mcL [facility] Nitrite, UA Negative Negative - Positive [facility] pH, UA 7 5 - 9 [facility] Protein, UA Negative Negative - 2000(20) ++++ mg/dL [facility] Spec Grav, UA 1.015 1 - 1.03 [facility] Urobilinogen, UA 0.2 0.2 - 12 mg/dL [facility] US OB LIMITED 1+ FETUSESon 0 [...] GDLNon AGE GDLN ACOG TESTING Note . [facility] Comment on above: TESTS RESULT FLAG UN ITS REF RANGE LAB Clinician Provided Cytology Information Source.............[employer] No. of containers..01 ThinPrep Vial Age Algo ACOG Jayne... 31 FLAG LEGEND: L-Low Normal,H-High Normal,LL-Alert Low,HH-Alert High <-Panic Low,>-Panic High,A-Abnormal,AA-Critical Abnormal Performed at: 01 =[address] [address] Chelo Watt MD, HPV APTIMA Negative Negative [facility] Comment on above: This nucleic acid am plification test detects fourteen high- risk HPV types (16,18,31,33,35,39,45,51,52,56,58,59,66,68) without differentiation. Performed at: =[address] [id number] Check Totaler: Chelo Watt MD, Phone: [phone] Performed at: [address] [id number] Check Totaler: Chelo Watt MD, Phone: [phone] IGP, APTIMA HPV, RFX 16/18,45 Note . [facility] Comment on above: TESTS RESULT FLAG UN ITS REF RANGE LAB DIAGNOSIS: 02 UNSATISFACTORY FOR EVALUATION. Recommendation: 02 Suggest follow up as clinically appropriate. Specimen adequacy: 02 Specimen processed and examined but unsatisfactory for evaluation of epithelial abnormality because of obscuring inflammatory exudate. Performed by: Omar Gilmore C Engineer (ASCP) QC reviewed by: Paty Bear, Supervisory C Engineer ([facility]) . 02 Note: Note 02 The Pap smear is a screening test designed to aid in the detection of premalignant and malignant conditions of the uterine cervix. It is not a diagnostic procedure and should not be used as the sole means of detecting cervical cancer. Both false-positive and false-negative reports do occur. Test Methodology: Note 02 The [employer] Prep(R) Spray I Painter was unable to read this specimen. Therefore a manual review was performed. FLAG LEGEND: L-Low Normal,H-High Normal,LL-Alert Low,HH-Alert High <-Panic Low,>-Panic High,A-Abnormal,AA-Critical Abnormal Performed at: [address] [address] Chelo Watt MD, HPV Genotype Reflex Note 02 Criteria not met, HPV Genotype not performed. Criteria not met, HPV Genotype not performed. SPATULA-ALONE ENDOCERVIX [facility] RECURRENT VAGINITIS (HTRX)on 10-03-2024 ATOPOBIUM VAGINAE 0 [facility] ATOPOBIUM VAGINAE Not detected [facility] BVAB 2,3 (BACTERIAL VAGINOSIS ASSOCIATED BACTERIA 2, 3); MOBILUNCUS SPP 0 [facility] BVAB 2,3 (BACTERIAL VAGINOSIS ASSOCIATED BACTERIA 2, 3); MOBILUNCUS SPP Not detected [facility] MANUELA ALBICANS, PARAPSILOSIS, TROPICALIS 0 [facility] MANUELA ALBICANS, PARAPSILOSIS, TROPICALIS Not detected [facility] MANUELA GLABRATA 0 [facility] MANUELA GLABRATA Not detected [facility] MANUELA KRUSEI 0 [facility] MANUELA KRUSEI Not detected [facility] CHLAMYDIA TRACHOMATIS 0 [facility] CHLAMYDIA TRACHOMATIS Not detected [facility] GARDNERELLA VAGINALIS 0 [facility] GARDNERELLA VAGINALIS Not detected [facility] MEGASPHAERA (TYPES 1, 2) 0 [facility] MEGASPHAERA (TYPES 1, 2) Not detected [facility] MYCOPLASMA GENITALIUM 0 [facility] MYCOPLASMA GENITALIUM Not detected [facility] NEISSERIA GONORRHOEAE 0 [facility] NEISSERIA GONORRHOEAE Not detected [facility] TRICHOMONAS VAGINALIS 0 [facility] TRICHOMONAS [...] II, MD, PHD at 12-Oct-2024 10:22:11 AM [facility] Normal Not Available Comment on above: Order Comment: US OB ANATOMY SINGLE W US OB CERVICAL LENGTH Estimated Date of Delivery: 02/25/25 Gestational Age as of 10/01/2024: 19w0d BOX TESTon 08-06-2024 BOX TEST SENT OUT [employer] [facility] [employer] BOX1 [employer] [facility] [employer] BOX[address] 08/06/24 [facility] [employer] [facility] HCG ( test) Ql (U)o n 08-02-2024 Interpretation and review of laboratory results Abnormal [facility] Preg Test, Ur Positive Negative [facility] US OB TRANSVAGINALon 025 US OB [...] II, MD, PHD at 03-Aug-2024 08:40:26 AM [facility] Normal Not Available Comment on above: Order Comment: US OB TRANSVAGINAL No LMP recorded. Urinalysis macro (dipstick) panel (U)on 08-02-2024 Bilirubin, UA Negative Negative - 4(70) +++ mg/dL [facility] Blood, UA Negative Negative - 50 Aneudy/mcL [facility] Clarity, UA Clear [facility] Color, UA Yellow [facility] Glucose, UA Negative Negative - 2000(110) ++++ mg/dL [facility] Interpretation and review of laboratory results Abnormal [facility] Ketones, UA Negative Negative - 160(16) ++++ mg/dL [facility] Leukocytes, UA Positive Negative - 500+++ Migdalia/mcL [facility] Comment on above: small Nitrite, UA Negative Negative - Positive [facility] pH, UA 6 5 - 9 [facility] Protein, UA Negative Negative - 2000(20) ++++ mg/dL [facility] Spec Grav, UA 1.02 1 - 1.03 [facility] Urobilinogen, UA 0.2 0.2 - 12 mg/dL [facility] XR Spine Cervical Complete w /Flex AND [place] 05-12-2021 XR Spine Cervical Complete w/Flex AND [...] by Miah Suero on 05/12/2021 1444 Normal [facility] Cloth Covered Helmet Puller US PELVIS AND TRANSVAGon US PELVIS AND [...] by: STEPHANIE MONTGOMERY Date: 2019-12-10 10:21 Normal [facility] PAP ONLYon 06-14-2019 COMMENT Comment Normal [facility] Comment on above: Result Comment: [id number] Performed By: #### [id number] #### [facility] [address] [place] [address] Leno Mac DIAGNOSIS: Comment Normal [facility] Comment on above: Result Comment: NEGA TIVE FOR INTRAEPITHELIAL LESION OR MALIGNANCY. Performed By: #### [id number] #### [facility] [address] [place] [address] Leno Mac Methodology: Comment Normal [facility] Comment on above: Result Comment: This liquid based ThinPrep(R) pap test was screened with the use of an image guided system. Performed By: #### [id number] #### [facility] [address] [place] [address] Leno Mac Note: Comment Normal [facility] Comment on above: Result Comment: The Pap smear is a screening test designed to aid in the detection of premalignant and malignant conditions of the uterine cervix. It is not a diagnostic procedure and should not be used as the sole means of detecting cervical cancer. Both false-positive and false-negative reports do occur. . Performed By: #### [id number] #### [facility] [address] [place], [place] [address] Leno Estefania Performed by: Comment Normal [facility] Comment on above: Result Comment: Stephanie Barraza, Wing Commander (ASCP) Performed By: #### [id number] #### [facility] [address] [place], [place] [address] Leno Estefania Specimen adequacy: Comment [facility] Comment on above: Result Comment: Sati sfactory for evaluation. Endocervical and/or squamous metaplastic cells (endocervical component) are present. Performed By: #### 4 [id number] #### [facility] [address] [place], [place] [address] Leno Estefania . . Normal [facility] Comment on above: Performed By: #### [id number] #### [facility] [address] [place], [place] [address] Leno Estefania Discharge Summaryon 10-08-19 18 HIM IP Note OR Emergency Medicine Normal [facility] Plan of Careon 10-07-2017 HIM IP Note OR Emergency Medicine Normal [facility] HIM IP Note OR Emergency Medicine Normal [facility] Progress Noteon 10-07-2017 HIM IP Note OR Emergency Medicine Normal [facility] HIM IP Note OR Emergency Medicine Normal [facility] HIM IP Note OR Emergency Medicine Normal [facility] HIM IP Note OR Emergency Medicine Normal [facility] HIM IP Note OR Emergency Medicine Normal [facility] Plan of Careon 10-06-2017 HIM IP Note OR Emergency Medicine Normal [facility] HIM IP Note OR Emergency Medicine Normal [facility] Progress Noteon 10-06-2017 HIM IP Note OR Emergency Medicine Normal [facility] HIM IP Note OR Emergency Medicine Normal [facility] HIM IP Note OR Emergency Medicine Normal [facility] Surgical Pathologyon 018 Surgical Pathology (NOTE)[id number] LABORATORIESCONSULTING PATHOLOGISTS [facility] [id number] [place] [address]. [place], [place] [address] Fax: SURGICAL PATHOLOGY CONSULTATIONPatient Name: Mary GA Rec: [id number] Number: [id number]: 10/06/2017Received: 10/06/2017Reported: 10/07/2017 12:37-- Diagnosis --PLACENTA MEMBRANES AND UMBILICAL CORD: MATURE PLACENTA WITHINTERVILLOUS THROMBI, UNREMARKABLE MEMBRANES AND THREE-VESSELUMBILICAL CORD.Tammie NgElectronically Signed Out ajb10/07/2017Clinical InformationOperative Findings: PLACENTA (PER CONTAINER)Source of Specimen1: PLACENTA (PER CONTAINER)Gross Description SHOBHA GA, UNDESIGNATED Placenta with attached membranes andumbilical cord.UMBILICAL CORD Length: 47.0 cm Diameter: 1.5 cmTrue knots: NoNumber of vessels: 3Spiraling: NormalInsertion into surface: ParacentralMEMBRANESColor: Paramus-yates, focally opacified with a circummarginateinsertionMeconi um staining: [...] erythrocytes invillous capillaries: RareOther: Few microcalcifications Normal [facility] CBC with Diffon 10-05-2017 Abs. Basophil <0.03 Normal 0.00-0.20 [facility] Comment on above: Performed By: #### C DP ####[address] [place] [address] Abs.Neutrophil (Seg) 7.93 k/uL Normal 1.50-8.10 [facility] Comment on above: Performed By: #### C DP ####[address] [place] [address] Basophils/100 WBC Auto (Bld) 0 % Normal 0-2 [facility] Comment on above: Performed By: #### C DP ####[address] [place] [address] Eosinophils 0.10 10*3/uL Normal 0.00-0.44 [facility] Comment on above: Performed By: #### C DP ####[address] , [facility]83 Eosinophils/100 leukocytes 1 % Normal 1-4 [facility] Comment on above: Performed By: #### C DP ####[address] [place] [address] Erythrocyte distribution width Auto Ratio (RBC) 13.6 % Normal 11.8-14.4 [facility] Comment on above: Performed By: #### C DP ####[address] , [place] [address] Erythrocytes (RBC) 4.18 10*6/uL Normal 3.95-5.11 [facility] Comment on above: Performed By: #### C DP ####[address] , [place] [address] Erythrocytes (RBC) 0.0 per 100 WBC Normal 0.0 [facility] Comment on above: Performed By: #### C DP ####[address] , [facility]83 Granulocytes/100 WBC (Bld) 0.15 k/uL Normal 0.00-0.30 [facility] Comment on above: Result Comment: Perf ormed at [address] [place] [address] Performed By: #### C DP ####[address] , [facility]83 Hematocrit (HCT) 36.5 % Normal 36.3-47.1 [facility] Comment on above: Performed By: #### C DP ####[address] [place] [address] Hemoglobin mass conc (Bld) 12.2 g/dL Normal 11.9-15.1 [facility] Comment on above: Performed By: #### C DP ####[address] [place] [address] Immature granulocytes #/vol (Bld) 1 % High 0 [facility] Comment on above: Performed By: #### C DP ####[address] [place] [address] Lymphocytes 2.28 10*3/uL Normal 1.10-3.70 [facility] Comment on above: Performed By: #### C DP ####[address] [place] [address] Lymphocytes/100 leukocytes 20 % Low 24-43 [facility] Comment on above: Performed By: #### C DP ####[address] [place] [address] MCH 29.2 pg Normal 25.2-33.5 [facility] Comment on above: Performed By: #### C DP ####[address] [place] [address] MCHC mass conc (RBC) 33.4 g/dL Normal 28.4-34.8 [facility] Comment on above: Performed By: #### C DP ####[address] [place] [address] MCV 87.3 fL Normal 82.6-102.9 [facility] Comment on above: Performed By: #### C DP ####[address] [place] [address] Monocytes 0.81 10*3/uL Normal 0.10-1.20 [facility] Comment on above: Performed By: #### C DP ####[address] [place] [address] Monocytes/100 leukocytes 7 % Normal 3-12 [facility] Comment on above: Performed By: #### C DP ####[address] [place] [address] Neutrophil (Seg) 71 % High 36-65 [facility] Comment on above: Performed By: #### C DP ####[address] [place] [address] Platelet mean volume (PMV) 10.4 fL Normal 8.1-13.5 [facility] Comment on above: Performed By: #### C DP ####[address] [place] [address] Platelets 207 10*3/uL Normal 138-453 [facility] Comment on above: Performed By: #### C DP ####[address] [place] [address] WBC (Leukocytes) 11.3 10*3/uL Normal 3.5-11.3 [facility] Comment on above: Performed By: #### C DP ####[address] [place] [address] Auto Diff Performed NOT REPORTED Normal [facility] Comment on above: Performed By: #### C DP ####[address] [place] [address] Erythrocyte morphology NOT REPORTED Normal [facility] Comment on above: Performed By: #### C DP ####[address] [place] [address] Platelets NOT REPORTED Normal [facility] Comment on above: Performed By: #### C DP ####[address] [place] [address] WBC Morphology NOT REPORTED Normal [facility] Comment on above: Performed By: #### C DP ####[address] [place] [address] Drug Scr, Abuse, Uron 2017 Amphetamine(s),Ur Negative Normal [facility] Comment on above: Performed By: #### D AU ####[address] [place] [address] Barbiturate(s),Ur Negative Normal NEG [facility] Comment on above: Performed By: #### D AU ####[address] [place] [address] Base excess Negative Normal [facility] Comment on above: Performed By: #### D AU ####[address] [place] [address] Benzodiazepine(s) Negative Normal NEG [facility] Comment on above: Performed By: #### D AU ####[address] [place] [address] Buprenorphrine, Ur Negative Normal [facility] Comment on above: Result Comment: Perf ormed at [address] [place] [address] Performed By: #### D AU ####[address] [place] [address] Cannabinoid(s),Ur Negative Normal [facility] Comment on above: Performed By: #### D AU ####[address] [place] [address] Methamphetamine, Ur Negative Normal [facility] Comment on above: Performed By: #### D AU ####[address] [place] [address] Opiate(s), Ur Negative Normal [facility] Comment on above: Performed By: #### D AU ####[address] [place] [address] Oxycodone, Urine Negative Normal NEG [facility] Comment on above: Performed By: #### D AU ####[address] [place] [address] Phencyclidine, Ur Negative Normal NEG [facility] Comment on above: Performed By: #### D AU ####[address] [place] [address] Propoxyphene,Urine Negative Normal NEG [facility] Comment on above: Performed By: #### D AU ####[address] [place] [address] Urine, methadone presence Negative Normal NEG [facility] Comment on above: Performed By: #### D AU ####[address] [place] [address] Urine, tricyclic antidepressants Negative Normal NEG [facility] Comment on above: Result Comment: Drug screen results are to be used for medical purposes only. All positive results are unconfirmed. Testing for employment or legal uses should be sent to a reference laboratory for confirmation. Performed By: #### D AU ####[address] [place] [address] Interpretive Info NOT REPORTED Normal [facility] Comment on above: Performed By: #### D AU ####[address] [place] [address] MDMA, Urine NOT REPORTED Normal NEG [facility] Comment on above: Performed By: #### D AU ####[address] [place] [address] History and Physicalon 10-05 HIM IP Note OR Emergency Medicine Normal [facility] Plan of Careon 10-05-2017 HIM IP Note OR Emergency Medicine Normal [facility] HIM IP Note OR Emergency Medicine Normal [facility] Progress Noteon 10-05-2017 HIM IP Note OR Emergency Medicine Normal [facility] HIM IP Note OR Emergency Medicine Normal [facility] HIM IP Note OR Emergency Medicine Normal [facility] HIM IP Note OR Emergency Medicine Normal [facility] Vital Signs Date Time Vital Sign Value Performing Clinician Estrada barrientoskhushi 01-30-2025 13:41-0400 Body mass index (BMI) [Ratio] 41.88 kg/m2 Quinn Osman SENIOR PROPERTY ACCOUNTANT Work Phone: [facility] 01-30-2025 13:41-0400 Body weight 107.23 kg Quinn Osman SENIOR PROPERTY ACCOUNTANT Work Phone: [facility] 01-16-2025 11:37-0400 Body mass index (BMI) [Ratio] 36.63 kg/m2 Uma WELLINGTON Work Phone: [facility] 01-16-2025 11:37-0400 Body weight 93.8 kg Uma WELLINGTON Work Phone: [facility] 01-16-2025 11:37-0400 Diastolic blood pressure 76 mm[Hg] Uma WELLINGTON Work Phone: [facility] 01-16-2025 11:37-0400 Systolic blood pressure 112 mm[Hg] Uma WELLINGTON Work Phone: [facility] 01-02-2025 11:20-0400 Body mass index (BMI) [Ratio] 39.4 kg/m2 Dominik Blas DO Work Phone: [facility] 01-02-2025 11:20-0400 Body weight 100.88 kg Dominik Blas DO Work Phone: [facility] 01-02-2025 11:20-0400 Diastolic blood pressure 78 mm[Hg] Dominik Blas DO Work Phone: [facility] 01-02-2025 11:20-0400 Systolic blood pressure 122 mm[Hg] Dominik Blas DO Work Phone: [facility] 12-19-2024 11:03-0400 Body mass index (BMI) [Ratio] 38.75 kg/m2 Uma WELLINGTON Work Phone: [facility] 12-19-2024 11:03-0400 Body weight 99.22 kg Uma Avinash PA Work Phone: [facility] 12-19-2024 11:03-0400 Diastolic blood pressure 74 mm[Hg] Uma Avinash PA Work Phone: [facility] 12-19-2024 11:03-0400 Systolic blood pressure 130 mm[Hg] Uma Avinash PA Work Phone: [facility] 12-05-2024 15:42-0400 Body mass index (BMI) [Ratio] 37.55 kg/m2 Dominik Blas DO Work Phone: [facility] 12-05-2024 15:42-0400 Body weight 96.16 kg Dominik Blas DO Work Phone: [facility] 12-05-2024 15:42-0400 Diastolic blood pressure 70 mm[Hg] Dominik Blas DO Work Phone: [facility] 12-05-2024 15:42-0400 Systolic blood pressure 122 mm[Hg] Dominik Blas DO Work Phone: [facility] 11-12-2024 15:57-0400 Body mass index (BMI) [Ratio] 37.02 kg/m2 Uma [place] PA Work Phone: [facility] 11-12-2024 15:57-0400 Body weight 94.8 kg Uma Avinash PA Work Phone: [facility] 11-12-2024 15:57-0400 Diastolic blood pressure 78 mm[Hg] Uma Avinash PA Work Phone: [facility] 11-12-2024 15:57-0400 Systolic blood pressure 122 mm[Hg] Uma Avinash PA Work Phone: [facility] 10-29-2024 15:52-0400 Body mass index (BMI) [Ratio] 36.23 kg/m2 Dominik Blas DO Work Phone: [facility] 10-29-2024 15:52-0400 Body weight 92.76 kg Dominik Blas DO Work Phone: [facility] 10-29-2024 15:52-0400 Diastolic blood pressure 76 mm[Hg] Dominik Blas DO Work Phone: [facility] 10-29-2024 15:52-0400 Systolic blood pressure 140 mm[Hg] Dominik Blas DO Work Phone: [facility] 10-01-2024 16:11-0400 Body mass index (BMI) [Ratio] 35.21 kg/m2 Uma Mccormick PA Work Phone: [facility] 10-01-2024 16:11-0400 Body weight 90.15 kg Uma Avinash PA Work Phone: [facility] 10-01-2024 16:11-0400 Diastolic blood pressure 82 mm[Hg] Uma [place] PA Work Phone: [facility] 10-01-2024 16:11-0400 Systolic blood pressure 120 mm[Hg] Uma Mccormick PA Work Phone: [facility] 09-03-2024 15:51-0400 Body mass index (BMI) [Ratio] 34.26 kg/m2 Dominik Blas DO Work Phone: [facility] 09-03-2024 15:51-0400 Body weight 87.73 kg Dominik Blas DO Work Phone: [facility] 09-03-2024 15:51-0400 Diastolic blood pressure 68 mm[Hg] Dominik Blas DO Work Phone: [facility] 09-03-2024 15:51-0400 Systolic blood pressure 112 mm[Hg] Dominik Blas DO Work Phone: [facility] 08-02-2024 14:29-0400 Body mass index (BMI) [Ratio] 33.66 kg/m2 [facility] Nurse [facility] 08-02-2024 14:29-0400 Body weight 86.18 kg Noms Nurse [facility] 08-02-2024 14:29-0400 Diastolic blood pressure 72 mm[Hg] Noms Nurse [facility] 08-02-2024 14:29-0400 Systolic blood pressure 120 mm[Hg] Noms Nurse [facility] 06-20-2024 13:30-0500 Body height 160 cm Wero Valderrama SENIOR PROPERTY ACCOUNTANT Work Phone: [facility] 06-20-2024 13:30-0500 Body mass index (BMI) [Ratio] 33.66 kg/m2 Wero Valderrama SENIOR PROPERTY ACCOUNTANT Work Phone: [facility] 06-20-2024 13:30-0500 Body weight 86.18 kg Wero Valderrama SENIOR PROPERTY ACCOUNTANT Work Phone: [facility] 06-20-2024 13:30-0500 Diastolic blood pressure 78 mm[Hg] Wero Valderrama SENIOR PROPERTY ACCOUNTANT Work Phone: [facility] 06-20-2024 13:30-0500 Heart rate 78 /min Wero Valderrama SENIOR PROPERTY ACCOUNTANT Work Phone: [facility] 06-20-2024 13:30-0500 Respiratory rate 17 /min Wero Valderrama SENIOR PROPERTY ACCOUNTANT Work Phone: [facility] 06-20-2024 13:30-0500 SaO2% (BldA) [Mass fraction] 98 % Wero Valderrama SENIOR PROPERTY ACCOUNTANT Work Phone: [facility] 06-20-2024 13:30-0500 Systolic blood pressure 138 mm[Hg] Wero Valderrama SENIOR PROPERTY ACCOUNTANT Work Phone: [facility] Healthcare Encounters Encounter Date Encounter Type Care Provider Facility Start: 02-01-2025 End: 02-01-2025 Clinisync Result Encounter Generic External Data Provider [facility] External Department Unsolicited Start: 02-01-2025 End: 02-01-2025 Clinisync Result Encounter Generic External Data Provider [facility] External Department Unsolicited Start: 01-30-2025 End: 01-30-2025 Bamboo flowsheet Quinn Osman SENIOR PROPERTY ACCOUNTANT Work Phone: [facility] Start: 01-30-2025 End: 01-30-2025 Bamboo flowsheet Quinn Osman SENIOR PROPERTY ACCOUNTANT Work Phone: [facility] Start: 01-30-2025 End: 01-30-2025 Clinisync Result Encounter Quinn Osman SENIOR PROPERTY ACCOUNTANT Work Phone: [facility] External Department Unsolicited Start: 01-30-2025 End: 01-30-2025 ambulatory QUINN OSMAN Not Available Start: 01-30-2025 End: 01-30-2025 flow sheet Quinn Osman SENIOR PROPERTY ACCOUNTANT Work Phone: [facility] Comment on above: 36 weeks gestation o f ([facility]); Third trimester ([facility]); Excessive growth affecting management of , antepartum, single or unspecified fetus ([facility]); induced hypertension, antepartum ([facility]) Start: 01-16-2025 End: 01-16-2025 Bamboo flowsheet Uma WELLINGTON Work Phone: [facility] Start: 01-16-2025 End: 01-16-2025 Bamboo flowsheet Uma WELLINGTON Work Phone: [facility] Start: 01-16-2025 End: 01-16-2025 ambulatory UMA MCCORMICK Not Available Start: 01-16-2025 End: 01-16-2025 flow sheet Uma WELLINGTON Work Phone: [facility] Comment on above: Third trimester preg ramon ([facility]); 34 weeks gestation of ([facility]) Start: 01-02-2025 End: 01-02-2025 Bamboo flowsheet Dominik Blas DO Work Phone: [facility] Start: 01-02-2025 End: 01-02-2025 Bamboo flowsheet Dominik Blas DO Work Phone: [facility] Start: 01-02-2025 End: 01-02-2025 ambulatory DOMINIK BLAS Not Available Start: 01-02-2025 End: 01-02-2025 flow sheet Dominik Blas DO Work Phone: [facility] Comment on above: 32 weeks gestation o f ([facility]); Third trimester ([facility]); Excessive growth affecting management of , antepartum, single or unspecified fetus ([facility]) Start: 12-27-2024 End: 12-27-2024 Clinisync Result Encounter Dominik Blas DO Work Phone: [facility] Unsolicited Start: 12-27-2024 End: 12-27-2024 Clinisync Result Encounter Dominik Blas DO Work Phone: [facility] External Department Unsolicited Start: 12-19-2024 End: 12-19-2024 flow sheet Uam WELLINGTON Work Phone: [facility] Comment on above: Third trimester preg ramon ([facility]); 30 weeks gestation of ([facility]) Start: 12-19-2024 End: 12-19-2024 ambulatory UMA MCCORMICK Not Available Start: 12-05-2024 End: 12-05-2024 flow sheet Dominik Blas DO Work Phone: [facility] Comment on above: Third trimester preg ramon ([facility]); 28 weeks gestation of ([facility]); size inconsistent with dates ([facility]) Start: 12-05-2024 End: 12-05-2024 ambulatory DOMINIK BLAS Not Available Start: 12-05-2024 End: 12-05-2024 Bamboo flowsheet Dominik Blas DO Work Phone: [facility] Start: 12-05-2024 End: 12-05-2024 Bamboo flowsheet Dominik Blas DO Work Phone: [facility] Start: 11-12-2024 End: 11-12-2024 flow sheet Uma WELLINGTON Work Phone: [facility] Comment on above: Second trimester pre gnancy ([facility]); 25 weeks gestation of ([facility]) Start: 11-12-2024 End: 11-12-2024 ambulatory UMA MCCORMICK Not Available Start: 11-12-2024 End: 11-12-2024 Clinisync Result Encounter Dominik Blas DO Work Phone: [facility] Unsolicited Start: 11-12-2024 End: 11-12-2024 Clinisync Result Encounter Dominik Blas DO Work Phone: [facility] Unsolicited Start: 11-07-2024 End: 11-07-2024 ambulatory WERO VALDERRAMA Not Available Start: 10-29-2024 End: 10-29-2024 ambulatory DOMINIK BLAS Not Available Start: 10-29-2024 End: 10-29-2024 flow sheet Dominik Blas DO Work Phone: [facility] Comment on above: Diabetes mellitus sc reening; Second trimester ([facility]); 23 weeks gestation of ([facility]) Start: 10-29-2024 End: 10-29-2024 Bamboo flowsheet Dominik Blas DO Work Phone: [facility] Start: 10-29-2024 End: 10-29-2024 Bamboo flowsheet Dominik Blas DO Work Phone: [facility] Start: 10-10-2024 End: 10-10-2024 ambulatory WERO VALDERRAMA Not Available Start: 10-01-2024 End: 10-01-2024 Patient encounter procedure Uma WELLINGTON Work Phone: [facility] Healthcare Start: 10-01-2024 End: 10-01-2024 Periodic preventive med est patient 18-39 yrs Uma WELLINGTON Work Phone: [facility] Comment on above: Second trimester pre gnancy; 19 weeks gestation of ; Well woman exam with routine gynecological exam; Screening, , for anatomic survey; STD exposure Start: 10-01-2024 End: 10-01-2024 ambulatory UMA MCCORMICK Not Available Start: 10-01-2024 End: 10-01-2024 Bamboo flowsheet Uma WELLINGTON Work Phone: [facility] Start: 10-01-2024 End: 10-08-2024 Bamboo flowsheet Uma WELLINGTON Work Phone: [facility] Start: 10-01-2024 End: 10-08-2024 Clinisync Result Encounter Generic External Data Provider [facility] External Department Unsolicited Start: 10-01-2024 End: 10-03-2024 External Result Encounter Uma WELLINGTON Work Phone: [facility] External Department Unsolicited Start: [...] Start: 08-16-2024 End: 08-16-2024 amb[address] AYESHA VAZQUEZ [facility] Start: 08-06-2024 End: 08-06-2024 Clinisync Result [...] Start: 07-06-2024 End: 07-06-2024 Orders [facility] HEALTH CARE FACILITIES INSPECTOR-PLASTERER TENDER Work Phone: [facility] Start: 06-20-2024 End: 06-20-2024 Bamboo flowsheet Wero Valderrama SENIOR PROPERTY ACCOUNTANT Work Phone: [facility] Start: 06-20-2024 End: 06-20-2024 Bamboo flowsheet Wero Valderrama SENIOR PROPERTY ACCOUNTANT Work Phone: [facility] Start: 06-20-2024 End: 06-20-2024 Office outpatient visit 25 minutes Wero Valderrama SENIOR PROPERTY ACCOUNTANT Work Phone: [facility] Comment on [...] obesity type Start: 02-06-2024 End: 02-06-[address] [facility] Start: 01-07-2024 End: 01-09-2024 Refrobin Lam MD Work Phone: [facility] Comment on above: Class 1 obesity with out serious comorbidity with body mass index (BMI) of 31.0 to 31.9 in adult, unspecified obesity type; Bipolar affective disorder, currently depressed, mild (CMS/HCC) Start: 01-03-2024 End: 01-04-2024 Josh Lam MD Work Phone: [facility] Comment on above: Upper respiratory tr act infection, unspecified type Start: 06-08-2023 Telephone encounter Allison Elba Kirkpatrick [facility] Start: 12-10-2019 End: 12-11-2019 Patient encounter procedure RONI JIMENEZ Facility:[facility] Start: 11-23-2019 Patient encounter procedure LUZMARIA BRUNO Facility:[facility] Start: 06-12-2019 End: 06-12-2019 Patient encounter procedure RONI JIMENEZ Facility:[facility] Start: 10-05-2017 End: 10-07-2017 Evaluation and management of inpatient [facility] Procedures Date Procedure Procedure Detail Performing Clinician Start: 02-01-2025 [facility] TOTAL PROTEIN 24 HOUR URINE Quinn Osman SENIOR PROPERTY ACCOUNTANT Work Phone: Start: 01-30-2025 US OB BPP W NON-STRESS Quinn Osman SENIOR PROPERTY ACCOUNTANT Work Phone: Start: 01-30-2025 US OB GROWTH Quinn E berly SENIOR PROPERTY ACCOUNTANT Work Phone: Start: 01-30-2025 ALL BUN Quinn E berly SENIOR PROPERTY ACCOUNTANT Work Phone: Start: 01-30-2025 ALL LDH Quinn E berly SENIOR PROPERTY ACCOUNTANT Work Phone: Start: 01-30-2025 ALL URIC ACID Quinn Jacqui SENIOR PROPERTY ACCOUNTANT Work Phone: Start: 01-30-2025 [facility] AST Quinn E berly SENIOR PROPERTY ACCOUNTANT Work Phone: Start: 01-30-2025 [facility] CREATININE Quinn Jacqui SENIOR PROPERTY ACCOUNTANT Work Phone: Start: 01-30-2025 Urnls dip stick/tabl et rgnt non-auto w/o micrscp Quinn Jacqui SENIOR PROPERTY ACCOUNTANT Work Phone: Start: 01-16-2025 Urnls dip stick/tabl et rgnt [...] Adult depression scr eening assessment Ayesha Vazquez HEALTH CARE FACILITIES INSPECTOR-PLASTERER TENDER Work Phone: Start: 11-29-2022 Microscopic observat ion [Identifier] in Cervix by Cyto stain Uma WELLINGTON Work Phone: Start: 06-11-2019 Microscopic observat ion [Identifier] in Cervix by Cyto stain Allison Arreola MA Start: 10-07-2017 DISCHARGE PATIENT BRADLEY DOWNEY Start: 10-06-2017 SURGICAL PATHOLOGY HERRERA DOWNEY Start: 10-06-2017 ADVANCE DIET TOLE RATED (NURSING COMMUNICATION) STEPHEN DOWNEY Start: 10-06-2017 AMBULATE PATIENT STEPHEN DOWNEY Start: 10-06-2017 ASSESS STEPHEN VELA Start: 10-06-2017 DIET GENERAL STEPHEN PAZ GES Start: 10-06-2017 FULL CODE STEPHEN PAZ GES Start: 10-06-2017 ICE TO AFFECTED AREA WE URSZULA DOWNEY Start: 10-06-2017 NOTIFY PHYSICIAN (SPECIFY) STEPHEN DOWNEY Start: 10-06-2017 PATIENT STATUS (DIRECT) STEPHEN DOWNEY Start: 10-06-2017 PLACE INTERMITTENT PNEUMATIC COMPRESSION DEVICE STEPHENSHERRY DOWNEY Start: 10-06-2017 SALINE LOCK IV STEPHEN Zhu EDGES Start: 10-06-2017 SPECIMEN TO PATHOLOGY W EMILESHERRY DOWNEY Start: 10-06-2017 STRAIGHT CATH STEPHEN DAMICO DGES Start: 10-06-2017 VITAL SIGNS STEPHEN PAZ GES Start: 10-06-2017 PATIENT STATUS (FROM ED OR OR/PROCEDURAL) STEPHEN LENAGeorgi Start: 10-06-2017 TRANSFER PATIENT STEPHENSHERRY PAREDESGeorgi Start: 10-05-2017 Blood count complete auto&auto difrntl wbc STEPHENSHERRY PAREDESGeorgi Start: 10-05-2017 IP CONSULT TO [facility] STEPHEN DOWNEY Start: 10-05-2017 URINE DRUG SCREEN BRADLEY DOWNEY Plan of Treatment Date Care Activity Detail Author Start: 12-11-2027 Screening for malign ant neoplasm of cervix [facility] Start: 10-02-2027 Screening for malign ant neoplasm of cervix Pap Smear [facility] Start: 09-28-2027 DTaP,Tdap and Td Vac cines (2 - Td or Tdap) DTaP,Tdap and Td Vaccines (2 - Td or Tdap) [facility] Start: 11-29-2025 Screening for malign ant neoplasm of cervix Pap Smear [facility] Start: 02-06-2025 End: 02-06-2025 Patient encounter procedure 02/06/2025 1:20 PM EDT Routine [facility] [address] [place] [address] Quinn Osman, WALLY [address] [place] [address] [facility] Start: 02-05-2025 Depression Screening Depression Scre ening [facility] Start: 02-05-2025 Tobacco Screening Tobacco Screening [facility] Start: 01-30-2025 End: 01-30-2026 Alanine aminotransferase [Enzymatic activity/volume] in Serum or Plasma ALT Lab Routine induced hypertension, antepartum (HHS-HCC) Expected: 01/30/2025 (Approximate), Expires: 01/30/2026 [facility] Comment on above: Expected: 01/30/2025 (Approximate), Expires: 01/30/2026 Start: 01-30-2025 End: 01-30-2026 Aspartate aminotransferase [Enzymatic activity/volume] in Serum or Plasma AST Lab Routine induced hypertension, antepartum (HHS-HCC) Expected: 01/30/2025 (Approximate), Expires: 01/30/2026 [facility] Comment on above: Expected: 01/30/2025 (Approximate), Expires: 01/30/2026 Start: 01-30-2025 End: 01-30-2026 CBC W Auto Differential panel - Blood CBC and differential Lab Routine induced hypertension, antepartum (HHS-HCC) Expected: 01/30/2025 (Approximate), Expires: 01/30/2026 [facility] Comment on above: Expected: 01/30/2025 (Approximate), Expires: 01/30/2026 Start: 01-30-2025 End: 01-30-2026 Creatinine [Mass/volume] in Serum or Plasma Creatinine Lab Routine induced hypertension, antepartum (HHS-HCC) Expected: 01/30/2025 (Approximate), Expires: 01/30/2026 [facility] Comment on above: Expected: 01/30/2025 (Approximate), Expires: 01/30/2026 Start: 01-30-2025 End: 01-30-2026 CULTURE, GROUP B STREP WITH SUSCEPTIBLITY CULTURE, GROUP B STREP WITH SUSCEPTIBLITY Lab Routine Third trimester ([facility]) Expected: 01/30/2025, Expires: 01/30/2026 [facility] Work Phone: Comment on above: Expected: 01/30/2025 , Expires: 01/30/2026 Start: 01-30-2025 End: 01-30-2026 Lactate dehydrogenase [Enzymatic activity/volume] in Serum or Plasma by Lactate to pyruvate reaction Lactate dehydrogenase Lab Routine induced hypertension, antepartum (HHS-HCC) Expected: 01/30/2025, Expires: 01/30/2026 [facility] Comment on above: Expected: 01/30/2025 , Expires: 01/30/2026 Start: 01-30-2025 End: 01-30-2026 Protein, urine, 24 hour Protein, urine, 24 hour Lab Routine induced hypertension, antepartum (HHS-HCC) Expected: 01/30/2025 (Approximate), Expires: 01/30/2026 [facility] Comment on above: Expected: 01/30/2025 (Approximate), Expires: 01/30/2026 Start: 01-30-2025 End: 01-30-2026 Pt and ptt Pt and ptt Lab Routine induced hypertension, antepartum (HHS-HCC) Expected: 01/30/2025, Expires: 01/30/2026 [facility] Comment on above: Expected: 01/30/2025 , Expires: 01/30/2026 Start: 01-30-2025 End: 01-30-2026 Urate [Mass/volume] in Serum or Plasma Uric acid Lab Routine induced hypertension, antepartum (HHS-HCC) Expected: 01/30/2025 (Approximate), Expires: 01/30/2026 [facility] Comment on above: Expected: 01/30/2025 (Approximate), Expires: 01/30/2026 Start: 01-30-2025 End: 01-30-2026 Urea nitrogen [Mass/volume] in Serum or Plasma BUN Lab Routine induced hypertension, antepartum (HHS-HCC) Expected: 01/30/2025, Expires: 01/30/2026 [facility] Comment on above: Expected: 01/30/2025 , Expires: 01/30/2026 Start: 01-30-2025 End: 07-31-2025 US biophysical profile w non stress test US biophysical profile w non stress test Imaging Routine 36 weeks gestation of (HHS-HCC) Third trimester (HHS-HCC) Excessive growth affecting management of , antepartum, single or unspecified fetus (HHS-HCC) induced hypertension, antepartum (HHS-HCC) Expected: 01/30/2025 (Approximate), Expires: 07/31/2025 [facility] Comment on above: Expected: 01/30/2025 (Approximate), Expires: 07/31/2025 Start: 01-30-2025 End: 01-30-2025 Patient encounter procedure 01/30/2025 1:30 PM EDT Routine [facility] [address] [place] [address] Quinn Osman, WALLY [address] [place] [phone] [facility] Start: 01-30-2025 End: 01-30-2025 Professional / ancillary services management 01/30/2025 1:00 PM EDT Ancillary Procedure [facility] [address] [place] [address] [facility] Start: 01-16-2025 End: 01-16-2025 Patient encounter procedure 01/16/2025 11:20 AM EDT Routine [facility] [address] [place] [address] Uma Mccormick PA [address] [place], [place] [id number] [facility] Start: 01-02-2025 End: 05-04-2025 US for US OB follow up transabdominal approach Imaging Routine Excessive growth affecting management of , antepartum, single or unspecified fetus ([facility]) Expected: 01/02/2025, Expires: 05/04/2025 [facility] Work Phone: Comment on above: Expected: 01/02/2025 , Expires: 05/04/2025 Start: 01-02-2025 End: 01-02-2025 Patient encounter procedure 01/02/2025 11:00 AM EDT Routine [facility] [address] [place] [address] Dominik Odonnell DO [address] [place] [address] [facility] Start: 12-31-2024 Influenza vaccination [facility] Start: 12-25-2024 End: 12-25-2024 Patient encounter procedure 12/25/2024 10:00 AM EDT Office Visit [facility] [address] [place] [phone] Dominik Odonnell DO [address] [place] [address] [facility] Start: 12-19-2024 End: 12-19-2024 Patient encounter procedure 12/19/2024 11:20 AM EDT Routine [facility] [address] [place] [phone] Uma Mccormick PA [address] [place] [address] [facility] Start: 12-19-2024 End: 12-19-2024 Professional / ancillary services management 12/19/2024 10:30 AM EDT Ancillary Procedure [facility] [address] [place] [phone] [facility] Start: 12-05-2024 End: 12-05-2024 Patient encounter procedure 12/05/2024 3:30 PM EDT Routine [facility] [address] [place] [phone] Dominik Odonnell DO [address] [place] [address] Arrived [facility] Comment on above: Arrived Start: 12-05-2024 End: 04-06-2025 US for US OB follow up transabdominal approach Imaging Routine size inconsistent with dates ([facility]) Expected: 12/05/2024, Expires: 04/06/2025 [facility] Work Phone: Comment on above: Expected: 12/05/2024 , Expires: 04/06/2025 Start: 11-12-2024 End: 11-12-2024 Patient encounter procedure 11/12/2024 3:50 PM EDT Routine [facility] [address] [place] [address] Uma Mccormick PA [address] [place] [address] [facility] Start: 11-07-2024 End: 11-07-2024 Professional / ancillary services management 11/07/2024 10:30 AM EDT Ancillary Procedure [facility] [address] [place] [address] [facility] Start: 10-29-2024 End: 10-29-2024 Patient encounter procedure 10/29/2024 3:40 PM EDT Routine [facility] [address] [place] [address] Dominik Odonnell DO [address] [place], [place] [phone] [facility] Start: 10-29-2024 End: 10-29-2025 CBC panel - Blood by Automated count CBC Lab Routine Diabetes mellitus screening Expected: 10/29/2024 (Approximate), Expires: 10/29/2025 [facility] Work Phone: Comment on above: Expected: 10/29/2024 (Approximate), Expires: 10/29/2025 Start: 10-29-2024 End: 10-29-2025 Measurement of glucose 1 hour after glucose challenge for glucose tolerance test Glucose tolerance, 1 hour Lab Routine Diabetes mellitus screening Expected: 10/29/2024 (Approximate), Expires: 10/29/2025 [facility] Comment on above: Expected: 10/29/2024 (Approximate), Expires: 10/29/2025 Start: 10-10-2024 End: 10-10-2024 Professional / ancillary services management 10/10/2024 11:00 AM EDT Ancillary Procedure [facility] [address] [place] [phone] [facility] Start: 10-01-2024 End: 10-01-2024 [...] for anatomic survey Expected: 10/01/2024, Expires: 01/01/2025 [facility] Comment on above: Expected: 10/01/2024 [...] gestational age Expected: 08/02/2024 (Approximate), Expires: 08/02/2025 [facility] Work Phone: Comment on above: [...] [address] [place] [address] Wero Valderrama, SENIOR PROPERTY ACCOUNTANT [address] [place] [address] [facility] Start: 06-20-2024 End: 06-20-2024 Patient encounter procedure 06/20/2024 1:30 PM EST Office Visit [facility] [address] [place] [address] Wero Valderrama, SENIOR PROPERTY ACCOUNTANT [address] [place] [address] Arrived [facility] Comment on above: Arrived Start: 06-11-2024 Screening for malign ant neoplasm of cervix Pap Smear [facility] Start: 04-18-2024 End: 04-18-2024 Patient encounter procedure 04/18/2024 10:30 AM EST Office Visit [facility] [address] [place] [address] Colten Lam MD [address] [place] [address] [facility] Start: 01-01-2024 Influenza vaccination [facility] Start: 10-30-2023 Influenza vaccination Influenza Vacc ine (#1) [facility] Comment on above: Postponed from 12/31 (Patient Refused) Start: 06-20-2023 End: 06-20-2023 Patient encounter procedure 06/20/2023 11:15 AM EST Office Visit [facility] [address] [place] [address] Colten Lam MD [address] [facility] [address] [place] [address] [facility] Start: 06-11-2022 Screening for malign ant neoplasm of cervix Pap Smear [facility] Start: 09-13-2009 Adult BMI Screening Adult BMI Screen ing [facility] Bacteria identified in Urine by Culture Urine culture Microbiology Routine Missed menses Ordered: 08/02/2024 [facility] Comment on above: Ordered: 08/02/2024 CBC W Auto Different ial panel - Blood CBC and differential Lab Routine Missed menses , unspecified gestational age Ordered: 08/02/2024 [facility] Comment on above: Ordered: 08/02/2024 CHLAMYDIA TRACHOMATI S (GENITO/STI) CHLAMYDIA TRACHOMATIS (GENITO/STI) Lab Routine STD exposure Ordered: 10/01/2024 [facility] Comment on above: Ordered: 10/01/2024 Cytology Cervical or vaginal smear or scraping study Pap Smear Pathology and Cytology Routine Well woman exam with routine gynecological exam Ordered: 10/01/2024 [facility] Work Phone: Comment on above: Ordered: 10/01/2024 Hemoglobin A1c/Hemoglobin.total in Blood Hemoglobin A1c Lab Routine Missed menses , unspecified gestational age Ordered: 08/02/2024 [facility] Comment on above: Ordered: 08/02/2024 Hepatitis B virus aparicio rface Ag [Presence] in Serum or Plasma by Immunoassay Hepatitis B surface antigen Lab Routine Missed menses , unspecified gestational age Ordered: 08/02/2024 [facility] Comment on above: Ordered: 08/02/2024 Hepatitis C virus Ab [Presence] in Serum or Plasma by Immunoassay Hepatitis C antibody Lab Routine Missed menses , unspecified gestational age Ordered: 08/02/2024 [facility] Comment on above: Ordered: 08/02/2024 HIV-1/HIV-2 antigen/antibody combination immunoassay HIV-1 and HIV-2 antibodies Lab Routine Missed menses , unspecified gestational age Ordered: 08/02/2024 [facility] Comment on above: Ordered: 08/02/2024 Human papilloma viru s DNA [Presence] in Unspecified specimen by Probe with amplification HPV DNA probe, amplified Microbiology Routine Well woman exam with routine gynecological exam Ordered: 10/01/2024 [facility] Comment on above: Ordered: 10/01/2024 Neisseria gonorrhoea e DNA [Presence] in Unspecified specimen by MAURICE with probe detection Neisseria gonorrhea DNA probe, direct Lab Routine STD exposure Ordered: 10/01/2024 [facility] Comment on above: Ordered: 10/01/2024 Reagin Ab [Presence] in Serum by RPR RPR Lab Routine Missed menses , unspecified gestational age Ordered: 08/02/2024 [facility] Comment on above: Ordered: 08/02/2024 Rubella antibody, IgG Rubella an tibody, IgG Lab Routine Missed menses , unspecified gestational age Ordered: 08/02/2024 [facility] Comment on above: Ordered: 08/02/2024 SURESWAB(R) ADVANCED VAGINITIS PLUS, TMA SURESWAB(R) ADVANCED VAGINITIS PLUS, TMA Pathology and Cytology Routine STD exposure Ordered: 10/01/2024 [facility] Comment on above: Ordered: 10/01/2024 Immunizations Immunization Date Immunization Notes Care Provider Stacey mcleanty 09-27-2017 tetanus toxoid, redu sade diphtheria toxoid, and acellular pertussis vaccine, adsorbed Allisonher Elba CABRAL [facility] 05-17-2017 influenza, injectabl e, quadrivalent, preservative free Allison Arreola MA [facility] 05-17-2017 influenza virus vacc ine, unspecified formulation Allison Arreola MA [facility] Payers Date Payer Category [facility] [id number] 2023 Blue [employer] Blue Shie [employer] Managed Care - Other [employer] [id number] 2023 Unknown BCBS BCBS [id number] 2023-Present [phone] [address] [place] [address] [id number] 2023 Unknown [id number] 2014 Unknown [id number] 1991 Unknown [id number] 2.840.1.903109.3.57 9.2.593 1991 Unknown [id number] 2.840.1.240772.3.57 9.2.593 1991 Unknown [id number] 2.16840.1.310689.3.57 9.2.593 1991 Unknown [id number] 2.16840.1.453672.3.57 9.2.1286 1991 Unknown [id number] 2.16840.1.024681.3.57 9.2.1286 1991 Unknown [id number] 2.16840.1.648374.3.57 9.2.1259 1991 Unknown [id number] 2.16.840.1.034817.3.57 9.2.1259 1991 Unknown [id number] 2.16.840.1.390246.3.57 9.2.1258 1991 Unknown [id number] 2.16.840.1.179159.3.57 9.2.1258 1991 Unknown [id number] 2.16.840.1.434839.3.57 9.2.1258 1991 Unknown [id number] 2.16.840.1.459118.3.57 9.2.1258 1991 Unknown [id number] 2.16.840.1.082596.3.57 9.2.1258 1991 Unknown [id number] 2.16.840.1.338841.3.57 9.2.1258 1991 Unknown [id number] 2.16.840.1.841846.3.57 9.2.1258 1991 Unknown [id number] 2.16.840.1.110563.3.57 9.2.1258 1991 Unknown [id number] 2.16.840.1.915378.3.57 9.2.1258 1991 Unknown [id number] 2.16.840.1.638109.3.57 9.2.1258 1991 Unknown [id number] 2.16.840.1.055637.3.57 9.2.1258 1991 Unknown [id number] 2.16.840.1.606762.3.57 9.2.1258 1991 Unknown [id number] 2.16.840.1.014265.3.57 9.2.1259 1959 Self-pay 1959 Unknown [id number] Social History Date Type Detail Facility Start: 11-05-2022 End: 02-06-2024 Tobacco smoking status DCIS Never smoked tobacco [facility] Work Phone: Start: 11-05-2022 End: 02-06-2024 Tobacco use and exposure Smokeless tobacco non-user [facility] Start: 05-19-2023 End: 01-30-2025 Alcohol intake Current drinker of alcohol (finding) [...] Healthcare Start: 09-16-2022 End: 02-06-2024 Education 13 [facility] Start: 12-20-2022 Alcohol Comment Caffeine intak e: 1-2 cups coffee per day [facility] Start: 1990 Sex Assigned At Not on file N [facility] Adolescent depressio n screening assessment 10 [facility] Start: 02-06-2024 Alcohol Comment 1-2 times a month Pr [facility] Start: 12-05-2014 Sex Female (finding) [facility] Start: 06-04-2024 [facility] NEGATED: Highlighted rowStart: NINF History of tobacco use Passive smoker [facility] Clinical Notes 06-08-2023 to 01-30-2025 Sherley Copeland LPN - 01/30/2025 1:30 PM AMISH Cline - 01/16/2025 11:20 AM Slim Haddad LPN - 01/02/2025 11:00 AM AMISH Cline - 12/19/2024 11:20 AM AMISH Cline - 11/12/2024 3:50 PM EDT Note Date & Type Note Facility 01-30-2025 History of Presen t illness Narrative Reason [...] or radiculopathy 02/23/2023 Tension headache 02/23/2023 Term ([facility]) 10/04/2017 Vaginal odor 02/23/2023 Class 1 obesity without serious comorbidity with body mass index (BMI) of 31.0 to 31.9 in adult 04/19/2023 Bipolar II disorder ([facility]) 02/06/2024 Generalized anxiety disorder 02/06/2024 32 weeks gestation of ([facility]) 01/02/2025 Resolved Ambulatory Problems Diagnosis Date Noted [...] nursing note reviewed. Exam conducted with a bonbon cream warmer present. Vitals: Estimated body mass index is 41.88 kg/m as calculated from the following: Height as of 06/20/24: 5' 3 . Weight as of this encounter: 236 lb 6.4 oz. BP: Patient's last menstrual period was 05/21/2024. ASSESSMENT & PLAN ICD-10-CM 1. 36 weeks gestation of ([facility]) Z3A.36 POCT urinalysis dipstick manually resulted US biophysical profile w non stress test 2. Third trimester ([facility]) Z34.93 POCT urinalysis dipstick manually resulted CULTURE, GROUP B STREP WITH SUSCEPTIBLITY CULTURE, GROUP B STREP WITH SUSCEPTIBLITY US biophysical profile w non stress test 3. Excessive growth affecting management of , antepartum, single or unspecified fetus ([facility]) O36.60X0 US biophysical profile w non stress test 4. induced hypertension, antepartum ([facility]) O13.9 Creatinine Protein, urine, 24 hour Pt [...] by Sherley Copeland LPN on behalf of: Quinn Osman NP documented in this encounter [facility] 01-16-2025 History of Presen t illness Narrative [...] or radiculopathy 02/23/2023 Tension headache 02/23/2023 Term ([facility]) 10/04/2017 Vaginal odor 02/23/2023 Class 1 obesity without serious comorbidity with body mass index (BMI) of 31.0 to 31.9 in adult 04/19/2023 Bipolar II disorder ([facility]) 02/06/2024 Generalized anxiety disorder 02/06/2024 32 weeks gestation of ([facility]) 01/02/2025 Resolved Ambulatory Problems Diagnosis Date Noted [...] ASSESSMENT & PLAN ICD-10-CM 1. Third trimester ([facility]) Z34.93 POCT urinalysis dipstick manually resulted 2. 34 weeks gestation of ([facility]) Z3A.34 POCT urinalysis dipstick manually resulted [...] of: AMISH Toussaint documented in this encounter [facility] 01-02-2025 History of Presen t illness Narrative [...] or radiculopathy 02/23/2023 Tension headache 02/23/2023 Term ([facility]) 10/04/2017 Vaginal odor 02/23/2023 Class 1 obesity without serious comorbidity with body mass index (BMI) of 31.0 to 31.9 in adult 04/19/2023 Bipolar II disorder ([facility]) 02/06/2024 Generalized anxiety disorder 02/06/2024 32 weeks gestation of ([facility]) 01/02/2025 Resolved Ambulatory Problems Diagnosis Date Noted [...] nursing note reviewed. Exam conducted with a bonbon cream warmer present. Vitals: Estimated body mass index is 39.4 kg/m as calculated from the following: Height as of 06/20/24: 5' 3 . Weight as of this encounter: 222 lb 6.4 oz. BP: 122/78 Patient's last menstrual period was 05/21/2024. ASSESSMENT & PLAN ICD-10-CM 1. 32 weeks gestation of ([facility]) Z3A.32 2. Third trimester ([facility]) Z34.93 Return OB: Patient presents [...] Dominik Odonnell DO documented in this encounter [facility] 12-19-2024 History of Presen t illness Narrative [...] Noted Bipolar affective disorder, currently depressed, mild ([facility]) 08/31/2022 Anxiety 08/31/2022 Mild episode of recurrent major depressive disorder 08/31/2022 Amenorrhea 02/23/2023 Attention deficit 02/23/2023 Daytime hypersomnia 02/23/2023 Foraminal stenosis of cervical region 02/23/2023 Insulin resistance 02/23/2023 Migraine without aura and with status migrainosus, not intractable 02/23/2023 Other chronic pain 02/23/2023 Spondylosis of cervical region without myelopathy or radiculopathy 02/23/2023 Tension headache 02/23/2023 Term ([facility]) 10/04/2017 Vaginal odor 02/23/2023 Class 1 obesity without serious comorbidity with body mass index (BMI) of 31.0 to 31.9 in adult 04/19/2023 Bipolar II disorder ([facility]) 02/06/2024 Generalized anxiety disorder 02/06/2024 [...] ASSESSMENT & PLAN ICD-10-CM 1. Third trimester ([facility]) Z34.93 2. 30 weeks gestation of ([facility]) Z3A.30 Return OB: Patient presents today for [...] of: AMISH Toussaint documented in this encounter [facility] 12-05-2024 History of Presen t illness Narrative [...] Noted Bipolar affective disorder, currently depressed, mild ([facility]) 08/31/2022 Anxiety 08/31/2022 Mild episode of recurrent major depressive disorder 08/31/2022 Amenorrhea 02/23/2023 Attention deficit 02/23/2023 Daytime hypersomnia 02/23/2023 Foraminal stenosis of cervical region 02/23/2023 Insulin resistance 02/23/2023 Migraine without aura and with status migrainosus, not intractable 02/23/2023 Other chronic pain 02/23/2023 Spondylosis of cervical region without myelopathy or radiculopathy 02/23/2023 Tension headache 02/23/2023 Term ([facility]) 10/04/2017 Vaginal odor 02/23/2023 Class 1 obesity without serious comorbidity with body mass index (BMI) of 31.0 to 31.9 in adult 04/19/2023 Bipolar II disorder ([facility]) 02/06/2024 Generalized anxiety disorder 02/06/2024 [...] nursing note reviewed. Exam conducted with a bonbon cream warmer present. Vitals: Estimated body mass index is 37.55 kg/m as calculated from the following: Height as of 06/20/24: 5' 3 . Weight as of this encounter: 212 lb. BP: 122/70 Patient's last menstrual period was 05/21/2024. ASSESSMENT & PLAN ICD-10-CM 1. Third trimester ([facility]) Z34.93 POCT urinalysis dipstick manually resulted 2. 28 weeks gestation of ([facility]) Z3A.28 Return OB: Patient presents [...] Dominik Odonnell DO documented in this encounter [facility] 11-12-2024 History of Presen t illness Narrative [...] Noted Bipolar affective disorder, currently depressed, mild ([facility]) 08/31/2022 Anxiety 08/31/2022 Mild episode of recurrent major depressive disorder 08/31/2022 Amenorrhea 02/23/2023 Attention deficit 02/23/2023 Daytime hypersomnia 02/23/2023 Foraminal stenosis of cervical region 02/23/2023 Insulin resistance 02/23/2023 Migraine without aura and with status migrainosus, not intractable 02/23/2023 Other chronic pain 02/23/2023 Spondylosis of cervical region without myelopathy or radiculopathy 02/23/2023 Tension headache 02/23/2023 Term ([facility]) 10/04/2017 Vaginal odor 02/23/2023 Class 1 obesity without serious comorbidity with body mass index (BMI) of 31.0 to 31.9 in adult 04/19/2023 Bipolar II disorder ([facility]) 02/06/2024 Generalized anxiety disorder 02/06/2024 [...] ASSESSMENT & PLAN ICD-10-CM 1. Second trimester ([facility]) Z34.92 POCT urinalysis dipstick manually resulted 2. 25 weeks gestation of ([facility]) Z3A.25 Return OB: Patient presents today for [...] of: AMISH Toussaint documented in this encounter [facility] 10-29-2024 History of Presen t illness Narrative [...] Noted Bipolar affective disorder, currently depressed, mild ([facility]) 08/31/2022 Anxiety 08/31/2022 Mild episode of recurrent major depressive disorder 08/31/2022 Amenorrhea 02/23/2023 Attention deficit 02/23/2023 Daytime hypersomnia 02/23/2023 Foraminal stenosis of cervical region 02/23/2023 Insulin resistance 02/23/2023 Migraine without aura and with status migrainosus, not intractable 02/23/2023 Other chronic pain 02/23/2023 Spondylosis of cervical region without myelopathy or radiculopathy 02/23/2023 Tension headache 02/23/2023 Term ([facility]) 10/04/2017 Vaginal odor 02/23/2023 Class 1 obesity without serious comorbidity with body mass index (BMI) of 31.0 to 31.9 in adult 04/19/2023 Bipolar II disorder ([facility]) 02/06/2024 Generalized anxiety disorder 02/06/2024 Resolved Ambulatory Problems Diagnosis Date Noted No Resolved Ambulatory Problems Past Medical History: Diagnosis Date Acute headache Depression IUD (intrauterine device) in place 05/2018 HISTORY PAST MEDICAL HISTORY SOCIAL HISTORY Past Medical History: Diagnosis Date Acute headache Anxiety Depression IUD (intrauterine device) in place 05/2018 Rocaeletta IUD Social History Tobacco Use Smoking status: [...] nursing note reviewed. Exam conducted with a bonbon cream warmer present. Vitals: Estimated body mass index is 36.23 kg/m as calculated from the following: Height as of 06/20/24: 5' 3 . Weight as of this encounter: 204 lb 8 oz. BP: 140/76 Patient's last menstrual period was 05/21/2024. ASSESSMENT & PLAN ICD-10-CM 1. Diabetes mellitus screening Z13.1 CBC Glucose tolerance, 1 hour CBC Glucose tolerance, 1 hour 2. Second trimester ([facility]) Z34.92 3. 23 weeks gestation of ([facility]) Z3A.23 Return OB: Patient presents today for [...] week for routine OB appointment. Documented by Quinn Osman NP on behalf of: Dominik Odonnell DO documented in this encounter [facility] 10-01-2024 History of Presen t illness Narrative [...] Noted Bipolar affective disorder, currently depressed, mild ([facility]) 08/31/2022 Anxiety 08/31/2022 Mild episode of recurrent major depressive disorder (HCC) ([facility]) 08/31/2022 Amenorrhea 02/23/2023 Attention deficit 02/23/2023 Daytime hypersomnia 02/23/2023 Foraminal stenosis of cervical region 02/23/2023 Insulin resistance 02/23/2023 Migraine without aura and with status migrainosus, not intractable ([facility]) 02/23/2023 Other chronic pain 02/23/2023 Spondylosis of cervical region without myelopathy or radiculopathy 02/23/2023 Tension headache 02/23/2023 Term 10/04/2017 Vaginal odor 02/23/2023 Class 1 obesity without serious comorbidity with body mass index (BMI) of 31.0 to 31.9 in adult 04/19/2023 Bipolar II disorder ([facility]) 02/06/2024 Generalized anxiety disorder ([facility]) 02/06/2024 Resolved Ambulatory Problems Diagnosis Date Noted No Resolved Ambulatory Problems Past Medical History: Diagnosis Date Acute headache Depression ([facility]) IUD (intrauterine device) in place 05/2018 HISTORY PAST MEDICAL HISTORY SOCIAL HISTORY Past Medical History: Diagnosis Date Acute headache Anxiety Depression ([facility]) IUD (intrauterine device) in place 05/2018 Rocaeletta IUD Social History Tobacco Use Smoking status: [...] of: AMISH Toussaint documented in this encounter [facility] 09-03-2024 History of Presen t illness Narrative [...] 31.9 in adult 04/19/2023 Bipolar II disorder ([facility]) 02/06/2024 Generalized anxiety disorder ([facility]) 02/06/2024 Resolved Ambulatory Problems Diagnosis Date Noted No Resolved Ambulatory Problems Past Medical History: Diagnosis Date Acute headache Depression ([facility]) IUD (intrauterine device) in place 05/2018 HISTORY PAST MEDICAL HISTORY SOCIAL HISTORY Past Medical History: Diagnosis Date Acute headache Anxiety Depression ([facility]) IUD (intrauterine device) in place [...] nursing note reviewed. Exam conducted with a bonbon cream warmer present. Vitals: Estimated body mass index is [...] week for routine OB appointment. Documented by Quinn Osman NP on behalf of: Dominik Odonnell DO documented in this encounter [facility] 08-02-2024 History of Presen t illness Narrative Reason for Appointment: Patient ID: Shobha aG is a 33 y.o. female who presents [...] F Vag-Spont EPI N LOREN 1 AB 2006 Current Medications: has a current medication list which includes the following prescription(s): lamotrigine, gummies, tizanidine, venlafaxine xr, and venlafaxine xr. Medical History: Active Ambulatory Problems Diagnosis Date Noted Bipolar affective disorder, currently depressed, mild ([facility]) 08/31/2022 Anxiety 08/31/2022 Mild episode of recurrent major depressive disorder (HCC) ([facility]) 08/31/2022 Amenorrhea 02/23/2023 Attention deficit 02/23/2023 Daytime hypersomnia 02/23/2023 Foraminal stenosis of cervical region 02/23/2023 Insulin resistance 02/23/2023 Migraine without aura and with status migrainosus, not intractable ([facility]) 02/23/2023 Other chronic pain 02/23/2023 Spondylosis of cervical region without myelopathy or radiculopathy 02/23/2023 Tension headache 02/23/2023 Term 10/04/2017 Vaginal odor 02/23/2023 Class 1 obesity without serious comorbidity with body mass index (BMI) of 31.0 to 31.9 in adult 04/19/2023 Bipolar II disorder ([facility]) 02/06/2024 Generalized anxiety disorder ([facility]) 02/06/2024 Resolved Ambulatory Problems Diagnosis Date Noted No Resolved Ambulatory Problems Past Medical History: Diagnosis Date Acute headache Depression ([facility]) IUD (intrauterine device) in place [...] Odonnell at next visit. Pt will have Gaffney and labs done. Pt is in need [...] or undercooked meat, and stay away from [facility]. Patient has also been advised to [...] Alida Ryan MA documented in this encounter [facility] 06-20-2024 History of Presen t illness Narrative [...] discussed diet and exercise. She declines a etl data architect consult at this time. She states that her insurance will not cover the cost. We will restart the phentermine today - phentermine (Adipex-P) 37.5 MG tablet; Take 1 tablet (37.5 mg) by mouth in the morning. Dispense: 30 tablet; Refill: 0 No follow-ups on file. documented in this encounter [facility] 04-04-2024 Telephone encount er Note Refill sent. [facility] 04-04-2024 Miscellaneous Notes Formattin g of this note might be different from the original. Refill sent. documented in this encounter [facility] 01-09-2024 Telephone encount er Note OARRS reviewed, Rx sent into patient's pharmacy. [facility] 01-09-2024 Miscellaneous Notes Formattin g of this note might be different from the original. OARRS reviewed, Rx sent into patient's pharmacy. venlafaxine XR (Effexor XR) 75 MG 24 hr capsule lamoTRIgine (LaMICtal) 200 MG tablet BOTH OF THESE NEED SENT TO [facility] - the effexor 37.5 was sent already but she takes 75 mg as well. documented in this encounter [facility] 01-09-2024 Telephone encount er Note venlafaxine XR (Effexor XR) 75 MG 24 hr capsule lamoTRIgine (LaMICtal) 200 MG tablet BOTH OF THESE NEED SENT TO [facility] [place] - the effexor 37.5 was sent already but she takes 75 mg as well. [facility] 01-04-2024 Telephone encount er Note Refill not appropriate. [facility] 01-04-2024 Miscellaneous Notes Formattin g of this note might be different from the original. Refill not appropriate. Refills have been requested for the following medications: Other - Cough medicine Preferred pharmacy: [facility] [address] [place] [address] [address] Delivery method: Pickup documented in this encounter [facility] 01-03-2024 Telephone encount er Note Refills have been requested for the following medications: Other - Cough medicine Preferred pharmacy: [facility] [address] [place] [address] [address] Delivery method: Pickup [facility] 06-08-2023 Telephone encount er Note Pt is trying to get a different molded frames assembler and wanted to find out if you would be will in send in a refill lamictal, effexor both of these to [facility] in [place] [facility] 06-08-2023 Miscellaneous Notes Formattin g of this note might be different from the original. Pt is trying to get a different molded frames assembler and wanted to find out if you [...] type Bipolar affective disorder, currently depressed, mild ([facility]) Bipolar I disorder, most recent episode (or [...] [facility] encounter [facility] Diagnosis 36 weeks gestation of ([facility]) Third trimester ([facility]) state, incidental Excessive growth affecting management of , antepartum, single or unspecified fetus ([facility]) induced hypertension, antepartum ([facility]) Transient hypertension of , antepartum documented in this encounter [facility] HealthcareInstructionsNot on filedocumented in [facility] Purpose Family History No Family [...] and content) DATE CREATED AUTHOR 10/18/2017 [facility] DATE CREATED AUTHOR AUTHOR'S ORGANIZ ATION 12/19/2019 [facility] DATE CREATED AUTHOR AUTHOR'S ORGANIZ ATION 05/13/2021 [facility] dical Specialist DATE CREATED AUTHOR AUTHOR'S ORGANIZ ATION 08/19/2024 [facility] DATE CREATED AUTHOR AUTHOR'S ORGANIZ ATION 02/04/2025 [facility] dical Specialists EPIC Care Teams (unrecognized sec tion and content) Pillow Filler Relationship Specialty Start Date End Date Colten Lam MD [address] [facility] [address] [place] [address] PCP - General Internal Medicine 09/23/22 Pillow Filler Relationship Specialty Start Date End Date Colten Lam MD [address] [facility] [address] [place] [address] PCP - [place] [employer] 04/01/22 Colten Lam MD [address] [facility] [address] [place] [address] PCP - General Internal Medicine 09/23/22 Pillow Filler Relationship Specialty Start Date End Date Colten Lam MD [address] [facility] [address] [place] [address] PCP - [place] [employer] 04/01/22 Colten Lam MD [address] [place] [address] [place] [address] PCP - General Internal Medicine 09/23/22 Pillow Filler Relationship Specialty Start Date End Date Colten Lam MD [address] [place] [address] [place] [address] PCP - [place] [employer] 04/01/22 Colten Lam MD [address] [place] [address] [place] [address] PCP - General Internal Medicine 09/23/22 Pillow Filler Relationship Specialty Start Date End Date Colten Lam MD [address] [place] [address] [place] [address] PCP - [place] [employer] 04/01/22 Colten Lam MD [address] [place] [address] [place] [address] PCP - General Internal Medicine 09/23/22 Pillow Filler Relationship Specialty Start Date End Date Colten Lam MD [address] [place] [address] [place] [address] PCP - [place] [employer] 04/01/22 Colten Lam MD [address] [place] [address] [place] [address] PCP - General Internal Medicine 09/23/22 Pillow Filler Relationship Specialty Start Date End Date Colten Lam MD [address] [place] [address] [place] [address] PCP - General Internal Medicine 09/23/22 Ema Cruz APRN-CARRIER WASHER [address] [place] [address] [place] [address] PCP - [place] [employer] 04/01/24 Pillow Filler Relationship Specialty Start Date End Date Colten Lam MD [address] [place] [address] [place] [address] PCP - General Internal Medicine 09/23/22 Ema Cruz, HEALTH CARE FACILITIES INSPECTOR-[facility] [address] [place] [address] [place] [address] PCP - [place] [employer] 04/01/24 Pillow Filler Relationship Specialty Start Date End Date Colten Lam MD [address] [place] [address] [place] [address] PCP - General Internal Medicine 01/30/24 Pillow Filler Relationship Specialty Start Date End Date Colten Lam MD [address] [place] [address] [place] [address] PCP - General Internal Medicine 09/23/22 Ema Cruz, HEALTH CARE FACILITIES INSPECTOR-CARRIER WASHER [address] [place] [address] [place] [address] PCP - [place] [employer] 04/01/24 Pillow Filler Relationship Specialty Start Date End Date Colten Lam MD [address] [place] [address] [place] [address] PCP - General Internal Medicine 09/23/22 Ema Cruz, HEALTH CARE FACILITIES INSPECTOR-CARRIER WASHER [address] [place] [address] [place] [address] PCP - [place] [employer] 04/01/24 Pillow Filler Relationship Specialty Start Date End Date Colten Lam MD [address] [place] [address] [place] [address] PCP - General Internal Medicine 09/23/22 Ema Cruz, HEALTH CARE FACILITIES INSPECTOR-CARRIER WASHER [address] [place] [address] [place] [address] PCP - [place] [employer] 04/01/24 Pillow Filler Relationship Specialty Start Date End Date Colten Lam MD [address] [place] [address] [place] [address] PCP - General Internal Medicine 09/23/22 Pillow Filler Relationship Specialty Start Date End Date Colten Lam MD [address] [place] [address] [place] [address] PCP - General Internal Medicine 09/23/22 Pillow Filler Relationship Specialty Start Date End Date Colten Lam MD [address] [place] [address] [place] [address] PCP - General Internal Medicine 09/23/22 Pillow Filler Relationship Specialty Start Date End Date Colten Lam MD [address] [place] [address] [place] [address] PCP - General Internal Medicine 09/23/22 Pillow Filler Relationship Specialty Start Date End Date Colten Lam MD [address] [place] [address] [place] [address] PCP - General Internal Medicine 09/23/22 Pillow Filler Relationship Specialty Start Date End Date Colten Lam MD [address] [place] [address] [place] [address] PCP - General Internal Medicine 09/23/22 Pillow Filler Relationship Specialty Start Date End Date Colten Lam MD [address] [place] [address] [place] [address] PCP - General Internal Medicine 09/23/22 Pillow Filler Relationship Specialty Start Date End Date Colten Lam MD [address] [place] [address] [place] [address] PCP - General Internal Medicine 09/23/22 Pillow Filler Relationship Specialty Start Date End Date Colten Lam MD [address] [place] [address] [place] [address] PCP - General Internal Medicine 09/23/22 Pillow Filler Relationship Specialty Start Date End Date Colten Lam MD [address] [facility] [address] [place] [address] PCP - General Internal Medicine 09/23/22 Pillow Filler Relationship Specialty Start Date End Date Colten Lam MD [address] [facility] [address] [place] [address] PCP - General Internal Medicine 09/23/22 Pillow Filler Relationship Specialty Start Date End Date Colten Lam MD [address] [place] [address] [place] [address] PCP - General Internal Medicine 09/23/22 Pillow Filler Relationship Specialty Start Date End Date Colten Lam MD [address] [place] [address] [place] [address] PCP - General Internal Medicine 09/23/22 Reason [...] BE BASED ON THE PRIMARY CLINICAL RECORDS. [facility] [employer] provides no warranty or guarantee of the accuracy or completeness of information in this document.
[2025-02-06 10:40] VITALS: BP 144/86; PULSE 69
== END 2025-02-06 11:04 | disposition home or self-care (01) ==
LOC: US 10:03 → FBC 10:05
PROVIDERS: PCP Internal Medicine; Visit Provider Nurse Practitioner Family
DX: O36.63X0 Maternal care for excessive fetal growth, third trimester, not applicable or unspecified (principal); Z3A.37 37 weeks gestation of pregnancy
CPT/HCPCS: 76818

== ENCOUNTER 2025-02-09 12:53 | Outpatient (OUT) | payer BC, SELFPAY ==
--- OUTSIDE RECORDS SUMMARY | 2025-01-30 13:30 | XMS_ITS | Encounter Summary ---
Author Organization [facility] Address [address] [place] [address] Care Team Providers Care Power House Engineer Name Role Phone Colten Lam MD Primary Care Provider [phone] Reason for Visit * Reason Comments Routine Visit Encounter Details Date Type Department Care Team (Late st Contact Info) Description 01/30/2025 1:30 PM EDT Routine [facility] [address] [facility] [place] [place] [address] Annabel Osman, FIBERGLASS DOWEL DRAWING OPERATOR [address] [place] [address] 36 weeks gestation of ([facility]); Third trimester ([facility]); Excessive growth affecting management of , antepartum, single or unspecified fetus ([facility]); induced hypertension, antepartum ([facility]) Social History Tobacco Use Types Packs/Day Years [...] Job Start 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 female who presents for Routine Visit Patient presents today for Return OB appointment. MEDICATIONS Current Outpatient Medications Medication Instructions lamoTRIgine (LAMICTAL) 200 mg, Oral, Daily magnesium oxide (MAG-OX) 400 mg, Oral, Daily venlafaxine XR (EFFEXOR XR) 37.5 mg, Oral, [...] or radiculopathy 02/23/2023 Tension headache 02/23/2023 Term ([facility]) 10/04/2017 Vaginal odor 02/23/2023 Class 1 obesity without serious comorbidity with body mass index (BMI) of 31.0 to 31.9 in adult 04/19/2023 Bipolar II disorder ([facility]) 02/06/2024 Generalized anxiety disorder 02/06/2024 32 weeks gestation of ([facility]) 01/02/2025 Resolved Ambulatory Problems Diagnosis Date Noted [...] SYSTEMS Review of Systems: Review of Systems All other systems reviewed and are negative. OBJECTIVE Objective: Physical Exam Constitutional: Appearance: Normal [...] nursing note reviewed. Exam conducted with a spine nurse present. Vitals: Estimated body mass index is 41.88 kg/m?? as calculated from the following: Height as of 2/19/25: 5' 3 . Weight as of this encounter: 236 lb 6.4 oz. BP: Patient's last menstrual period was 05/21/2024. ASSESSMENT & PLAN ICD-10-CM 1. 36 weeks gestation of ([facility]) Z3A.36 POCT urinalysis dipstick manually resulted US biophysical profile w non stress test 2. Third trimester ([facility]) Z34.93 POCT urinalysis dipstick manually resulted CULTURE, GROUP B STREP WITH SUSCEPTIBLITY CULTURE, GROUP B STREP WITH SUSCEPTIBLITY US biophysical profile w non stress test 3. Excessive growth affecting management of , antepartum, single or unspecified fetus ([facility]) O36.60X0 US biophysical profile w non stress test 4. induced hypertension, antepartum ([facility]) O13.9 Creatinine Protein, urine, 24 hour Pt and ptt CBC and differential Uric acid Lactate dehydrogenase ALT AST BUN US biophysical profile w non stress test Creatinine Protein, urine, 24 hour Pt and ptt CBC and differential Uric acid Lactate dehydrogenase ALT AST BUN Patient is doing well but has complaints of being tired and having maternal discomfort due to . Patient verbalized frequent movement and was instructed to perform kick counts three times per day. labor precautions were given, LARC consent was signed/declined, and GBS was obtained. Patient to get Pre-E labs and NST/BPP ordered and sent to [facility] for eval. Orders Placed This Encounter Procedures US biophysical profile w non stress test CULTURE, GROUP B STREP WITH SUSCEPTIBLITY Creatinine Protein, urine, 24 hour Pt and ptt CBC and differential Uric acid Lactate dehydrogenase ALT AST BUN POCT urinalysis dipstick manually resulted Follow Up: Patient is to return to office in 1 week for routine OB appointment Documented by Sherley Copeland LPN on behalf of: Annabel Osman NP documented in this encounter Plan of Treatment Upcoming Encounters Date Type Department Care Team (Late st Contact Info) Description 02/13/2025 11:30 AM EDT Routine [facility] [address] [place] [address] Dominik Odonnell, DO [address] [place] [address] Scheduled Orders Name Type Priority Associated Diagnoses Orde r Schedule Creatinine Lab Routine induced hypertension, antepartum ([facility]) Expected: 01/30/2025 (Approximate), Expires: 01/30/2026 Protein, urine, 24 hour Lab Routine induced hypertension, antepartum ([facility]) Expected: 01/30/2025 (Approximate), Expires: 01/30/2026 Pt and ptt Lab Routine induced hypertension, antepartum ([facility]) Expected: 01/30/2025, Expires: 01/30/2026 CBC and differential Lab Routine induced hypertension, antepartum ([facility]) Expected: 01/30/2025 (Approximate), Expires: 01/30/2026 Uric acid Lab Routine induced hypertension, antepartum ([facility]) Expected: 01/30/2025 (Approximate), Expires: 01/30/2026 Lactate dehydrogenase Lab Routine induced hypertension, antepartum ([facility]) Expected: 01/30/2025, Expires: 01/30/2026 ALT Lab Routine induced hypertension, antepartum ([facility]) Expected: 01/30/2025 (Approximate), Expires: 01/30/2026 AST Lab Routine induced hypertension, antepartum ([facility]) Expected: 01/30/2025 (Approximate), Expires: 01/30/2026 BUN Lab Routine induced hypertension, antepartum ([facility]) Expected: 01/30/2025, Expires: 01/30/2026 US biophysical profile w non stress test Imaging Routine 36 weeks gestation of ([facility]) Third trimester ([facility]) Excessive growth affecting management of , antepartum, single or unspecified fetus ([facility]) induced hypertension, antepartum ([facility]) Expected: 01/30/2025 (Approximate), Expires: 07/31/2025 documented as of this encounter Procedures Procedure Name Priority Date/Time Associated Diagnosis Comments CULTURE, GROUP B STREP WITH SUSCEPTIBLITY Routine 01/30/2025 2:20 PM EDT Third trimester ([facility]) POCT URINALYSIS DIPSTICK Routine 01/30/2025 1:47 PM EDT 36 weeks gestation of ([facility]) Third trimester ([facility]) documented in this encounter Results * CULTURE, GROUP B STREP WITH SUSCEPTIBLITY (01/30/2025 2:20 PM EDT) Swab 01/30/2025 2:20 PM EDT us Annabel Osman NP LAB BLOOD ORDERABLES Final Re sult EXTERNAL LAB * (ABNORMAL) POCT urinalysis dipstick manually resulted [...] - Positive Urine 01/30/2025 1:47 PM EDT us Annabel Osman NP POINT OF CARE TEST ENTER/EDIT ORDERABLES Final Result documented in this encounter Visit Diagnoses Diagnosis 36 weeks gestation of ([facility]) Third trimester ([facility]) state, incidental Excessive growth affecting management of , antepartum, single or unspecified fetus ([facility]) induced hypertension, antepartum ([facility]) Transient hypertension of , antepartum documented in this encounter Additional Health Concerns Assessment Noted Time PHQ-9 Depression Total Score: 15 03/30/ 023 2:06 PM EST documented as of this encounter Care Teams Power House Engineer Relationship Specialty Start Date End Date Colten Lam MD [address] [facility] [address] [place] [address] PCP - General Internal Medicine 09/23/22 documented as of this encounter
--- OUTSIDE RECORDS SUMMARY | 2025-02-06 13:20 | XMS_ITS | Encounter Summary ---
Author Organization [facility] Address [address] [place] [address] Care Team Providers Care Director Rehabilitation Program Name Role Phone Colten Lam MD Primary Care Provider Reason for Visit * Reason Comments Routine Visit Encounter Details Date Type Department Care Team (Latest Contact Info) Description 02/06/2025 1:20 PM EDT Routine [facility] [place] [facility] [address] [facility] [facility] [place] [address] Annabel Osman, TAPE CALENDER [address] [place] [address] 37 weeks gestation of ([facility]); Third trimester ([facility]); Excessive growth affecting management of , antepartum, single or unspecified fetus ([facility]); Hypertension during in third trimester, unspecified hypertension in type ([facility]) Social History Tobacco Use Types Packs/Day [...] 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 Date 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 Not on fi le Not on file documented as of this encounter Last Filed Vital Signs Vital Sign Reading Time Taken Comments Blood Pressure 140/90 02/06/2025 2:28 PM EDT Pulse - - Temperature - - Respiratory Rate - - Oxygen Saturation - - Inhaled Oxygen Concentration - - Weight 108 kg (237 lb 12.8 oz) 02/06/2025 1:18 P M EDT Height - - Body Mass Index 42.12 06/20/2024 1:30 PM EST documented in this encounter Progress Notes * Annabel Osman NP - 02/06/2025 1:20 PM EDT Reason for Appointment: Patient ID: [...] or radiculopathy 02/23/2023 Tension headache 02/23/2023 Term ([facility]) 10/04/2017 Vaginal odor 02/23/2023 Class 1 obesity without serious comorbidity with body mass index (BMI) of 31.0 to 31.9 in adult 04/19/2023 Bipolar II disorder ([facility]) 02/06/2024 Generalized anxiety disorder 02/06/2024 32 weeks gestation of ([facility]) 01/02/2025 Resolved Ambulatory Problems Diagnosis [...] nursing note reviewed. Exam conducted with a motorboat operator present. Vitals: Estimated body mass index is 42.12 kg/m?? as calculated from the following: Height as of 06/20/24: 5' 3 . Weight as of this encounter: 237 lb 12.8 oz. BP: Patient's last menstrual period was 05/21/2024. ASSESSMENT & PLAN ICD-10-CM 1. 37 weeks gestation of ([facility]) Z3A.37 POCT urinalysis dipstick manually resulted 2. Third trimester ([facility]) Z34.93 POCT urinalysis dipstick manually resulted 3. Excessive growth affecting management of , antepartum, single or unspecified fetus ([facility]) O36.60X0 Return OB: Patient presents today for a routine obstetrics appointment. Patient is currently 37w2d . Patient states she is doing well but has complaints of being tired due to current . Patient has verbalizes frequent movement. labor precautions was discussed/given and patient was instructed to perform kick counts three times a day. Patient does have headache and a history of headaches and this is not new in character or pain. Patient is advised if gets worse or vision changes head over to hospital. Patient will start Labetalol and prescription sent to pharmacy. Patient to continue NST/BPP's Orders Placed This Encounter Procedures POCT urinalysis dipstick manually resulted Follow Up: Patient is to return to office in 1 week for routine OB appointment. Documented by Sherley Copeland LPN on behalf of: Annabel Osman NP documented in this encounter Plan of Treatment Upcoming Encounters Date Type Department Care Team (Late st Contact Info) Description 02/13/2025 11:30 AM EDT Routine [facility] [place] [facility] [address] [place] [address] Dominik Odonnell DO [address] [place], [place] [id number] documented as of this encounter Procedures Procedure Name Priority Date/Time Associated Diagnosis Comments POCT URINALYSIS DIPSTICK Routine 02/06/2025 1:23 PM EDT 37 weeks gestation of ([facility]) Third trimester ([facility]) documented in this encounter Results * (ABNORMAL) POCT urinalysis dipstick manually resulted (02/06/2025 1:23 PM EDT) Color, UA Yellow Clarity, UA Clear Glucose, UA Negative Negative - 2000(110) ++++ mg/dL Bilirubin, UA Negative Negative - 4(70) +++ mg/dL Ketones, UA Negative Negative - 160(16) ++++ mg/dL Spec Grav, UA 1.020 1 - 1.03 Blood, UA Negative Negative - 50 Aneudy/mcL pH, UA 6.0 5 - 9 Protein, UA Positive Negative - 2000(20) ++++ mg/dL Urobilinogen, UA 1.0 0.2 - 12 mg/dL Leukocytes, UA Positive Negative - 500+++ Migdalia/mcL Nitrite, UA Negative Negative - Positive Urine 02/06/2025 1:23 PM EDT Annabel Osman NP POINT OF CARE TEST ENTER/EDIT ORDERABLES Final Result documented in this encounter Visit Diagnoses Diagnosis 37 weeks gestation of ([facility]) Third trimester ([facility]) state, incidental Excessive growth affecting management of , antepartum, single or unspecified fetus ([facility]) Hypertension during in third trimester, unspecified hypertension in type ([facility]) documented in this encounter Additional Health Concerns Assessment Noted Time PHQ-9 Depression Total Score: 15 023 2:06 PM EST documented as of this encounter Care Teams Director Rehabilitation Program Relationship Specialty Start Date End Date Colten Lam MD [address] [facility] [address] [place] [address] PCP - General Internal Medicine 09/23/22 documented as of this encounter
--- OUTSIDE RECORDS SUMMARY | 2025-02-09 12:56 | XMS_ITS | Encounter Summary ---
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 Not on fi [...] AM EDT Routine [facility] [place] [facility] [address] [facility] [place] [address] Dominik Odonnell DO [address] [facility] [address] [place], [place] [address] documented as of this encounter Visit Diagnoses Not on filedocumented in this encounter Additional Health Concerns Assessment Noted Time PHQ-9 Depression Total Score: 15 023 2:06 PM EST documented as of this encounter Care Teams Bottom Ironer Relationship Specialty Start Date End Date Colten Lam MD [address] [facility] 110 [place] [address] PCP - General Internal Medicine 09/23/22 documented as of this encounter
--- OUTSIDE RECORDS SUMMARY | 2025-02-09 12:56 | XMS_ITS | Encounter Summary ---
Author Organization [facility] Address [address] [facility] [place] [address] Care Team Providers Care Physician Executive Name Role Phone Colten Lam MD Unavailable [phone] Colten Lam MD Primary Care Provider [phone] Moraima-Ema Hawkins ABRADING MACHINE TENDER-MACHINE CLOTHING MAN Unavailable Reason for Visit * Reason Comments Med Refill Encounter Details Date Type Department Care Team ([facility] Contact Info) Description 11/01/2022 Refill [facility] [address] [place] [address] [place] [address] [place] [address] [place] [address] Bipolar affective disorder, currently depressed, mild (HCC) [...] Start Date 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 Not on fi le Not on file documented as of this encounter Plan of Treatment Upcoming Encounters Date Type Department Care Team (Late Contact Info) Description 02/13/2025 11:30 AM EDT Routine [facility] [place] [facility] [address] [facility] [place] [address] Dominik Odonnell DO [address] [facility] [place] [address] documented as of this encounter Visit Diagnoses Diagnosis Bipolar affective disorder, currently depressed, mild (HCC) Bipolar I disorder, most recent episode (or current) depressed, mild documented in this encounter Care Teams Physician Executive Relationship Specialty Start Date End Date Colten Lam MD [address] [facility] 110 [place] [address] PCP - [employer] 04/01/2203/31 Colten Lam MD [address] [facility] 110 [place] [address] PCP - General Internal Medicine 09/23/22 Ema Cruz, ABRADING MACHINE TENDER-MACHINE CLOTHING MAN [address] [facility] 160 [place] [address] PCP - [employer] 04/01/24 documented as of this encounter
--- OUTSIDE RECORDS SUMMARY | 2025-02-09 12:56 | XMS_ITS | Encounter Summary ---
Author Organization [facility] Address [address] [place] [address] Care Team Providers Care Leathersmith Name Role Phone Coletn Lam MD Primary Care Provider [phone] Encounter Details Date Type Department Care Team (Late st Contact Info) Description 08/13/2024 Abstract [facility] [place] [facility] [address] [address] Dominik Odonnell, [address] 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 [place] [address] documented as of this encounter Visit Diagnoses Not on filedocumented in this encounter Additional Health Concerns Assessment Noted Time PHQ-9 Depression Total Score: 15 023 2:06 PM EST documented as of this encounter Care Teams Leathersmith Relationship Specialty Start Date End Date Colten Lam MD [address] [facility] 110 [place] [address] PCP - General Internal Medicine 09/23/22 documented as of this encounter
--- OUTSIDE RECORDS SUMMARY | 2025-02-09 12:56 | XMS_ITS | Encounter Summary ---
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 Not on fi le Not on file documented as of this encounter Plan of Treatment Upcoming Encounters Date Type Department Care Team (Late st Contact Info) Description 02/13/2025 11:30 AM EDT Routine [facility] [address] [facility] [place] [address] Dominik Odonnell DO [address] [facility] [place] [address] documented as of this encounter Procedures Procedure Name Priority Date/Time Associated Diagnosis Comments US OB BPP W NON-STRESS 01/30/2025 7:43 PM EDT STREP GP B CULTURE+RFLX Routine 01/30/2025 1:36 PM EDT documented in this encounter Results * US OB BPP W NON-STRESS (01/30/2025 7:43 PM EDT) Anatomical Region Laterality Modality Other 01/30/2025 7:43 PM EDT Narrative 01/30/2025 7:46 PM EDT [address] [address] Ultrasound Report Signed Patient: SHOBHA GA MR#: [id number] : 1990 Acct:[id number] Age/Sex: 34 / F ADM Date: Loc: [facility] 250- Attending Dr: Quinn Osman Ordering Physician: Quinn Osman Date of Service: 01/30/25 Procedure(s): US OB BPP w non-stress Accession Number(s): [id number] cc: COLTEN LAM ; Quinn Osman The [address] [address] Patient Name: SHOBHA GA MRN: [id number] date: 1990 Sex: F Assigned Patient Location: [facility] Current Patient Location: Accession/Order Number: [id number] Exam Date: 01/30/2025 16:09 Report Date: 01/30/2025 [...] Pina M.D. 01/30/2025 7:43 PM Dictation Location: [place] [address] Electronically authenticated by: [id number] Y Date: 01/30/2025 19:43 Dictated By: Tyson Pina M.D. Signed By: 01/30/251945 DD/ 42 TD/TT: Senior Linux Unix Administrator: Procedure Note Radiology, Radiologist, - 01/30/2025 [place] [address] Ultrasound Report Signed Patient: SHOBHA GA [facility]#: [id number] : 1990Acct:[id number] Age/Sex: 34 / FADM Date: Loc: [facility] 250-[address]: Quinn Osman Ordering Physician: Quinn Osman Date of Service: 01/30/25 Procedure(s): US OB BPP w non-stress Accession Number(s): [id number] cc: COLTEN LAM ; Quinn Osman [address] [address] Patient Name: SHOBHA GA MRN: [id number] date: 1990 Sex: F Assigned Patient Location: [facility] Current Patient Location: Accession/Order Number: [id number] Exam Date: 01/30/2025 16:09 Report Date: 01/30/2025 [...] Pina M.D. 01/30/2025 7:43 PM Dictation Location: [place] [address] Electronically authenticated by: [id number] Y Date: 9:43 Dictated By: Tyson Pina M.D. Signed By:01/30/251945 DD/ 42 TD/TT: Senior Linux Unix Administrator: Quinn Jacqui LEATHER SPR[facility] Final Resul t * STREP GP B CULTURE+RFLX (01/30/2025 1:36 PM EDT) Pathologist [facility] STREP GP B CULTURE+RFLX Strep Gp B Culture+Rflx [facility] STREP GP B CULTURE+RFLX Negative [facility] STREP GP B CULTURE+RFLX Centers for Disease Control and Prevention (CDC) and [facility] STREP GP B CULTURE+RFLX [place] [employer] of Obstetricians and Gynecologists [facility] STREP GP B CULTURE+RFLX (ACOG) guidelines for prevention of group B [facility] STREP GP B CULTURE+RFLX streptococcal (GBS) disease specify co-collection of [facility] STREP GP B CULTURE+RFLX a vaginal and rectal swab specimen to maximize [facility] STREP GP B CULTURE+RFLX sensitivity of GBS detection. Per the CDC and ACOG, [facility] STREP GP B CULTURE+RFLX swabbing both the lower vagina and rectum TB[facility] STREP GP B CULTURE+RFLX substantially increases the yield of detection [facility] STREP GP B CULTURE+RFLX compared with sampling the vagina alone. [facility] STREP GP B CULTURE+RFLX Penicillin G, ampicillin, or cefazolin are indicated [facility] STREP GP B CULTURE+RFLX for intrapartum prophylaxis of GBS [facility] STREP GP B CULTURE+RFLX colonization. Reflex susceptibility testing should be [facility] STREP GP B CULTURE+RFLX performed prior to use of clindamycin only on GBS [facility] STREP GP B CULTURE+RFLX isolates from penicillin-allergi c women who are [facility] STREP GP B CULTURE+RFLX considered a high risk for anaphylaxis. Treatment with [facility] STREP GP B CULTURE+RFLX vancomycin without additional testing is warranted if [facility] STREP GP B CULTURE+RFLX resistance to clindamycin is noted. [facility] STREP GP B CULTURE+RFLX [facility]formed at: [facility] STREP GP B CULTURE+RFLX [address] [place], [place] [id number] TB[facility] STREP GP B CULTURE+RFLX Bank Consultant: Isaac Villalpando PhD, Phone: [phone] [facility] 01/30/2025 1:36 PM EDT 01/30/2025 8:51 PM EDT Narrative [facility] - 02/05/2025 10:08 AM EDT us Generic External Data Provider LAB BLOOD ORDERAB LES Final Result [facility] documented in this encounter Visit Diagnoses Not on filedocumented in this encounter Additional Health Concerns Assessment Noted Time PHQ-9 Depression Total Score: 15 023 2:06 PM EST documented as of this encounter Care Teams Nuclear Licensing Engineer Relationship Specialty Start Date End Date Colten Lam MD [address] [facility] 110 [place] [address] PCP - General Internal Medicine 09/23/22 documented as of this encounter
--- OUTSIDE RECORDS SUMMARY | 2025-02-09 12:56 | XMS_ITS | Encounter Summary ---
Author Organization [facility] Address [address] [facility] [place] [place] [address] Care Team Providers Care Plywood And Veneer Repairer Name Role Phone Colten Lam MD Primary Care Provider [phone] Ema Cruz DIRECT[facility] Unavailable Reason for Visit * Reason Onset Date Comments Med Refill 05/28/2024 Encounter Details Date Type Department Care Team (Late st Contact Info) Description 05/28/2024 [facility] [address] [facility] 110 [place] [phone] Colten Lam MD [address] [facility] [address] [place], [place] [phone] Class 1 obesity without serious comorbidity with [...] 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 Date 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 Not on fi le Not on file documented as of this encounter Miscellaneous Notes * Telephone Encounter - Vonda Currie - 06/11/2024 9:57 AM EST Pt scheduled * Telephone Encounter - Vonda Currie - 06/07/2024 9:56 AM EST Lvm * Telephone Encounter - Vonda uCrrie - 05/30/2024 10:03 AM EST Lvm * [...] AM EDT Routine [facility] [address] [facility] [place] [address] Dominik Odonnell, [address] [place], [place] [address] documented as of this encounter Visit Diagnoses Diagnosis Class 1 obesity without serious comorbidity with body mass index (BMI) of 31.0 to 31.9 in adult, unspecified obesity type Trapezius muscle spasm documented in this encounter Additional Health Concerns Assessment Noted Time PHQ-9 Depression Total Score: 15 023 2:06 PM EST documented as of this encounter Care Teams Plywood And Veneer Repairer Relationship Specialty Start Date End Date Colten Lam MD 112 [facility] 110 [place] [address] PCP - General Internal Medicine 09/23/22 Ema Cruz, [facility] 112 [facility] 160 [place] [address] PCP - Alexey Fairbanks 04/01/24 documented as of this encounter
--- OUTSIDE RECORDS SUMMARY | 2025-02-09 12:56 | XMS_ITS | Clinical Summary ---
Author Organization [employer] tem Address [id number] [address] [place] [address] Care Team Providers Care Melt Room Operator Name Role Phone Colten Lam MD Primary Care Provider [phone] Allergies No known active allergies Medications * This document contains information received from the source organization and may not represent a complete record from that organization. lamoTRIgine (LaMICtal) 200 mg tabletIndicatio ns:Bipolar II disorder ([facility]) Take 1 tablet (200 mg total) by [...] mg 24 hr capsuleIndicati ons:Bipolar II disorder ([facility]),Gener alized anxiety disorder Take 1 capsule (75 [...] 09/27/2017 [employer] Not on file Insurance [address] [place] [address] Care Teams Melt Room Operator Relationship Specialty Start Date End Date Colten Lam MD [address] [place] [address] PCP - General Internal Medicine 01/30/24
--- OUTSIDE RECORDS SUMMARY | 2025-02-09 12:56 | XMS_ITS | Encounter Summary ---
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 Not on fi le Not on file documented as of this encounter Plan of Treatment Upcoming Encounters Date Type Department Care Team (Late st Contact Info) Description 02/13/2025 11:30 AM EDT Routine [facility] [address] [place] [id number] Dominik Odonnell DO [address] [place], [place] [address] documented as of this encounter Procedures Procedure Name Priority Date/Time Associated Diagnosis Comments US OB BPP W NON-STRESS 02/06/2025 11:08 AM EDT documented in this encounter Results * US OB BPP W NON-STRESS (02/06/2025 11:08 AM EDT) Anatomical Region Laterality Modality Other 02/06/2025 11:0 8 AM EDT Narrative 02/06/2025 11:10 [place] [address] Ultrasound Report Signed Patient: SHOBHA GA MR#: [id number] : 1990 Acct:[id number] Age/Sex: 34 / F ADM Date: 02/06/25 Loc: US Attending Dr: Quinn Osman Ordering Physician: Quinn Osman Date of Service: 02/06/25 Procedure(s): US OB BPP w non-stress Accession Number(s): [id number] cc: COLTEN LAM ; Quinn Osman [address] [address] Patient Name: SHOBHA GA MRN: [id number] date: 1990 Sex: F [place] [facility] [place] Patient Location: Accession/Order Number: [id number] Exam Date: 02/06/2025 10:07 Report Date: 02/06/2025 11:08 At the request of: QUINN OSMAN Procedure: US OB BPP w non-stress BIOPHYSICAL PROFILE: CLINICAL INFORMATION: Excessive growth O36.60X0 COMPARISON: 01/30/2025 There is a single live intrauterine gestation in cephalic presentation. The reported gestational age is 37 weeks 2 days. The heart rate measures 161 beats per minute. FINDINGS: TONE: 1 or more episodes of activity extension and flexion of extremity or opening and closing of the hand [Y] 2/2 GROSS BODY MOVEMENTS: 3 or more discrete body or limb movements [Y] 2/2 BREATHING MOVEMENTS: 1 or more episodes of breathing lasting at least 30 seconds [Y] 2/2 DAVID: A single deepest vertical pocket of amniotic fluid greater than 2 cm [Y] 2/2 DAVID: 20.4 cm. This is in upper normal range. Total score: 12/07 US/US OB BPP w non-stress IMPRESSION: NORMAL BIOPHYSICAL PROFILE Impression dictated by: Estefania Arias M.D. 02/06/2025 11:08 AM Dictation Location: [place] [address] Electronically authenticated by: [id number] Y Date: 02/06/2025 11:08 Dictated By: Estefania Arias M.D. Signed By: 02/06/25 1110 DD/ 1108 TD/TT: Fish Rod Maker: Procedure Note Radiology, Radiologist, - 02/06/2025 [place] [address] Ultrasound Report Signed Patient: SHOBHA GA [facility]#: [id number] : 1990Acct:[id number] Age/Sex: 34 / FADM Date: 02/06/25 Loc: US Attending Dr: Quinn Osman Ordering Physician: Quinn Osman Date of Service: 02/06/25 Procedure(s): US OB BPP w non-stress Accession Number(s): [id number] cc: COLTEN LAM ; Quinn Osman The [place] [id number] Patient Name: SHOBHA GA MRN: [facility]:[id number] date: 1990 Sex: F Assigned Patient Location: [facility] Current Patient Location: Accession/Order Number: [id number] Exam Date: 02/06/2025 10:07 Report Date: 02/06/2025 11:08 At the request of: QUINN OSMAN Procedure: US OB BPP w non-stress BIOPHYSICAL PROFILE: CLINICAL INFORMATION: Excessive growth O36.60X0 COMPARISON: 01/30/2025 There is a single live intrauterine gestation in cephalic presentation.The reported gestational age is 37 weeks 2 days. The heart ratemeasures 161 beats per minute. FINDINGS: TONE: 1 or more episodes of activity extension and flexion of extremity or opening and closing of the hand [Y] 2/2 GROSS BODY MOVEMENTS: 3 or more discrete body or limb movements [Y] 2/2 BREATHING MOVEMENTS: 1 or more episodes of breathing lastingat least 30 seconds [Y] 2/2 DAVID: A single deepest vertical pocket of amniotic fluid greater than 2 cm [Y] 2/2 DAVID: 20.4 cm. This is in upper normal range. Total score: 12/07 US/US OB BPP w non-stress IMPRESSION: NORMAL BIOPHYSICAL PROFILE Impression dictated by: Estefania Arias M.D. 02/06/2025 11:08 AM Dictation Location: [place] [address] Electronically authenticated by: [id number] Y Date: 1:08 Dictated By: Estefania Arias M.D. Signed By:02/06/25 1110 DD/ 1108 TD/TT: Fish Rod Maker: Generic External Data Provider [facility] Final Result documented in this encounter Visit Diagnoses Not on filedocumented in this encounter Additional Health Concerns Assessment Noted Time PHQ-9 Depression Total Score: 15 023 2:06 PM EST documented as of this encounter Care Teams Private Security Guard Relationship Specialty Start Date End Date Colten Lam MD [address] [facility] [address] [place] [address] PCP - General Internal Medicine 09/23/22 documented as of this encounter
--- OUTSIDE RECORDS SUMMARY | 2025-02-09 12:56 | XMS_ITS | Encounter Summary ---
Author Organization [facility] Address [address] [place] [address] Care Team Providers Care Mirror Polisher Name Role Phone Colten Lam MD Unavailable [phone] Colten Lam MD Primary Care Provider [phone] Ema Cruz VICE PRESIDENT OF SOFTWARE ENGINEERING-METAL SLITTER Unavailable Reason for Visit * Reason Comments Med Refill Encounter Details Date Type Department Care Team (Late st Contact Info) Description 02/17/2023 Refill [facility] [address] [facility] [address] [place] [address] Ema Cruz, VICE PRESIDENT OF SOFTWARE ENGINEERING-[facility] [address] [facility] [address] [place] [address] Bipolar affective disorder, currently depressed, mild (HCC) [...] Date 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 Date 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 Not on fi le Not on file documented as of this encounter Plan of Treatment Upcoming Encounters Date Type Department Care Team (Late st Contact Info) Description 02/13/2025 11:30 AM EDT Routine [facility] [address] [facility] [place] [phone] Dominik Odonnell DO [address] [place] [address] documented as of this encounter Visit Diagnoses Diagnosis Bipolar affective disorder, currently depressed, mild (HCC) Bipolar I disorder, most recent episode (or current) depressed, mild documented in this encounter Additional Health Concerns Assessment Noted Time PHQ-9 Depression Total Score: 14 023 10:19 AM EDT documented as of this encounter Care Teams Mirror Polisher Relationship Specialty Start Date End Date Colten Lam MD [address] [facility] [address] [place] [address] PCP - [place] [employer] 04/01/2203/31 Colten Lam MD [address] [facility] [address] [place] [address] PCP - General Internal Medicine 09/23/22 Ema Cruz APRN-METAL SLITTER [address] [place] [address] PCP - [place] [employer] 04/01/24 documented as of this encounter
--- OUTSIDE RECORDS SUMMARY | 2025-02-09 12:56 | XMS_ITS | Encounter Summary ---
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 Not on fi le Not on file documented as of this encounter Plan of Treatment Upcoming Encounters Date Type Department Care Team (Late st Contact Info) Description 02/13/2025 11:30 AM EDT Routine [facility] [address] [facility] [place] [address] Dominik Odonnell DO [address] [facility] [place] [address] documented as of this encounter Visit Diagnoses Not on filedocumented in this encounter Additional Health Concerns Assessment Noted Time PHQ-9 Depression Total Score: 15 023 2:06 PM EST documented as of this encounter Care Teams Pantry Chef Relationship Specialty Start Date End Date Colten Lam MD [address] [facility] 110 [place] [address] PCP - General Internal Medicine 09/23/22 documented as of this encounter
--- OUTSIDE RECORDS SUMMARY | 2025-02-09 12:56 | XMS_ITS | Clinical Summary ---
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 90 capsule 1 01/09/20 24 Active lamoTRIgine (LaMICtal) 200 MG tabletIndication s:Bipolar affective disorder, currently depressed, mild (HCC) Take 1 tablet (200 mg) by mouth Daily 90 tablet 1 01/09/20 24 Active venlafaxine XR (Effexor XR) 150 MG 24 hr capsule Take 150 mg by mouth Daily 08/10/19 25 Active magnesium oxide (Mag-Ox) 400 MG tabletIndication s:Second trimester (HHS-HCC) Take 1 tablet (400 mg) by mouth Daily 30 tablet 6 10/02/19 25 025 Active labetalol (Normodyne) 200 MG tabletIndication s:Hypertension during in third trimester, unspecified hypertension in type (HHS-HCC) Take 1 tablet (200 mg) by mouth in the morning and 1 tablet (200 mg) before bedtime. 60 tablet 11 10/12/19 24 026 Active tiZANidine (Zanaflex) 4 MG tabletIndication s:Trapezius muscle spasm Take 1 tablet (4 mg) by mouth every 8 (eight) hours if needed for muscle spasms 30 tablet 07/13/19 025 Discontinued promethazine (Phenergan) 12.5 MG tabletIndication s:Nonintractable headache, unspecified chronicity pattern, unspecified headache type Take 1 tablet (12.5 mg) by mouth every 4 (four) hours 180 tablet 1 10/24/19 025 Active Problems Problem Noted Date Diagnosed Date 32 weeks gestation of ([facility]) 2024 Bipolar II disorder 02/06/2024 Generalized anxiety [...] recurrent major depressive disor kirstin 08/31/2022 Term ([facility]) 10/04/2017 Estimated Date of Delivery Comme nts Yes 02/25/2025 Based on last me nstrual period of 05/21/2024 Encounters Date Type Department Care Team Description 02/06/2025 1:20 PM EDT Routine [facility] [address] [place] [address] [place] [address] Annabel Osman, WALLY 37 weeks gestation of ([facility]); Third trimester ([facility]); Excessive growth affecting management of , antepartum, single or unspecified fetus ([facility]); Hypertension during in third trimester, unspecified hypertension in type ([facility]) 02/06/2025 Clinisync Result Encounter [facility]OM[facility] External Department Unsolicited Provider, Generic External Data 02/01/2025 Clinisync Result Encounter NOMS External Department Unsolicited Provider, Generic External Data 01/30/2025 1:30 PM EDT Routine [facility] [address] [place] [address] Annabel Osman NP 36 weeks gestation of ([facility]); Third trimester ([facility]); Excessive growth affecting management of , antepartum, single or unspecified fetus ([facility]); induced hypertension, antepartum ([facility]) 01/30/2025 Clinisync Result Encounter [facility]OM[facility] External Department Unsolicited Annabel Osman NP 01/30/2025 Clinisync Result Encounter [facility]OMS External Department Unsolicited Annabel Osman NP 01/30/2025 Clinisync Result Encounter NOMS External Department Unsolicited Annabel Osman NP 01/30/2025 Bamboo flowsheet [facility] [address] [place] [address] Annbael Osman NP 01/16/2025 11:20 AM EDT Routine [facility] [address] [place] [address] Uma Da Silva PA Third trimester ([facility]); 34 weeks gestation of ([facility]) 01/16/2025 Bamboo flowsheet [facility] [address] [place] [address] Uma Da Silva PA 01/02/2025 11:00 AM EDT Routine [facility] [address] [place] [address] Tj Odonnell DO 32 weeks gestation of ([facility]); Third trimester ([facility]); Excessive growth affecting management of , antepartum, single or unspecified fetus ([facility]) 01/02/2025 Bamboo flowsheet [facility] [address] [place] [phone] Tj Odonnell, 12/27/2024 Clinisync Result Encounter NOMS External Department Unsolicited Tj Odonnell, DO 12/27/2024 Clinisync Result Encounter NOMS External Department Unsolicited Tj Odonnell, DO 12/27/2024 Telephone [facility] [address] [place] [phone] Tj Odonnell, DO 12/19/2024 11:20 AM EDT Routine [facility] [place] [phone] Uma Da Silva PA Third trimester ([facility]); 30 weeks gestation of ([facility]) 12/19/2024 10:30 AM EDT Ancillary Procedure [facility] [place] [phone] size inconsistent with dates ([facility]) 12/05/2024 3:30 PM EDT Routine [facility] [place] [address] Tj Odonnell, Third trimester ([facility]); 28 weeks gestation of ([facility]); size inconsistent with dates ([facility]) 12/05/2024 Bamboo flowsheet [facility] [address] [place] [phone] Tj Odonnell, 11/12/2024 3:50 PM EDT [facility] [place] [address] Uma Da Silva PA Second trimester ([facility]); 25 weeks gestation of ([facility]) 11/12/2024 Clinisync Result Encounter NOMS External Department Unsolicited Tj Odonnell DO from Last 3 Months Immunizations Immunization Administration [...] Job 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 Date 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 on file Not on fi le Not on file Last Filed Vital Signs Vital Sign Reading Time Taken Comments Blood Pressure 140/90 02/06/2025 2:28 PM EDT Pulse 78 06/20/2024 1:30 PM EST Temperature 37.1 C (98.7 F) 02/23/2023 10:31 AM EDT Respiratory Rate 17 06/20/2024 1:30 PM EST Oxygen Saturation 98% 06/20/2024 1:30 PM EST Inhaled Oxygen Concentration - - Weight 108 kg (237 lb 12.8 oz) 02/06/2025 1:18 P M EDT Height 160 cm (5' 3 ) 06/20/2024 1:30 PM EST Body Mass Index 42.12 06/20/2024 1:30 PM EST Plan of Treatment Upcoming Encounters Date Type Department Care Team (Late st Contact Info) Description 02/13/2025 11:30 AM EDT Routine [facility] [address] [place] [phone] BlasTj hercules, [address] [place] [address] Health Maintenance Due Date Last Done Comments Influenza Vaccine (#1) 2024 05/17/2017 Pap Smear 10/02/2027 10/01/2024, 11/29/2022, 06/02 Cervical Cancer Screening 12/11/2027 HPV/Cotest 12/11/2027 12/10/2022 Procedures Procedure Name Priority Date/Time Associated Diagnosis Comments POCT URINALYSIS DIPSTICK Routine 02/06/2025 1:23 PM EDT 37 weeks gestation of ([facility]) Third trimester ([facility]) US OB BPP W NON-STRESS 02/06/2025 11:08 AM EDT [facility] TOTAL PROTEIN 24 HOUR URINE Routine 02/01/2025 12:58 PM EDT US OB BPP W NON-STRESS 01/30/2025 7:43 [...] ALL BUN Routine 01/30/2025 3:03 PM EDT CULTURE, GROUP B STREP WITH SUSCEPTIBLITY Routine 01/30/2025 2:20 PM EDT Third trimester ([facility]) POCT URINALYSIS DIPSTICK Routine 01/30/2025 1:47 PM EDT 36 weeks gestation of ([facility]) Third trimester ([facility]) STREP GP B CULTURE+RFLX Routine 01/30/2025 1:36 PM EDT POCT URINALYSIS DIPSTICK Routine 01/16/2025 11:42 AM EDT Third trimester ([facility]) 34 weeks gestation of ([facility]) US OB CERVICAL LENGTH 12/27/2024 8:34 PM EDT US OB PLACENTA 12/27/2024 8:34 PM EDT US OB FOLLOW UP TRANSABDOMINAL APPROACH Routine 12/19/2024 10:55 AM EDT size inconsistent with dates ([facility]) POCT URINALYSIS DIPSTICK Routine 12/05/2024 3:45 PM EDT Third trimester ([facility]) POCT URINALYSIS DIPSTICK Routine 11/12/2024 3:58 PM EDT Second trimester ([facility]) GLUCOSE 1 HOUR Routine 11/12/2024 2:24 PM EDT ALL CBC WITH AUTO DIFF Routine 2:24 PM EDT PAP SMEAR Routine 10/01/2024 12:00 AM EDT THINPREP PAP AND HPV MRNA E6/E7 W/RFL HPV 16,18/45 Routine 12/10/2022 8:18 AM EDT Well woman exam with routine gynecological exam from Last 3 Months or Most Recently Relevant to Health Maintenance Results * (ABNORMAL) POCT urinalysis dipstick manually resulted (02/06/2025 1:23 PM EDT) Only the most recent of5 resultswithin the time period is included. Color, [...] - Positive Urine 02/06/2025 1:23 PM EDT us Annabel Osman NP POINT OF CARE TEST ENTER/EDIT ORDERABLES Final Result * US OB BPP W NON-STRESS (02/06/2025 11:08 AM EDT) Only the most recent of2 resultswithin the time period is included. Anatomical Region Laterality Modality Other 02/06/2025 11:0 8 AM EDT Narrative 02/06/2025 11:10 AM EDT The [address] [address] Ultrasound Report Signed Patient: STEVAN GA MR#: [id number] : 1990 Acct:[id number] Age/Sex: 34 / F ADM Date: 02/06/25 Loc: US Attending Dr: Annabel Osman Ordering Physician: Annabel Osman Date of Service: 02/06/25 Procedure(s): US OB BPP w non-stress Accession Number(s): [id number] cc: COLTEN LAM ; Annabel Osman [place] [address] Patient Name: STEVAN GA MRN: [id number]:[id number] date: 1990 Sex: F Assigned Patient Location: [facility] Current Patient Location: Accession/Order Number: [id number] Exam Date: 02/06/2025 10:07 Report Date: 02/06/2025 11:08 At the request of: ANNABEL OSMAN Procedure: US OB BPP w non-stress [...] Arias M.D. 02/06/2025 11:08 AM Dictation Location: [place] [address] Electronically authenticated by: [id number] Y Date: 02/06/2025 11:08 Dictated By: Estefania Arias M.D. Signed By: 02/06/25 1110 DD/ 1108 TD/TT: Fuel Conversion Technician: Procedure Note Radiology, Radiologist, - 02/06/2025 [place] [address] Ultrasound Report Signed Patient: STEVAN GA SMR#: [id number] : 1990Acct:[id number] Age/Sex: 34 / FADM Date: 02/06/25 Loc: US Attending Dr: Annabel Osman Ordering Physician: Annabel Osman Date of Service: 02/06/25 Procedure(s): US OB BPP w non-stress Accession Number(s): [id number] cc: COLTEN LAM ; Annabel Osman [place] [phone] Patient Name: STEVNA GA MRN: [id number] date: 1990 Sex: F Assigned Patient Location: [facility] Current Patient Location: Accession/Order Number: [id number] Exam Date: 02/06/2025 10:07 Report Date: 02/06/2025 11:08 At the request of: ANNABEL OSMAN Procedure: US OB BPP w non-stress [...] is in upper normal range. Total score: 8/8 US/US OB BPP w non-stress IMPRESSION: NORMAL BIOPHYSICAL PROFILE Impression dictated by: Estefania Arias M.D. 02/06/2025 11:08 AM Dictation Location: [place] [address] Electronically authenticated by: [id number] Y Date: 1:08 Dictated By: Estefania Arias M.D. Signed By:02/06/25 1110 DD/ 1108 TD/TT: Fuel Conversion Technician: us Generic External Data Provider [facility] Final Result * [facility] TOTAL PROTEIN 24 HOUR URINE (02/01/2025 12:58 PM EDT) TOTAL PROTEIN URINE RANDOM 11.1 <=11.9 mg/dL TBH TOTAL VOLUME 24 HOUR URINE 1,150 mL/24hr TBH TBH TOTAL PROTEIN 24 HOUR URINE 127.7 <=149.1 mg/24hr TBH 02/01/2025 12:5 8 PM EDT 02/01/2025 12:58 PM EDT Narrative [facility] - 02/01/2025 1:13 PM EDT us Annabel Osman [facility] Final Result [facility] * US OB GROWTH (01/30/2025 7:43 PM EDT) Anatomical Region Laterality Modality Other 01/30/2025 7:43 PM EDT Narrative 01/30/2025 7:45 PM EDT [address] [address] Ultrasound Report Signed Patient: STEVAN GA MR#: [id number] : 1990 Acct:[id number] Age/Sex: 34 / F ADM Date: Loc: [facility] 250- Attending Dr: Annabel Osman Ordering Physician: Annabel Osman Date of Service: 01/30/25 Procedure(s): US OB growth Accession Number(s): [id number] cc: COLTEN LAM ; Annabel Osman [address] [address] Patient Name: STEVAN GA MRN: [id number]:[id number] date: 1990 Sex: F Assigned Patient Location: [facility] Current Patient Location: Accession/Order Number: [id number] Exam Date: 01/30/2025 16:09 Report Date: 01/30/2025 [...] Pina M.D. 01/30/2025 7:43 PM Dictation Location: [place] [address] Electronically authenticated by: [id number] Y Date: 01/30/2025 19:43 Dictated By: Tyson Pina M.D. Signed By: 01/30/251944 DD/ 42 TD/TT: Fuel Conversion Technician: Procedure Note Radiology, Radiologist, - 01/30/[address] [address] Ultrasound Report Signed Patient: STEVAN GA [facility]#: [id number] : 1990Acct:[id number] Age/Sex: 34 / FADM Date: Loc: [facility] 250-[address]: Annabel Osman Ordering Physician: Annabel Osman Date of Service: 01/30/25 Procedure(s): US OB growth Accession Number(s): [id number] cc: COLTEN LAM ; Annabel Osman [facility] [address] [place] [address] Patient Name: STEVAN GA MRN: [facility]:[id number] date: 1990 Sex: F Assigned Patient Location: [facility] Current Patient Location: Accession/Order Number: [id number] Exam Date: 01/30/2025 16:09 Report Date: 01/30/2025 [...] Pina M.D. 01/30/2025 7:43 PM Dictation Location: [place] [address] Electronically authenticated by: [id number] Y Date: 9:43 Dictated By: Tyson Pina M.D. Signed By:01/30/251944 DD/ 42 TD/TT: Fuel Conversion Technician: Annabel Osman NP [facility] Final Resul t * (ABNORMAL) [facility] CREATININE (01/30/2025 3:03 PM EDT) CREATININE 0.48(L) 0.55 - 1.02 mg/dL TBH TBH EGFR-AF GAMBIAN >60 >=60 mL/min/1.7 3m 2 TBH TBH EGFR-NON AF GAMBIAN >60 >=60 mL/min/1.7 3m 2 TBH 01/30/2025 3:03 PM EDT 01/30/2025 3:05 PM EDT Narrative [facility] - 01/30/2025 3:25 PM EDT Annabel Osman NP [facility] Final Result [facility] * SRMCOH PROTHROMBIN TIME INR W/O COUM (01/30/2025 3:03 PM EDT) PROTHROMBIN TIME 10.3 9.0 - 11.6 sec TBH TBH INR 0.97 TBH Comment: DESIRED INR: 2.0-3.0 CONDITIONS NOT LISTED BELOW 2.5-3.5 FOR PROSTHETIC HEART VALVE REPLACEMENT 2.5-3.5 RECURRENT THROMBOSIS 01/30/2025 3:03 PM EDT 01/30/2025 3:05 PM EDT Narrative [facility] - 01/30/2025 4:07 PM EDT Annabel Osman NP [facility] Final Result [facility] * [facility] AST (01/30/2025 3:03 PM EDT) ASPARTATE AMINO TRANSFERASE 20 15 - 37 U/L [facility] 01/30/2025 3:03 PM EDT 01/30/2025 3:05 PM EDT Narrative [facility] - 01/30/2025 3:25 PM EDT us Annabel Osman NP [facility] Final Result Performing Organization Address [facility]/ZIP Co de Phone Number [facility] * (ABNORMAL) [facility] APTT (01/30/2025 3:03 PM EDT) PARTIAL THROMBOPLASTIN TIME 21.9(L) 22.3 - 36.2 sec TBH 01/30/2025 3:03 PM EDT 01/30/2025 3:05 PM EDT Narrative [facility] - 01/30/2025 4:07 PM EDT Annabel Osman NP [facility] Final Result Performing Organization Address [facility] Phone Number [facility] * ALL URIC ACID (01/30/2025 3:03 PM EDT) URIC ACID 5.2 2.6 - 6.0 mg/dL TB 01/30/2025 3:03 PM EDT 01/30/2025 3:05 PM EDT Narrative [facility]INISYNC - 01/30/2025 3:25 PM EDT us Annabel Osman NP CLIN[facility] Final Result Performing Organization Address [facility] Co de Phone Number [facility] * (ABNORMAL) ALL LDH (01/30/2025 3:03 PM EDT) LACTATE DEHYDROGENASE 308(H) 81 - 234 U/L TBH 01/30/2025 3:03 PM EDT 01/30/2025 3:05 PM EDT Narrative [facility] - 01/30/2025 3:25 PM EDT us Annabel Osman NP [facility] Final Result Performing Organization Address City/[facility]/ZIP Co de Phone Number [facility] * (ABNORMAL) ALL CBC WITH AUTO DIFF [...] - 01/30/2025 3:52 PM EDT Annabel Osman S[facility] Final Result [facility] * (ABNORMAL) ALL BUN (01/30/2025 3:03 PM EDT) BLOOD UREA NITROGEN 5.0(L) 7.0 - 18.0 mg/dL TBH 01/30/2025 3:03 PM EDT 01/30/2025 3:05 PM EDT Narrative [facility]INISY[facility] - 01/30/2025 3:25 PM EDT Annabel Osman NP [facility] Final Result Performing Organization Address City/[facility]/ZIP Co de Phone Number [facility] * CULTURE, GROUP B STREP WITH SUSCEPTIBLITY (01/30/2025 2:20 PM EDT) Swab 01/30/2025 2:20 PM EDT Annabel Osman NP LAB BLOOD ORDERABLES Final Re sult EXTERNAL LAB * STREP GP B CULTURE+RFLX (01/30/2025 1:36 PM EDT) STREP GP B CULTURE+RFLX Strep Gp B Culture+Rflx TBH STREP GP B CULTURE+RFLX Negative TBH STREP GP B CULTURE+RFLX Centers for Disease Control and Prevention (CDC) and TBH STREP GP B CULTURE+RFLX [employer] TBH STREP [...] TBH STREP GP B CULTURE+RFLX Performed at: [facility] TBH STREP GP B CULTURE+RFLX [address] [place] [phone] TBH STREP GP B CULTURE+RFLX Photographic Process Screen Maker: Isaac Villalpando PhD, Phone: [phone] [facility] 01/30/2025 1:36 PM EDT 01/30/2025 8:51 PM EDT Narrative [facility] - 02/05/2025 10:08 AM EDT us Generic External Data Provider LAB BLOOD ORDERAB LES Final Result Performing Organization Address City/State/[facility] Co de Phone Number [facility] * US OB PLACENTA (12/27/2024 8:34 PM EDT) Anatomical Region Laterality Modality Other 12/27/2024 8:34 PM EDT Narrative 12/27/2024 8:44 PM EDT [address] [address] Ultrasound Report Signed Patient: STEVAN GA MR#: [id number] : 1990 Acct:[id number] Age/Sex: 34 / F ADM Date: Loc: [facility] 250-[address]: Tj Odonnell D.O. Ordering Physician: Tj Odonnell D.O. Date of Service: 12/27/24 Procedure(s): US OB placenta Accession Number(s): [id number] cc: COLTEN LAM ; Tj Odonnell D.O. The [place] [address] Patient Name: STEVAN GA MRN: [facility]:[id number] date: 1990 Sex: F Assigned Patient Location: [facility] Current Patient Location: Accession/Order Number: [id number] Exam Date: 12/27/2024 19:25 Report Date: 12/27/2024 [...] Pina M.D. 12/27/2024 8:34 PM Dictation Location: [place] [address] Electronically authenticated by: [id number] Y Date: 12/27/2024 20:34 Dictated By: Tyson Pina M.D. Signed By: 12/27/242043 DD/ 33 TD/TT: Fuel Conversion Technician: Procedure Note Radiology, Radiologist, MD - 12/27/2024 [place] [address] Ultrasound Report Signed Patient: STEVAN GA [facility]#: [id number] : 1990Acct:[id number] Age/Sex: 34 / FADM Date: Loc: [facility] 250-[address]: Tj Odonnell D.O. Ordering Physician: Tj Odonnell D.O. Date of Service: 12/27/24 Procedure(s): US OB placenta Accession Number(s): [id number] cc: COLTEN LAM ; Tj Odonnell D.O. [address] [address] Patient Name: STEVAN GA MRN: [facility]:[id number] date: 1990 Sex: F Assigned Patient Location: [facility] Current Patient Location: Accession/Order Number: [id number] Exam Date: 12/27/2024 19:25 Report Date: 12/27/2024 [...] Pina M.D. 12/27/2024 8:34 PM Dictation Location: [place] [address] Electronically authenticated by: [id number] Y Date: 0:34 Dictated By: Tyson Pina M.D. Signed By:12/27/242043 DD/ 33 TD/TT: Fuel Conversion Technician: us Tj Odonnell DO [facility] Final Result * US OB CERVICAL LENGTH (12/27/2024 8:34 PM EDT) Anatomical Region Laterality Modality Other 12/27/2024 8:34 PM EDT Narrative 12/27/2024 8:44 PM EDT [address] [address] Ultrasound Report Signed Patient: STEVAN GA MR#: [id number] : 1990 Acct:[id number] Age/Sex: 34 / F ADM Date: Loc: [place] [address]: Tj Odonnell D.O. Ordering Physician: Tj Odonnell D.O. Date of Service: 12/27/24 Procedure(s): US OB cervical length Accession Number(s): [id number] cc: COLTEN LAM ; Tj Odonnell D.O. [place] [phone] Patient Name: STEVAN GA MRN: TBH:[id number] date: 1990 Sex: F Assigned Patient Location: [facility] Current Patient Location: Accession/Order Number: [id number] Exam Date: 12/27/2024 19:25 Report Date: 12/27/2024 [...] Pina M.D. 12/27/2024 8:34 PM Dictation Location: [place] [address] Electronically authenticated by: [id number] Y Date: 12/27/2024 20:34 Dictated By: Tyson Pina M.D. Signed By: 12/27/242043 DD/ 33 TD/TT: Fuel Conversion Technician: Procedure Note Radiology, Radiologist, - 12/27/2024 [place] [address] Ultrasound Report Signed Patient: STEVAN GA [facility]#: [id number] : 1990Acct:[id number] Age/Sex: 34 / FADM Date: Loc: [facility] 250-[address]: Tj Odonnell D.O. Ordering Physician: Tj Odonnell D.O. Date of Service: 12/27/24 Procedure(s): US OB cervical length Accession Number(s): [id number] cc: COLTEN LAM ; Tj Odonnell D.O. [place] [address] Patient Name: STEVAN GA MRN: [facility]:[id number] date: 1990 Sex: F Assigned Patient Location: [facility] Current Patient Location: Accession/Order Number: [id number] Exam Date: 12/27/2024 19:25 Report Date: 12/27/2024 [...] Pina M.D. 12/27/2024 8:34 PM Dictation Location: [employer] Electronically authenticated by: [id number] Y Date: 0:34 Dictated By: Tyson Pina M.D. Signed By:12/27/242043 DD/ 33 TD/TT: Fuel Conversion Technician: us Tj Blas DO [facility] Final [...] II, MD, PHD at 20-Dec-2024 08:06:10 AM [facility] Procedure Note Rashmi Guajardo MD - [...] signed by RASHMI GUAJARDO II, MD, PHD [id number] 08:06:10 AM [facility] us Tj Blas DO IMG OB US PROCEDURES Final Resul t * GLUCOSE 1 HOUR (11/12/2024 2:24 PM EDT) GLUCOSE 1 HOUR 105 <130 mg/dL [facility] 11/12/2024 2:24 PM EDT 11/12/2024 2:25 PM EDT Narrative [facility] - 11/12/2024 3:42 PM EDT us Generic External Data Provider LAB BLOOD ORDERAB LES Final Result [facility] * Pap Smear (10/01/2024 12:00 AM EDT) Swab Cervical swab / Unknown us Tj Blas DO LAB CYTOLOGY ORDERABLES Final Re sult EXTERNAL LAB * THINPREP PAP AND HPV MRNA E6/E7 W/RFL HPV 16,18/45 (12/10/2022 8:18 AM EDT) us U[facility] LAB BLOOD ORDERABLES Final Resul t EXTERNAL LAB from Last 3 Months or Most Recently Relevant to Health Maintenance Insurance [employer] Care Teams 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
--- OUTSIDE RECORDS SUMMARY | 2025-02-09 12:56 | XMS_ITS | Encounter Summary ---
Author Organization [facility] Address [address] [place] [address] Care Team Providers Care Review Engineer Name Role Phone Colten Lam MD Unavailable [phone] Colten Lam MD Primary Care Provider [phone] Ema Cruz BOARD DESIGN ENGINEER-START UP SPECIALIST Unavailable Reason for Visit * Reason Onset Date Comments Med Refill 10/18/2023 Encounter Details Date Type Department Care Team (Late st Contact Info) Description 10/18/2023 Refill [facility] [address] [facility] [address] [place] [address] Colten Lam MD [address] [facility] [address] [place] [address] Class 1 obesity without serious comorbidity with [...] Date Job 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 Not on fi le Not on file documented as of this encounter Miscellaneous Notes * Telephone Encounter - Mylnee Mcnamara - 10/31/2023 1:28 PM EDT Unable [...] AM EDT Routine [facility] [address] [facility] [place] [id number] Dominik Odonnell DO [address] [place] [address] documented as of this encounter Visit Diagnoses Diagnosis Class 1 obesity without serious comorbidity with body mass index (BMI) of 31.0 to 31.9 in adult, unspecified obesity type documented in this encounter Additional Health Concerns Assessment Noted Time PHQ-9 Depression Total Score: 15 023 2:06 PM EST documented as of this encounter Care Teams Review Engineer Relationship Specialty Start Date End Date Colten Lam MD [address] [facility] 110 [place] [address] PCP - [place] [employer] 04/01/2203/31 Colten Lam MD [address] [facility] 110 [place] [address] PCP - General Internal Medicine 09/23/22 Ema Cruz, BOARD DESIGN ENGINEER-START UP SPECIALIST [address] [facility] [address] [place] [address] PCP - [place] [employer] 04/01/24 documented as of this encounter
--- OUTSIDE RECORDS SUMMARY | 2025-02-09 12:56 | XMS_ITS | Encounter Summary ---
Author Organization [facility] Address [address] [place] [address] Care Team Providers Care Junior Staff Accountant Name Role Phone Colten Lam MD Unavailable [phone] Colten Lam MD Primary Care Provider [phone] MoraimaEma Hawkins CASE FINISHER-SCALE TECHNICIAN Unavailable Encounter Details Date Type Department Care Team (Late Contact Info) Description 09/16/2022 Abstract [facility] [place] [facility] [address] [facility] [place] [address] Uma Da Silva PA [address] [facility] [address] [place], [facility] Social History Tobacco Use Types Packs/Day [...] Job 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 Not on fi le Not on file documented as of this encounter Plan of Treatment Upcoming Encounters Date Type Department Care Team (Late Contact Info) Description 02/13/2025 11:30 AM EDT Routine [facility] [address] [facility] [phone] Dominik Odonnell DO [address] [facility] [place] [address] documented as of this encounter Visit Diagnoses Not on filedocumented in this encounter Care Teams Junior Staff Accountant Relationship Specialty Start Date End Date Colten Lam MD 112 [facility] 110 [place] [address] PCP - [place] [employer] 04/01/2203/31 Colten Lam MD 112 [facility] 110 [place] [address] PCP - General Internal Medicine 09/23/22 Ema Cruz APRN-SCALE TECHNICIAN 112 [facility] 160 [place] [address] PCP - [place] [employer] 04/01/24 documented as of this encounter
--- OUTSIDE RECORDS SUMMARY | 2025-02-09 12:56 | XMS_ITS | Encounter Summary ---
Author Organization [facility] Address [address] [facility] [place] [address] Care Team Providers Care Fleet Sales Manager Name Role Phone Colten Lam MD Unavailable [phone] Colten Lam MD Primary Care Provider [phone] MoraimaEma Hawkins RAILROAD YARD WORKER-CO OP Unavailable Encounter Details Date Type Department Care Team (Late st Contact Info) Description 11/03/2022 Abstract [facility] [place] [facility] [address] [facility] [address] [address] [place] [address] [place] [address] [place] [phone] Social History Tobacco Use Types Packs/Day Years [...] Start Date 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 Not on fi le [...] AM EDT Routine [facility] [address] [place] [address] Dominik Odonnell DO [address] [facility] [place] [address] documented as of this encounter Visit Diagnoses Not on filedocumented in this encounter Care Teams Fleet Sales Manager Relationship Specialty Start Date End Date Colten Lam MD [address] [facility] 110 [place] [address] PCP - [place] [employer] 04/01/2203/31 Colten Lam MD [address] [facility] 110 [place] [address] PCP - General Internal Medicine 09/23/22 Ema Cruz, RAILROAD YARD WORKER-CO OP [address] [facility] 160 [place] [address] PCP - [place] [employer] 04/01/24 documented as of this encounter
--- OUTSIDE RECORDS SUMMARY | 2025-02-09 12:56 | XMS_ITS | Encounter Summary ---
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 Not on fi le Not on file documented as of this encounter Plan of Treatment Upcoming Encounters Date Type Department Care Team (Late st Contact Info) Description 02/13/2025 11:30 AM EDT Routine [facility] [address] [facility] [place] [phone] Dominik Odonnell DO [address] [facility] [place] [address] documented as of this encounter Procedures Procedure Name Priority Date/Time Associated Diagnosis Comments PAP SMEAR Routine 10/01/2024 12:00 AM EDT documented in this encounter Results * Pap Smear (10/01/2024 12:00 AM EDT) Swab Cervical swab / Unknown us Dominik Odonnell DO LAB CYTOLOGY ORDERABLES Final Re sult EXTERNAL LAB documented in this encounter Visit Diagnoses Not on filedocumented in this encounter Additional Health Concerns Assessment Noted Time PHQ-9 Depression Total Score: 15 023 2:06 PM EST documented as of this encounter Care Teams Wastewater Supervisor Relationship Specialty Start Date End Date Colten Lam MD [address] [place] [address] [place] [address] PCP - General Internal Medicine 09/23/22 documented as of this encounter
--- OUTSIDE RECORDS SUMMARY | 2025-02-09 12:56 | XMS_ITS | Encounter Summary ---
Author Organization [facility] Address [address] [place] [facility] [place] [address] Care Team Providers Care Grain Distributor Name Role Phone Colten Lam MD Unavailable [phone] Colten Lam MD Primary Care Provider [phone] MoraimaEma Hawkins LITHOGRAPHER APPRENTICE-DIGITAL SALES REPRESENTATIVE Unavailable Reason for Visit * Reason Comments Med Refill Encounter Details Date Type Department Care Team (Late Contact Info) Description 09/28/2022 Refill [facility] [address] [facility] [address] [place] [phone] [place] [address] [place] [phone] Social History Tobacco Use Types Packs/Day Years [...] 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 Not on fi le Not on file documented as of this encounter Plan of Treatment Upcoming Encounters Date Type Department Care Team (Late Contact Info) Description 02/13/2025 11:30 AM EDT Routine [facility] [address] [facility] [address] Dominik Odonnell DO [address] [facility] [place] [address] documented as of this encounter Visit Diagnoses Not on filedocumented in this encounter Care Teams Grain Distributor Relationship Specialty Start Date End Date Colten Lam MD [address] [facility] 110 [place] [address] PCP - [place] [employer] 04/01/2203/31 Colten Lam MD [address] [facility] 110 [place] [address] PCP - General Internal Medicine 09/23/22 Ema Cruz, LITHOGRAPHER APPRENTICE-DIGITAL SALES REPRESENTATIVE [address] [facility] 160 [place] [address] PCP - [place] [employer] 04/01/24 documented as of this encounter
--- OUTSIDE RECORDS SUMMARY | 2025-02-09 12:56 | XMS_ITS | Encounter Summary ---
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 Not on fi le Not on file documented as of this encounter Plan of Treatment Upcoming Encounters Date Type Department Care Team (Late st Contact Info) Description 02/13/2025 11:30 AM EDT Routine [facility] [address] [facility] [address] Dominik Odonnell DO [address] [facility] [place] [address] documented as of this encounter Procedures Procedure [...] THROMBOPLASTIN TIME 21.9(L) 22.3 - 36.2 sec [facility] 01/30/2025 3:03 PM EDT 01/30/2025 3:05 PM EDT Narrative CLINISYNC - 01/30/2025 4:07 PM EDT Annabel Osman NP ELLIEISYNJ Final Result Performing Organization Address [facility] Co de Phone Number [facility] * SRMCO[facility] PROTHROMBIN TIME INR W/O COUM (01/30/2025 3:03 PM EDT) PROTHROMBIN TIME 10.3 9.0 - 11.6 sec TB TB INR 0.97 TB[facility] Comment: DESIRED INR: 2.0-3.0 CONDITIONS NOT LISTED BELOW 2.5-3.5 FOR PROSTHETIC HEART VALVE REPLACEMENT 2.5-3.5 RECURRENT THROMBOSIS 01/30/2025 3:03 PM EDT 01/30/2025 3:05 PM EDT Narrative CLINISYNC - 01/30/2025 4:07 PM EDT Annabel Osman NP REINA Final Result Performing Organization Address [facility] [[email or web address] de Phone Number [facility] * (ABNORMAL) ALL CBC WITH AUTO DIFF (01/30/2025 3:03 PM EDT) TBH WBC 13.5(H) 4.0 - 11.0 10 3/uL TBH TBH RBC 3.57(L) 4.20 - 5.40 10 6/uL TBH TBH HGB 10.7(L) 12.0 - 16.0 g/dL TBH TB HCT 30.9(L) 36.0 - 48.0 % TBH [...] - 01/30/2025 3:52 PM EDT Annabel Osman ANIMAL SHELTER SUPERVISOR CLINISYNC Final Result CLINISYNC TB * (ABNORMAL) ALL LDH (01/30/2025 3:03 PM EDT) LACTATE DEHYDROGENASE 308(H) 81 - 234 U/L [facility] 01/30/2025 3:03 PM EDT 01/30/2025 3:05 PM EDT Narrative CLINISYNC - 01/30/2025 3:25 PM EDT Annabel Osman ANIMAL SHELTER SUPERVISOR CLINISYNC Final Result CLINISYNC TB * CCF AST (01/30/2025 3:03 [...] NP CLINISYNC Final Result Performing Organization Address [facility] Co de Phone Number CLINISYNC TBH * (ABNORMAL) TBH CREATININE (01/30/2025 3:03 PM EDT) CREATININE 0.48(L) 0.55 - 1.02 mg/dL TBH TBH EGFR-AF ZAMBIAN >60 >=60 mL/min/1.7 3m 2 TBH TBH EGFR-NON AF ZAMBIAN >60 >=60 mL/min/1.7 3m 2 TBH 01/30/2025 3:03 PM EDT 01/30/2025 3:05 PM EDT Narrative CLINISYNC - 01/30/2025 3:25 PM EDT us Annabel Osman NP CLINISYNC Final Result Performing Organization Address City/[facility]/ZIP Co de Phone Number CLINISYNC TBH * (ABNORMAL) ALL BUN (01/30/2025 3:03 PM EDT) BLOOD UREA NITROGEN 5.0(L) 7.0 - 18.0 mg/dL [facility] 01/30/2025 3:03 PM EDT 01/30/2025 3:05 PM EDT Narrative CLINISYNC - 01/30/2025 3:25 PM EDT us Annabel Osman ANIMAL SHELTER SUPERVISOR CLINISYNC Final Result [facility]INIS[facility]NC [facility] documented in this encounter Visit Diagnoses Not on filedocumented in this encounter Additional Health Concerns Assessment Noted Time PHQ-9 Depression Total Score: 15 023 2:06 PM EST documented as of this encounter Care Teams Enterprise Account Manager Relationship Specialty Start Date End Date Colten Lam MD [address] [address] PCP - General Internal Medicine 09/23/22 documented as of this encounter
--- OUTSIDE RECORDS SUMMARY | 2025-02-09 12:56 | XMS_ITS | CCD ---
Author Organization [facility] Inform ion [facility] Care Team Providers Care Sales Assistants And Salespersons Name Role Phone STEPHEN DOWNEY Unavailable Unavailable STEPHEN DOWNEY Unavailable Unavailable LUZMARIA BRUNO Unavailable Unavailable RONI JIMENEZ Admitting Unavailable RONI JIMENEZ Attending Unavailable RONI JIMENEZ Consulting Unavailable LUZMARIA BRUNO Admitting Unavailable LUZMARIA BRUNO Attending Unavailable RONI JIMENEZ Admitting Unavailable RONI JIMENEZ Attending Unavailable STEPHANIE MONTGOMERY Consulting Unavailable RONI JIMENEZ Consulting Unavailable Colten Lam MD Primary Care Provider [phone] Colten Lam MD Unavailable Moraima-Shrutih [employer] SUPERVISOR, Ema M Unavailable Colten Lam MD Primary [...] MCCORMICK Attending Unavailable QUINN OSMAN Attending Unavailable QUINN OSMAN Attending Unavailable Medications Current Medications Medication Drug Class(es) Dates Sig (Normalized) Sig (Original) labetalol hydrochloride 200 mg oral tablet (2 sources) beta-Adrenergic Nery Start: 02-06-2025 End: 02-06-2026 take 1 tablet by mouth in the morning labetalol (Normodyne) 200 MG tablet Indications: Hypertension during in third trimester, unspecified hypertension in type ([facility]) Take 1 tablet (200 mg) by mouth in the morning and 1 tablet (200 mg) before bedtime. 60 tablet 11 02/06/2025 02/06/2026 Active lamoTRIgine 200 mg oral tablet (20 sources) [...] (Mag-Ox) 400 MG tablet Indications: Second trimester ([facility]) Take 1 tablet (400 mg) by mouth [...] Active Start: 07-06-2024 take 1 capsule by [facility] every twenty-four hours in the [...] ; childbirth and the puerperium (2 sources) Hypertension in the obstetric context; Translations: [Unspecified maternal hypertension, third trimester] 02-06-2025 Chronic Hypertension complicating ; childbirth and the [...] unspecified trimester] 12-05-2024 Episodic Other complications of (6 sources) Excessive growth affecting management of mother; [...] of ] 12-19-2024 Episodic Residual codes; unclassified (17 sources) Gestation period, 32 weeks; Translations: [32 weeks gestation of ] Onset: 01-02-2025 01-02-2025 Episodic Residual codes; unclassified (2 sources) Gestation period, 34 weeks; Translations: [34 weeks gestation of ] 01-16-2025 Episodic Residual codes; unclassified (2 sources) Gestation period, 36 weeks; Translations: [36 weeks gestation of ] 01-30-2025 Episodic Residual codes; unclassified (2 sources) Gestation period, 37 weeks; Translations: [37 weeks gestation of ] 02-06-2025 Episodic Spondylosis; intervertebral disc disorders; other back [...] Test Name Value Interpretation Reference Range Facility OB BPP W NON-STRESS on 02-06-2025 [place] [address] Ultrasound Report Signed Patient: SHOBHA GA MR#: [id number] : 1990 Acct:[id number] Age/Sex: 34 / F ADM Date: 02/06/25 Loc: US Attending Dr: Quinn Osman Ordering Physician: Quinn Osman Date of Service: 02/06/25 Procedure(s): US OB BPP w non-stress Accession Number(s): [id number] cc: COLTEN LAM ; Quinn Osman [place] [id number] Patient Name: SHOBHA GA MRN: [facility]:[id number] date: 1990 Sex: F Assigned Patient Location: [facility] Current Patient Location: Accession/Order Number: [id number] Exam Date: 02/06/2025 10:07 Report Date: 02/06/2025 [...] Arias M.D. 02/06/2025 11:08 AM Dictation Location: [place] [address] Electronically authenticated by: [id number] Y Date: 02/06/2025 11:08 Dictated By: Estefania Arias M.D. Signed By: 02/06/25 1110 DD/ 1108 TD/TT: Remnant Sorter: [facility] Radiology, Radiologi MD romi - 02/06/2025 [place] [address] Ultrasound Report Signed Patient: SHOBHA GA MR#: [id number] : 1990 Acct:[id number] Age/Sex: 34 / F ADM Date: 02/06/25 Loc: US Attending Dr: Quinn Osman Ordering Physician: Quinn Osman Date of Service: 02/06/25 Procedure(s): US OB BPP w non-stress Accession Number(s): [id number] cc: COLTEN LAM ; Quinn Osman [place] [address] Patient Name: SHOBHA GA MRN: [id number]:[id number] date: 1990 Sex: F Assigned Patient Location: [facility] Current Patient Location: Accession/Order Number: [id number] Exam Date: 02/06/2025 10:07 Report Date: 02/06/2025 [...] Arias M.D. 02/06/2025 11:08 AM Dictation Location: [place] [address] Electronically authenticated by: [id number] Y Date: 02/06/2025 11:08 Dictated By: Estefania Arias M.D. Signed By: 02/06/25 1110 DD/ 07 TD/TT: Remnant Sorter: [facility] Radiology Study observation (narrative) [facility] OB BPP W NON-STRESS Ordered By: Radiologist Radiology on 02-06-2025 [facility] Work Phone: Urinalysis macro (dipstick) panel (U)on 02-06-2025 Bilirubin, UA Negative Negative - 4(70) +++ mg/dL [facility] Blood, UA Negative Negative - 50 Aneudy/mcL [facility] Clarity, UA Clear [facility] Color, UA Yellow [facility] Glucose, UA Negative Negative - 1999(110) ++++ mg/dL [facility] Interpretation and review of laboratory results Abnormal [facility] Ketones, UA Negative Negative - 160(16) ++++ mg/dL [facility] Leukocytes, UA Positive Negative - 500+++ Migdalia/mcL [facility] Nitrite, UA Negative Negative - Positive [facility] pH, UA 6 5 - 9 [facility] Protein, UA Positive Negative - 1999(20) ++++ mg/dL [facility] Spec Grav, UA 1.02 1 - 1.03 [facility] Urobilinogen, UA 1.0 0.2 - 12 mg/dL [facility] TB TOTAL PROTEIN 24 HOUR UR INEon 02-01-2025 Protein (U) [Mass/Vol] 11.1 mg/dL [facility] - 11.9 mg/dL [facility] TOTAL PROTEIN 24 HOUR URINE 127.7 [facility] TOTAL VOLUME 24 HOUR URINE 1150 mL/24hr [facility] ALL BUNon 01-30-2025 Urea nitrogen [Mass/Vol] 5 mg/dL Low 7.0 - 18.0 mg/dL [facility] ALL LDHon 01-30-2025 LDH [Catalytic activity/Vol] 308 U/L High 81 - 234 U/L [facility] ALL URIC ACIDon 01-30-2025 Urate [Mass/Vol] 5.2 mg/dL 2.6 - 6.0 mg/dL [facility] 01-30-2025 AST [Catalytic activity/Vol] 20 U/L 15 - 37 U/L [facility] No Panel Informationon 01-30 Interpretation and review of laboratory results Abnormal [facility] (narrative) [facility] CREATININEon 01-30-2025 Creatinine [Mass/Vol] 0.48 mg/dL Low 0.55 - 1.02 mg/dL [facility] GFR/1.73 sq M.predicted CKD-EPI (S/P/Bld) [Vol rate/Area] >60 >=60 mL/min/1.7 3m 2 [facility] EGFR-NON AF UZBEK >60 >=60 mL/min/1.7 3m 2 [facility] US OB BPP W NON-STRESS on 01-30-2025 [place] [address] Ultrasound Report Signed Patient: SHOBHA GA MR#: [id number] : 1990 Acct:[id number] Age/Sex: 34 / F ADM Date: Loc: [facility] 250-[address]: Quinn Osman Ordering Physician: Quinn Osman Date of Service: 01/30/25 Procedure(s): US OB BPP w non-stress Accession Number(s): [id number] cc: COLTEN LAM ; Quinn Osman [place] [address] Patient Name: SHOBHA GA MRN: [facility]:[id number] date: 1990 Sex: F Assigned Patient Location: [facility] Current Patient Location: Accession/Order Number: [id number] Exam Date: 01/30/2025 16:09 Report Date: 01/30/2025 [...] Pina M.D. 01/30/2025 7:43 PM Dictation Location: [place] [address] Electronically authenticated by: [id number] Y Date: 01/30/2025 19:43 Dictated By: Tyson Pina M.D. Signed By: 01/30/251945 DD/ 42 TD/TT: Remnant Sorter: [facility] Radiology, Radiologi MD romi - 01/30/2025 [place] [address] Ultrasound Report Signed Patient: SHOBHA GA MR#: [id number] : 1990 Acct:[id number] Age/Sex: 34 / F ADM Date: Loc: [place] [address]: Quinn Osman Ordering Physician: Quinn Osman Date of Service: 01/30/25 Procedure(s): US OB BPP w non-stress Accession Number(s): [id number] cc: COLTEN LAM ; Quinn Osman [place] [address] Patient Name: SHOBHA GA MRN: [facility]:[id number] date: 1990 Sex: F Assigned Patient Location: [facility] Current Patient Location: Accession/Order Number: [id number] Exam Date: 01/30/2025 16:09 Report Date: 01/30/2025 [...] Pina M.D. 01/30/2025 7:43 PM Dictation Location: [place] [address] Electronically authenticated by: [id number] Y Date: 01/30/2025 19:43 Dictated By: Tyson Pina M.D. Signed By: 01/30/251945 DD/ 42 TD/TT: Remnant Sorter: [facility] OB BPP W NON-STRESS Ordered By: Radiologist Radiology on 01-30-2025 [facility] [employer] Work Phone: OB GROWTHon 01-30-2025 [place] [id number] Ultrasound Report Signed Patient: SHOBHA GA MR#: [id number] : 1990 Acct:[id number] Age/Sex: 34 / F ADM Date: Loc: [facility] 250-[address]: Quinn Osman Ordering Physician: Quinn Osman Date of Service: 01/30/25 Procedure(s): US OB growth Accession Number(s): [id number] cc: COLTEN LAM ; Quinn Osman [address] [address] Patient Name: SHOBHA GA MRN: [id number]:[id number] date: 1990 Sex: F Assigned Patient Location: [facility] Current Patient Location: Accession/Order Number: [id number] Exam Date: 01/30/2025 16:09 Report Date: 01/30/2025 [...] Pina M.D. 01/30/2025 7:43 PM Dictation Location: [place] [address] Electronically authenticated by: [id number] Y Date: 01/30/2025 19:43 Dictated By: Tyson Pina M.D. Signed By: 01/30/251944 DD/ 42 TD/TT: Remnant Sorter: [facility] Radiology, Radiologi MD romi - 01/30/2025 [place] [address] Ultrasound Report Signed Patient: SHOBHA GA MR#: [id number] : 1990 Acct:[id number] Age/Sex: 34 / F ADM Date: Loc: [facility] 250-[address]: Qiunn Osman Ordering Physician: Quinn Osman Date of Service: 01/30/25 Procedure(s): US OB growth Accession Number(s): [id number] cc: COLTEN LAM ; Quinn Osman [place] [id number] Patient Name: SHOBHA GA MRN: [id number]:[id number] date: 1990 Sex: F Assigned Patient Location: [facility] Current Patient Location: Accession/Order Number: [id number] Exam Date: 01/30/2025 16:09 Report Date: 01/30/2025 [...] Pina M.D. 01/30/2025 7:43 PM Dictation Location: [place] [address] Electronically authenticated by: [id number] Y Date: 01/30/2025 19:43 Dictated By: Tyson Pina M.D. Signed By: 01/30/251944 DD/ 42 TD/TT: Remnant Sorter: [facility] [employer] US OB GROWTHOrdered By: Andreina ologzaki Radiology on 01-30-2025 [facility] Work Phone: Urinalysis macro (dipstick) panel (U)on 01-30-2025 Bilirubin, UA Negative Negative - 4(70) +++ mg/dL [facility] Blood, UA Negative Negative - 50 Aneudy/mcL [facility] Clarity, UA Clear [facility] Color, UA Yellow [facility] Glucose, UA Negative Negative - 1999(110) ++++ mg/dL [facility] Interpretation and review of laboratory results Abnormal [facility] Ketones, UA Negative Negative - 160(16) ++++ mg/dL [facility] Leukocytes, UA Positive Negative - 500+++ Migdalia/mcL [facility] Comment on above: 1+ Nitrite, UA Negative Negative - Positive [facility] pH, UA 7 5 - 9 [facility] Protein, UA Positive Negative - 1999(20) ++++ mg/dL [facility] Spec Grav, UA 1.015 1 - 1.03 [facility] Urobilinogen, UA 1.0 0.2 - 12 mg/dL [facility] Urinalysis macro (dipstick) panel (U)on 01-16-2025 Bilirubin, UA Negative Negative - 4(70) +++ mg/dL [facility] Blood, UA Negative Negative - 50 Aneudy/mcL [facility] Clarity, UA Clear [facility] Color, UA Yellow [facility] Glucose, UA Negative Negative - 1999(110) ++++ mg/dL [facility] Interpretation and review of laboratory results Abnormal [facility] Ketones, UA Negative Negative - 160(16) ++++ mg/dL [facility] Leukocytes, UA Positive Negative - 500+++ Migdalia/mcL [facility] Nitrite, UA Negative Negative - Positive [facility] pH, UA 6 5 - 9 [facility] Protein, UA Negative Negative - 1999(20) ++++ mg/dL [facility] Spec Grav, UA 1.025 1 - 1.03 [facility] Urobilinogen, UA 1.0 0.2 - 12 mg/dL [facility] No Panel InformationOrdered By: Radiologist Radiology on 12-27-2024 [facility] Work Phone: No Panel Informationon 12-27 Radiology Study observation (narrative) [facility] US OB CERVICAL LENGTHon 12-[address] [address] Ultrasound Report Signed Patient: SHOBHA GA MR#: [id number] : 1990 Acct:[id number] Age/Sex: 34 / F ADM Date: Loc: [facility] 250-[address]: Dominik Odonnell D.O. Ordering Physician: Dominik Odonnell D.O. Date of Service: 12/27/24 Procedure(s): US OB cervical length Accession Number(s): [id number] cc: COLTEN LAM ; Dominik Odonnell D.O. [place] [address] Patient Name: SHOBHA GA MRN: [facility]:[id number] date: 1990 Sex: F Assigned Patient Location: [facility] Current Patient Location: Accession/Order Number: [id number] Exam Date: 12/27/2024 19:25 Report Date: 12/27/2024 [...] 12/27/2024 8:34 PM Dictation Location: [place] [address] Electronically authenticated by: [id number] Y Date: 12/27/2024 20:34 Dictated By: Tyson Pina M.D. Signed By: 12/27/242043 DD/ 33 TD/TT: Remnant Sorter: [facility] Radiology, Radiologi MD romi - 12/27/2024 [place] [address] Ultrasound Report Signed Patient: SHOBHA GA MR#: [id number] : 1990 Acct:[id number] Age/Sex: 34 / F ADM Date: Loc: [facility] 250-[address]: Dominik Odonnell D.O. Ordering Physician: Dominik Odonnell D.O. Date of Service: 12/27/24 Procedure(s): US OB cervical length Accession Number(s): [id number] cc: COLTEN LAM ; Dominik Odonnell D.O. The [place] [id number] Patient Name: SHOBHA GA MRN: [id number]:[id number] date: 1990 Sex: F Assigned Patient Location: [facility] Current Patient Location: Accession/Order Number: [id number] Exam Date: 12/27/2024 19:25 Report Date: 12/27/2024 [...] 12/27/2024 8:34 PM Dictation Location: [place] [address] Electronically authenticated by: [id number] Y Date: 12/27/2024 20:34 Dictated By: Tyson Pina M.D. Signed By: 12/27/242043 DD/ 33 TD/TT: Remnant Sorter: LINDY Simmons US OB PLACENTAon 12-27-2024 [place] [address] Ultrasound Report Signed Patient: SHOBHA GA MR#: [id number] : 1990 Acct:[id number] Age/Sex: 34 / F ADM Date: Loc: [place] [address]: Dominik Odonnell D.O. Ordering Physician: Dominik Odonnell D.O. Date of Service: 12/27/24 Procedure(s): US OB placenta Accession Number(s): [id number] cc: COLTEN LAM ; Dominik Odonnell D.O. [place] [address] Patient Name: SHOBHA GA MRN: [facility]:[id number] date: 1990 Sex: F Assigned Patient Location: [facility] Current Patient Location: Accession/Order Number: [id number] Exam Date: 12/27/2024 19:25 Report Date: 12/27/2024 [...] Pina M.D. 12/27/2024 8:34 PM Dictation Location: [facility]-17 Electronically authenticated by: [id number] Y Date: 12/27/2024 20:34 Dictated By: Tyson Pina M.D. Signed By: 12/27/242043 DD/ 33 TD/TT: Remnant Sorter: [facility] Radiology, Radiologjack llanos MD - 12/27/2024 [place] [address] Ultrasound Report Signed Patient: SHOBHA GA MR#: [id number] : 1990 Acct:[id number] Age/Sex: 34 / F ADM Date: Loc: [facility] 250-[address]: Dominik Odonnell D.O. Ordering Physician: Dominik Odonnell D.O. Date of Service: 12/27/24 Procedure(s): US OB placenta Accession Number(s): [id number] cc: COLTEN LAM ; Dominik Odonnell D.O. The [place] [address] Patient Name: SHOBHA GA MRN: [facility]:[id number] date: 1990 Sex: F Assigned Patient Location: [facility] Current Patient Location: Accession/Order Number: [id number] Exam Date: 12/27/2024 19:25 Report Date: 12/27/2024 [...] 12/27/2024 8:34 PM Dictation Location: [place] [address] Electronically authenticated by: [id number] Y Date: 12/27/2024 20:34 Dictated By: Tyson Pina M.D. Signed By: 12/27/242043 DD/ 33 TD/TT: Remnant Sorter: [facility] US OB FOLLOW UP TRANSABDOMIN AL APPROACHon [...] II, MD, PHD at 20-Dec-2024 08:06:10 AM [facility] Normal Not Available Comment on above: Order Comment: US OB SCAN FOR GROWTH Estimated Date of Delivery: 02/25/25 Gestational Age as of 12/05/2024: 28w2d Urinalysis macro (dipstick) panel (U)on 12-05-2024 Bilirubin, UA Negative Negative - 4(70) +++ mg/dL [facility] Blood, UA Negative Negative - 50 Aneudy/mcL [facility] Clarity, UA Clear [facility] Color, UA Yellow [facility] Glucose, UA Negative Negative - 1999(110) ++++ mg/dL [facility] Interpretation and review of laboratory results Abnormal [facility] Ketones, UA Negative Negative - 160(16) ++++ mg/dL [facility] Leukocytes, UA 2+ Negative - 500+++ Migdalia/mcL [facility] Nitrite, UA Negative Negative - Positive [facility] pH, UA 7.5 5 - 9 [facility] Protein, UA Negative Negative - 2000(20) ++++ mg/dL [facility] Spec Grav, UA 1.015 1 - 1.03 [facility] Urobilinogen, UA 1.0 0.2 - 12 mg/dL [facility] ALL CBC WITH AUTO DIFFon BASOPHILS ABSOLUTE AUTO 0.1 [facility] Basophils/100 WBC (Bld) 0.5 % 0.2 - 2.0 % [facility] Eosinophils/100 WBC (Bld) 0.8 % Low 0.9 - 7.0 % [facility] Erythrocyte distribution width (RBC) [Ratio] 13.1 % 11.0 - 15.0 % [facility] Hematocrit (Bld) [Volume fraction] 33.6 % Low 36.0 - 48.0 % [facility] Hemoglobin (Bld) [Mass/Vol] 11.5 g/dL Low 12.0 - 16.0 g/dL [facility] IMMATURE GRANULOCYTES ABS AUTO 0.19 High [facility] Immature granulocytes/100 WBC (Bld) 1.3 % High 0.0 - 0.5 % [facility] Interpretation and review of laboratory results Abnormal [facility] LYMPHOCYTES ABSOLUTE AUTO 2.2 [facility] Lymphocytes/100 WBC (Bld) 15.3 % Low 20.5 - 60.0 % [facility] MCH (RBC) [Entitic mass] 30.7 pg 26.7 - 34.0 pg [facility] MCHC (RBC) [Mass/Vol] 34.2 g/dL 29.9 - 35.2 g/dL [facility] MCV (RBC) [Entitic vol] 89.8 fL 81.0 - 99.0 fL [facility] MONOCYTES ABSOLUTE AUTO 0.8 [facility] Monocytes/100 WBC (Bld) 5.7 % 1.7 - 12.0 % [facility] NEUTROPHILS ABSOLUTE AUTO 10.9 High [facility] Neutrophils/100 WBC (Bld) 76.4 % High 43.0 - 75.0 % [facility] Platelet mean volume (Bld) [Entitic vol] 9.2 fL Low 9.5 - 13.5 fL [facility] TBH EO # 0.1 [facility] TBH PLT 253 [facility] RBC 3.74 Low [facility] WBC 14.3 High [facility] Urinalysis macro (dipstick) panel (U)on 11-12-2024 Bilirubin, UA Negative Negative - 4(70) +++ mg/dL [facility] Blood, UA Negative Negative - 50 Aneudy/mcL [facility] Clarity, UA Clear [facility] Color, UA Yellow [facility] Glucose, UA Negative Negative - 1999(110) ++++ mg/dL [facility] Interpretation and review of laboratory results Normal [facility] Ketones, UA Negative Negative - 160(16) ++++ mg/dL [facility] Leukocytes, UA Moderate Negative - 500+++ Migdalia/mcL [facility] Nitrite, UA Negative Negative - Positive [facility] pH, UA 7 5 - 9 [facility] Protein, UA Negative Negative - 1999(20) ++++ mg/dL [facility] Spec Grav, UA 1.015 1 - 1.03 [facility] Urobilinogen, UA 0.2 0.2 - 12 mg/dL [facility] US OB LIMITED 1+ FETUSESon 0 [...] GDLNon AGE GDLN ACOG TESTING Note . [facility] Comment on above: TESTS RESULT FLAG UN ITS REF RANGE LAB Clinician Provided Cytology Information Source.............End[employer] No. of containers..01 ThinPrep Vial Age Amadoo JAGJITOG Jayne... 01 FLAG LEGEND: L-Low Normal,H-High Normal,LL-Alert Low,HH-Alert High <-Panic Low,>-Panic High,A-Abnormal,AA-Critical Abnormal Performed at: 01 =G [address] [address] Chelo Watt MD, HPV APTIMA Negative Negative [facility] Comment on above: This nucleic acid am plification test detects fourteen high- risk HPV types (16,18,31,33,35,39,45,51,52,56,58,59,66,68) without differentiation. Performed at: =[address] [id number] Aquatic Scientist: Chelo Watt MD, Phone: [phone] Performed at: [address] [id number] Aquatic Scientist: Chelo Watt MD, Phone: [phone] IGP, APTIMA HPV, RFX 16/18,45 Note . [facility] Comment on above: TESTS RESULT FLAG UN ITS REF RANGE LAB DIAGNOSIS: 02 UNSATISFACTORY FOR EVALUATION. Recommendation: 02 Suggest follow up as clinically appropriate. Specimen adequacy: 02 Specimen processed and examined but unsatisfactory for evaluation of epithelial abnormality because of obscuring inflammatory exudate. Performed by: 02 Omar Gilmore, Wrecker Driver ([facility]) QC reviewed by: 02 Paty Bear, Supervisory Wrecker Driver ([facility]) . 02 Note: Note 02 The Pap smear is a screening test designed to aid in the detection of premalignant and malignant conditions of the uterine cervix. It is not a diagnostic procedure and should not be used as the sole means of detecting cervical cancer. Both false-positive and false-negative reports do occur. Test Methodology: Note 02 The [employer] Feeder was unable to read this specimen. Therefore a manual review was performed. FLAG LEGEND: L-Low Normal,H-High Normal,LL-Alert Low,HH-Alert High <-Panic Low,>-Panic High,A-Abnormal,AA-Critical Abnormal Performed at: [address] [address] Chelo Watt MD, HPV Genotype Reflex Note 02 Criteria not met, HPV Genotype not performed. Criteria not met, HPV Genotype not performed. SPATULA-ALONE ENDOCERVIX [facility] RECURRENT VAGINITIS (HTRX)on 10-03-2024 ATOPOBIUM VAGINAE 0 [facility] ATOPOBIUM VAGINAE Not detected [facility] BVAB 2,3 (BACTERIAL VAGINOSIS ASSOCIATED BACTERIA 2, 3); MOBILUNCUS SPP 0 [facility] BVAB 2,3 (BACTERIAL VAGINOSIS ASSOCIATED BACTERIA 2, 3); MOBILUNCUS SPP Not detected [facility] MANUELA ALBICANS, PARAPSILOSIS, TROPICALIS 0 [facility] MANUELA ALBICANS, PARAPSILOSIS, TROPICALIS Not detected [facility] MANUELA GLABRATA 0 [facility] MANUELA GLABRATA Not detected [facility] MANUELA KRUSEI 0 [facility] MANUELA KRUSEI Not detected [facility] CHLAMYDIA TRACHOMATIS 0 [facility] CHLAMYDIA [...] II, MD, PHD at 12-Oct-2024 10:22:11 AM [facility] Normal Not Available Comment on above: Order Comment: US OB ANATOMY SINGLE W US OB CERVICAL LENGTH Estimated Date of Delivery: 02/25/25 Gestational Age as of 10/01/2024: 19w0d BOX TESTon 08-06-2024 BOX TEST SENT OUT [employer] BOX2 08/06/24 [employer] [facility] [employer] HCG ( test) Ql (U)o n 08-02-2024 Interpretation and review of laboratory results Abnormal [facility] [employer] Preg Test, Ur Positive Negative [facility] [employer] US OB TRANSVAGINALon 025 US OB TRANSVAGINAL [...] II, MD, PHD at 03-Aug-2024 08:40:26 AM [facility] Normal Not Available Comment on above: Order Comment: US OB TRANSVAGINAL No LMP recorded. Urinalysis macro (dipstick) panel (U)on 08-02-2024 Bilirubin, UA Negative Negative - 4(70) +++ mg/dL [facility] Blood, UA Negative Negative - 50 Aneudy/mcL [facility] Clarity, UA Clear [facility] Color, UA Yellow [facility] Glucose, UA Negative Negative - 1999(110) ++++ mg/dL [facility] Interpretation and review of laboratory results Abnormal [facility] Ketones, UA Negative Negative - 160(16) ++++ mg/dL [facility] Leukocytes, UA Positive Negative - 500+++ Migdalia/mcL [facility] Comment on above: small Nitrite, UA Negative Negative - Positive [facility] pH, UA 6 5 - 9 [facility] Protein, UA Negative Negative - 1999(20) ++++ mg/dL [facility] Spec Grav, UA 1.02 1 - 1.03 [facility] Urobilinogen, UA 0.2 0.2 - 12 mg/dL [facility] XR Spine Cervical Complete w /Flex AND [place] 05-12-2021 XR Spine Cervical Complete w/Flex AND [...] by Miah Suero on 05/12/2021 1444 Normal [facility] Security Officer US PELVIS AND TRANSVAGon US PELVIS AND [...] MONTGOMERY Date: 2019-12-10 10:21 Normal [facility] PAP ONLYon 06-14-2019 COMMENT Comment Normal [facility] Comment on above: Result Comment: [id number] Performed By: #### [id number] #### [facility] [address] [address] [place] DIAGNOSIS: Comment Normal [facility] Comment on above: Result Comment: NEGA TIVE FOR INTRAEPITHELIAL LESION OR MALIGNANCY. Performed By: #### [id number] #### [facility] [address] [address] [place] Methodology: Comment Normal [facility] Comment on above: Result Comment: This liquid based ThinPrep(R) pap test was screened with the use of an image guided system. Performed By: #### [id number] #### [facility] [address] [place] [address] [place] Note: Comment [facility] Comment on above: Result Comment: The Pap smear is a screening test designed to aid in the detection of premalignant and malignant conditions of the uterine cervix. It is not a diagnostic procedure and should not be used as the sole means of detecting cervical cancer. Both false-positive and false-negative reports do occur. . Performed By: #### [id number] #### [facility] [address] [address] [place] Performed by: Comment Normal [facility] Comment on above: Result Comment: Stephanie Barraza, Steam Turbine Operator (ASCP) Performed By: #### [id number] #### [facility] [address] [address] [place] Specimen adequacy: Comment [facility] Comment on above: Result Comment: Sati sfactory for evaluation. Endocervical and/or squamous metaplastic cells (endocervical component) are present. Performed By: #### [id number] #### [facility] [address] [place], [place] [address] [place] . . Normal [facility] Comment on above: Performed By: #### [id number] #### [facility] [address] [id number] [place] Discharge Summaryon 10-08-19 18 HIM IP Note OR [place] [employer] End Finder Normal [facility] Plan of Careon 10-07-2017 HIM IP Note OR [place] [employer] End Finder Normal [facility] HIM IP Note OR [place] [employer] End Finder Normal [facility] Progress Noteon 10-07-2017 HIM IP Note OR [place] Department End Finder Normal [facility] HIM IP Note OR [place] Department End Finder Normal [facility] HIM IP Note OR [place] Department End Finder Normal [facility] HIM IP Note OR [place] Department End Finder Normal [facility] HIM IP Note OR [place] [employer] End Finder Normal [facility] Plan of Careon 10-06-2017 HIM IP Note OR [place] Department End Finder Normal [facility] HIM IP Note OR [place] Department End Finder Normal [facility] Progress Noteon 10-06-2017 HIM IP Note OR [place] Department End Finder Normal [facility] IP Note OR [place] Department End Finder Normal [facility] HIM IP Note OR [place] Department End Finder Normal [facility] Surgical Pathologyon 018 Surgical Pathology (NOTE)[id number]ATORIESCONSULTING PATHOLOGISTS CORPORATIONANATOMIC [id number] [place] [address]. [place], [place] [address] Fax: SURGICAL PATHOLOGY CONSULTATIONPatient Name: Mary GA Rec: [id number] Number: [id number]: 10/06/2017Received: 10/06/2017Reported: 10/07/2017 12:37-- Diagnosis --PLACENTA MEMBRANES AND UMBILICAL CORD: MATURE PLACENTA WITHINTERVILLOUS THROMBI, UNREMARKABLE MEMBRANES AND THREE-VESSELUMBILICAL CORD.Tammie NgElectronically Signed Out ajb/10/07/2017Clinical InformationOperative Findings: PLACENTA (PER CONTAINER)Source of Specimen1: PLACENTA (PER CONTAINER)Gross Description SHOBHA GA, UNDESIGNATED Placenta with attached membranes andumbilical cord.UMBILICAL CORD Length: 47.0 cm Diameter: 1.5 cmTrue knots: NoNumber of vessels: 3Spiraling: NormalInsertion into surface: ParacentralMEMBRANESColor: [place]-yates, focally opacified with a circummarginateinsertionMeconi um staining: [...] invillous capillaries: RareOther: Few microcalcifications Normal [facility] CBC with Diffon 10-05-2017 Abs. Basophil <0.03 Normal 0.00-0.20 [facility] Comment on above: Performed By: #### C DP ####[address] [place] [address] Abs.Neutrophil (Seg) 7.93 k/uL Normal 1.50-8.10 [facility] Comment on above: Performed By: #### C DP ####[address] [place] [address] Basophils/100 WBC Auto (Bld) 0 % Normal 0-2 [facility] Comment on above: Performed By: #### C DP ####[address] [place] [address] Eosinophils 0.10 10*3/uL Normal 0.00-0.44 [facility] Comment on above: Performed By: #### C DP ####[address] [place] [address] Eosinophils/100 leukocytes 1 % Normal 1-4 [facility] Comment on above: Performed By: #### C DP ####[address] [place] [address] Erythrocyte distribution width Auto Ratio (RBC) 13.6 % Normal 11.8-14.4 [facility] Comment on above: Performed By: #### C DP ####[address] [place] [address] Erythrocytes (RBC) 4.18 10*6/uL Normal 3.95-5.11 [facility] Comment on above: Performed By: #### C DP ####[address] [place] [address] Erythrocytes (RBC) 0.0 per 100 WBC Normal 0.0 [facility] Comment on above: Performed By: #### C DP ####[address] [place] [address] Granulocytes/100 WBC (Bld) 0.15 k/uL Normal 0.00-0.30 [facility] Comment on above: Result Comment: Perf ormed at [address] [place] [address] Performed By: #### C DP ####[address] [place] [address] Hematocrit (HCT) 36.5 % Normal 36.3-47.1 [facility] Comment on above: Performed By: #### C DP ####[address] , [facility]83 Hemoglobin mass conc (Bld) 12.2 g/dL Normal 11.9-15.1 [facility] Comment on above: Performed By: #### C DP ####[address] , [facility]83 Immature granulocytes #/vol (Bld) 1 % High 0 [facility] Comment on above: Performed By: #### C DP ####[address] , [facility]83 Lymphocytes 2.28 10*3/uL Normal 1.10-3.70 [facility] Comment on above: Performed By: #### C DP ####[address] [place] [address] Lymphocytes/100 leukocytes 20 % Low 24-43 [facility] Comment on above: Performed By: #### C DP ####[address] , [facility]83 MCH 29.2 pg Normal 25.2-33.5 [facility] Comment on above: Performed By: #### C DP ####[address] , [facility]83 MCHC mass conc (RBC) 33.4 g/dL Normal 28.4-34.8 [facility] Comment on above: Performed By: #### C DP ####[address] [place] [address] MCV 87.3 fL Normal 82.6-102.9 [facility] Comment on above: Performed By: #### C DP ####[address] [place] [address] Monocytes 0.81 10*3/uL Normal 0.10-1.20 [facility] Comment on above: Performed By: #### C DP ####[address] [place] [address] Monocytes/100 leukocytes 7 % Normal 3-12 [facility] Comment on above: Performed By: #### C DP ####[address] , [facility]83 Neutrophil (Seg) 71 % High 36-65 [facility] Comment on above: Performed By: #### C DP ####[address] [place] [address] Platelet mean volume (PMV) 10.4 fL Normal 8.1-13.5 [facility] Comment on above: Performed By: #### C DP ####[address] [place] [address] Platelets 207 10*3/uL Normal 138-453 [facility] Comment on above: Performed By: #### C DP ####[address] [place] [address] WBC (Leukocytes) 11.3 10*3/uL Normal 3.5-11.3 [facility] Comment on above: Performed By: #### C DP ####[address] [place] [address] Auto Diff Performed NOT REPORTED Normal [facility] Comment on above: Performed By: #### C DP ####[address] [place] [address] Erythrocyte morphology NOT REPORTED Normal [facility] Comment on above: Performed By: #### C DP ####[address] [place] [address] Platelets NOT REPORTED Normal [facility] Comment on above: Performed By: #### C DP ####[address] [place] [address] WBC Morphology NOT REPORTED Normal [facility] Comment on above: Performed By: #### C DP ####[address] [place] [address] Drug Scr, Abuse, Uron 2017 Amphetamine(s),Ur Negative Normal NEG [facility] Comment on above: Performed By: #### D AU ####[address] [place] [address] Barbiturate(s),Ur Negative Normal NEG [facility] Comment on above: Performed By: #### D AU ####[address] [place] [address] Base excess Negative Normal NEG [facility] Comment on above: Performed By: #### D AU ####[address] [place] [address] Benzodiazepine(s) Negative Normal NEG [facility] Comment on above: Performed By: #### D AU ####[address] [place] [address] Buprenorphrine, Ur Negative Normal NEG [facility] Comment on above: Result Comment: Perf ormed at [address] [place] [address] Performed By: #### D AU ####[address] [place] [address] Cannabinoid(s),Ur Negative Normal NEG [facility] Comment on above: Performed By: #### D AU ####[address] [place] [address] Methamphetamine, Ur Negative Normal NEG [facility] Comment on above: Performed By: #### D AU ####[address] [place] [address] Opiate(s), Ur Negative Normal NEG [facility] Comment on above: Performed By: #### D AU ####[address] [place] [address] Oxycodone, Urine Negative Normal NEG [facility] Comment on above: Performed By: #### D AU ####[address] [place] [address] Phencyclidine, Ur Negative Normal NEG [facility] Comment on above: Performed By: #### D AU ####[address] [place] [address] Propoxyphene,Urine Negative Normal NEG [facility] Comment on above: Performed By: #### D AU ####[address] [place] [address] Urine, methadone presence Negative Normal NEG [facility] Comment on above: Performed By: #### D AU ####[address] [place] [address] Urine, tricyclic antidepressants Negative Normal NEG [facility] Comment on above: Result Comment: Drug screen results are to be used for medical purposes only. All positive results are unconfirmed. Testing for employment or legal uses should be sent to a reference laboratory for confirmation. Performed By: #### D AU ####[address] [place] [address] Interpretive Info NOT REPORTED Normal [facility] Comment on above: Performed By: #### D AU ####[address] [place] [address] MDMA, Urine NOT REPORTED Normal NEG [facility] Comment on above: Performed By: #### D AU ####[address] [place] [address] History and Physicalon 10-05 HIM IP Note OR [place]oving Department End Finder Normal [facility] Plan of Careon 10-05-2017 HIM IP Note OR [place] Department End Finder Normal [facility] HIM IP Note OR [place] Department End Finder Normal [facility] Progress Noteon 10-05-2017 HIM IP Note OR [place] Department End Finder Normal [facility] HIM IP Note OR [place] Department End Finder Normal [facility] HIM IP Note OR [place] Department End Finder Normal [facility] HIM IP Note OR [place] Department End Finder Normal [facility] Vital Signs Date Time Vital Sign Value Performing Clinician Shardai naif 02-06-2025 14:28-0400 Diastolic blood pressure 90 mm[Hg] Quinn Jacqui HEAD ATHLETIC TRAINER/STRENGTH COACH Work Phone: [facility] 02-06-2025 14:28-0400 Systolic blood pressure 140 mm[Hg] Quinn Jacqui HEAD ATHLETIC TRAINER/STRENGTH COACH Work Phone: [facility] 02-06-2025 13:18-0400 Body mass index (BMI) [Ratio] 42.12 kg/m2 Quinn Jacqui HEAD ATHLETIC TRAINER/STRENGTH COACH Work Phone: [facility] 02-06-2025 13:18-0400 Body weight 107.86 kg Quinn Jacqui HEAD ATHLETIC TRAINER/STRENGTH COACH Work Phone: [facility] 01-30-2025 13:41-0400 Body mass index (BMI) [Ratio] 41.88 kg/m2 Quinn Jacqui HEAD ATHLETIC TRAINER/STRENGTH COACH Work Phone: [facility] 01-30-2025 13:41-0400 Body weight 107.23 kg Quinn Jacqui HEAD ATHLETIC TRAINER/STRENGTH COACH Work Phone: [facility] 01-16-2025 11:37-0400 Body mass index (BMI) [Ratio] 36.63 kg/m2 Uma WELLINGTON Work Phone: [facility] 01-16-2025 11:37-0400 Body weight 93.8 kg Uma WELLINGTON Work Phone: [facility] 01-16-2025 11:37-0400 Diastolic blood pressure 76 mm[Hg] Uma WELLINGTON Work Phone: [facility] 01-16-2025 11:37-0400 Systolic blood pressure 112 mm[Hg] Uma WELLINGTON Work Phone: [facility] 01-02-2025 11:20-0400 Body mass index (BMI) [Ratio] 39.4 kg/m2 Dominik Blas DO Work Phone: [facility] 01-02-2025 11:20-0400 Body weight 100.88 kg Dominik Blas DO Work Phone: [facility] 01-02-2025 11:20-0400 Diastolic blood pressure 78 mm[Hg] Dominik Blas DO Work Phone: [facility] 01-02-2025 11:20-0400 Systolic blood pressure 122 mm[Hg] Dominik Blas DO Work Phone: [facility] 12-19-2024 11:03-0400 Body mass index (BMI) [Ratio] 38.75 kg/m2 Uma WELLINGTON Work Phone: [facility] 12-19-2024 11:03-0400 Body weight 99.22 kg Uma WELLINGTON Work Phone: [facility] 12-19-2024 11:03-0400 Diastolic blood pressure 74 mm[Hg] Uma WELLINGTON Work Phone: [facility] 12-19-2024 11:03-0400 Systolic blood pressure 130 mm[Hg] Uma WELLINGTON Work Phone: [facility] 12-05-2024 15:42-0400 Body mass index (BMI) [Ratio] 37.55 kg/m2 Dominik Blas DO Work Phone: [facility] 12-05-2024 15:42-0400 Body weight 96.16 kg Dominik Blas DO Work Phone: [facility] 12-05-2024 15:42-0400 Diastolic blood pressure 70 mm[Hg] Dominik Blas DO Work Phone: [facility] 12-05-2024 15:42-0400 Systolic blood pressure 122 mm[Hg] Dominik Blas DO Work Phone: [facility] 11-12-2024 15:57-0400 Body mass index (BMI) [Ratio] 37.02 kg/m2 Uma Salome PA Work Phone: [facility] 11-12-2024 15:57-0400 Body weight 94.8 kg Uma Salome PA Work Phone: [facility] 11-12-2024 15:57-0400 Diastolic blood pressure 78 mm[Hg] Uma Salome PA Work Phone: [facility] 11-12-2024 15:57-0400 Systolic blood pressure 122 mm[Hg] Uma Salome PA Work Phone: [facility] 10-29-2024 15:52-0400 Body mass index (BMI) [Ratio] 36.23 kg/m2 Dominik Blas DO Work Phone: [facility] 10-29-2024 15:52-0400 Body weight 92.76 kg Dominik Blas DO Work Phone: [facility] 10-29-2024 15:52-0400 Diastolic blood pressure 76 mm[Hg] Dominik Blas DO Work Phone: [facility] 10-29-2024 15:52-0400 Systolic blood pressure 140 mm[Hg] Dominik Blas DO Work Phone: [facility] 10-01-2024 16:11-0400 Body mass index (BMI) [Ratio] 35.21 kg/m2 Uma Salome PA Work Phone: [facility] 10-01-2024 16:11-0400 Body weight 90.15 kg Uma Avinash PA Work Phone: [facility] 10-01-2024 16:11-0400 Diastolic blood pressure 82 mm[Hg] Uma Salome PA Work Phone: [facility] 10-01-2024 16:11-0400 Systolic blood pressure 120 mm[Hg] Uma Salome PA Work Phone: [facility] 09-03-2024 15:51-0400 Body mass index (BMI) [Ratio] 34.26 kg/m2 Dominik Blas DO Work Phone: [facility] 09-03-2024 15:51-0400 Body weight 87.73 kg Dominik Blas DO Work Phone: [facility] 09-03-2024 15:51-0400 Diastolic blood pressure 68 mm[Hg] Dominik Blas DO Work Phone: [facility] 09-03-2024 15:51-0400 Systolic blood pressure 112 mm[Hg] Dominik Blas DO Work Phone: [facility] 08-02-2024 14:29-0400 Body mass index (BMI) [Ratio] 33.66 kg/m2 Nom Nurse [facility] 08-02-2024 14:29-0400 Body weight 86.18 kg [facility] Nurse [facility] 08-02-2024 14:29-0400 Diastolic blood pressure 72 mm[Hg] [facility] Nurse [facility] 08-02-2024 14:29-0400 Systolic blood pressure 120 mm[Hg] [facility] Nurse [facility] 06-20-2024 13:30-0500 Body height 160 cm Wero Valderrama HEAD ATHLETIC TRAINER/STRENGTH COACH Work Phone: [facility] 06-20-2024 13:30-0500 Body mass index (BMI) [Ratio] 33.66 kg/m2 Wero Valderrama HEAD ATHLETIC TRAINER/STRENGTH COACH Work Phone: [facility] 06-20-2024 13:30-0500 Body weight 86.18 kg Wreo Valderrama HEAD ATHLETIC TRAINER/STRENGTH COACH Work Phone: [facility] 06-20-2024 13:30-0500 Diastolic blood pressure 78 mm[Hg] Wero Valderrama HEAD ATHLETIC TRAINER/STRENGTH COACH Work Phone: [facility] 06-20-2024 13:30-0500 Heart rate 78 /min Wero Valderrama HEAD ATHLETIC TRAINER/STRENGTH COACH Work Phone: [facility] 06-20-2024 13:30-0500 Respiratory rate 17 /min Wero Valderrama HEAD ATHLETIC TRAINER/STRENGTH COACH Work Phone: [facility] 06-20-2024 13:30-0500 SaO2% (BldA) [Mass fraction] 98 % Wero Valderrama HEAD ATHLETIC TRAINER/STRENGTH COACH Work Phone: [facility] 06-20-2024 13:30-0500 Systolic blood pressure 138 mm[Hg] Wero Valderrama HEAD ATHLETIC TRAINER/STRENGTH COACH Work Phone: [facility] Encounters Encounter Date Encounter Type Care Provider Facility Start: 02-06-2025 End: 02-06-2025 Clinisync Result Encounter Generic External Data Provider [facility] Unsolicited Start: 02-06-2025 End: 02-06-2025 Clinisync Result Encounter Generic External Data Provider [facility] Unsolicited Start: 02-06-2025 End: 02-06-2025 flow sheet Quinn Osman HEAD ATHLETIC TRAINER/STRENGTH COACH Work Phone: [facility] Comment on above: 37 weeks gestation o f ([facility]); Third trimester ([facility]); Excessive growth affecting management of , antepartum, single or unspecified fetus ([facility]); Hypertension during in third trimester, unspecified hypertension in type ([facility]) Start: 02-06-2025 End: 02-06-2025 ambulatory QUINN OSMAN Not Available Start: 02-01-2025 End: 02-01-2025 Clinisync Result Encounter Generic External Data Provider [facility] Unsolicited Start: 02-01-2025 End: 02-01-2025 Clinisync Result Encounter Generic External Data Provider [facility] Unsolicited Start: 01-30-2025 End: 01-30-2025 Bamboo flowsheet Quinn Osman HEAD ATHLETIC TRAINER/STRENGTH COACH Work Phone: [facility] Start: 01-30-2025 End: 01-30-2025 Bamboo flowsheet Quinn Osman HEAD ATHLETIC TRAINER/STRENGTH COACH Work Phone: [facility] Start: 01-30-2025 End: 01-30-2025 Clinisync Result Encounter Quinn Osman HEAD ATHLETIC TRAINER/STRENGTH COACH Work Phone: [facility] Unsolicited Start: 01-30-2025 End: 01-30-2025 ambulatory QUINN OSMAN Not Available Start: 01-30-2025 End: 01-30-2025 flow sheet Quinn Osman HEAD ATHLETIC TRAINER/STRENGTH COACH Work Phone: [facility] Comment on above: 36 weeks gestation o f ([facility]); Third trimester ([facility]); Excessive growth affecting management of , antepartum, single or unspecified fetus ([facility]); induced hypertension, antepartum ([facility]) Start: 01-16-2025 End: 01-16-2025 Bamboo flowsheet Uma WELLINGTON Work Phone: [facility] Start: 01-16-2025 End: 01-16-2025 Bamboo flowsheet Uma WELLINGTON Work Phone: [facility] Start: 01-16-2025 End: 01-16-2025 ambulatory UMA MCCORMICK Not Available Start: 01-16-2025 End: 01-16-2025 flow sheet Uma WELLINGTON Work Phone: [facility] Comment on above: Third trimester preg ramon ([facility]); 34 weeks gestation of ([facility]) Start: 01-02-2025 End: 01-02-2025 Bamboo flowsheet Dominik Blas DO Work Phone: [facility] Start: 01-02-2025 End: 01-02-2025 Bamboo flowsheet Dominik Blas DO Work Phone: [facility] Start: 01-02-2025 End: 01-02-2025 ambulatory DOMINIK BLAS Not Available Start: 01-02-2025 End: 01-02-2025 flow sheet Dominik Blas DO Work Phone: [facility] Comment on above: 32 weeks gestation o f ([facility]); Third trimester ([facility]); Excessive growth affecting management of , antepartum, single or unspecified fetus ([facility]) Start: 12-27-2024 End: 12-27-2024 Clinisync Result Encounter Dominik Blas DO Work Phone: [facility] Unsolicited Start: 12-27-2024 End: 12-27-2024 Clinisync Result Encounter Dominik Blas DO Work Phone: [facility] Unsolicited Start: 12-19-2024 End: 12-19-2024 flow sheet Uma WELLINGTON Work Phone: [facility] Comment on above: Third trimester preg ramon ([facility]); 30 weeks gestation of ([facility]) Start: 12-19-2024 End: 12-19-2024 ambulatory UMA MCCORMICK Not Available Start: 12-05-2024 End: 12-05-2024 flow sheet Dominik Blas DO Work Phone: [facility] Comment on above: Third trimester preg ramon ([facility]); 28 weeks gestation of ([facility]); size inconsistent with dates ([facility]) Start: 12-05-2024 End: 12-05-2024 ambulatory DOMINIK BLAS Not Available Start: 12-05-2024 End: 12-05-2024 Bamboo flowsheet Dominik Blas DO Work Phone: [facility] Start: 12-05-2024 End: 12-05-2024 Bamboo flowsheet Dominik Blas DO Work Phone: [facility] Start: 11-12-2024 End: 11-12-2024 flow sheet Uma WELLINGTON Work Phone: [facility] Comment on above: Second trimester pre gnancy ([facility]); 25 weeks gestation of ([facility]) Start: 11-12-2024 End: 11-12-2024 ambulatory UMA MCCORMICK Not Available Start: 11-12-2024 End: 11-12-2024 Clinisync Result Encounter Dominik Blas DO Work Phone: [facility] Unsolicited Start: 11-12-2024 End: 11-12-2024 Clinisync Result Encounter Dominik Blas DO Work Phone: [facility] External Department Unsolicited Start: 11-07-2024 End: 11-07-2024 ambulatory WERO VALDERRAMA Not Available Start: 10-29-2024 End: 10-29-2024 ambulatory DOMINIK BLAS Not Available Start: 10-29-2024 End: 10-29-2024 flow sheet Dominik Blas DO Work Phone: [facility] Comment on above: Diabetes mellitus sc reening; Second trimester ([facility]); 23 weeks gestation of ([facility]) Start: 10-29-2024 End: 10-29-2024 Bamboo flowsheet Dominik Blas DO Work Phone: [facility] Start: 10-29-2024 End: 10-29-2024 Bamboo flowsheet Dominik Blas DO Work Phone: [facility] Start: 10-10-2024 End: 10-10-2024 ambulatory WERO VALDERRAMA Not Available Start: 10-01-2024 End: 10-01-2024 Patient encounter procedure Uma WELLINGTON Work Phone: [facility] Start: 10-01-2024 End: 10-01-2024 Periodic preventive med est patient 18-39 yrs Uma WELLINGTON Work Phone: [facility] Comment on above: Second trimester pre gnancy; 19 weeks gestation of ; Well woman exam with routine gynecological exam; Screening, , for anatomic survey; STD exposure Start: 10-01-2024 End: 10-01-2024 ambulatory UMA MCCORMICK Not Available Start: 10-01-2024 End: 10-01-2024 Bamboo flowsheet Uma WELLINGTON Work Phone: [facility] Start: 10-01-2024 End: 10-08-2024 Bamboo flowsheet Uma WELLINGTON Work Phone: [facility] Start: 10-01-2024 End: 10-08-2024 Clinisync [...] type; Bipolar affective disorder, currently depressed, mild ([facility]) Start: 09-03-2024 End: 09-03-2024 ambulatory DOMINIK BLAS Not Available Start: 09-03-2024 End: 09-03-2024 Bamboo flowsheet Dominik Blas DO Work Phone: [facility] Start: 09-03-2024 End: 09-03-2024 Bamboo flowsheet Dominik Blas DO Work Phone: [facility] Start: 08-16-2024 End: 08-16-2024 ambulatory AYESHA MAXWELL SONY [facility] Start: 08-06-2024 End: 08-06-2024 Clinisync Result Encounter [...] 07-06-2024 End: 07-06-2024 Orders Only Ayesha Vazquez MEDICAL CODER-BUILDING COMPONENTS DESIGNER Work Phone: [facility] Start: 06-20-2024 End: 06-20-2024 Bamboo flowsheet Wero Valderrama HEAD ATHLETIC TRAINER/STRENGTH COACH Work Phone: [facility] Start: 06-20-2024 End: 06-20-2024 Bamboo flowsheet Wero Valderrama HEAD ATHLETIC TRAINER/STRENGTH COACH Work Phone: [facility] Start: 06-20-2024 End: 06-20-2024 Office outpatient visit 25 minutes Wero Valderrama HEAD ATHLETIC TRAINER/STRENGTH COACH Work Phone: [facility] Comment on [...] Trapezius muscle spasm Start: 04-04-2024 End: 04-04-2024 Refill Colten Lam MD Work Phone: [facility] Comment on above: Trapezius muscle spa sm Start: 03-19-2024 End: 03-19-2024 Refill Estefania Rashid PA Work Phone: [facility] Comment on above: Class 1 obesity with out serious comorbidity with body mass index (BMI) of 31.0 to 31.9 in adult, unspecified obesity type Start: 02-06-2024 End: 02-06-2024 ambulatory [facility] Start: 01-07-2024 End: 01-09-2024 Refrobin Lam MD [...] unspecified type Start: 06-08-2023 Telephone encounter Allison Nixonjazmin Kirkpatrick [facility] Start: 12-10-2019 End: 12-11-2019 Patient encounter procedure RONI JIMENEZ Facility:[facility] Start: 11-23-2019 Patient encounter procedure LUZMARIA BRUNO Facility:[facility] Start: 06-12-2019 End: 06-12-2019 Patient encounter procedure RONI JIMENEZ Facility:[facility] Start: 10-05-2017 End: 10-07-2017 Evaluation and management of inpatient [facility] Procedures Date Procedure Procedure Detail Performing Clinician Start: 02-06-2025 Urnls dip stick/tabl et rgnt non-auto w/o micrscp Quinn Jacqui HEAD ATHLETIC TRAINER/STRENGTH COACH Work Phone: Start: 02-06-2025 US OB BPP W NON-STRESS Generic External Data Provider Start: 02-01-2025 [facility] TOTAL PROTEIN 24 HOUR URINE Quinn Jacqui HEAD ATHLETIC TRAINER/STRENGTH COACH Work Phone: Start: 01-30-2025 US OB BPP W NON-STRESS Quinn Jacqui HEAD ATHLETIC TRAINER/STRENGTH COACH Work Phone: Start: 01-30-2025 US OB GROWTH Quinn E berly HEAD ATHLETIC TRAINER/STRENGTH COACH Work Phone: Start: 01-30-2025 ALL BUN Quinn E berly HEAD ATHLETIC TRAINER/STRENGTH COACH Work Phone: Start: 01-30-2025 ALL LDH Quinn E berly HEAD ATHLETIC TRAINER/STRENGTH COACH Work Phone: Start: 01-30-2025 ALL URIC ACID Quinn Jacqui HEAD ATHLETIC TRAINER/STRENGTH COACH Work Phone: Start: 01-30-2025 [facility] AST Quinn E berly HEAD ATHLETIC TRAINER/STRENGTH COACH Work Phone: Start: 01-30-2025 [facility] CREATININE Quinn Jacqui HEAD ATHLETIC TRAINER/STRENGTH COACH Work Phone: Start: 01-30-2025 Urnls dip stick/tabl et rgnt non-auto w/o micrscp Quinn Jacqui HEAD ATHLETIC TRAINER/STRENGTH COACH Work Phone: Start: 01-16-2025 Urnls dip stick/tabl [...] Adult depression scr eening assessment Ayesha Vazquez MEDICAL CODER-BUILDING COMPONENTS DESIGNER Work Phone: Start: 11-29-2022 Microscopic observat ion [...] PAZ GES Start: 10-06-2017 DIET GENERAL STEPHEN VELA Start: 10-06-2017 FULL CODE STEPHEN VELA Start: 10-06-2017 ICE TO AFFECTED AREA WE URSZULA DOWNEY Start: 10-06-2017 NOTIFY PHYSICIAN (SPECIFY) STEPHEN DOWNEY Start: 10-06-2017 PATIENT STATUS (DIRECT) STEPHEN DOWNEY Start: 10-06-2017 PLACE INTERMITTENT PNEUMATIC COMPRESSION DEVICE STEPHEN DOWNEY Start: 10-06-2017 SALINE LOCK IV STEPHEN Zhu EDGES Start: 10-06-2017 SPECIMEN TO PATHOLOGY W SHABBIR DOWNEY Start: 10-06-2017 STRAIGHT CATH STEPHEN HE DGES Start: 10-06-2017 VITAL SIGNS STEPHEN VELA Start: 10-06-2017 PATIENT STATUS (FROM ED OR OR/PROCEDURAL) STEPHEN DOWNEY Start: 10-06-2017 TRANSFER PATIENT STEPHEN DOWNEY Start: 10-05-2017 Blood count complete auto&auto difrntl wbc STEPHEN DOWNEY Start: 10-05-2017 IP CONSULT TO [facility] STEPHEN DOWNEY Start: 10-05-2017 URINE DRUG SCREEN BRADLEY Aguayo SHAYAN Plan of Treatment Date Care Activity Detail Author Start: 12-11-2027 Screening for malign ant neoplasm of cervix [facility] Start: 10-02-2027 Screening for malign ant neoplasm of cervix Pap Smear [facility] Start: 09-28-2027 DTaP,Tdap and Td Vac cines (2 - Td or Tdap) DTaP,Tdap and Td Vaccines (2 - Td or Tdap) [facility] Start: 11-29-2025 Screening for malign ant neoplasm of cervix Pap Smear [facility] Start: 02-13-2025 End: 02-13-2025 Patient encounter procedure 02/13/2025 11:30 AM EDT Routine [facility] [address] [place] [id number] Dominik Odonnell DO [address] [place] [address] [facility] Start: 02-06-2025 End: 02-06-2025 Patient encounter procedure 02/06/2025 1:20 PM EDT Routine [facility] [address] [place] [address] Quinn Osman, HEAD ATHLETIC TRAINER/STRENGTH COACH [address] [place] [address] [facility] Start: 02-05-2025 Depression Screening Depression Scre ening [facility] Start: 02-05-2025 Tobacco Screening Tobacco Screening [facility] Start: 01-30-2025 End: 01-30-2026 Alanine aminotransferase [Enzymatic activity/volume] in Serum or Plasma ALT Lab Routine induced hypertension, antepartum ([facility]) Expected: 01/30/2025 (Approximate), Expires: 01/30/2026 [facility] Comment on above: Expected: 01/30/2025 (Approximate), Expires: 01/30/2026 Start: 01-30-2025 End: 01-30-2026 Aspartate aminotransferase [Enzymatic activity/volume] in Serum or Plasma AST Lab Routine induced hypertension, antepartum ([facility]) Expected: 01/30/2025 (Approximate), Expires: 01/30/2026 [facility] Comment on above: Expected: 01/30/2025 (Approximate), Expires: 01/30/2026 Start: 01-30-2025 End: 01-30-2026 CBC W Auto Differential panel - Blood CBC and differential Lab Routine induced hypertension, antepartum ([facility]) Expected: 01/30/2025 (Approximate), Expires: 01/30/2026 [facility] Comment on above: Expected: 01/30/2025 (Approximate), Expires: 01/30/2026 Start: 01-30-2025 End: 01-30-2026 Creatinine [Mass/volume] in Serum or Plasma Creatinine Lab Routine induced hypertension, antepartum ([facility]) Expected: 01/30/2025 (Approximate), Expires: 01/30/2026 [facility] Comment on above: Expected: 01/30/2025 (Approximate), Expires: 01/30/2026 Start: 01-30-2025 End: 01-30-2026 CULTURE, GROUP B STREP WITH SUSCEPTIBLITY CULTURE, GROUP B STREP WITH SUSCEPTIBLITY Lab Routine Third trimester ([facility]) Expected: 01/30/2025, Expires: 01/30/2026 [facility] Work Phone: Comment on above: Expected: 01/30/2025 , Expires: 01/30/2026 Start: 01-30-2025 End: 01-30-2026 Lactate dehydrogenase [Enzymatic activity/volume] in Serum or Plasma by Lactate to pyruvate reaction Lactate dehydrogenase Lab Routine induced hypertension, antepartum ([facility]) Expected: 01/30/2025, Expires: 01/30/2026 [facility] Comment on above: Expected: 01/30/2025 , Expires: 01/30/2026 Start: 01-30-2025 End: 01-30-2026 Protein, urine, 24 hour Protein, urine, 24 hour Lab Routine induced hypertension, antepartum ([facility]) Expected: 01/30/2025 (Approximate), Expires: 01/30/2026 [facility] Comment on above: Expected: 01/30/2025 (Approximate), Expires: 01/30/2026 Start: 01-30-2025 End: 01-30-2026 Pt and ptt Pt and ptt Lab Routine induced hypertension, antepartum ([facility]) Expected: 01/30/2025, Expires: 01/30/2026 [facility] Comment on above: Expected: 01/30/2025 , Expires: 01/30/2026 Start: 01-30-2025 End: 01-30-2026 Urate [Mass/volume] in Serum or Plasma Uric acid Lab Routine induced hypertension, antepartum ([facility]) Expected: 01/30/2025 (Approximate), Expires: 01/30/2026 [facility] Comment on above: Expected: 01/30/2025 (Approximate), Expires: 01/30/2026 Start: 01-30-2025 End: 01-30-2026 Urea nitrogen [Mass/volume] in Serum or Plasma BUN Lab Routine induced hypertension, antepartum ([facility]) Expected: 01/30/2025, Expires: 01/30/2026 [facility] Comment on above: Expected: 01/30/2025 , Expires: 01/30/2026 Start: 01-30-2025 End: 07-31-2025 US biophysical profile w non stress test US biophysical profile w non stress test Imaging Routine 36 weeks gestation of ([facility]) Third trimester ([facility]) Excessive growth affecting management of , antepartum, single or unspecified fetus ([facility]) induced hypertension, antepartum ([facility]) Expected: 01/30/2025 (Approximate), Expires: 07/31/2025 [facility] Comment on above: Expected: 01/30/2025 (Approximate), Expires: 07/31/2025 Start: 01-30-2025 End: 01-30-2025 Patient encounter procedure 01/30/2025 1:30 PM EDT Routine [facility] [address] [place] [phone] Quinn Osman, HEAD ATHLETIC TRAINER/STRENGTH COACH [address] [place] [phone] [facility] Start: 01-30-2025 End: 01-30-2025 Professional / ancillary services management 01/30/2025 1:00 PM EDT Ancillary Procedure [facility] [address] [place] [phone] [facility] Start: 01-16-2025 End: 01-16-2025 Patient encounter procedure 01/16/2025 11:20 AM EDT Routine [facility] [address] [place] [phone] Uma Mccormick PA [address] [place] [address] [facility] Start: 01-02-2025 End: 05-04-2025 US for US OB follow up transabdominal approach Imaging Routine Excessive growth affecting management of , antepartum, single or unspecified fetus ([facility]) Expected: 01/02/2025, Expires: 05/04/2025 [facility] Work Phone: Comment on above: Expected: 01/02/2025 , Expires: 05/04/2025 Start: 01-02-2025 End: 01-02-2025 Patient encounter procedure 01/02/2025 11:00 AM EDT Routine [facility] [address] [place] [phone] Dominik Odonnell, [address] [place], [place] [phone] [facility] Start: 12-31-2024 Influenza vaccination [facility] Start: 12-25-2024 End: 12-25-2024 Patient encounter procedure 12/25/2024 10:00 AM EDT Office Visit [facility] [address] [place] [phone] Dominik Odonnell, [address] [place], [place] [phone] [facility] Start: 12-19-2024 End: 12-19-2024 Patient encounter procedure 12/19/2024 11:20 AM EDT Routine [facility] [address] [place] [phone] Uma Mccormick PA [address] [place] [address] [facility] Start: 12-19-2024 End: 12-19-2024 Professional / ancillary services management 12/19/2024 10:30 AM EDT Ancillary Procedure [facility] [address] [place] [address] [facility] Start: 12-05-2024 End: 12-05-2024 Patient encounter procedure 12/05/2024 3:30 PM EDT Routine [facility] [place] [facility] [address] [place] [phone] Dominik Odonnell, DO [address] [place] [address] Arrived [facility] Comment on above: Arrived Start: 12-05-2024 End: 04-06-2025 US for US OB follow up transabdominal approach Imaging Routine size inconsistent with dates ([facility]) Expected: 12/05/2024, Expires: 04/06/2025 [facility] Work Phone: Comment on above: Expected: 12/05/2024 , Expires: 04/06/2025 Start: 11-12-2024 End: 11-12-2024 Patient encounter procedure 11/12/2024 3:50 PM EDT Routine [facility] [address] [place] [address] Uma Mccormick PA [address] [place] [address] [facility] Start: 11-07-2024 End: 11-07-2024 Professional / ancillary services management 11/07/2024 10:30 AM EDT Ancillary Procedure [facility] [address] [place] [phone] [facility] Start: 10-29-2024 End: 10-29-2024 Patient encounter procedure 10/29/2024 3:40 PM EDT Routine [facility] [address] [place] [phone] Dominik Odonnell, DO [address] [place] [address] [facility] Start: 10-29-2024 End: 10-29-2025 CBC panel - Blood by Automated count CBC Lab Routine Diabetes mellitus screening Expected: 10/29/2024 (Approximate), Expires: 10/29/2025 [facility] Work Phone: Comment on above: [...] EDT Ancillary Procedure [facility] [address] [place] [address] [facility] Start: 10-01-2024 End: [...] for anatomic survey Expected: 10/01/2024, Expires: 01/01/2025 [facility] Comment on above: Expected: 10/01/2024 , [...] Expected: 08/02/2024 (Approximate), Expires: 08/02/2025 [facility] Work Phone: Comment on above: Expected: 08/02/2024 (Approximate), Expires: 08/02/2025 Start: 08-02-2024 End: 08-02-2025 Drugs of abuse panel - Urine by Screen method Rapid drug screen, urine Lab Routine , unspecified gestational age Encounter for supervision of normal first in first trimester Expected: 08/02/2024 (Approximate), Expires: 08/02/2025 [facility] Comment on above: Expected: 08/02/2024 (Approximate), Expires: 08/02/2025 Start: 07-18-2024 End: 07-18-2024 Patient encounter procedure 07/18/2024 1:00 PM EDT Office Visit [facility] [address] [place] [address] Wero Valderrama, HEAD ATHLETIC TRAINER/STRENGTH COACH [address] [place] [address] [facility] Start: 06-20-2024 End: 06-20-2024 Patient encounter procedure 06/20/2024 1:30 PM EST Office Visit [facility] [address] [place] [address] Wero Valderrama, HEAD ATHLETIC TRAINER/STRENGTH COACH [address] [place] [address] Arrived [facility] Comment on above: Arrived Start: 06-11-2024 Screening for malign ant neoplasm of cervix Pap Smear [facility] Start: 04-18-2024 End: 04-18-2024 Patient encounter procedure 04/18/2024 10:30 AM EST Office Visit [facility] [address] [place] [address] Colten Lam MD [address] [facility] [address] [place] [address] [facility] Start: 01-01-2024 Influenza vaccination [facility] Start: 10-30-2023 Influenza vaccination Influenza Vacc ine (#1) [facility] Comment on above: Postponed from 12/31 (Patient Refused) Start: 06-20-2023 End: 06-20-2023 Patient encounter procedure 06/20/2023 11:15 AM EST Office Visit [facility] [address] [facility] [address] [place] [address] Colten Lam MD [address] [facility] [address] [place] [address] [facility] Start: 06-11-2022 Screening for malign ant neoplasm of cervix Pap Smear [facility] Start: 09-13-2009 Adult BMI Screening Adult BMI Screen [facility] Bacteria identified in Urine by Culture Urine culture Microbiology Routine Missed menses Ordered: 08/02/2024 [facility] Comment on above: Ordered: 08/02/2024 CBC W Auto Different ial panel - Blood CBC and differential Lab Routine Missed menses , unspecified gestational age Ordered: 08/02/2024 [facility] Comment on above: Ordered: 08/02/2024 CHLAMYDIA TRACHOMATI S (GENITO/STI) CHLAMYDIA TRACHOMATIS (GENITO/STI) Lab Routine STD exposure Ordered: 10/01/2024 [facility] Comment on above: Ordered: 10/01/2024 Cytology Cervical or vaginal smear or scraping study Pap Smear Pathology and Cytology Routine Well woman exam with routine gynecological exam Ordered: 10/01/2024 [facility] Work Phone: Comment on above: Ordered: 10/01/2024 Hemoglobin A1c/Hemoglobin.total in Blood Hemoglobin A1c Lab Routine Missed menses , unspecified gestational age Ordered: 08/02/2024 [facility] Comment on above: Ordered: 08/02/2024 Hepatitis B virus aparicio rface Ag [Presence] in Serum or Plasma by Immunoassay Hepatitis B surface antigen Lab Routine Missed menses , unspecified gestational age Ordered: 08/02/2024 [facility] Comment on above: Ordered: 08/02/2024 Hepatitis C virus Ab [Presence] in Serum or Plasma by Immunoassay Hepatitis C antibody Lab Routine Missed menses , unspecified gestational age Ordered: 08/02/2024 [facility] Comment on above: Ordered: 08/02/2024 HIV-1/HIV-2 antigen/antibody combination immunoassay HIV-1 and HIV-2 antibodies Lab Routine Missed menses , unspecified gestational age Ordered: 08/02/2024 [facility] Comment on above: Ordered: 08/02/2024 Human papilloma viru s DNA [Presence] in Unspecified specimen by Probe with amplification HPV DNA probe, amplified Microbiology Routine Well woman exam with routine gynecological exam Ordered: 10/01/2024 [facility] Comment on above: Ordered: 10/01/2024 Neisseria gonorrhoea e DNA [Presence] in Unspecified specimen by MAURICE with probe detection Neisseria gonorrhea DNA probe, direct Lab Routine STD exposure Ordered: 10/01/2024 [facility] Comment on above: Ordered: 10/01/2024 Reagin Ab [Presence] in Serum by RPR RPR Lab Routine Missed menses , unspecified gestational age Ordered: 08/02/2024 [facility] Comment on above: Ordered: 08/02/2024 Rubella antibody, IgG Rubella an tibody, IgG Lab Routine Missed menses , unspecified gestational age Ordered: 08/02/2024 [facility] Comment on above: Ordered: 08/02/2024 SURESWAB(R) ADVANCED VAGINITIS PLUS, TMA SURESWAB(R) ADVANCED VAGINITIS PLUS, TMA Pathology and Cytology Routine STD exposure Ordered: 10/01/2024 [facility] Comment on above: Ordered: 10/01/2024 Immunizations Immunization Date Immunization Notes Care Provider Fa cility 09-27-2017 tetanus toxoid, redu sade diphtheria toxoid, and acellular pertussis vaccine, adsorbed Allison Arreola MA [facility] 05-17-2017 influenza, injectabl e, quadrivalent, preservative free Allison Arreola MA [facility] 05-17-2017 influenza virus vacc ine, unspecified formulation Allison Arreola MA [facility] Payers Date Payer Category Payer [facility] [id number] 2023 [employer] Blue [employer] Managed Care - Other [employer] [id number] 2023 Unknown BCBS BCBS [id number] [id number] 2023-Present [phone] [address] [place] [address] [id number] 2023 Unknown [id number] 2014 Unknown [id number] 1991 Unknown [id number] 2.16.840.1.442674.3.57 9.2.593 1991 Unknown [id number] 2.16840.1.588665.3.57 9.2.593 1991 Unknown [id number] 2.16.840.1.618064.3.57 9.2.593 1991 Unknown [id number] 2.16.840.1.628037.3.57 9.2.1286 1991 Unknown [id number] 2.16.840.1.462841.3.57 9.2.1286 1991 Unknown [id number] 2.16.840.1.257200.3.57 9.2.1259 1991 Unknown [id number] 2.16.840.1.758651.3.57 9.2.125 1991 Unknown [id number] 2.16840.1.357174.3.57 9.2.1258 1991 Unknown [id number] 2.16.840.1.521109.3.57 9.2.1258 1991 Unknown [id number] 2.840.1.922666.3.57 9.2.125 1991 Unknown [id number] 2.840.1.447967.3.57 9.2.1258 1991 Unknown [id number] 2.840.1.648058.3.57 9.2.1258 1991 Unknown [id number] 2.16.840.1.246492.3.57 9.2.125 1991 Unknown [id number] 2.16840.1.573535.3.57 9.2.125 1991 Unknown [id number] 2.16.840.1.674174.3.57 9.2.125 1991 Unknown [id number] 2.16.840.1.104896.3.57 9.2.1258 1991 Unknown [id number] 2.16.840.1.780814.3.57 9.2.125 1991 Unknown [id number] 2.16.840.1.720259.3.57 9.2.1259 1991 Unknown [id number] 2.16.840.1.633608.3.57 9.2.1259 1991 Unknown [id number] 2.16.840.1.451858.3.57 9.2.9 1991 Unknown [id number] 2.16.840.1.977920.3.57 9.2.1259 1959 Self-pay 1959 Unknown [id number] Social History Date Type Detail Facility Start: 11-05-2022 End: 02-06-2024 Tobacco smoking status [facility] Never smoked tobacco [facility] Work Phone: Start: 11-05-2022 End: 02-06-2024 Tobacco use and exposure Smokeless tobacco non-user [facility] Start: 05-19-2023 End: 02-06-2025 Alcohol intake Current drinker of alcohol (finding) [facility] Start: 12-20-2022 End: 05-19-2023 Alcohol intake [facility] Start: 12-20-2022 End: 06-20-2024 Alcohol Use Disorder Identification Test - Consumption [AUDIT-C] [facility] How often to you hav e a drink containing alcohol? 2-4 times a month [facility] How many standard dr inks containing alcohol do you have on a typical day? 1 or 2 [facility] How often do you hav e 6 or more drinks on 1 occasion? Never [facility] Start: 09-16-2022 End: 02-06-2024 Education 13 [facility] Start: 12-20-2022 Alcohol Comment Caffeine intak e: 1-2 cups coffee per day [facility] Start: 1990 Sex Assigned At Not on file N [facility] Adolescent depressio n screening assessment 10 [facility] Start: 02-06-2024 Alcohol Comment 1-2 times a month Pr [facility] Start: 12-05-2014 Sex Female (finding) [facility] Start: 06-04-2024 [facility] NEGATED: Highlighted rowStart: NINF History of tobacco use Passive smoker [facility] Clinical Notes 06-08-2023 to 02-06-2025 Quinn Osman NP - 02/06/2025 1:20 PM EDNathalia Copeland LPN - 01/30/2025 1:30 PM AMISH Cline - 01/16/2025 11:20 AM Slim Haddad LPN - 01/02/2025 11:00 AM EDT Note Date & Type Note Facility 02-06-2025 History of Presen t illness Narrative Reason [...] or radiculopathy 02/23/2023 Tension headache 02/23/2023 Term ([facility]) 10/04/2017 Vaginal odor 02/23/2023 Class 1 obesity without serious comorbidity with body mass index (BMI) of 31.0 to 31.9 in adult 04/19/2023 Bipolar II disorder (HCC) 02/06/2024 Generalized anxiety disorder 02/06/2024 32 weeks gestation of ([facility]) 01/02/2025 Resolved Ambulatory Problems Diagnosis Date [...] nursing note reviewed. Exam conducted with a clinical nurse manager present. Vitals: Estimated body mass index is 42.12 kg/m as calculated from the following: Height as of 06/20/24: 5' 3 . Weight as of this encounter: 237 lb 12.8 oz. BP: Patient's last menstrual period was 05/21/2024. ASSESSMENT & PLAN ICD-10-CM 1. 37 weeks gestation of ([facility]) Z3A.37 POCT urinalysis dipstick manually resulted 2. Third trimester ([facility]) Z34.93 POCT urinalysis dipstick manually resulted 3. Excessive growth affecting management of , antepartum, single or unspecified fetus ([facility]) O36.60X0 Return OB: Patient presents today [...] Quinn Osman NP documented in this encounter [facility] 01-30-2025 History of Presen t illness Narrative [...] Noted Bipolar affective disorder, currently depressed, mild ([facility]) 08/31/2022 Anxiety 08/31/2022 Mild episode of recurrent major depressive disorder 08/31/2022 Amenorrhea 02/23/2023 Attention deficit 02/23/2023 Daytime hypersomnia 02/23/2023 Foraminal stenosis of cervical region 02/23/2023 Insulin resistance 02/23/2023 Migraine without aura and with status migrainosus, not intractable 02/23/2023 Other chronic pain 02/23/2023 Spondylosis of cervical region without myelopathy or radiculopathy 02/23/2023 Tension headache 02/23/2023 Term ([facility]) 10/04/2017 Vaginal odor 02/23/2023 Class 1 obesity without serious comorbidity with body mass index (BMI) of 31.0 to 31.9 in adult 04/19/2023 Bipolar II disorder (HCC) 02/06/2024 Generalized anxiety disorder 02/06/2024 32 weeks gestation of ([facility]) 01/02/2025 Resolved Ambulatory Problems Diagnosis Date Noted [...] nursing note reviewed. Exam conducted with a clinical nurse manager present. Vitals: Estimated body mass index is 41.88 kg/m as calculated from the following: Height as of 06/20/24: 5' 3 . Weight as of this encounter: 236 lb 6.4 oz. BP: Patient's last menstrual period was 05/21/2024. ASSESSMENT & PLAN ICD-10-CM 1. 36 weeks gestation of ([facility]) Z3A.36 POCT urinalysis dipstick manually resulted US biophysical profile w non stress test 2. Third trimester ([facility]) Z34.93 POCT urinalysis dipstick manually resulted CULTURE, GROUP B STREP WITH SUSCEPTIBLITY CULTURE, GROUP B STREP WITH SUSCEPTIBLITY US biophysical profile w non stress test 3. Excessive growth affecting management of , antepartum, single or unspecified fetus ([facility]) O36.60X0 US biophysical profile w non stress test 4. induced hypertension, antepartum ([facility]) O13.9 Creatinine Protein, urine, 24 hour Pt [...] Quinn Osman NP documented in this encounter [facility] 01-16-2025 History of Presen t illness Narrative [...] or radiculopathy 02/23/2023 Tension headache 02/23/2023 Term ([facility]) 10/04/2017 Vaginal odor 02/23/2023 Class 1 obesity without serious comorbidity with body mass index (BMI) of 31.0 to 31.9 in adult 04/19/2023 Bipolar II disorder ([facility]) 02/06/2024 Generalized anxiety disorder 02/06/2024 32 weeks gestation of ([facility]) 01/02/2025 Resolved Ambulatory Problems Diagnosis Date [...] ASSESSMENT & PLAN ICD-10-CM 1. Third trimester ([facility]) Z34.93 POCT urinalysis dipstick manually resulted 2. 34 weeks gestation of ([facility]) Z3A.34 POCT urinalysis dipstick manually resulted Return [...] of: AMISH Toussaint documented in this encounter [facility] 01-02-2025 History of Presen t illness [...] Noted Bipolar affective disorder, currently depressed, mild ([facility]) 08/31/2022 Anxiety 08/31/2022 Mild episode of recurrent major depressive disorder 08/31/2022 Amenorrhea 02/23/2023 Attention deficit 02/23/2023 Daytime hypersomnia 02/23/2023 Foraminal stenosis of cervical region 02/23/2023 Insulin resistance 02/23/2023 Migraine without aura and with status migrainosus, not intractable 02/23/2023 Other chronic pain 02/23/2023 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 Exam conducted with a clinical nurse manager present. Vitals: Estimated body mass index is 39.4 kg/m as calculated from the following: Height as of 06/20/24: 5' 3 . Weight as of this encounter: 222 lb 6.4 oz. BP: 122/78 Patient's last menstrual period was 05/21/2024. ASSESSMENT & PLAN ICD-10-CM 1. 32 weeks gestation of ([facility]) Z3A.32 2. Third trimester ([facility]) Z34.93 Return OB: Patient presents today for [...] Dominik Odonnell DO documented in this encounter [facility] 12-19-2024 History of Presen t illness [...] or radiculopathy 02/23/2023 Tension headache 02/23/2023 Term ([facility]) 10/04/2017 Vaginal odor 02/23/2023 Class 1 obesity [...] ASSESSMENT & PLAN ICD-10-CM 1. Third trimester ([facility]) Z34.93 2. 30 weeks gestation of ([facility]) Z3A.30 Return OB: Patient presents today [...] of: AMISH Toussaint documented in this encounter [facility] 12-05-2024 History of Presen t illness [...] or radiculopathy 02/23/2023 Tension headache 02/23/2023 Term ([facility]) 10/04/2017 Vaginal odor 02/23/2023 Class 1 obesity [...] nursing note reviewed. Exam conducted with a clinical nurse manager present. Vitals: Estimated body mass index is 37.55 kg/m as calculated from the following: Height as of 06/20/24: 5' 3 . Weight as of this encounter: 212 lb. BP: 122/70 Patient's last menstrual period was 05/21/2024. ASSESSMENT & PLAN ICD-10-CM 1. Third trimester ([facility]) Z34.93 POCT urinalysis dipstick manually resulted 2. 28 weeks gestation of ([facility]) Z3A.28 Return OB: Patient presents today for [...] Dominik Odonnell DO documented in this encounter [facility] 11-12-2024 History of Presen t illness [...] Noted Bipolar affective disorder, currently depressed, mild ([facility]) 08/31/2022 Anxiety 08/31/2022 Mild episode of recurrent major depressive disorder 08/31/2022 Amenorrhea 02/23/2023 Attention deficit 02/23/2023 Daytime hypersomnia 02/23/2023 Foraminal stenosis of cervical region 02/23/2023 Insulin resistance 02/23/2023 Migraine without aura and with status migrainosus, not intractable 02/23/2023 Other chronic pain 02/23/2023 Spondylosis of cervical region without myelopathy or radiculopathy 02/23/2023 Tension headache 02/23/2023 Term ([facility]) 10/04/2017 Vaginal odor 02/23/2023 Class 1 obesity [...] ASSESSMENT & PLAN ICD-10-CM 1. Second trimester ([facility]) Z34.92 POCT urinalysis dipstick manually resulted 2. 25 weeks gestation of ([facility]) Z3A.25 Return OB: Patient presents today [...] of: AMISH Toussaint documented in this encounter [facility] 10-29-2024 History of Presen t illness [...] Noted Bipolar affective disorder, currently depressed, mild ([facility]) 08/31/2022 Anxiety 08/31/2022 Mild episode of recurrent major depressive disorder 08/31/2022 Amenorrhea 02/23/2023 Attention deficit 02/23/2023 Daytime hypersomnia 02/23/2023 Foraminal stenosis of cervical region 02/23/2023 Insulin resistance 02/23/2023 Migraine without aura and with status migrainosus, not intractable 02/23/2023 Other chronic pain 02/23/2023 Spondylosis of cervical region without myelopathy or radiculopathy 02/23/2023 Tension headache 02/23/2023 Term ([facility]) 10/04/2017 Vaginal odor 02/23/2023 Class 1 obesity [...] nursing note reviewed. Exam conducted with a clinical nurse manager present. Vitals: Estimated body mass index is 36.23 kg/m as calculated from the following: Height as of 06/20/24: 5' 3 . Weight as of this encounter: 204 lb 8 oz. BP: 140/76 Patient's last menstrual period was 05/21/2024. ASSESSMENT & PLAN ICD-10-CM 1. Diabetes mellitus screening Z13.1 CBC Glucose tolerance, 1 hour CBC Glucose tolerance, 1 hour 2. Second trimester ([facility]) Z34.92 3. 23 weeks gestation of ([facility]) Z3A.23 Return OB: Patient presents today [...] Dominik Odonnell DO documented in this encounter [facility] 10-01-2024 History of Presen t illness [...] Noted Bipolar affective disorder, currently depressed, mild ([facility]) 08/31/2022 Anxiety 08/31/2022 Mild episode of recurrent major depressive disorder (HCC) ([facility]) 08/31/2022 Amenorrhea 02/23/2023 Attention deficit 02/23/2023 Daytime [...] 31.9 in adult 04/19/2023 Bipolar II disorder ([facility]) 02/06/2024 Generalized anxiety disorder ([facility]) 02/06/2024 Resolved Ambulatory Problems Diagnosis Date Noted No Resolved Ambulatory Problems Past Medical History: Diagnosis Date Acute headache Depression (CMS/HCC) IUD (intrauterine device) in place 05/2018 HISTORY PAST MEDICAL HISTORY SOCIAL HISTORY Past Medical History: Diagnosis Date Acute headache Anxiety Depression ([facility]) IUD (intrauterine device) in place 05/2018 Liletta [...] of: AMISH Toussaint documented in this encounter [facility] 09-03-2024 History of Presen t illness [...] Noted Bipolar affective disorder, currently depressed, mild ([facility]) 08/31/2022 Anxiety 08/31/2022 Mild episode of recurrent major depressive disorder (HCC) ([facility]) 08/31/2022 Amenorrhea 02/23/2023 Attention deficit 02/23/2023 Daytime hypersomnia 02/23/2023 Foraminal stenosis of cervical region 02/23/2023 Insulin resistance 02/23/2023 Migraine without aura and with status migrainosus, not intractable ([facility]) 02/23/2023 Other chronic pain 02/23/2023 Spondylosis of cervical region without myelopathy or radiculopathy 02/23/2023 Tension headache 02/23/2023 Term 10/04/2017 Vaginal odor 02/23/2023 Class 1 obesity without serious comorbidity with body mass index (BMI) of 31.0 to 31.9 in adult 04/19/2023 Bipolar II disorder ([facility]) 02/06/2024 Generalized anxiety disorder ([facility]) 02/06/2024 Resolved Ambulatory Problems Diagnosis Date Noted No Resolved Ambulatory Problems Past Medical History: Diagnosis Date Acute headache Depression ([facility]) IUD (intrauterine device) in place 05/2018 HISTORY PAST MEDICAL HISTORY SOCIAL HISTORY Past Medical History: Diagnosis Date Acute headache Anxiety Depression ([facility]) IUD (intrauterine device) in place 05/2018 Liletta [...] nursing note reviewed. Exam conducted with a clinical nurse manager present. Vitals: Estimated body mass index is [...] Dominik Odonnell DO documented in this encounter [facility] 08-02-2024 History of Presen t illness [...] Noted Bipolar affective disorder, currently depressed, mild ([facility]) 08/31/2022 Anxiety 08/31/2022 Mild episode of recurrent [...] 31.9 in adult 04/19/2023 Bipolar II disorder ([facility]) 02/06/2024 Generalized anxiety disorder ([facility]) 02/06/2024 Resolved Ambulatory Problems Diagnosis Date Noted No Resolved Ambulatory Problems Past Medical History: Diagnosis Date Acute headache Depression ([facility]) IUD (intrauterine device) in place 05/2018 Family [...] Odonnell at next visit. Pt will have [place] and labs done. Pt is in need [...] or undercooked meat, and [facility]. Patient has also been advised to not [...] Alida Ryan MA documented in this encounter [facility] 06-20-2024 History of Presen t illness [...] discussed diet and exercise. She declines a assistant therapy aide consult at this time. She states that her insurance will not cover the cost. We will restart the phentermine today - phentermine (Adipex-P) 37.5 MG tablet; Take 1 tablet (37.5 mg) by mouth in the morning. Dispense: 30 tablet; Refill: 0 No follow-ups on file. documented in this encounter [facility] 04-04-2024 Telephone encount er Note Refill sent. [facility] 04-04-2024 Miscellaneous Notes Formattin g of this note might be different from the original. Refill sent. documented in this encounter [facility] 01-09-2024 Telephone encount er Note OARRS reviewed, Rx sent into patient's pharmacy. [facility] 01-09-2024 Miscellaneous Notes Formattin g of this note might be different from the original. OARRS reviewed, Rx sent into patient's pharmacy. venlafaxine XR (Effexor XR) 75 MG 24 hr capsule lamoTRIgine (LaMICtal) 200 MG tablet BOTH OF THESE NEED SENT TO [facility] [place] - the effexor 37.5 was sent already but she takes 75 mg as well. documented in this encounter [facility] 01-09-2024 Telephone encount er Note venlafaxine XR (Effexor XR) 75 MG 24 hr capsule lamoTRIgine (LaMICtal) 200 MG tablet BOTH OF THESE NEED SENT TO [facility] IN [place] - the effexor 37.5 was sent already but she takes 75 mg as well. [facility] 01-04-2024 Telephone encount er Note Refill not appropriate. [facility] 01-04-2024 Miscellaneous Notes Formattin g of this note might be different from the original. Refill not appropriate. Refills have been requested for the following medications: Other - Cough medicine Preferred pharmacy: [facility] [address] [place] [address] [address] Delivery method: Pickup documented in this encounter [facility] 01-03-2024 Telephone encount er Note Refills have been requested for the following medications: Other - Cough medicine Preferred pharmacy: [facility] [address] [place] [address] [address] Delivery method: Pickup [facility] 06-08-2023 Telephone encount er Note Pt is trying to get a different customer solutions coordinator and wanted to find out if you would be will in send in a refill lamictal, effexor both of these to in [place] [facility] 06-08-2023 Miscellaneous Notes Formattin g of this note might be different from the original. Pt is trying to get a different customer solutions coordinator and wanted to find out if you would be will in send in a refill lamrod, kylerexor both of these to [facility] darby hernandez documented in this encounter [facility] Evaluation [...] screening Screening for diabetes mellitus Second trimester ([facility]) state, incidental 23 weeks gestation of ([facility]) [...] , antepartum documented [facility] Diagnosis 37 weeks gestation of ([facility]) Third trimester ([facility]) state, incidental Excessive growth affecting management of , antepartum, single or unspecified fetus ([facility]) Hypertension during in third trimester, unspecified hypertension in type ([facility]) documented in this encounter [facility] Family History [...] and content) DATE CREATED AUTHOR 10/18/2017 Precious canela DATE CREATED AUTHOR AUTHOR'S ORGANIZ ATION 12/19/2019 [facility] DATE CREATED AUTHOR AUTHOR'S ORGANIZ ATION 05/13/2021 [facility] DATE CREATED AUTHOR AUTHOR'S ORGANIZ ATION 08/19/2024 [facility] DATE CREATED AUTHOR AUTHOR'S ORGANIZ ATION 02/08/2025 [facility] dical Specialists EPIC Care Teams (unrecognized sec tion and content) Sales Assistants And Salespersons Relationship Specialty Start Date End Date Colten aLm MD [address] [place] [address] PCP - General Internal Medicine 09/23/22 [employer] Assistants [employer] Salespers[employer] Relationship Specialty Start Date End Date Colten Lam MD [address] [place] [address] PCP - [place] [employer] 04/01/22 Colten Lam MD [address] [place] [address] PCP - General Internal Medicine 09/23/22 Sales Assistants And Salespers[employer] Relationship Specialty Start Date End Date Colten Lam MD [address] [place] [address] PCP - [place] [employer] 04/01/22 Colten aLm MD [address] [place] [address] PCP - General Internal Medicine 09/23/22 Sales Assistants And Salespersons Relationship Specialty Start Date End Date Colten Lam MD [address] [place] [address] PCP - [place] [employer] 04/01/22 Colten Lam MD [address] [place] [address] PCP - General Internal Medicine 09/23/22 Sales Assistants And Salespersons Relationship Specialty Start Date End Date Colten Lam MD [address] [place] [address] PCP - [place] [employer] 04/01/22 Colten Lam MD [address] [place] [address] PCP - General Internal Medicine 09/23/22 Sales Assistants And Salespersons Relationship Specialty Start Date End Date Colten Lam MD [address] [place] [address] PCP - [place] [employer] 04/01/22 Colten Lam MD [address] [place] [address] PCP - General Internal Medicine 09/23/22 Sales Assistants And Salespersons Relationship Specialty Start Date End Date Colten Lam MD [address] [place] [address] PCP - General Internal Medicine 09/23/22 Ema Cruz, MEDICAL CODER-METER SHOP SUPERVISOR [address] [facility] [address] [place] [address] PCP - [place] [employer] 04/01/24 Sales Assistants And Salespersons Relationship Specialty Start Date End Date Colten Lam MD [address] [place] [address] PCP - General Internal Medicine 09/23/22 Ema Cruz, MEDICAL CODER-[employer]ER SH[employer] SUPERVISOR [address] [place] [address] PCP - [place] [employer] 04/01/24 Sales Assistants And Salespersons Relationship Specialty Start Date End Date Colten Lam MD [address] [place] [address] PCP - General Internal Medicine 01/30/24 Sales Assistants And Salespersons Relationship Specialty Start Date End Date Colten Lam MD [address] [place] [address] PCP - General Internal Medicine 09/23/22 Ema Cruz, MEDICAL CODER-[employer]ER SH[employer] SUPERVISOR [address] [place] [address] PCP - [place] [employer] 04/01/24 Sales Assistants And Salespersons Relationship Specialty Start Date End Date Colten Lam MD [address] [place] [address] PCP - General Internal Medicine 09/23/22 Ema Cruz, MEDICAL CODER-[employer]ER SH[employer] SUPERVISOR [address] [place] [address] PCP - [place] [employer] 04/01/24 Sales Assistants And Salespersons Relationship Specialty Start Date End Date Colten Lam MD [address] [place] [address] PCP - General Internal Medicine 09/23/22 Ema Cruz, MEDICAL CODER-[employer]ER SH[employer] SUPERVISOR [address] [place] [address] PCP - [place] [employer] 04/01/24 Sales Assistants And Salespersons Relationship Specialty Start Date End Date Colten Lam MD [address] [place] [address] PCP - General Internal Medicine 09/23/22 Sales Assistants And Salespersons Relationship Specialty Start Date End Date Colten Lam MD [address] [place] [address] PCP - General Internal Medicine 09/23/22 Sales Assistants And Salespersons Relationship Specialty Start Date End Date Colten Lam MD [address] [place] [address] PCP - General Internal Medicine 09/23/22 Sales Assistants And Salespersons Relationship Specialty Start Date End Date Colten Lam MD [address] [place] [address] PCP - General Internal Medicine 09/23/22 Sales Assistants And Salespersons Relationship Specialty Start Date End Date Colten Lam MD [address] [place] [address] PCP - General Internal Medicine 09/23/22 Sales Assistants And Salespersons Relationship Specialty Start Date End Date Colten Lam MD [address] [place] [address] PCP - General Internal Medicine 09/23/22 Sales Assistants And Salespersons Relationship Specialty Start Date End Date Colten Lam MD [address] [place] [address] PCP - General Internal Medicine 09/23/22 Sales Assistants And Salespersons Relationship Specialty Start Date End Date Colten Lam MD [address] [place] [address] PCP - General Internal Medicine 09/23/22 Sales Assistants And Salespersons Relationship Specialty Start Date End Date Colten Lam MD [address] [place] [address] PCP - General Internal Medicine 09/23/22 Sales Assistants And Salespersons Relationship Specialty Start Date End Date Colten Lam MD [address] [place] [address] PCP - General Internal Medicine 09/23/22 Sales Assistants And Salespersons Relationship Specialty Start Date End Date Colten Lam MD [address] [facility] [place] [address] [place] [address] PCP - General Internal Medicine 09/23/22 Sales Assistants And Salespersons Relationship Specialty Start Date End Date Coltne Lam MD [address] [facility] [address] [place] [address] PCP - General Internal Medicine 09/23/22 Sales Assistants And Salespersons Relationship Specialty Start Date End Date Colten Lam MD [address] [facility] [place] [address] [place] [address] PCP - General Internal Medicine 09/23/22 Sales Assistants And Salespersons Relationship Specialty Start Date End Date Colten Lam MD [address] [facility] [place] [address] [place] [address] PCP - General Internal Medicine 09/23/22 Reason [...] BE BASED ON THE PRIMARY CLINICAL RECORDS. [facility]. provides no warranty or guarantee of the accuracy or completeness of information in this document.
--- OUTSIDE RECORDS SUMMARY | 2025-02-09 12:56 | XMS_ITS | Encounter Summary ---
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 file Not on fi le Not on file documented as of this encounter Plan of Treatment Upcoming Encounters Date Type Department Care Team (Late st Contact Info) Description 02/13/2025 11:30 AM EDT Routine [facility] [address] [facility] [place] [address] Dominik Odonnell DO [address] [place] [address] documented as of this encounter Procedures Procedure Name Priority Date/Time Associated Diagnosis Comments US OB GROWTH 01/30/2025 7:43 PM EDT documented in this encounter Results * US OB GROWTH (01/30/2025 7:43 PM EDT) Anatomical Region Laterality Modality Other 01/30/2025 7:43 PM EDT Narrative 01/30/2025 7:45 PM EDT [address] [address] Ultrasound Report Signed Patient: SHOBHA GA MR#: [id number] : 1990 Acct:[id number] Age/Sex: 34 / F ADM Date: Loc: [facility] 250-[address]: Quinn Osman Ordering Physician: Quinn Osman Date of Service: 01/30/25 Procedure(s): US OB growth Accession Number(s): [id number] cc: COLTEN LAM ; Quinn Osman The [address] [address] Patient Name: SHOBHA GA MRN: [id number] date: 1990 Sex: F Assigned Patient Location: [facility] Current Patient Location: Accession/Order Number: [id number] Exam Date: 01/30/2025 16:09 Report Date: 01/30/2025 [...] Pina M.D. 01/30/2025 7:43 PM Dictation Location: [place] [address] Electronically authenticated by: [id number] Y Date: 01/30/2025 19:43 Dictated By: Tyson Pina M.D. Signed By: 01/30/251944 DD/ 42 TD/TT: Dot Net Architect: Procedure Note Radiology, Radiologist, MD - 01/30/2025 [place] [address] Ultrasound Report Signed Patient: SHOBHA GA [facility]#: [id number] : 1990Acct:[id number] Age/Sex: 34 / FADM Date: Loc: [facility] 250-[address]: Quinn Osman Ordering Physician: Quinn Osman Date of Service: 01/30/25 Procedure(s): US OB growth Accession Number(s): [id number] cc: COLTEN LAM ; Quinn Osman The [place] [id number] Patient Name: SHOBHA GA MRN: [id number] date: 1990 Sex: F Assigned Patient Location: [facility] Current Patient Location: Accession/Order Number: [id number] Exam Date: 01/30/2025 16:09 Report Date: 01/30/2025 [...] Pina M.D. 01/30/2025 7:43 PM Dictation Location: [place] [address] Electronically authenticated by: [id number] Y Date: 9:43 Dictated By: Tyson Pina M.D. Signed By:01/30/251944 DD/ 42 TD/TT: Dot Net Architect: Quinn Osman STUDENT LIFE VICE PRESIDENT [facility] Final Resul t documented in this encounter Visit Diagnoses Not on filedocumented in this encounter Additional Health Concerns Assessment Noted Time PHQ-9 Depression Total Score: 15 03/30/ 023 2:06 PM EST documented as of this encounter Care Teams Brand Attendant Relationship Specialty Start Date End Date Colten Lam MD 112 [facility] 110 [place] [address] PCP - General Internal Medicine 09/23/22 documented as of this encounter
--- OUTSIDE RECORDS SUMMARY | 2025-02-09 12:56 | XMS_ITS | Encounter Summary ---
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 [place] [address] Dominik Odonnell DO [address] [facility] [place] [address] documented as of this encounter Procedures Procedure Name Priority Date/Time Associated Diagnosis Comments PAP SMEAR Routine 11/29/2022 12:00 AM EDT documented in this encounter Results * Pap Smear (11/29/2022 12:00 AM EDT) Swab Cervical swab / Unknown Blas Nurse [facility] Ob LAB CYTOLOGY ORDERABLES Final Result EXTERNAL LAB documented in this encounter Visit Diagnoses Not on filedocumented in this encounter Additional Health Concerns Assessment Noted Time PHQ-9 Depression Total Score: 15 03/30/ 023 2:06 PM EST documented as of this encounter Care Teams Nuclear Waste Management Engineer Relationship Specialty Start Date End Date Colten Lam MD 112 [facility] 110 [place] [address] PCP - General Internal Medicine 09/23/22 documented as of this encounter
--- OUTSIDE RECORDS SUMMARY | 2025-02-09 12:56 | XMS_ITS | Encounter Summary ---
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 Not on fi le Not on file documented as of this encounter Plan of Treatment Upcoming Encounters Date Type Department Care Team (Late st Contact Info) Description 02/13/2025 11:30 AM EDT Routine [facility] [address] [facility] [place] [address] Dominik Odonnell DO [address] [facility] [place] [address] documented as of this encounter Procedures Procedure Name Priority Date/Time Associated Diagnosis Comments TB[facility] TOTAL PROTEIN 24 HOUR URINE Routine 02/01/2025 12:58 PM EDT documented in this encounter Results * [facility] TOTAL PROTEIN 24 HOUR URINE (02/01/2025 12:58 PM EDT) TOTAL PROTEIN URINE RANDOM 11.1 <=11.9 mg/dL [facility] TOTAL VOLUME 24 HOUR URINE 1,150 mL/24hr TBH TBH TOTAL PROTEIN 24 HOUR URINE 127.7 <=149.1 mg/24hr [facility] 02/01/2025 12:5 8 PM EDT 02/01/2025 12:58 PM EDT Narrative [facility] - 02/01/2025 1:13 PM EDT us Annabel Osman NP [facility] Final Result [facility] documented in this encounter Visit Diagnoses Not on filedocumented in this encounter Additional Health Concerns Assessment Noted Time PHQ-9 Depression Total Score: 15 03/30/ 023 2:06 PM EST documented as of this encounter Care Teams Cardroom Worker Relationship Specialty Start Date End Date Colten Lam MD [address] [place] [address] [place] [address] PCP - General Internal Medicine 09/23/22 documented as of this encounter
[2025-02-09 13:05] VITALS: BP 130/75; PULSE 75; TEMP 36.4
== END 2025-02-09 13:40 | disposition home or self-care (01) ==
LOC: FBCO 12:53 → FBC 12:54
PROVIDERS: PCP Internal Medicine; Visit Provider Obstetrics & Gynecology
DX: O16.3 Unspecified maternal hypertension, third trimester (principal); Z3A.37 37 weeks gestation of pregnancy
CPT/HCPCS: 59025

== ENCOUNTER 2025-02-11 02:14 | Inpatient (IN) | payer BC, SELFPAY ==
--- OUTSIDE RECORDS SUMMARY | 2025-01-30 13:30 | XMS_ITS | Encounter Summary ---
Author Organization [facility] Address [address] [facility] [place] [address] Care Team Providers Care Wireless Retail Manager Name Role Phone Colten Lam MD Primary Care Provider [phone] Reason for Visit * Reason Comments Routine Visit Encounter Details Date Type Department Care Team (Late st Contact Info) Description 01/30/2025 1:30 PM EDT Routine [facility] [place] [facility] [address] [place] [address] Annabel Osman, SUPERVISOR POLISHING [address] [place] [address] 36 weeks gestation of ([facility]); Third trimester ([facility]); Excessive growth affecting management of , antepartum, single or unspecified fetus ([facility]); induced hypertension, antepartum ([facility]) Social History Tobacco Use Types Packs/Day Years [...] Job 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) 02/06/2024 Generalized anxiety disorder 02/06/2024 32 weeks gestation of ([facility]) 01/02/2025 Resolved Ambulatory Problems Diagnosis Date Noted [...] nursing note reviewed. Exam conducted with a oliver filter operator present. Vitals: Estimated body mass index is 41.88 kg/m?? as calculated from the following: Height as of 2/19/25: 5' 3 . Weight as of this encounter: 236 lb 6.4 oz. BP: Patient's last menstrual period was 05/21/2024. ASSESSMENT & PLAN ICD-10-CM 1. 36 weeks gestation of ([facility]) Z3A.36 POCT urinalysis dipstick manually resulted US biophysical profile w non stress test 2. Third trimester ([facility]) Z34.93 POCT urinalysis dipstick manually resulted CULTURE, GROUP B STREP WITH SUSCEPTIBLITY CULTURE, GROUP B STREP WITH SUSCEPTIBLITY US biophysical profile w non stress test 3. Excessive growth affecting management of , antepartum, single or unspecified fetus ([facility]) O36.60X0 US biophysical profile w non stress test 4. induced hypertension, antepartum ([facility]) O13.9 Creatinine Protein, urine, 24 hour Pt [...] [facility] [address] [place] [address] Dominik Odonnell, DO [address] [place] [address] Scheduled Orders Name Type Priority Associated Diagnoses [...] 1:47 PM EDT 36 weeks gestation of ([facility]) Third trimester ([facility]) documented in this encounter Results * CULTURE, [...] Visit Diagnoses Diagnosis 36 weeks gestation of ([facility]) Third trimester ([facility]) state, incidental Excessive growth affecting management of , antepartum, single or unspecified fetus ([facility]) induced hypertension, antepartum ([facility]) Transient hypertension of , antepartum documented in this encounter Additional Health Concerns Assessment Noted Time PHQ-9 Depression Total Score: 15 03/30/ 023 2:06 PM EST documented as of this encounter Care Teams Wireless Retail Manager Relationship Specialty Start Date End Date Colten Lam MD [address] [facility] [address] [place] [address] PCP - General Internal Medicine 09/23/22 documented as of this encounter
--- OUTSIDE RECORDS SUMMARY | 2025-02-06 13:20 | XMS_ITS | Encounter Summary ---
Author Organization [facility] Address [address] [place] [address] Care Team Providers Care Ssrs Report Developer Name Role Phone Colten Lam MD Primary Care Provider [phone] Reason for Visit * Reason Comments Routine Visit Encounter Details Date Type Department Care Team (Latest Contact Info) Description 02/06/2025 1:20 PM EDT Routine [facility] [place] [facility] [address] [place] [address] Annabel Osman, SEED PRODUCTION FIELD SUPERVISOR [address] [place] [address] 37 weeks gestation of ([facility]); Third trimester ([facility]); Excessive growth affecting management of , antepartum, single or unspecified fetus ([facility]); Hypertension during in third trimester, unspecified hypertension in type ([facility]) Social History Tobacco Use Types Packs/Day [...] Job Start Date 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 End Date 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 Exam conducted with a utilization review rn present. Vitals: Estimated body mass index is 42.12 kg/m?? as calculated from the following: Height as of 06/20/24: 5' 3 . Weight as of this encounter: 237 lb 12.8 oz. BP: Patient's last menstrual period was 05/21/2024. ASSESSMENT & PLAN ICD-10-CM 1. 37 weeks gestation of ([facility]) Z3A.37 POCT urinalysis dipstick manually resulted 2. Third trimester ([facility]) Z34.93 POCT urinalysis dipstick manually resulted 3. Excessive growth affecting management of , antepartum, single or unspecified fetus ([facility]) O36.60X0 Return OB: Patient presents today for [...] [facility] [address] [place] [address] Dominik Odonnell DO [address] [place], [place] [phone] documented as of this encounter Procedures Procedure [...] Visit Diagnoses Diagnosis 37 weeks gestation of ([facility]) Third trimester ([facility]) state, incidental Excessive growth affecting management of , antepartum, single or unspecified fetus ([facility]) Hypertension during in third trimester, unspecified hypertension in type ([facility]) documented in this encounter Additional Health Concerns Assessment Noted Time PHQ-9 Depression Total Score: 15 023 2:06 PM EST documented as of this encounter Care Teams Ssrs Report Developer Relationship Specialty Start Date End Date Colten Lam MD [address] [facility] 110 [place] [address] PCP - General Internal Medicine 09/23/22 documented as of this encounter
[2025-02-11] VITALS (39 sets, daily range): BP systolic 122–169; BP diastolic 62–96; PULSE 62–90; TEMP 36.5–37.3
--- OUTSIDE RECORDS SUMMARY | 2025-02-11 02:18 | XMS_ITS | Encounter Summary ---
Author Organization [facility] Address [address] [facility], [address] [place] [address] Care Team Providers Care Firearms Expert Name Role Phone Hortensia Sheriff MD Primary Care Provider [phone] Encounter Details Date Type Department Care Team (Late st Contact Info) Description 10/13/2017 FollowUp Telephone Encounter [facility] [address] [place], [place] [id number] Sharon Oswald, IBCLC OB Unit at [place] [id number] Social History Tobacco Use Types Packs/Day Years [...] on filedocumented in this encounter Care Teams Firearms Expert Relationship Specialty Start Date End Date Hortensia Sheriff MD [address] [place] [address] PCP - General 10/06/17 documented as of this encounter
--- OUTSIDE RECORDS SUMMARY | 2025-02-11 02:18 | XMS_ITS | Encounter Summary ---
Author Organization [facility] Address [address] [facility] [place] [address] Care Team Providers Care Log Cut Off Sawyer Name Role Phone Colten Lam MD Unavailable [phone] Colten Lam MD Primary Care Provider [phone] Moraima-Ema Hawkins SALES FLOOR ASSOCIATE-DIET CONSULTANT Unavailable Reason for Visit * Reason Comments Med Refill Encounter Details Date Type Department Care Team (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 [place] [address] documented as of this encounter Visit Diagnoses Diagnosis Bipolar affective disorder, currently depressed, mild (HCC) Bipolar I disorder, most recent episode (or current) depressed, mild documented in this encounter Care Teams Log Cut Off Sawyer Relationship Specialty Start Date End Date Colten Lam MD [address] [facility] [address] [place] [address] PCP - [place] [employer] 04/01/2203/31 Colten Lam MD 112 [facility] 110 [place] [address] PCP - General Internal Medicine 09/23/22 Ema Cruz, SALES FLOOR ASSOCIATE-DIET CONSULTANT [address] [facility] [address] [place] [address] PCP - [place] [employer] 04/01/24 documented as of this encounter
--- OUTSIDE RECORDS SUMMARY | 2025-02-11 02:18 | XMS_ITS | Encounter Summary ---
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 Not on fi le Not on file documented as of this encounter Plan of Treatment Upcoming Encounters Date Type Department Care Team (Late st Contact Info) Description 02/13/2025 11:30 AM EDT Routine [facility] [address] [facility] [place] [address] Dominik Odonnell DO [address] [facility] [place] [address] documented as of this encounter Visit Diagnoses Not on filedocumented in this encounter Additional Health Concerns Assessment Noted Time PHQ-9 Depression Total Score: 15 023 2:06 PM EST documented as of this encounter Care Teams Portable Grinding Machine Operator Relationship Specialty Start Date End Date Colten Lam MD [address] [facility] 110 [place] [address] PCP - General Internal Medicine 09/23/22 documented as of this encounter
--- OUTSIDE RECORDS SUMMARY | 2025-02-11 02:18 | XMS_ITS | Encounter Summary ---
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 [place] [address] documented as of this encounter Visit Diagnoses Not on filedocumented in this encounter Additional Health Concerns Assessment Noted Time PHQ-9 Depression Total Score: 15 023 2:06 PM EST documented as of this encounter Care Teams Welfare Case Worker Relationship Specialty Start Date End Date Colten Lam MD 112 [facility] 110 [place] [address] PCP - General Internal Medicine 09/23/22 documented as of this encounter
--- OUTSIDE RECORDS SUMMARY | 2025-02-11 02:18 | XMS_ITS | Encounter Summary ---
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 [place] [address] documented as of this encounter Procedures Procedure [...] documented as of this encounter Care Teams Rim Buster Relationship Specialty Start Date End Date Colten Lam MD 112 [facility] 110 [place] [address] PCP - General Internal Medicine 09/23/22 documented as of this encounter
--- OUTSIDE RECORDS SUMMARY | 2025-02-11 02:18 | XMS_ITS | Clinical Summary ---
Author Organization [facility] Address [address] [place] [address] Care Team Providers Care [employer] Academic Coach Name Role Phone Colten Lam MD Primary Care Provider [phone] Allergies No known active allergies Medications venlafaxine [...] Date Diagnosed Date 32 weeks gestation of ([facility]) 2024 Bipolar II disorder 02/06/2024 Generalized anxiety [...] recurrent major depressive disor kirstin 08/31/2022 Term ([facility]) 10/04/2017 Estimated Date of Delivery Comme nts Yes 02/25/2025 Based on last me nstrual period of 05/21/2024 Encounters Date Type Department Care Team Description 02/06/2025 1:20 PM EDT Routine [facility] [address] [place] [address] [place] [address] Annabel Osman, WALLY 37 weeks gestation of ([facility]); Third trimester ([facility]); Excessive growth affecting management of , antepartum, single or unspecified fetus ([facility]); Hypertension during in third trimester, unspecified hypertension in type ([facility]) 02/06/2025 Clinisync Result Encounter [facility] External Department Unsolicited Provider, Generic External Data 02/01/2025 Clinisync Result Encounter [facility]OM[facility] External Department Unsolicited Provider, Generic External Data 01/30/2025 1:30 PM EDT Routine [facility] [address] [facility] [address] Annabel Osman NP 36 weeks gestation of ([facility]); Third trimester ([facility]); Excessive growth affecting management of , antepartum, single or unspecified fetus ([facility]); induced hypertension, antepartum ([facility]) 01/30/2025 Clinisync Result Encounter [facility] External Department Unsolicited Annabel Osman NP 01/30/2025 Clinisync Result Encounter [facility] External Department Unsolicited Annabel Osman NP 01/30/2025 Clinisync Result Encounter [facility] External Department Unsolicited Annabel Osman NP 01/30/2025 Bamboo flowsheet [facility] [address] [facility] [address] Annabel Osman NP 01/16/2025 11:20 AM EDT Routine [facility] [address] [facility] [address] Uma Da Silva PA Third trimester ([facility]); 34 weeks gestation of ([facility]) 01/16/2025 Bamboo flowsheet [facility] [place] [facility] [address] [facility] [address] Uma Da Silva PA 01/02/2025 11:00 AM EDT Routine [facility] [address] [facility] [address] Tj Odonnell DO 32 weeks gestation of ([facility]); Third trimester ([facility]); Excessive growth affecting management of , antepartum, single or unspecified fetus ([facility]) 01/02/2025 Bamboo flowsheet [facility] Alex [facility] [phone] Tj Odonnell, 12/27/2024 Clinisync Result Encounter [facility] External Department Unsolicited Tj Odonnell, DO 12/27/2024 Clinisync Result Encounter [facility] External Department Unsolicited Tj Odonnell, DO 12/27/2024 Telephone [facility] [phone] Tj Odonnell, DO 12/19/2024 11:20 AM EDT Routine [facility] [place] [phone] Uma Da Silva PA Third trimester ([facility]); 30 weeks gestation of ([facility]) 12/19/2024 10:30 AM EDT Ancillary Procedure [facility] [place] [phone] size inconsistent with dates ([facility]) 12/05/2024 3:30 PM EDT Routine [facility] [place] [address] Tj Odonnell, Third trimester ([facility]); 28 weeks gestation of ([facility]); size inconsistent with dates ([facility]) 12/05/2024 Bamboo flowsheet [facility] MARMOLEJOGYDexter Johnson [facility] [phone] Tj Odonnell, 11/12/2024 3:50 PM EDT Routine [facility] [place] [address] Uma Da Silva PA Second trimester ([facility]); 25 weeks gestation of ([facility]) 11/12/2024 Clinisync Result Encounter [facility] External Department [...] Job Start Date Job End Date 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 Not on file Not on fi [...] [address] [facility] [phone] BlasTj hercules, [address] [facility] [place] [address] Health Maintenance Due Date Last Done Comments Influenza Vaccine (#1) 2024 05/17/2017 Pap Smear 10/02/2027 10/01/2024, 11/29/2022, 06/02 Cervical Cancer Screening 12/11/2027 HPV/Cotest 12/11/2027 12/10/2022 Procedures Procedure Name Priority Date/Time Associated Diagnosis Comments POCT URINALYSIS DIPSTICK Routine 02/06/2025 1:23 PM EDT 37 weeks gestation of ([facility]) Third trimester ([facility]) US OB BPP W NON-STRESS 02/06/2025 11:08 [...] Routine 01/30/2025 2:20 PM EDT Third trimester ([facility]) POCT URINALYSIS DIPSTICK Routine 01/30/2025 1:47 PM EDT 36 weeks gestation of ([facility]) Third trimester ([facility]) STREP GP B CULTURE+RFLX Routine 01/30/2025 1:36 PM EDT POCT URINALYSIS DIPSTICK Routine 01/16/2025 11:42 AM EDT Third trimester ([facility]) 34 weeks gestation of ([facility]) US OB CERVICAL LENGTH 12/27/2024 8:34 PM EDT US OB PLACENTA 12/27/2024 8:34 PM EDT US OB FOLLOW UP TRANSABDOMINAL APPROACH Routine 12/19/2024 10:55 AM EDT size inconsistent with dates ([facility]) POCT URINALYSIS DIPSTICK Routine 12/05/2024 3:45 PM EDT Third trimester ([facility]) POCT URINALYSIS DIPSTICK Routine 11/12/2024 3:58 PM EDT Second trimester ([facility]) GLUCOSE 1 HOUR Routine 11/12/2024 2:24 PM [...] EDT Narrative 02/06/2025 11:10 AM EDT The [address] [address] Ultrasound Report Signed Patient: STEVAN GA MR#: [id number] : 1990 Acct:[id number] Age/Sex: 34 / F ADM Date: 02/06/25 Loc: US Attending Dr: Annabel Osman Ordering Physician: Annabel Osman Date of Service: 02/06/25 Procedure(s): US OB BPP w non-stress Accession Number(s): [id number] cc: COLTEN LAM ; Annabel Osman [place] [address] Patient Name: STEVAN GA MRN: [id number]:[id number] date: 1990 Sex: F Assigned Patient Location: [facility] Current Patient Location: Accession/Order Number: [id number] Exam Date: 02/06/2025 10:07 Report Date: 02/06/2025 [...] Arias M.D. 02/06/2025 11:08 AM Dictation Location: [place] [address] Electronically authenticated by: [id number] Y Date: 02/06/2025 11:08 Dictated By: Estefania Arias M.D. Signed By: 02/06/25 1110 DD/ 1108 TD/TT: Entry Level Administrative Assistant: Procedure Note Radiology, Radiologist, - 02/06/2025 [place] [address] Ultrasound Report Signed Patient: STEVAN GA SMR#: [id number] : 1990Acct:[id number] Age/Sex: 34 / FADM Date: 02/06/25 Loc: US Attending Dr: Annabel Osman Ordering Physician: Annabel Osman Date of Service: 02/06/25 Procedure(s): US OB BPP w non-stress Accession Number(s): [id number] cc: COLTEN LAM ; Annabel Osman [place] [phone] Patient Name: STEVAN GA MRN: [id number] date: 1990 Sex: F Assigned Patient Location: [facility] Current Patient Location: Accession/Order Number: [id number] Exam Date: 02/06/2025 10:07 Report Date: 02/06/2025 [...] Arias M.D. 02/06/2025 11:08 AM Dictation Location: [place] [address] Electronically authenticated by: [id number] Y Date: 1:08 Dictated By: Estefania Arias M.D. Signed By:02/06/25 1110 DD/ 1108 TD/TT: Entry Level Administrative Assistant: us Generic External Data Provider [facility] [...] 02/01/2025 1:13 PM EDT us Annabel Osman DISTRIBUTION SUPERVISOR [facility] Final Result [facility] * US OB GROWTH (01/30/2025 7:43 PM EDT) Anatomical Region Laterality Modality Other 01/30/2025 7:43 PM EDT Narrative 01/30/2025 7:45 PM EDT [address] [address] Ultrasound Report Signed Patient: STEVAN GA MR#: [id number] : 1990 Acct:[id number] Age/Sex: 34 / F ADM Date: Loc: [facility] 250- Attending Dr: Annabel Osman Ordering Physician: Annabel Osman Date of Service: 01/30/25 Procedure(s): US OB growth Accession Number(s): [id number] cc: COLTEN LAM ; Annabel Osman [address] [address] Patient Name: STEVAN GA MRN: TBH:[id number] date: 1990 Sex: F Assigned Patient Location: [facility] Current Patient Location: Accession/Order Number: [id number] Exam Date: 01/30/2025 16:09 Report Date: 01/30/2025 [...] Pina M.D. 01/30/2025 7:43 PM Dictation Location: [place] [address] Electronically authenticated by: [id number] Y Date: 01/30/2025 19:43 Dictated By: Tyson Pina M.D. Signed By: 01/30/251944 DD/ 42 TD/TT: Entry Level Administrative Assistant: Procedure Note Radiology, Radiologist, - 01/30/[address] [address] Ultrasound Report Signed Patient: STEVAN GA [facility]#: [id number] : 1990Acct:[id number] Age/Sex: 34 / FADM Date: Loc: [facility] 250-[address]: Annabel Osman Ordering Physician: Annabel Osman Date of Service: 01/30/25 Procedure(s): US OB growth Accession Number(s): [id number] cc: COLTEN LAM ; Annabel Osman [facility] [address] [place] [address] Patient Name: STEVAN GA MRN: [facility]:[id number] date: 1990 Sex: F Assigned Patient Location: [facility] Current Patient Location: Accession/Order Number: [id number] Exam Date: 01/30/2025 16:09 Report Date: 01/30/2025 [...] Pina M.D. 01/30/2025 7:43 PM Dictation Location: [place] [address] Electronically authenticated by: [id number] Y Date: 9:43 Dictated By: Tyson Pina M.D. Signed By:01/30/251944 DD/ 42 TD/TT: Entry Level Administrative Assistant: Annabel Osman NP [facility] Final Resul t * (ABNORMAL) [facility] CREATININE (01/30/2025 3:03 PM EDT) CREATININE 0.48(L) 0.55 - 1.02 mg/dL TBH TBH EGFR-AF CITIZEN [place] >60 >=60 mL/min/1.7 3m 2 TBH TBH EGFR-NON AF CITIZEN OF [place] >60 >=60 mL/min/1.7 3m 2 TBH 01/30/2025 3:03 PM EDT 01/30/2025 3:05 PM EDT Narrative [facility] - 01/30/2025 3:25 PM EDT Annabel Osman NP [facility] Final Result [facility] * SRMCOH PROTHROMBIN TIME INR W/O COUM (01/30/2025 3:03 PM EDT) PROTHROMBIN TIME 10.3 9.0 - 11.6 sec TBH TBH INR 0.97 TBH Comment: DESIRED INR: 2.0-3.0 CONDITIONS NOT LISTED BELOW 2.5-3.5 FOR PROSTHETIC HEART VALVE REPLACEMENT 2.5-3.5 RECURRENT THROMBOSIS 01/30/2025 3:03 PM EDT 01/30/2025 3:05 PM EDT Narrative [facility] - 01/30/2025 4:07 PM EDT Annabel Osman NP CL[facility] Final Result [facility] * [facility] AST (01/30/2025 3:03 PM EDT) ASPARTATE AMINO TRANSFERASE 20 15 - 37 U/L [facility] 01/30/2025 3:03 PM EDT 01/30/2025 3:05 PM EDT Narrative [facility] - 01/30/2025 3:25 PM EDT us Annabel Osman NP [facility] Final Result Performing Organization Address [facility]/ZIP Co de Phone Number [facility] * (ABNORMAL) [facility] APTT (01/30/2025 3:03 PM EDT) PARTIAL THROMBOPLASTIN TIME 21.9(L) 22.3 - 36.2 sec TBH 01/30/2025 3:03 PM EDT 01/30/2025 3:05 PM EDT Narrative [facility] - 01/30/2025 4:07 PM EDT Annabel Osman NP [facility] Final Result Performing Organization Address [facility] Phone Number [facility] * ALL URIC ACID (01/30/2025 3:03 PM EDT) URIC ACID 5.2 2.6 - 6.0 mg/dL TB 01/30/2025 3:03 PM EDT 01/30/2025 3:05 PM EDT Narrative [facility] - 01/30/2025 3:25 PM EDT us Annabel Osman NP [facility] Final Result Performing Organization Address [facility] Co de Phone Number [facility] * (ABNORMAL) ALL LDH (01/30/2025 3:03 PM EDT) LACTATE DEHYDROGENASE 308(H) 81 - 234 U/L TBH 01/30/2025 3:03 PM EDT 01/30/2025 3:05 PM EDT Narrative [facility] - 01/30/2025 3:25 PM EDT us Annabel Osman NP [facility] Final Result Performing Organization Address City/[facility]/ZIP Co de Phone Number [facility] * [...] - 01/30/2025 3:52 PM EDT Annabel Osman DISTRIBUTION SUPERVISOR [facility] Final Result [facility] * (ABNORMAL) ALL BUN (01/30/2025 3:03 PM EDT) BLOOD UREA NITROGEN 5.0(L) 7.0 - 18.0 mg/dL [facility] 01/30/2025 3:03 PM EDT 01/30/2025 3:05 PM EDT Narrative [facility] - 01/30/2025 3:25 PM EDT Annabel Osman NP [facility] Final Result Performing Organization Address City/[facility]/ZIP Co de Phone Number [facility] * [...] (CDC) and TBH STREP GP B CULTURE+RFLX [place] [employer] TBH STREP [...] TBH STREP GP B CULTURE+RFLX Performed at: [facility] TBH STREP GP B CULTURE+RFLX [address] [place] [phone] TBH STREP GP B CULTURE+RFLX Chairman And Chief Executive Officer: Isaac Villalpando PhD, Phone: [phone] [facility] 01/30/2025 1:36 PM EDT 01/30/2025 8:51 PM EDT Narrative [facility] - 02/05/2025 10:08 AM EDT us Generic External Data Provider LAB BLOOD ORDERAB LES Final Result Performing Organization Address City/State/[facility] Co de Phone Number [facility] * US OB PLACENTA (12/27/2024 8:34 PM EDT) Anatomical Region Laterality Modality Other 12/27/2024 8:34 PM EDT Narrative 12/27/2024 8:44 PM EDT [address] [address] Ultrasound Report Signed Patient: STEVAN GA MR#: [id number] : 1990 Acct:[id number] Age/Sex: 34 / F ADM Date: Loc: [facility] 250-[address]: Tj Odonnell D.O. Ordering Physician: Tj Odonnell D.O. Date of Service: 12/27/24 Procedure(s): US OB placenta Accession Number(s): [id number] cc: COLTEN LAM ; jT Odonnell D.O. The [place] [address] Patient Name: STEVAN GA MRN: [facility]:[id number] date: 1990 Sex: F Assigned Patient Location: [facility] Current Patient Location: Accession/Order Number: [id number] Exam Date: 12/27/2024 19:25 Report Date: 12/27/2024 [...] Pina M.D. 12/27/2024 8:34 PM Dictation Location: [place] [address] Electronically authenticated by: [id number] Y Date: 12/27/2024 20:34 Dictated By: Tyson Pina M.D. Signed By: 12/27/242043 DD/ 33 TD/TT: Entry Level Administrative Assistant: Procedure Note Radiology, Radiologist, MD - 12/27/2024 [place] [address] Ultrasound Report Signed Patient: STEVAN GA [facility]#: [id number] : 1990Acct:[id number] Age/Sex: 34 / FADM Date: Loc: [facility] 250-[address]: Tj Odonnell D.O. Ordering Physician: Tj Odonnell D.O. Date of Service: 12/27/24 Procedure(s): US OB placenta Accession Number(s): [id number] cc: COLTEN LAM ; Tj Odonnell D.O. [address] [address] Patient Name: STEVAN GA MRN: [facility]:[id number] date: 1990 Sex: F Assigned Patient Location: [facility] Current Patient Location: Accession/Order Number: [id number] Exam Date: 12/27/2024 19:25 Report Date: 12/27/2024 [...] Pina M.D. 12/27/2024 8:34 PM Dictation Location: [place] [address] Electronically authenticated by: [id number] Y Date: 0:34 Dictated By: Tyson Pina M.D. Signed By:12/27/242043 DD/ 33 TD/TT: Entry Level Administrative Assistant: us Tj Odonnell DO [facility] Final Result * US OB CERVICAL LENGTH (12/27/2024 8:34 PM EDT) Anatomical Region Laterality Modality Other 12/27/2024 8:34 PM EDT Narrative 12/27/2024 8:44 PM EDT [address] [address] Ultrasound Report Signed Patient: STEVAN GA MR#: [id number] : 1990 Acct:[id number] Age/Sex: 34 / F ADM Date: Loc: [place] [address]: Tj Odonnell D.O. Ordering Physician: Tj Odonnell D.O. Date of Service: 12/27/24 Procedure(s): US OB cervical length Accession Number(s): [id number] cc: COLTEN LAM ; jT Odonnell D.O. [place] [id number] Patient Name: STEVAN GA MRN: [facility]:[id number] date: 1990 Sex: F Assigned Patient Location: [facility] Current Patient Location: Accession/Order Number: [id number] Exam Date: 12/27/2024 19:25 Report Date: 12/27/2024 [...] Pina M.D. 12/27/2024 8:34 PM Dictation Location: [place] [address] Electronically authenticated by: [id number] Y Date: 12/27/2024 20:34 Dictated By: Tyson Pina M.D. Signed By: 12/27/242043 DD/ 33 TD/TT: Entry Level Administrative Assistant: Procedure Note Radiology, Radiologist, - 12/27/2024 [place] [address] Ultrasound Report Signed Patient: STEVAN GA [facility]#: [id number] : 1990Acct:[id number] Age/Sex: 34 / FADM Date: Loc: [facility] 250-[address]: Tj Odonnell D.O. Ordering Physician: Tj Odonnell D.O. Date of Service: 12/27/24 Procedure(s): US OB cervical length Accession Number(s): [id number] cc: COLTEN LAM ; Tj Odonnell D.O. [place] [address] Patient Name: STEVAN GA MRN: [facility]:[id number] date: 1990 Sex: F Assigned Patient Location: [facility] Current Patient Location: Accession/Order Number: [id number] Exam Date: 12/27/2024 19:25 Report Date: 12/27/2024 [...] appears to be closed. Impression dictated by: yTson Pina M.D. 12/27/2024 8:34 PM Dictation Location: [employer] Electronically authenticated by: [id number] Y Date: 0:34 Dictated By: Tyson Pina M.D. Signed By:12/27/242043 DD/ 33 TD/TT: Entry Level Administrative Assistant: us Tj Blas DO [facility] Final [...] II, MD, PHD at 20-Dec-2024 08:06:10 AM [facility] Procedure Note Rashmi Guajardo MD - [...] signed by RASHMI GUAJARDO II, MD, PHD [id number] 08:06:10 AM [facility] us Tj Blas DO IMG OB [...] to Health Maintenance Insurance [employer] Care Teams [employer] Academic Coach Relationship Specialty Start Date End Date Colten Lam MD [address] [facility] [address] [place], [place] [id number] PCP - General Internal Medicine 09/23/22
--- OUTSIDE RECORDS SUMMARY | 2025-02-11 02:18 | XMS_ITS | CCD ---
Author Organization [facility] Inform ion [facility] Care Team Providers Care Planing Machine Operator Name Role Phone STEPHEN DOWNEY Unavailable Unavailable STEPHEN DOWNEY Unavailable Unavailable LUZMARIA BRUNO Unavailable Unavailable RONI JIMENEZ Admitting Unavailable RONI JIMENEZ Attending Unavailable RONI JIMENEZ Consulting Unavailable LUZMARIA BRUNO Admitting Unavailable LUZMARIA BRUNO Attending Unavailable RONI JIMENEZ Admitting Unavailable RONI JIMENEZ Attending Unavailable STEPHANIE MONTGOMERY Consulting Unavailable RONI JIMENEZ Consulting Unavailable Colten Lam MD Primary Care Provider Colten Lam MD Unavailable Moraima-Shruthi AUTHORIZER-MACHINIST SET UP, Ema M Unavailable Colten Lam MD Primary [...] MCCORMICK Attending Unavailable DOMINIK ODONNELL Attending Unavailable MUA MCCORMICK Attending Unavailable QUINN OSMAN Attending Unavailable QUINN OSMAN Attending Unavailable Medications Current Medications Medication Drug Class(es) Dates Sig (Normalized) Sig (Original) labetalol hydrochloride 200 mg oral tablet (2 sources) beta-Adrenergic Nery Start: 02-06-2025 End: 02-06-2026 take 1 tablet by mouth in the morning labetalol (Normodyne) 200 MG tablet Indications: Hypertension during in third trimester, unspecified hypertension in type ([facility]) Take 1 tablet (200 mg) by mouth [...] (Mag-Ox) 400 MG tablet Indications: Second trimester ([facility]) Take 1 tablet (400 mg) by mouth [...] Active Start: 07-06-2024 take 1 capsule by [facility] every twenty-four hours in the morning [...] Facility OB BPP W NON-STRESS on 02-06-2025 [place] [address] Ultrasound Report Signed Patient: SHOBHA GA MR#: [id number] : 1990 Acct:[id number] Age/Sex: 34 / F ADM Date: 02/06/25 Loc: US Attending Dr: Quinn Osman Ordering Physician: Quinn Osman Date of Service: 02/06/25 Procedure(s): US OB BPP w non-stress Accession Number(s): [id number] cc: COLTEN LAM ; Quinn Osman [place] [id number] Patient Name: SHOBHA GA MRN: [facility]:[id number] date: 1990 Sex: F Assigned Patient [place] [facility] Current Patient Location: Accession/Order Number: [id number] Exam Date: 02/06/2025 10:07 Report Date: 02/06/2025 [...] Arias M.D. 02/06/2025 11:08 AM Dictation Location: [place] [address] Electronically authenticated by: [id number] Y Date: 02/06/2025 11:08 Dictated By: Estefania Arias M.D. Signed By: 02/06/25 1110 DD/ 1108 TD/TT: Extractor Tender Raw Stock: [facility] Radiology, Radiologi MD romi - 02/06/2025 [place] [address] Ultrasound Report Signed Patient: SHOBHA GA MR#: [id number] : 1990 Acct:[id number] Age/Sex: 34 / F ADM Date: 02/06/25 Loc: US Attending Dr: Quinn Osman Ordering Physician: Quinn Osman Date of Service: 02/06/25 Procedure(s): US OB BPP w non-stress Accession Number(s): [id number] cc: COLTEN LAM ; Quinn Osman [place] [address] Patient Name: SHOBHA GA MRN: [id number]:[id number] date: 1990 Sex: F Assigned Patient Location: [facility] [place] Current Patient Location: Accession/Order Number: [id number] Exam Date: 02/06/2025 10:07 Report Date: 02/06/2025 [...] Arias M.D. 02/06/2025 11:08 AM Dictation Location: [place] [address] Electronically authenticated by: [id number] Y Date: 02/06/2025 11:08 Dictated By: Estefania Arias M.D. Signed By: 02/06/25 1110 DD/ 07 TD/TT: Extractor Tender Raw Stock: [facility] Radiology Study observation (narrative) [facility] OB BPP W NON-STRESS Ordered By: Radiologist Radiology on 02-06-2025 [facility] Work Phone: Urinalysis macro (dipstick) panel (U)on 02-06-2025 Bilirubin, UA Negative Negative - 4(70) +++ mg/dL [facility] Blood, UA Negative Negative - 50 Aneudy/mcL [facility] Clarity, UA Clear [facility] Color, UA Yellow [facility] Glucose, UA Negative Negative - 1999(110) ++++ mg/dL [facility] Interpretation and review of laboratory results Abnormal [facility] Ketones, UA Negative Negative - 160(16) ++++ mg/dL [facility] Leukocytes, UA Positive Negative - 500+++ Migdalia/mcL [facility] Nitrite, UA Negative Negative - Positive [facility] pH, UA 6 5 - 9 [facility] Protein, UA Positive Negative - 1999(20) ++++ mg/dL [facility] Spec Grav, UA 1.02 1 - 1.03 [facility] Urobilinogen, UA 1.0 0.2 - 12 mg/dL [facility] TB TOTAL PROTEIN 24 HOUR UR INEon 02-01-2025 Protein (U) [Mass/Vol] 11.1 mg/dL [facility] - 11.9 mg/dL [facility] TOTAL PROTEIN 24 HOUR [facility] 127.7 [facility] TOTAL VOLUME 24 HOUR URINE 1150 mL/24hr [facility] ALL BUNon 01-30-2025 Urea nitrogen [Mass/Vol] 5 mg/dL Low 7.0 - 18.0 mg/dL [facility] ALL LDHon 01-30-2025 LDH [Catalytic activity/Vol] 308 U/L High 81 - 234 U/L [facility] ALL URIC ACIDon 01-30-2025 Urate [Mass/Vol] 5.2 mg/dL 2.6 - 6.0 mg/dL [facility] E[facility] 01-30-2025 AST [Catalytic activity/Vol] 20 U/L 15 - 37 U/L [facility] No Panel Informationon 01-30 Interpretation and review of laboratory results Abnormal [facility] (narrative) [facility] CREATININEon 01-30-2025 Creatinine [Mass/Vol] 0.48 mg/dL Low 0.55 - 1.02 mg/dL [facility] GFR/1.73 sq M.predicted CKD-EPI (S/P/Bld) [Vol rate/Area] >60 >=60 mL/min/1.7 3m 2 [facility] EGFR-NON AF MALAYSIAN >60 >=60 mL/min/1.7 3m 2 [facility] Healthcare US OB BPP W NON-STRESS on 01-30-2025 [place] [address] Ultrasound Report Signed Patient: SHOBHA GA MR#: [id number] : 1990 Acct:[id number] Age/Sex: 34 / F ADM Date: Loc: [facility] 250-[address]: Quinn Osman Ordering Physician: Quinn Osman Date of Service: 01/30/25 Procedure(s): US OB BPP w non-stress Accession Number(s): [id number] cc: COLTEN LAM ; Quinn Osman [place] [address] Patient Name: SHOBHA GA MRN: [facility]:[id number] date: 1990 Sex: F Assigned Patient Location: [facility] Current Patient Location: Accession/Order Number: [id number] Exam Date: 01/30/2025 16:09 Report Date: 01/30/2025 [...] Pina M.D. 01/30/2025 7:43 PM Dictation Location: [place] [address] Electronically authenticated by: [id number] Y Date: 01/30/2025 19:43 Dictated By: Tyson Pina M.D. Signed By: 01/30/251945 DD/ 42 TD/TT: Extractor Tender Raw Stock: [facility] Radiology, Radiologi MD romi - 01/30/2025 [place] [address] Ultrasound Report Signed Patient: SHOBHA GA MR#: [id number] : 1990 Acct:[id number] Age/Sex: 34 / F ADM Date: Loc: [place] [address]: Quinn Osman Ordering Physician: Quinn Osman Date of Service: 01/30/25 Procedure(s): US OB BPP w non-stress Accession Number(s): [id number] cc: COLTEN LAM ; Quinn Osman [place] [address] Patient Name: SHOBHA GA MRN: [facility]:[id number] date: 1990 Sex: F Assigned Patient Location: [facility] Current Patient Location: Accession/Order Number: [id number] Exam Date: 01/30/2025 16:09 Report Date: 01/30/2025 [...] Pina M.D. 01/30/2025 7:43 PM Dictation Location: [place] [address] Electronically authenticated by: [id number] Y Date: 01/30/2025 19:43 Dictated By: Tyson Pina M.D. Signed By: 01/30/251945 DD/ 42 TD/TT: Extractor Tender Raw Stock: [facility] OB BPP W NON-STRESS Ordered By: Radiologist Radiology on 01-30-2025 [facility] iTOK Work Phone: OB GROWTHon 01-30-2025 [place] [id number] Ultrasound Report Signed Patient: SHOBHA GA MR#: [id number] : 1990 Acct:[id number] Age/Sex: 34 / F ADM Date: Loc: [facility] 250-[address]: Quinn Osman Ordering Physician: Quinn Osman Date of Service: 01/30/25 Procedure(s): US OB growth Accession Number(s): [id number] cc: COLTEN LAM ; Quinn Osman [address] [address] Patient Name: SHOBHA GA MRN: [id number]:[id number] date: 1990 Sex: F Assigned Patient Location: [facility] Current Patient Location: Accession/Order Number: [id number] Exam Date: 01/30/2025 16:09 Report Date: 01/30/2025 [...] Pina M.D. 01/30/2025 7:43 PM Dictation Location: [place] [address] Electronically authenticated by: [id number] Y Date: 01/30/2025 19:43 Dictated By: Tyson Pina M.D. Signed By: 01/30/251944 DD/ 42 TD/TT: Extractor Tender Raw Stock: [facility] Radiology, Radiologi MD romi - 01/30/2025 [place] [address] Ultrasound Report Signed Patient: SHOBHA GA MR#: [id number] : 1990 Acct:[id number] Age/Sex: 34 / F ADM Date: Loc: [facility] 250-[address]: Quinn Osman Ordering Physician: Quinn Osman Date of Service: 01/30/25 Procedure(s): US OB growth Accession Number(s): [id number] cc: COLTEN LAM ; Quinn Osman [place] [id number] Patient Name: SHOBHA GA MRN: [id number]:[id number] date: 1990 Sex: F Assigned Patient Location: [facility] Current Patient Location: Accession/Order Number: [id number] Exam Date: 01/30/2025 16:09 Report Date: 01/30/2025 [...] Pina M.D. 01/30/2025 7:43 PM Dictation Location: [place] [address] Electronically authenticated by: [id number] Y Date: 01/30/2025 19:43 Dictated By: Tyson Pina M.D. Signed By: 01/30/251944 DD/ 42 TD/TT: Extractor Tender Raw Stock: [facility] iTOK US OB GROWTHOrdered By: Andreina ologzaki Radiology on 01-30-2025 [facility] Work Phone: Urinalysis macro (dipstick) panel (U)on 01-30-2025 Bilirubin, UA Negative Negative - 4(70) +++ mg/dL [facility] Blood, UA Negative Negative - 50 Aneudy/mcL [facility] Healthcare Clarity, UA Clear [facility] Color, UA Yellow [facility] Glucose, UA Negative Negative - 1999(110) ++++ mg/dL [facility] Interpretation and review of laboratory results Abnormal [facility] Ketones, UA Negative Negative - 160(16) ++++ mg/dL [facility] Leukocytes, UA Positive Negative - 500+++ Migdalia/mcL [facility] Healthcare Comment on above: 1+ Nitrite, UA Negative Negative - Positive [facility] pH, UA 7 5 - 9 [facility] Protein, UA Positive Negative - 1999(20) ++++ mg/dL [facility] Spec Grav, UA 1.015 1 - 1.03 [facility] Urobilinogen, UA 1.0 0.2 - 12 mg/dL [facility] Urinalysis macro (dipstick) panel (U)on 01-16-2025 Bilirubin, UA Negative Negative - 4(70) +++ mg/dL [facility] Blood, UA Negative Negative - 50 Aneudy/mcL [facility] Clarity, UA Clear [facility] Color, UA Yellow [facility] Glucose, UA Negative Negative - 1999(110) ++++ mg/dL [facility] Interpretation and review of laboratory results Abnormal [facility] Ketones, UA Negative Negative - 160(16) ++++ mg/dL [facility] Leukocytes, UA Positive Negative - 500+++ Migdalia/mcL [facility] Nitrite, UA Negative Negative - Positive [facility] pH, UA 6 5 - 9 [facility] Protein, UA Negative Negative - 1999(20) ++++ mg/dL [facility] Spec Grav, UA 1.025 1 - 1.03 [facility] Urobilinogen, UA 1.0 0.2 - 12 mg/dL [facility] Healthcare No Panel InformationOrdered By: Radiologist Radiology on 12-27-2024 [facility] Work Phone: No Panel Informationon 12-27 Radiology Study observation (narrative) [facility] US OB CERVICAL LENGTHon 12-[address] [address] Ultrasound Report Signed Patient: SHOBHA GA MR#: [id number] : 1990 Acct:[id number] Age/Sex: 34 / F ADM Date: Loc: [facility] 250-[address]: Dominik Odonnell D.O. Ordering Physician: Dominik Odonnell D.O. Date of Service: 12/27/24 Procedure(s): US OB cervical length Accession Number(s): [id number] cc: COLTEN LAM ; Dominik Odonnell D.O. [place] [address] Patient Name: SHOBHA GA MRN: [facility]:[id number] date: 1990 Sex: F Assigned Patient Location: [facility] Current Patient Location: Accession/Order Number: [id number] Exam Date: 12/27/2024 19:25 Report Date: 12/27/2024 [...] Pina M.D. 12/27/2024 8:34 PM Dictation Location: [place] [address] Electronically authenticated by: [id number] Y Date: 12/27/2024 20:34 Dictated By: Tyson Pina M.D. Signed By: 12/27/242043 DD/ 33 TD/TT: Extractor Tender Raw Stock: [facility] Radiology, Radiologi MD romi - 12/27/2024 [place] [address] Ultrasound Report Signed Patient: SHOBHA GA MR#: [id number] : 1990 Acct:[id number] Age/Sex: 34 / F ADM Date: Loc: [facility] 250-[address]: Dominik Odonnell D.O. Ordering Physician: Dominik Odonnell D.O. Date of Service: 12/27/24 Procedure(s): US OB cervical length Accession Number(s): [id number] cc: COLTEN LAM ; Dominik Odonnell D.O. The [place] [id number] Patient Name: SHOBHA GA MRN: [id number]:[id number] date: 1990 Sex: F Assigned Patient Location: [facility] Current Patient Location: Accession/Order Number: [id number] Exam Date: 12/27/2024 19:25 Report Date: 12/27/2024 [...] Pina M.D. 12/27/2024 8:34 PM Dictation Location: [place] [address] Electronically authenticated by: [id number] Y Date: 12/27/2024 20:34 Dictated By: Tyson Pina M.D. Signed By: 12/27/242043 DD/ 33 TD/TT: Extractor Tender Raw Stock: [facility] US OB PLACENTAon 12-27-2024 [place] [address] Ultrasound Report Signed Patient: SHOBHA GA MR#: [id number] : 1990 Acct:[id number] Age/Sex: 34 / F ADM Date: Loc: [place] [address]: Dominik Odonnell D.O. Ordering Physician: Dominik Odonnell D.O. Date of Service: 12/27/24 Procedure(s): US OB placenta Accession Number(s): [id number] cc: COLTEN LAM ; Dominik Odonnell D.O. [place] [address] Patient Name: SHOBHA GA MRN: [facility]:[id number] date: 1990 Sex: F Assigned Patient Location: [facility] Current Patient Location: Accession/Order Number: [id number] Exam Date: 12/27/2024 19:25 Report Date: 12/27/2024 [...] PM Dictation Location: RADIO-PC-17 Electronically authenticated by: [id number] Y Date: 12/27/2024 20:34 Dictated By: Tyson Pina M.D. Signed By: 12/27/242043 DD/ 33 TD/TT: Extractor Tender Raw Stock: [facility] Radiology, Radiologjack llanos MD - 12/27/2024 [place] [address] Ultrasound Report Signed Patient: SHOBHA GA MR#: [id number] : 1990 Acct:[id number] Age/Sex: 34 / F ADM Date: Loc: [facility] 250-[address]: Dominik Odonnell D.O. Ordering Physician: Dominik Odonnell D.O. Date of Service: 12/27/24 Procedure(s): US OB placenta Accession Number(s): [id number] cc: COLTEN LAM ; Dominik Odonnell D.O. The [place] [address] Patient Name: SHOBHA GA MRN: [facility]:[id number] date: 1990 Sex: F Assigned Patient Location: [facility] Current Patient Location: Accession/Order Number: [id number] Exam Date: 12/27/2024 19:25 Report Date: 12/27/2024 [...] Pina M.D. 12/27/2024 8:34 PM Dictation Location: [place] [address] Electronically authenticated by: [id number] Y Date: 12/27/2024 20:34 Dictated By: Tyson Pina M.D. Signed By: 12/27/242043 DD/ 33 TD/TT: Extractor Tender Raw Stock: [facility] US OB FOLLOW UP TRANSABDOMIN AL APPROACHon [...] PHD at 20-Dec-2024 08:06:10 AM [facility] Normal Not Available Comment on above: Order Comment: US OB SCAN FOR GROWTH Estimated Date of Delivery: 02/25/25 Gestational Age as of 12/05/2024: 28w2d Urinalysis macro (dipstick) panel (U)on 12-05-2024 Bilirubin, UA Negative Negative - 4(70) +++ mg/dL [facility] Blood, UA Negative Negative - 50 Aneudy/mcL [facility] Clarity, UA Clear [facility] Color, UA Yellow [facility] Glucose, UA Negative Negative - 1999(110) ++++ mg/dL [facility] Interpretation and review of laboratory results Abnormal [facility] Ketones, UA Negative Negative - 160(16) ++++ mg/dL [facility] Leukocytes, UA 2+ Negative - 500+++ Migdalia/mcL [facility] Nitrite, UA Negative Negative - Positive [facility] pH, UA 7.5 5 - 9 [facility] Protein, UA Negative Negative - 2000(20) ++++ mg/dL [facility] Spec Grav, UA 1.015 1 - 1.03 [facility] Urobilinogen, UA 1.0 0.2 - 12 mg/dL [facility] ALL CBC WITH AUTO DIFFon BASOPHILS ABSOLUTE AUTO 0.1 [facility] Basophils/100 WBC (Bld) 0.5 % 0.2 - 2.0 % [facility] Eosinophils/100 WBC (Bld) 0.8 % Low 0.9 - 7.0 % [facility] Erythrocyte distribution width (RBC) [Ratio] 13.1 % 11.0 - 15.0 % [facility] Hematocrit (Bld) [Volume fraction] 33.6 % Low 36.0 - 48.0 % [facility] Hemoglobin (Bld) [Mass/Vol] 11.5 g/dL Low 12.0 - 16.0 g/dL [facility] IMMATURE GRANULOCYTES ABS AUTO 0.19 High [facility] Immature granulocytes/100 WBC (Bld) 1.3 % High 0.0 - 0.5 % [facility] Interpretation and review of laboratory results Abnormal [facility] LYMPHOCYTES ABSOLUTE AUTO 2.2 [facility] Lymphocytes/100 WBC (Bld) 15.3 % Low 20.5 - 60.0 % [facility] MCH (RBC) [Entitic mass] 30.7 pg 26.7 - 34.0 pg [facility] MCHC (RBC) [Mass/Vol] 34.2 g/dL 29.9 - 35.2 g/dL [facility] MCV (RBC) [Entitic vol] 89.8 fL 81.0 - 99.0 fL [facility] MONOCYTES ABSOLUTE AUTO 0.8 [facility] Monocytes/100 WBC (Bld) 5.7 % 1.7 - 12.0 % [facility] NEUTROPHILS ABSOLUTE AUTO 10.9 High [facility] Neutrophils/100 WBC (Bld) 76.4 % High 43.0 - 75.0 % [facility] Platelet mean volume (Bld) [Entitic vol] 9.2 fL Low 9.5 - 13.5 fL [facility] TBH EO # 0.1 [facility] TBH PLT 253 [facility] RBC 3.74 Low [facility] WBC 14.3 High [facility] Urinalysis macro (dipstick) panel (U)on 11-12-2024 Bilirubin, UA Negative Negative - 4(70) +++ mg/dL [facility] Blood, UA Negative Negative - 50 Aneudy/mcL [facility] Clarity, UA Clear [facility] Color, UA Yellow [facility] Glucose, UA Negative Negative - 1999(110) ++++ mg/dL [facility] Interpretation and review of laboratory results Normal [facility] Ketones, UA Negative Negative - 160(16) ++++ mg/dL [facility] Leukocytes, UA Moderate Negative - 500+++ Migdalia/mcL [facility] Nitrite, UA Negative Negative - Positive [facility] pH, UA 7 5 - 9 [facility] Protein, UA Negative Negative - 1999(20) ++++ mg/dL [facility] Spec Grav, UA 1.015 1 - 1.03 [facility] Urobilinogen, UA 0.2 0.2 - 12 mg/dL [facility] US OB LIMITED 1+ FETUSESon 0 [...] GDLNon AGE GDLN ACOG TESTING Note . [facility] Comment on above: TESTS RESULT FLAG UN ITS REF RANGE LAB Clinician Provided Cytology Information Source.............[employer] No. of containers..01 ThinPrep Vial Age Amadoo JAGJITOG Jayne... 01 FLAG LEGEND: L-Low Normal,H-High Normal,LL-Alert Low,HH-Alert High <-Panic Low,>-Panic High,A-Abnormal,AA-Critical Abnormal Performed at: 01 =G [address] [address] Chelo Watt MD, HPV APTIMA Negative Negative [facility] Comment on above: This nucleic acid am plification test detects fourteen high- risk HPV types (16,18,31,33,35,39,45,51,52,56,58,59,66,68) without differentiation. Performed at: =[address] [id number] Telecommunications Field Engineer: Chelo Watt MD, Phone: [phone] Performed at: [address] [id number] Telecommunications Field Engineer: Chelo Watt MD, Phone: [phone] IGP, APTIMA HPV, RFX 16/18,45 Note . [facility] Comment on above: TESTS RESULT FLAG UN ITS REF RANGE LAB DIAGNOSIS: 02 UNSATISFACTORY FOR EVALUATION. Recommendation: 02 Suggest follow up as clinically appropriate. Specimen adequacy: 02 Specimen processed and examined but unsatisfactory for evaluation of epithelial abnormality because of obscuring inflammatory exudate. Performed by: 02 Omar Gilmore, Machine Builder ([place]) QC reviewed by: 02 Paty Bear, Supervisory Machine Builder ([place]) . 02 Note: Note 02 The Pap smear is a screening test designed to aid in the detection of premalignant and malignant conditions of the uterine cervix. It is not a diagnostic procedure and should not be used as the sole means of detecting cervical cancer. Both false-positive and false-negative reports do occur. Test Methodology: Note 02 The [employer]) Insights Manager was unable to read this specimen. Therefore a manual review was performed. FLAG LEGEND: L-Low Normal,H-High Normal,LL-Alert Low,HH-Alert High <-Panic Low,>-Panic High,A-Abnormal,AA-Critical Abnormal Performed at: [address] [address] Chelo Watt MD, HPV Genotype Reflex Note 02 Criteria not met, HPV Genotype not performed. Criteria not met, HPV Genotype not performed. SPATULA-ALONE ENDOCERVIX [facility] RECURRENT VAGINITIS (HTRX)on 10-03-2024 ATOPOBIUM VAGINAE 0 [facility] ATOPOBIUM VAGINAE Not detected [facility] BVAB 2,3 (BACTERIAL VAGINOSIS ASSOCIATED BACTERIA [...] II, MD, PHD at 12-Oct-2024 10:22:11 AM [facility] Normal Not Available Comment on above: Order Comment: US OB ANATOMY SINGLE W US OB CERVICAL LENGTH Estimated Date of Delivery: 02/25/25 Gestational Age as of 10/01/2024: 19w0d BOX TESTon 08-06-2024 BOX TEST SENT OUT [employer] BOX1 [facility] BOX2 08/06/24 [employer] [facility] iTOK HCG ( test) Ql (U)o n 08-02-2024 Interpretation and review of laboratory results Abnormal [facility] Preg Test, Ur Positive Negative [facility] iTO[facility] US OB TRANSVAGINALon 025 US OB TRANSVAGINAL [...] II, MD, PHD at 03-Aug-2024 08:40:26 AM [facility] Normal Not Available Comment on above: Order Comment: US OB TRANSVAGINAL No LMP recorded. Urinalysis macro (dipstick) panel (U)on 08-02-2024 Bilirubin, UA Negative Negative - 4(70) +++ mg/dL [facility] Blood, UA Negative Negative - 50 Aneudy/mcL [facility] Clarity, UA Clear [facility] Color, UA Yellow [facility] Glucose, UA Negative Negative - 1999(110) ++++ mg/dL [facility] Interpretation and review of laboratory results Abnormal [facility] Ketones, UA Negative Negative - 160(16) ++++ mg/dL [facility] Leukocytes, UA Positive Negative - 500+++ Migdalia/mcL [facility] Comment on above: small Nitrite, UA Negative Negative - Positive [facility] pH, UA 6 5 - 9 [facility] Protein, UA Negative Negative - 1999(20) ++++ mg/dL [facility] Spec Grav, UA 1.02 1 - 1.03 [facility] Urobilinogen, UA 0.2 0.2 - 12 mg/dL [facility] XR Spine Cervical Complete w /Flex AND [place] 05-12-2021 XR Spine Cervical Complete w/Flex AND [...] by Miah Suero on 05/12/2021 1444 Normal [facility] Molecular Biology Professor US PELVIS AND TRANSVAGon US PELVIS AND [...] by: STEPHANIE MONTGOMERY Date: 2019-12-10 10:21 Normal [facility] PAP ONLYon 06-14-2019 COMMENT Comment Normal [facility] Comment on above: Result Comment: Z01. [id number] Performed By: #### [id number] #### [facility] [address] [address] [place] DIAGNOSIS: Comment Normal [facility] Comment on above: Result Comment: NEGA TIVE FOR INTRAEPITHELIAL LESION OR MALIGNANCY. Performed By: #### [id number] #### [facility] [address] [address] [place] Methodology: Comment Normal [facility] Comment on above: Result Comment: This liquid based ThinPrep(R) pap test was screened with the use of an image guided system. Performed By: #### [id number] #### [facility] [address] [place] [address] Leno Mac Note: Comment [facility] Comment on above: Result Comment: The Pap smear is a screening test designed to aid in the detection of premalignant and malignant conditions of the uterine cervix. It is not a diagnostic procedure and should not be used as the sole means of detecting cervical cancer. Both false-positive and false-negative reports do occur. . Performed By: #### [id number] #### [facility] [address] [address] L[place] Mac Performed by: Comment Normal [facility] Comment on above: Result Comment: Stephanie Barraza, Process Coordinator (ASCP) Performed By: #### [id number] #### [facility] [address] [address] [place] Mac Specimen adequacy: Comment [facility] Comment on above: Result Comment: Sati sfactory for evaluation. Endocervical and/or squamous metaplastic cells (endocervical component) are present. Performed By: #### [id number] #### [facility] [address] [place], [place] [address] Leno Mac . . Normal [facility] Comment on above: Performed By: #### [id number] #### [facility] [address] [id number] L[place] Mac Discharge Summaryon 10-08-19 18 HIM IP Note OR Tying In Machine Operator Normal [facility] Plan of Careon 10-07-2017 HIM IP Note OR Tying In Machine Operator Normal [facility] HIM IP Note OR Tying In Machine Operator Normal [facility] Progress Noteon 10-07-2017 HIM IP Note OR Tying In Machine Operator Normal [facility] HIM IP Note OR Tying In Machine Operator Normal [facility] HIM IP Note OR Tying In Machine Operator Normal [facility] HIM IP Note OR Tying In Machine Operator Normal [facility] HIM IP Note OR Tying In Machine Operator Normal [facility] Plan of Careon 10-06-2017 HIM IP Note OR Tying In Machine Operator Normal [facility] HIM IP Note OR Tying In Machine Operator Normal [facility] Progress Noteon 10-06-2017 HIM IP Note OR Tying In Machine Operator Normal [facility] IP Note OR Tying In Machine Operator Normal [facility] HIM IP Note OR Tying In Machine Operator Normal [facility] Surgical Pathologyon 018 Surgical Pathology (NOTE)[id number] LABORATORIESCONSULTING PATHOLOGISTS CORPORATIONANATOMIC INMIMYRMH[address] [place] [address]. [place], [place] [address] Fax: SURGICAL PATHOLOGY CONSULTATIONPatient Name: Mary GA Rec: [id number] Number: [id number]: 10/06/2017Received: 10/06/2017Reported: 10/07/2017 12:37-- Diagnosis --PLACENTA MEMBRANES AND UMBILICAL CORD: MATURE PLACENTA WITHINTERVILLOUS THROMBI, UNREMARKABLE MEMBRANES AND THREE-VESSELUMBILICAL CORD.Tammie NgElectronically Signed Out ajb/10/07/2017Clinical InformationOperative Findings: PLACENTA (PER CONTAINER)Source of Specimen1: PLACENTA (PER CONTAINER)Gross Description SHOBHA GA, UNDESIGNATED Placenta with attached membranes andumbilical cord.UMBILICAL CORD Length: 47.0 cm Diameter: 1.5 cmTrue knots: NoNumber of vessels: 3Spiraling: NormalInsertion into surface: ParacentralMEMBRANESColor: [place]-yates, focally opacified with a circummarginateinsertionMeconi um staining: [...] erythrocytes invillous capillaries: RareOther: Few microcalcifications Normal [facility] CBC with Diffon 10-05-2017 Abs. Basophil <0.03 Normal 0.00-0.20 [facility] Comment on above: Performed By: #### C DP ####[address] [place] [address] Abs.Neutrophil (Seg) 7.93 k/uL Normal 1.50-8.10 [facility] Comment on above: Performed By: #### C DP ####[address] [place] [address] Basophils/100 WBC Auto (Bld) 0 % Normal 0-2 [facility] Comment on above: Performed By: #### C DP ####[address] [place] [address] Eosinophils 0.10 10*3/uL Normal 0.00-0.44 [facility] Comment on above: Performed By: #### C DP ####[address] [place] [address] Eosinophils/100 leukocytes 1 % Normal 1-4 [facility] Comment on above: Performed By: #### C DP ####[address] [place] [address] Erythrocyte distribution width Auto Ratio (RBC) 13.6 % Normal 11.8-14.4 [facility] Comment on above: Performed By: #### C DP ####[address] [place] [address] Erythrocytes (RBC) 4.18 10*6/uL Normal 3.95-5.11 [facility] Comment on above: Performed By: #### C DP ####[address] [place] [address] Erythrocytes (RBC) 0.0 per [address] [facility] Comment on above: Performed By: #### C DP ####[address] [place] [address] Granulocytes/100 WBC (Bld) 0.15 k/uL Normal 0.00-0.30 [facility] Comment on above: Result Comment: Perf ormed at [address] [place] [address] Performed By: #### C DP ####[address] [place] [address] Hematocrit (HCT) 36.5 % Normal 36.3-47.1 [facility] Comment on above: Performed By: #### C DP ####[address] , [facility]83 Hemoglobin mass conc (Bld) 12.2 g/dL Normal 11.9-15.1 [facility] Comment on above: Performed By: #### C DP ####[address] , [facility]83 Immature granulocytes #/vol (Bld) 1 % High 0 [facility] Comment on above: Performed By: #### C DP ####[address] , [facility]83 Lymphocytes 2.28 10*3/uL Normal 1.10-3.70 [facility] Comment on above: Performed By: #### C DP ####[address] [place] [address] Lymphocytes/100 leukocytes 20 % Low 24-43 [facility] Comment on above: Performed By: #### C DP ####[address] , [facility]83 MCH 29.2 pg Normal 25.2-33.5 [facility] Comment on above: Performed By: #### C DP ####[address] , [facility]83 MCHC mass conc (RBC) 33.4 g/dL Normal 28.4-34.8 [facility] Comment on above: Performed By: #### C DP ####[address] [place] [address] MCV 87.3 fL Normal 82.6-102.9 [facility] Comment on above: Performed By: #### C DP ####[address] [place] [address] Monocytes 0.81 10*3/uL Normal 0.10-1.20 [facility] Comment on above: Performed By: #### C DP ####[address] [place] [address] Monocytes/100 leukocytes 7 % Normal 3-12 [facility] Comment on above: Performed By: #### C DP ####[address] , [facility]83 Neutrophil (Seg) 71 % High 36-65 [facility] Comment on above: Performed By: #### C DP ####[address] [place] [address] Platelet mean volume (PMV) 10.4 fL Normal 8.1-13.5 [facility] Comment on above: Performed By: #### C DP ####[address] [place] [address] Platelets 207 10*3/uL Normal 138-453 [facility] Comment on above: Performed By: #### C DP ####[address] [place] [address] WBC (Leukocytes) 11.3 10*3/uL Normal 3.5-11.3 [facility] Comment on above: Performed By: #### C DP ####[address] [place] [address] Auto Diff Performed NOT REPORTED Normal [facility] Comment on above: Performed By: #### C DP ####[address] [place] [address] Erythrocyte morphology NOT REPORTED Normal [facility] Comment on above: Performed By: #### C DP ####[address] [place] [address] Platelets NOT REPORTED Normal [facility] Comment on above: Performed By: #### C DP ####[address] [place] [address] WBC Morphology NOT REPORTED Normal [facility] Comment on above: Performed By: #### C DP ####[address] [place] [address] Drug Scr, Abuse, Uron 2017 Amphetamine(s),Ur Negative Normal NEG [facility] Comment on above: Performed By: #### D AU ####[address] [place] [address] Barbiturate(s),Ur Negative Normal NEG [facility] Comment on above: Performed By: #### D AU ####[address] [place] [address] Base excess Negative Normal NEG [facility] Comment on above: Performed By: #### D AU ####[address] [place] [address] Benzodiazepine(s) Negative Normal NEG [facility] Comment on above: Performed By: #### D AU ####[address] [place] [address] Buprenorphrine, Ur Negative Normal NEG [facility] Comment on above: Result Comment: Perf ormed at [address] [place] [address] Performed By: #### D AU ####[address] [place] [address] Cannabinoid(s),Ur Negative Normal NEG [facility] Comment on above: Performed By: #### D AU ####[address] [place] [address] Methamphetamine, Ur Negative Normal NEG [facility] Comment on above: Performed By: #### D AU ####[address] [place] [address] Opiate(s), Ur Negative Normal NEG [facility] Comment on above: Performed By: #### D AU ####[address] [place] [address] Oxycodone, Urine Negative Normal NEG [facility] Comment on above: Performed By: #### D AU ####[address] [place] [address] Phencyclidine, Ur Negative Normal NEG [facility] Comment on above: Performed By: #### D AU ####[address] [place] [address] Propoxyphene,Urine Negative Normal NEG [facility] Comment on above: Performed By: #### D AU ####[address] [place] [address] Urine, methadone presence Negative Normal NEG [facility] Comment on above: Performed By: #### D AU ####[address] [place] [address] Urine, tricyclic antidepressants Negative Normal NEG [facility] Comment on above: Result Comment: Drug screen results are to be used for medical purposes only. All positive results are unconfirmed. Testing for employment or legal uses should be sent to a reference laboratory for confirmation. Performed By: #### D AU ####[address] [place] [address] Interpretive Info NOT REPORTED Normal [facility] Comment on above: Performed By: #### D AU ####[address] [place] [address] MDMA, Urine NOT REPORTED Normal NEG [facility] Comment on above: Performed By: #### D AU ####[address] [place] [address] History and Physicalon 10-05 HIM IP Note OR Tying In Machine Operator Normal [facility] Plan of Careon 10-05-2017 HIM IP Note OR Tying In Machine Operator Normal [facility] HIM IP Note OR Tying In Machine Operator Normal [facility] Progress Noteon 10-05-2017 HIM IP Note OR Tying In Machine Operator Normal [facility] HIM IP Note OR Tying In Machine Operator Normal [facility] HIM IP Note OR Tying In Machine Operator Normal [facility] HIM IP Note OR Tying In Machine Operator Normal [facility] Vital Signs Date Time Vital Sign Value Performing Clinician Shardai naif 02-06-2025 14:28-0400 Diastolic blood pressure 90 mm[Hg] Quinn Jacqui PROCESS SAFETY SPECIALIST Work Phone: [facility] 02-06-2025 14:28-0400 Systolic blood pressure 140 mm[Hg] Quinn Jacqui PROCESS SAFETY SPECIALIST Work Phone: [facility] 02-06-2025 13:18-0400 Body mass index (BMI) [Ratio] 42.12 kg/m2 Quinn Jacqui PROCESS SAFETY SPECIALIST Work Phone: [facility] 02-06-2025 13:18-0400 Body weight 107.86 kg Quinn Jacqui PROCESS SAFETY SPECIALIST Work Phone: [facility] 01-30-2025 13:41-0400 Body mass index (BMI) [Ratio] 41.88 kg/m2 Quinn Jacqui PROCESS SAFETY SPECIALIST Work Phone: [facility] 01-30-2025 13:41-0400 Body weight 107.23 kg Quinn Jacqui PROCESS SAFETY SPECIALIST Work Phone: [facility] 01-16-2025 11:37-0400 Body mass index (BMI) [Ratio] 36.63 kg/m2 Uma WELLINGTON Work Phone: [facility] 01-16-2025 11:37-0400 Body weight 93.8 kg Uma WELLINGTON Work Phone: [facility] 01-16-2025 11:37-0400 Diastolic blood pressure 76 mm[Hg] Uma WELLINGTON Work Phone: [facility] 01-16-2025 11:37-0400 Systolic blood pressure 112 mm[Hg] Uma WELLINGTON Work Phone: [facility] 01-02-2025 11:20-0400 Body mass index (BMI) [Ratio] 39.4 kg/m2 Dominik Blas DO Work Phone: [facility] 01-02-2025 11:20-0400 Body weight 100.88 kg Dominik Blas DO Work Phone: [facility] 01-02-2025 11:20-0400 Diastolic blood pressure 78 mm[Hg] Dominik Blas DO Work Phone: [facility] 01-02-2025 11:20-0400 Systolic blood pressure 122 mm[Hg] Dominik Blas DO Work Phone: [facility] 12-19-2024 11:03-0400 Body mass index (BMI) [Ratio] 38.75 kg/m2 Uma WELLINGTON Work Phone: [facility] 12-19-2024 11:03-0400 Body weight 99.22 kg Uma WELLINGTON Work Phone: [facility] 12-19-2024 11:03-0400 Diastolic blood pressure 74 mm[Hg] Uma WELLINGTON Work Phone: [facility] 12-19-2024 11:03-0400 Systolic blood pressure 130 mm[Hg] Uma WELLINGTON Work Phone: [facility] 12-05-2024 15:42-0400 Body mass index (BMI) [Ratio] 37.55 kg/m2 Dominik Blas DO Work Phone: [facility] 12-05-2024 15:42-0400 Body weight 96.16 kg Dominik Blas DO Work Phone: [facility] 12-05-2024 15:42-0400 Diastolic blood pressure 70 mm[Hg] Dominik Blas DO Work Phone: [facility] 12-05-2024 15:42-0400 Systolic blood pressure 122 mm[Hg] Dominik Blas DO Work Phone: [facility] 11-12-2024 15:57-0400 Body mass index (BMI) [Ratio] 37.02 kg/m2 Uma [place] PA Work Phone: [facility] 11-12-2024 15:57-0400 Body weight 94.8 kg Uma [place] PA Work Phone: [facility] 11-12-2024 15:57-0400 Diastolic blood pressure 78 mm[Hg] Uma [place] PA Work Phone: [facility] 11-12-2024 15:57-0400 Systolic blood pressure 122 mm[Hg] Uma [place] PA Work Phone: [facility] 10-29-2024 15:52-0400 Body mass index (BMI) [Ratio] 36.23 kg/m2 Dominik Blas DO Work Phone: [facility] 10-29-2024 15:52-0400 Body weight 92.76 kg Dominik Blas DO Work Phone: [facility] 10-29-2024 15:52-0400 Diastolic blood pressure 76 mm[Hg] Dominik Blas DO Work Phone: [facility] 10-29-2024 15:52-0400 Systolic blood pressure 140 mm[Hg] Dominik Blas DO Work Phone: [facility] 10-01-2024 16:11-0400 Body mass index (BMI) [Ratio] 35.21 kg/m2 Uma [place] PA Work Phone: [facility] 10-01-2024 16:11-0400 Body weight 90.15 kg Uma Avinash PA Work Phone: [facility] 10-01-2024 16:11-0400 Diastolic blood pressure 82 mm[Hg] Uma [place] PA Work Phone: [facility] 10-01-2024 16:11-0400 Systolic blood pressure 120 mm[Hg] Uma [place] PA Work Phone: [facility] 09-03-2024 15:51-0400 Body mass index (BMI) [Ratio] 34.26 kg/m2 Dominik Blas DO Work Phone: [facility] 09-03-2024 15:51-0400 Body weight 87.73 kg Dominik Blas DO Work Phone: [facility] 09-03-2024 15:51-0400 Diastolic blood pressure 68 mm[Hg] Dominik Blas DO Work Phone: [facility] 09-03-2024 15:51-0400 Systolic blood pressure 112 mm[Hg] Dominik Blas DO Work Phone: [facility] 08-02-2024 14:29-0400 Body mass index (BMI) [Ratio] 33.66 kg/m2 Nom Nurse [facility] 08-02-2024 14:29-0400 Body weight 86.18 kg [facility] Nurse [facility] 08-02-2024 14:29-0400 Diastolic blood pressure 72 mm[Hg] [facility] Nurse [facility] 08-02-2024 14:29-0400 Systolic blood pressure 120 mm[Hg] [facility] Nurse [facility] 06-20-2024 13:30-0500 Body height 160 cm Wero Valderrama PROCESS SAFETY SPECIALIST Work Phone: [facility] 06-20-2024 13:30-0500 Body mass index (BMI) [Ratio] 33.66 kg/m2 Wero Valderrama PROCESS SAFETY SPECIALIST Work Phone: [facility] 06-20-2024 13:30-0500 Body weight 86.18 kg Wero Valderrama PROCESS SAFETY SPECIALIST Work Phone: [facility] 06-20-2024 13:30-0500 Diastolic blood pressure 78 mm[Hg] Wero Valderrama PROCESS SAFETY SPECIALIST Work Phone: [facility] 06-20-2024 13:30-0500 Heart rate 78 /min Wero Valderrama PROCESS SAFETY SPECIALIST Work Phone: [facility] 06-20-2024 13:30-0500 Respiratory rate 17 /min Wero Valderrama PROCESS SAFETY SPECIALIST Work Phone: [facility] 06-20-2024 13:30-0500 SaO2% (BldA) [Mass fraction] 98 % Wero Valderrama PROCESS SAFETY SPECIALIST Work Phone: [facility] 06-20-2024 13:30-0500 Systolic blood pressure 138 mm[Hg] Wero Valderrama PROCESS SAFETY SPECIALIST Work Phone: [facility] Encounters Encounter Date Encounter Type Care Provider Facility Start: 02-06-2025 End: 02-06-2025 Clinisync Result Encounter Generic External Data Provider [facility] External Department Unsolicited Start: 02-06-2025 End: 02-06-2025 Clinisync Result Encounter Generic External Data Provider [facility] External Department Unsolicited Start: 02-06-2025 End: 02-06-2025 flow sheet Quinn Osman PROCESS SAFETY SPECIALIST Work Phone: [facility] Comment on above: 37 weeks gestation o f ([facility]); Third trimester ([facility]); Excessive growth affecting management of , antepartum, single or unspecified fetus ([facility]); Hypertension during in third trimester, unspecified hypertension in type ([facility]) Start: 02-06-2025 End: 02-06-2025 ambulatory QUINN OSMAN Not Available Start: 02-01-2025 End: 02-01-2025 Clinisync Result Encounter Generic External Data Provider [facility] External Department Unsolicited Start: 02-01-2025 End: 02-01-2025 Clinisync Result Encounter Generic External Data Provider [facility] External Department Unsolicited Start: 01-30-2025 End: 01-30-2025 Bamboo flowsheet Quinn Osman PROCESS SAFETY SPECIALIST Work Phone: [facility] Start: 01-30-2025 End: 01-30-2025 Bamboo flowsheet Quinn Osman PROCESS SAFETY SPECIALIST Work Phone: [facility] Start: 01-30-2025 End: 01-30-2025 Clinisync Result Encounter Qunin Osman PROCESS SAFETY SPECIALIST Work Phone: [facility] External Department Unsolicited Start: 01-30-2025 End: 01-30-2025 ambulatory QUINN OSMAN Not Available Start: 01-30-2025 End: 01-30-2025 flow sheet Quinn Osman PROCESS SAFETY SPECIALIST Work Phone: [facility] Comment on above: 36 weeks gestation o f ([facility]); Third trimester ([facility]); Excessive growth affecting management of , antepartum, single or unspecified fetus ([facility]); induced hypertension, antepartum ([facility]) Start: 01-16-2025 End: 01-16-2025 Bamboo flowsheet Uma WELLINGTON Work Phone: [facility] Start: 01-16-2025 End: 01-16-2025 Bamboo flowsheet Uma WELLINGTON Work Phone: [facility] Start: 01-16-2025 End: 01-16-2025 ambulatory UMA MCCORMICK Not Available Start: 01-16-2025 End: 01-16-2025 flow sheet Uma WELLINGTON Work Phone: [facility] Comment on above: Third trimester preg ramon ([facility]); 34 weeks gestation of ([facility]) Start: 01-02-2025 End: 01-02-2025 Bamboo flowsheet Dominik Blas DO Work Phone: [facility] Start: 01-02-2025 End: 01-02-2025 Bamboo flowsheet Dominik Blas DO Work Phone: [facility] Start: 01-02-2025 End: 01-02-2025 ambulatory DOMINIK BLAS Not Available Start: 01-02-2025 End: 01-02-2025 flow sheet Dominik Blas DO Work Phone: [facility] Comment on above: 32 weeks gestation o f ([facility]); Third trimester ([facility]); Excessive growth affecting management of , antepartum, single or unspecified fetus ([facility]) Start: 12-27-2024 End: 12-27-2024 Clinisync Result Encounter Dominik Blas DO Work Phone: [facility] Unsolicited Start: 12-27-2024 End: 12-27-2024 Clinisync Result Encounter Dominik Blas DO Work Phone: [facility] Unsolicited Start: 12-19-2024 End: 12-19-2024 flow sheet Uma WELLINGTON Work Phone: [facility] Comment on above: Third trimester preg ramon ([facility]); 30 weeks gestation of ([facility]) Start: 12-19-2024 End: 12-19-2024 ambulatory UMA MCCORMICK Not Available Start: 12-05-2024 End: 12-05-2024 flow sheet Dominik Blas DO Work Phone: [facility] Comment on above: Third trimester preg ramon ([facility]); 28 weeks gestation of ([facility]); size inconsistent with dates ([facility]) Start: 12-05-2024 End: 12-05-2024 ambulatory DOMINIK BLAS Not Available Start: 12-05-2024 End: 12-05-2024 Bamboo flowsheet Dominik Blas DO Work Phone: [facility] Start: 12-05-2024 End: 12-05-2024 Bamboo flowsheet Dominik Blas DO Work Phone: [facility] Start: 11-12-2024 End: 11-12-2024 flow sheet Uma WELLINGTON Work Phone: [facility] Comment on above: Second trimester pre gnancy ([facility]); 25 weeks gestation of ([facility]) Start: 11-12-2024 End: 11-12-2024 ambulatory UMA MCCORMICK Not Available Start: 11-12-2024 End: 11-12-2024 Clinisync Result Encounter Dominik Blas DO Work Phone: [facility] Unsolicited Start: 11-12-2024 End: 11-12-2024 Clinisync Result Encounter Dominik Blas DO Work Phone: [facility] External Department Unsolicited Start: 11-07-2024 End: 11-07-2024 ambulatory WERO VALDERRAMA Not Available Start: 10-29-2024 End: 10-29-2024 ambulatory DOMINIK BLAS Not Available Start: 10-29-2024 End: 10-29-2024 flow sheet Dominik Blas DO Work Phone: [facility] Comment on above: Diabetes mellitus sc reening; Second trimester ([facility]); 23 weeks gestation of ([facility]) Start: 10-29-2024 End: 10-29-2024 Bamboo flowsheet Dominik Blas DO Work Phone: [facility] Start: 10-29-2024 End: 10-29-2024 Bamboo flowsheet Dominik Blas DO Work Phone: [facility] Start: 10-10-2024 End: 10-10-2024 ambulatory WERO VALDERRAMA Not Available Start: 10-01-2024 End: 10-01-2024 Patient encounter procedure Uma WELLINGTON Work Phone: [facility] Start: 10-01-2024 End: 10-01-2024 Periodic preventive med est patient 18-39 yrs Uma WELLINGTON Work Phone: [facility] Comment on above: Second trimester pre gnancy; 19 weeks gestation of ; Well woman exam with routine gynecological exam; Screening, , for anatomic survey; STD exposure Start: 10-01-2024 End: 10-01-2024 ambulatory UMA MCCORMICK Not Available Start: 10-01-2024 End: 10-01-2024 Bamboo flowsheet Uma WELLINGTON Work Phone: [facility] Start: 10-01-2024 End: 10-08-2024 Bamboo flowsheet Uma WELLINGTON Work Phone: [facility] Start: 10-01-2024 End: 10-08-2024 [...] type; Bipolar affective disorder, currently depressed, mild (CMS/[facility]) Start: 09-03-2024 End: 09-03-2024 ambulatory DOMINIK BLAS Not Available Start: 09-03-2024 End: 09-03-2024 Bamboo flowsheet Dominik Blas DO Work Phone: [facility] Start: 09-03-2024 End: 09-03-2024 Bamboo flowsheet Dominik Blas DO Work Phone: [facility] Start: 08-16-2024 End: 08-16-2024 ambulatory AYESHA MAXWELL SONY [facility] Start: 08-06-2024 End: 08-06-2024 Clinisync Result Encounter [...] 07-06-2024 End: 07-06-2024 Orders Only Ayesha Vazquez AUTHORIZER-QUALITY REP Work Phone: [facility] Start: 06-20-2024 End: 06-20-2024 Bamboo flowsheet Wero Valderrama PROCESS SAFETY SPECIALIST Work Phone: [facility] Start: 06-20-2024 End: 06-20-2024 Bamboo flowsheet Wero Valderrama PROCESS SAFETY SPECIALIST Work Phone: [facility] Start: 06-20-2024 End: 06-20-2024 Office outpatient visit 25 minutes Wero Valderrama PROCESS SAFETY SPECIALIST Work Phone: [facility] Comment on [...] End: 02-06-2024 ambulatory [facility] Start: 01-07-2024 End: 01-09-2024 Refrobin Lam MD [...] End: 10-07-2017 Evaluation and management of inpatient [facility] Procedures Date Procedure Procedure Detail Performing Clinician Start: 02-06-2025 Urnls dip stick/tabl et rgnt non-auto w/o micrscp Quinn Jacqui PROCESS SAFETY SPECIALIST Work Phone: Start: 02-06-2025 US OB BPP W NON-STRESS Generic External Data Provider Start: 02-01-2025 [facility] TOTAL PROTEIN 24 HOUR URINE Quinn Jacqui PROCESS SAFETY SPECIALIST Work Phone: Start: 01-30-2025 US OB BPP W NON-STRESS Quinn Jacqui PROCESS SAFETY SPECIALIST Work Phone: Start: 01-30-2025 US OB GROWTH Quinn E berly PROCESS SAFETY SPECIALIST Work Phone: Start: 01-30-2025 ALL BUN Quinn E berly PROCESS SAFETY SPECIALIST Work Phone: Start: 01-30-2025 ALL LDH Quinn E berly PROCESS SAFETY SPECIALIST Work Phone: Start: 01-30-2025 ALL URIC ACID Quinn Jacqui PROCESS SAFETY SPECIALIST Work Phone: Start: 01-30-2025 [facility] AST Quinn E berly PROCESS SAFETY SPECIALIST Work Phone: Start: 01-30-2025 [facility] CREATININE Quinn Jacqui PROCESS SAFETY SPECIALIST Work Phone: Start: 01-30-2025 Urnls dip stick/tabl et rgnt non-auto w/o micrscp Quinn Jacqui PROCESS SAFETY SPECIALIST Work Phone: Start: 01-16-2025 Urnls dip stick/tabl [...] Adult depression scr eening assessment Ayesha Vazquez AUTHORIZER-QUALITY REP Work Phone: Start: 11-29-2022 Microscopic observat ion [...] Screening for malign ant neoplasm of cervix [facility] Start: 10-02-2027 Screening for malign ant neoplasm of cervix Pap Smear [facility] Start: 09-28-2027 DTaP,Tdap and Td Vac cines (2 - Td or Tdap) DTaP,Tdap and Td Vaccines (2 - Td or Tdap) [facility] Start: 11-29-2025 Screening for malign ant neoplasm of cervix Pap Smear [facility] Start: 02-13-2025 End: 02-13-2025 Patient encounter procedure 02/13/2025 11:30 AM EDT Routine LINDY RIOS [address] [place] [phone] Dominik Odonnell DO [address] [place] [address] LINDY RIOS Start: 02-06-2025 End: 02-06-2025 Patient encounter procedure 02/06/2025 1:20 PM EDT Routine LINDY RIOS [address] [place] [address] Quinn Osman, PROCESS SAFETY SPECIALIST [address] [place] [address] LINDY RIOS Start: 02-05-2025 Depression Screening Depression Scre ening [facility] Start: 02-05-2025 Tobacco Screening Tobacco Screening [facility] Start: 01-30-2025 End: 01-30-2026 Alanine aminotransferase [Enzymatic activity/volume] in Serum or Plasma ALT Lab Routine induced hypertension, antepartum (HHS-HCC) Expected: 01/30/2025 (Approximate), Expires: 01/30/2026 [facility] Comment on above: Expected: 01/30/2025 (Approximate), Expires: 01/30/2026 Start: 01-30-2025 End: 01-30-2026 Aspartate aminotransferase [Enzymatic activity/volume] in Serum or Plasma AST Lab Routine induced hypertension, antepartum (HHS-HCC) Expected: 01/30/2025 (Approximate), Expires: 01/30/2026 [facility] Comment on above: Expected: 01/30/2025 (Approximate), Expires: 01/30/2026 Start: 01-30-2025 End: 01-30-2026 CBC W Auto Differential panel - Blood CBC and differential Lab Routine induced hypertension, antepartum (HHS-HCC) Expected: 01/30/2025 (Approximate), Expires: 01/30/2026 [facility] Comment on above: Expected: 01/30/2025 (Approximate), Expires: 01/30/2026 Start: 01-30-2025 End: 01-30-2026 Creatinine [Mass/volume] in Serum or Plasma Creatinine Lab Routine induced hypertension, antepartum (HHS-HCC) Expected: 01/30/2025 (Approximate), Expires: 01/30/2026 [facility] Comment on above: Expected: 01/30/2025 (Approximate), Expires: 01/30/2026 Start: 01-30-2025 End: 01-30-2026 CULTURE, GROUP B STREP WITH SUSCEPTIBLITY CULTURE, GROUP B STREP WITH SUSCEPTIBLITY Lab Routine Third trimester (HHS-HCC) Expected: 01/30/2025, Expires: 01/30/2026 [facility] Work Phone: Comment on above: Expected: 01/30/2025 , Expires: 01/30/2026 Start: 01-30-2025 End: 01-30-2026 Lactate dehydrogenase [Enzymatic activity/volume] in Serum or Plasma by Lactate to pyruvate reaction Lactate dehydrogenase Lab Routine induced hypertension, antepartum (HHS-HCC) Expected: 01/30/2025, Expires: 01/30/2026 [facility] Comment on above: Expected: 01/30/2025 , Expires: 01/30/2026 Start: 01-30-2025 End: 01-30-2026 Protein, urine, 24 hour Protein, urine, 24 hour Lab Routine induced hypertension, antepartum (HHS-HCC) Expected: 01/30/2025 (Approximate), Expires: 01/30/2026 [facility] Comment on above: Expected: 01/30/2025 (Approximate), Expires: 01/30/2026 Start: 01-30-2025 End: 01-30-2026 Pt and ptt Pt and ptt Lab Routine induced hypertension, antepartum (HHS-HCC) Expected: 01/30/2025, Expires: 01/30/2026 [facility] Comment on above: Expected: 01/30/2025 , Expires: 01/30/2026 Start: 01-30-2025 End: 01-30-2026 Urate [Mass/volume] in Serum or Plasma Uric acid Lab Routine induced hypertension, antepartum (HHS-HCC) Expected: 01/30/2025 (Approximate), Expires: 01/30/2026 [facility] Comment on above: Expected: 01/30/2025 (Approximate), Expires: 01/30/2026 Start: 01-30-2025 End: 01-30-2026 Urea nitrogen [Mass/volume] in Serum or Plasma BUN Lab Routine induced hypertension, antepartum (HHS-HCC) Expected: 01/30/2025, Expires: 01/30/2026 [facility] Comment on above: Expected: 01/30/2025 , Expires: 01/30/2026 Start: 01-30-2025 End: 07-31-2025 US biophysical profile w non stress test US biophysical profile w non stress test Imaging Routine 36 weeks gestation of (HHS-HCC) Third trimester (HHS-HCC) Excessive growth affecting management of , antepartum, single or unspecified fetus (HHS-HCC) induced hypertension, antepartum (HHS-HCC) Expected: 01/30/2025 (Approximate), Expires: 07/31/2025 [facility] Comment on above: Expected: 01/30/2025 (Approximate), Expires: 07/31/2025 Start: 01-30-2025 End: 01-30-2025 Patient encounter procedure 01/30/2025 1:30 PM EDT Routine [facility] [address] [place] [phone] Quinn Osman, PROCESS SAFETY SPECIALIST [address] [place] [phone] [facility] Start: 01-30-2025 End: 01-30-2025 Professional / ancillary services management 01/30/2025 1:00 PM EDT Ancillary Procedure [facility] [address] [place] [phone] [facility] Start: 01-16-2025 End: 01-16-2025 Patient encounter procedure 01/16/2025 11:20 AM EDT Routine [facility] [address] [facility] [place] [phone] Uma Mccormick PA [address] [place] [address] [facility] Start: 01-02-2025 End: 05-04-2025 US for US OB follow up transabdominal approach Imaging Routine Excessive growth affecting management of , antepartum, single or unspecified fetus ([facility]) Expected: 01/02/2025, Expires: 05/04/2025 [facility] Work Phone: Comment on above: Expected: 01/02/2025 , Expires: 05/04/2025 Start: 01-02-2025 End: 01-02-2025 Patient encounter procedure 01/02/2025 11:00 AM EDT Routine [facility] [address] [place] [phone] Dominik Odonnell, [address] [place], [place] [phone] [facility] Start: 12-31-2024 Influenza vaccination [facility] Start: 12-25-2024 End: 12-25-2024 Patient encounter procedure 12/25/2024 10:00 AM EDT Office Visit [facility] [address] [place] [phone] Dominik Odonnell, [address] [place], [place] [phone] [facility] Start: 12-19-2024 End: 12-19-2024 Patient encounter procedure 12/19/2024 11:20 AM EDT Routine [facility] [address] [place] [phone] Uma Mccormick PA [address] [place] [address] [facility] Start: 12-19-2024 End: 12-19-2024 Professional / ancillary services management 12/19/2024 10:30 AM EDT Ancillary Procedure [facility] [address] [facility] [place] [address] [facility] Start: 12-05-2024 End: 12-05-2024 Patient encounter procedure 12/05/2024 3:30 PM EDT Routine [facility] [place] [facility] [address] [place] [phone] Dominik Odonnell, DO [address] [place] [address] Arrived [facility] Comment on above: Arrived Start: 12-05-2024 End: 04-06-2025 US for US OB follow up transabdominal approach Imaging Routine size inconsistent with dates ([facility]) Expected: 12/05/2024, Expires: 04/06/2025 [facility] Work Phone: Comment on above: Expected: 12/05/2024 , Expires: 04/06/2025 Start: 11-12-2024 End: 11-12-2024 Patient encounter procedure 11/12/2024 3:50 PM EDT Routine [facility] [address] [place] [address] Uma Mccormick PA [address] [place] [address] [facility] Start: 11-07-2024 End: 11-07-2024 Professional / ancillary services management 11/07/2024 10:30 AM EDT Ancillary Procedure [facility] [address] [place] [address] [facility] Start: 10-29-2024 End: 10-29-2024 Patient encounter procedure 10/29/2024 3:40 PM EDT Routine [facility] [address] [facility] [place] [phone] Dominik Odonnell, DO [address] [place] [address] [facility] Start: 10-29-2024 End: 10-29-2025 [...] EDT Ancillary Procedure [facility] [address] [place] [address] [facility] Start: 10-01-2024 End: [...] first trimester Expected: 08/02/2024 (Approximate), Expires: 08/02/2025 [facility] Comment on above: Expected: 08/02/2024 (Approximate), Expires: 08/02/2025 Start: 07-18-2024 End: 07-18-2024 Patient encounter procedure 07/18/2024 1:00 PM EDT Office Visit [facility] [address] [place] [address] Wero Valderrama, PROCESS SAFETY SPECIALIST [address] [place] [address] [facility] Start: 06-20-2024 End: 06-20-2024 Patient encounter procedure 06/20/2024 1:30 PM EST Office Visit [facility] [address] [place] [address] Wero Valderrama, PROCESS SAFETY SPECIALIST [address] [place] [address] Arrived [facility] Comment on above: Arrived Start: 06-11-2024 Screening for malign ant neoplasm of cervix Pap Smear [facility] Start: 04-18-2024 End: 04-18-2024 Patient encounter procedure 04/18/2024 10:30 AM EST Office Visit [facility] [address] [place] [address] Colten Lam MD [address] [facility] [address] [place] [address] [facility] Start: 01-01-2024 Influenza vaccination [facility] Start: 10-30-2023 Influenza vaccination Influenza Vacc ine (#1) [facility] Comment on above: Postponed from 12/31 (Patient Refused) Start: 06-20-2023 End: 06-20-2023 Patient encounter procedure 06/20/2023 11:15 AM EST Office Visit [facility] [address] [facility] [address] [place] [address] Colten Lam MD [address] [facility] [address] [place] [address] [facility] Start: 06-11-2022 Screening for malign ant neoplasm of cervix Pap Smear [facility] Start: 09-13-2009 Adult BMI Screening Adult BMI Screen [facility] Bacteria identified in Urine by Culture Urine culture Microbiology Routine Missed menses Ordered: 08/02/2024 [facility] Comment on above: Ordered: 08/02/2024 CBC W Auto Different ial panel - Blood CBC and differential Lab Routine Missed menses , unspecified gestational age Ordered: 08/02/2024 [facility] Comment on above: Ordered: 08/02/2024 CHLAMYDIA TRACHOMATI S (GENITO/STI) CHLAMYDIA TRACHOMATIS (GENITO/STI) Lab Routine STD exposure Ordered: 10/01/2024 [facility] Comment on above: Ordered: 10/01/2024 Cytology Cervical or vaginal smear or scraping study Pap Smear Pathology and Cytology Routine Well woman exam with routine gynecological exam Ordered: 10/01/2024 [facility] Work Phone: Comment on above: Ordered: 10/01/2024 Hemoglobin A1c/Hemoglobin.total in Blood Hemoglobin A1c Lab Routine Missed menses , unspecified gestational age Ordered: 08/02/2024 [facility] Comment on above: Ordered: 08/02/2024 Hepatitis B virus aparicio rface Ag [Presence] in Serum or Plasma by Immunoassay Hepatitis B surface antigen Lab Routine Missed menses , unspecified gestational age Ordered: 08/02/2024 [facility] Comment on above: Ordered: 08/02/2024 Hepatitis C virus Ab [Presence] in Serum or Plasma by Immunoassay Hepatitis C antibody Lab Routine Missed menses , unspecified gestational age Ordered: 08/02/2024 [facility] Comment on above: Ordered: 08/02/2024 HIV-1/HIV-2 antigen/antibody combination immunoassay HIV-1 and HIV-2 antibodies Lab Routine Missed menses , unspecified gestational age Ordered: 08/02/2024 [facility] Comment on above: Ordered: 08/02/2024 Human papilloma viru s DNA [Presence] in Unspecified specimen by Probe with amplification HPV DNA probe, amplified Microbiology Routine Well woman exam with routine gynecological exam Ordered: 10/01/2024 [facility] Comment on above: Ordered: 10/01/2024 Neisseria gonorrhoea e DNA [Presence] in Unspecified specimen by MAURICE with probe detection Neisseria gonorrhea DNA probe, direct Lab Routine STD exposure Ordered: 10/01/2024 [facility] Comment on above: Ordered: 10/01/2024 Reagin Ab [Presence] in Serum by RPR RPR Lab Routine Missed menses , unspecified gestational age Ordered: 08/02/2024 [facility] Comment on above: Ordered: 08/02/2024 Rubella antibody, IgG Rubella an tibody, IgG Lab Routine Missed menses , unspecified gestational age Ordered: 08/02/2024 [facility] Comment on above: Ordered: 08/02/2024 SURESWAB(R) ADVANCED VAGINITIS PLUS, TMA SURESWAB(R) ADVANCED VAGINITIS PLUS, TMA Pathology and Cytology Routine STD exposure Ordered: 10/01/2024 [facility] Comment on above: Ordered: 10/01/2024 Immunizations Immunization Date Immunization Notes Care Provider Fa cility 09-27-2017 tetanus toxoid, redu sade diphtheria toxoid, and acellular pertussis vaccine, adsorbed Allison Arreola MA [facility] 05-17-2017 influenza, injectabl e, quadrivalent, preservative free Allison Arreola MA [facility] 05-17-2017 influenza virus vacc ine, unspecified formulation Allison Arreola MA [facility] Payers Date Payer Category Payer [facility] [place] [id number] 2023 [employer] Blue [employer] Managed Care - Other [employer] [place] [id number] 2023 Unknown BCBS BCBS xxxxxx [id number] 2023-Present [phone] [address] [place] [address] [id number] 2023 Unknown [id number] 2014 Unknown [id number] 1991 Unknown [id number] 2.16.840.1.615146.3.57 9.2.593 1991 Unknown [id number] 2.16840.1.222131.3.57 9.2.593 1991 Unknown [id number] 2.16.840.1.856803.3.57 9.2.593 1991 Unknown [id number] 2.16.840.1.643777.3.57 9.2.1286 1991 Unknown [id number] 2.16.840.1.091658.3.57 9.2.1286 1991 Unknown [id number] 2.16.840.1.505068.3.57 9.2.1259 1991 Unknown [id number] 2.16.840.1.039750.3.57 9.2.125 1991 Unknown [id number] 2.16840.1.549491.3.57 9.2.1258 1991 Unknown [id number] 2.16.840.1.965030.3.57 9.2.1258 1991 Unknown [id number] 2.840.1.783427.3.57 9.2.125 1991 Unknown [id number] 2.840.1.780461.3.57 9.2.1258 1991 Unknown [id number] 2.840.1.646065.3.57 9.2.1258 1991 Unknown [id number] 2.16.840.1.092790.3.57 9.2.125 1991 Unknown [id number] 2.16840.1.216201.3.57 9.2.125 1991 Unknown [id number] 2.16.840.1.289003.3.57 9.2.125 1991 Unknown [id number] 2.16.840.1.034216.3.57 9.2.1258 1991 Unknown [id number] 2.16.840.1.269686.3.57 9.2.125 1991 Unknown [id number] 2.16.840.1.473495.3.57 9.2.1259 1991 Unknown [id number] 2.16.840.1.545415.3.57 9.2.1259 1991 Unknown [id number] 2.16.840.1.013593.3.57 9.2.9 1991 Unknown [id number] 2.16.840.1.093900.3.57 9.2.1259 1959 Self-pay 1959 Unknown [id number] Social History Date Type Detail Facility Start: 11-05-2022 End: 02-06-2024 Tobacco smoking status NHIS Never smoked tobacco [facility] Work Phone: Start: 11-05-2022 End: 02-06-2024 Tobacco use and exposure Smokeless tobacco non-user [facility] Start: 05-19-2023 End: 02-06-2025 Alcohol intake Current drinker of alcohol (finding) [facility] Start: 12-20-2022 End: 05-19-2023 Alcohol intake [facility] Start: 12-20-2022 End: 06-20-2024 Alcohol [...] or more drinks on 1 occasion? Never [facility] Start: 09-16-2022 End: 02-06-2024 Education 13 [facility] Start: 12-20-2022 Alcohol Comment Caffeine intak e: 1-2 cups coffee per day [facility] Start: 1990 Sex Assigned At Not on file N [facility] Adolescent depressio n screening assessment 10 [facility] Start: 02-06-2024 Alcohol Comment 1-2 times a month [facility] Start: 12-05-2014 Sex Female (finding) [facility] Start: 06-04-2024 [facility] NEGATED: Highlighted rowStart: NINF History of tobacco use Passive smoker [facility] Clinical Notes 06-08-2023 to 02-06-2025 Quinn [...] or radiculopathy 02/23/2023 Tension headache 02/23/2023 Term ([facility]) 10/04/2017 Vaginal odor 02/23/2023 Class 1 obesity without serious comorbidity with body mass index (BMI) of 31.0 to 31.9 in adult 04/19/2023 Bipolar II disorder (HCC) 02/06/2024 Generalized anxiety disorder 02/06/2024 32 weeks gestation of ([facility]) 01/02/2025 Resolved Ambulatory Problems Diagnosis Date Noted [...] nursing note reviewed. Exam conducted with a nail galvanizer present. Vitals: Estimated body mass index is 42.12 kg/m as calculated from the following: Height as of 06/20/24: 5' 3 . Weight as of this encounter: 237 lb 12.8 oz. BP: Patient's last menstrual period was 05/21/2024. ASSESSMENT & PLAN ICD-10-CM 1. 37 weeks gestation of ([facility]) Z3A.37 POCT urinalysis dipstick manually resulted 2. Third trimester ([facility]) Z34.93 POCT urinalysis dipstick manually resulted 3. Excessive growth affecting management of , antepartum, single or unspecified fetus ([facility]) O36.60X0 Return OB: Patient presents today for [...] Quinn Osman NP documented in this encounter [facility] 01-30-2025 History of Presen t illness Narrative [...] Noted Bipolar affective disorder, currently depressed, mild ([facility]) 08/31/2022 Anxiety 08/31/2022 Mild episode of recurrent major depressive disorder 08/31/2022 Amenorrhea 02/23/2023 Attention deficit 02/23/2023 Daytime hypersomnia 02/23/2023 Foraminal stenosis of cervical region 02/23/2023 Insulin resistance 02/23/2023 Migraine without aura and with status migrainosus, not intractable 02/23/2023 Other chronic pain 02/23/2023 Spondylosis of cervical region without myelopathy or radiculopathy 02/23/2023 Tension headache 02/23/2023 Term ([facility]) 10/04/2017 Vaginal odor 02/23/2023 Class 1 obesity without serious comorbidity with body mass index (BMI) of 31.0 to 31.9 in adult 04/19/2023 Bipolar II disorder (HCC) 02/06/2024 Generalized anxiety disorder 02/06/2024 32 weeks gestation of ([facility]) 01/02/2025 Resolved Ambulatory Problems Diagnosis Date Noted [...] nursing note reviewed. Exam conducted with a nail galvanizer present. Vitals: Estimated body mass index is 41.88 kg/m as calculated from the following: Height as of 06/20/24: 5' 3 . Weight as of this encounter: 236 lb 6.4 oz. BP: Patient's last menstrual period was 05/21/2024. ASSESSMENT & PLAN ICD-10-CM 1. 36 weeks gestation of ([facility]) Z3A.36 POCT urinalysis dipstick manually resulted US biophysical profile w non stress test 2. Third trimester ([facility]) Z34.93 POCT urinalysis dipstick manually resulted CULTURE, GROUP B STREP WITH SUSCEPTIBLITY CULTURE, GROUP B STREP WITH SUSCEPTIBLITY US biophysical profile w non stress test 3. Excessive growth affecting management of , antepartum, single or unspecified fetus ([facility]) O36.60X0 US biophysical profile w non stress test 4. induced hypertension, antepartum ([facility]) O13.9 Creatinine Protein, urine, 24 hour Pt [...] Quinn Osman NP documented in this encounter [facility] 01-16-2025 History of Presen t illness [...] or radiculopathy 02/23/2023 Tension headache 02/23/2023 Term ([facility]) 10/04/2017 Vaginal odor 02/23/2023 Class 1 obesity without serious comorbidity with body mass index (BMI) of 31.0 to 31.9 in adult 04/19/2023 Bipolar II disorder ([facility]) 02/06/2024 Generalized anxiety disorder 02/06/2024 32 weeks gestation of ([facility]) 01/02/2025 Resolved Ambulatory Problems Diagnosis Date Noted [...] ASSESSMENT & PLAN ICD-10-CM 1. Third trimester ([facility]) Z34.93 POCT urinalysis dipstick manually resulted 2. 34 weeks gestation of ([facility]) Z3A.34 POCT urinalysis dipstick manually resulted [...] of: AMISH Toussaint documented in this encounter [facility] 01-02-2025 History of Presen t illness [...] Noted Bipolar affective disorder, currently depressed, mild ([facility]) 08/31/2022 Anxiety 08/31/2022 Mild episode of recurrent major depressive disorder 08/31/2022 Amenorrhea 02/23/2023 Attention deficit 02/23/2023 Daytime hypersomnia 02/23/2023 Foraminal stenosis of cervical region 02/23/2023 Insulin resistance 02/23/2023 Migraine without aura and with status migrainosus, not intractable 02/23/2023 Other chronic pain 02/23/2023 Spondylosis of cervical region without myelopathy or radiculopathy 02/23/2023 Tension headache 02/23/2023 Term ([facility]) 10/04/2017 Vaginal odor 02/23/2023 Class 1 obesity without serious comorbidity with body mass index (BMI) of 31.0 to 31.9 in adult 04/19/2023 Bipolar II disorder ([facility]) 02/06/2024 Generalized anxiety disorder 02/06/2024 32 weeks gestation of ([facility]) 01/02/2025 Resolved Ambulatory Problems Diagnosis Date Noted [...] nursing note reviewed. Exam conducted with a nail galvanizer present. Vitals: Estimated body mass index is 39.4 kg/m as calculated from the following: Height as of 06/20/24: 5' 3 . Weight as of this encounter: 222 lb 6.4 oz. BP: 122/78 Patient's last menstrual period was 05/21/2024. ASSESSMENT & PLAN ICD-10-CM 1. 32 weeks gestation of ([facility]) Z3A.32 2. Third trimester ([facility]) Z34.93 Return OB: Patient presents today for [...] Dominik Odonnell DO documented in this encounter [facility] 12-19-2024 History of Presen t illness [...] or radiculopathy 02/23/2023 Tension headache 02/23/2023 Term ([facility]) 10/04/2017 Vaginal odor 02/23/2023 Class 1 [...] ASSESSMENT & PLAN ICD-10-CM 1. Third trimester ([facility]) Z34.93 2. 30 weeks gestation of ([facility]) Z3A.30 Return OB: Patient presents today for [...] of: AMISH Toussaint documented in this encounter [facility] 12-05-2024 History of Presen t illness [...] or radiculopathy 02/23/2023 Tension headache 02/23/2023 Term ([facility]) 10/04/2017 Vaginal odor 02/23/2023 Class 1 obesity [...] nursing note reviewed. Exam conducted with a nail galvanizer present. Vitals: Estimated body mass index is 37.55 kg/m as calculated from the following: Height as of 06/20/24: 5' 3 . Weight as of this encounter: 212 lb. BP: 122/70 Patient's last menstrual period was 05/21/2024. ASSESSMENT & PLAN ICD-10-CM 1. Third trimester ([facility]) Z34.93 POCT urinalysis dipstick manually resulted 2. 28 weeks gestation of ([facility]) Z3A.28 Return OB: Patient presents today for [...] Dominik Odonnell DO documented in this encounter [facility] 11-12-2024 History of Presen t illness [...] Noted Bipolar affective disorder, currently depressed, mild ([facility]) 08/31/2022 Anxiety 08/31/2022 Mild episode of recurrent major depressive disorder 08/31/2022 Amenorrhea 02/23/2023 Attention deficit 02/23/2023 Daytime hypersomnia 02/23/2023 Foraminal stenosis of cervical region 02/23/2023 Insulin resistance 02/23/2023 Migraine without aura and with status migrainosus, not intractable 02/23/2023 Other chronic pain 02/23/2023 Spondylosis of cervical region without myelopathy or radiculopathy 02/23/2023 Tension headache 02/23/2023 Term ([facility]) 10/04/2017 Vaginal odor 02/23/2023 Class 1 [...] ASSESSMENT & PLAN ICD-10-CM 1. Second trimester ([facility]) Z34.92 POCT urinalysis dipstick manually resulted 2. 25 weeks gestation of ([facility]) Z3A.25 Return OB: Patient presents today for [...] of: AMISH Toussaint documented in this encounter [facility] 10-29-2024 History of Presen t illness [...] Noted Bipolar affective disorder, currently depressed, mild ([facility]) 08/31/2022 Anxiety 08/31/2022 Mild episode of recurrent major depressive disorder 08/31/2022 Amenorrhea 02/23/2023 Attention deficit 02/23/2023 Daytime hypersomnia 02/23/2023 Foraminal stenosis of cervical region 02/23/2023 Insulin resistance 02/23/2023 Migraine without aura and with status migrainosus, not intractable 02/23/2023 Other chronic pain 02/23/2023 Spondylosis of cervical region without myelopathy or radiculopathy 02/23/2023 Tension headache 02/23/2023 Term ([facility]) 10/04/2017 Vaginal odor 02/23/2023 Class 1 [...] nursing note reviewed. Exam conducted with a nail galvanizer present. Vitals: Estimated body mass index is 36.23 kg/m as calculated from the following: Height as of 06/20/24: 5' 3 . Weight as of this encounter: 204 lb 8 oz. BP: 140/76 Patient's last menstrual period was 05/21/2024. ASSESSMENT & PLAN ICD-10-CM 1. Diabetes mellitus screening Z13.1 CBC Glucose tolerance, 1 hour CBC Glucose tolerance, 1 hour 2. Second trimester ([facility]) Z34.92 3. 23 weeks gestation of ([facility]) Z3A.23 Return OB: Patient presents today for [...] Dominik Odonnell DO documented in this encounter [facility] 10-01-2024 History of Presen t illness [...] Noted Bipolar affective disorder, currently depressed, mild ([facility]) 08/31/2022 Anxiety 08/31/2022 Mild episode of recurrent major depressive disorder (HCC) ([facility]) 08/31/2022 Amenorrhea 02/23/2023 Attention deficit 02/23/2023 Daytime [...] 31.9 in adult 04/19/2023 Bipolar II disorder ([facility]) 02/06/2024 Generalized anxiety disorder ([facility]) 02/06/2024 Resolved Ambulatory Problems Diagnosis Date Noted No Resolved Ambulatory Problems Past Medical History: Diagnosis Date Acute headache Depression (CMS/HCC) IUD (intrauterine device) in place 05/2018 HISTORY PAST MEDICAL HISTORY SOCIAL HISTORY Past Medical History: Diagnosis Date Acute headache Anxiety Depression ([facility]) IUD (intrauterine device) in place 05/2018 Liletta [...] of: AMISH Toussaint documented in this encounter [facility] 09-03-2024 History of Presen t illness [...] Noted Bipolar affective disorder, currently depressed, mild ([facility]) 08/31/2022 Anxiety 08/31/2022 Mild episode of recurrent major depressive disorder (HCC) ([facility]) 08/31/2022 Amenorrhea 02/23/2023 Attention deficit 02/23/2023 Daytime hypersomnia 02/23/2023 Foraminal stenosis of cervical region 02/23/2023 Insulin resistance 02/23/2023 Migraine without aura and with status migrainosus, not intractable ([facility]) 02/23/2023 Other chronic pain 02/23/2023 Spondylosis of cervical region without myelopathy or radiculopathy 02/23/2023 Tension headache 02/23/2023 Term 10/04/2017 Vaginal odor 02/23/2023 Class 1 obesity without serious comorbidity with body mass index (BMI) of 31.0 to 31.9 in adult 04/19/2023 Bipolar II disorder ([facility]) 02/06/2024 Generalized anxiety disorder ([facility]) 02/06/2024 Resolved Ambulatory Problems Diagnosis Date Noted No Resolved Ambulatory Problems Past Medical History: Diagnosis Date Acute headache Depression ([facility]) IUD (intrauterine device) in place 05/2018 HISTORY PAST MEDICAL HISTORY SOCIAL HISTORY Past Medical History: Diagnosis Date Acute headache Anxiety Depression ([facility]) IUD (intrauterine device) in place 05/2018 Liletta [...] nursing note reviewed. Exam conducted with a nail galvanizer present. Vitals: Estimated body mass index is [...] Dominik Odonnell DO documented in this encounter [facility] 08-02-2024 History of Presen t illness [...] Noted Bipolar affective disorder, currently depressed, mild ([facility]) 08/31/2022 Anxiety 08/31/2022 Mild episode of recurrent [...] 31.9 in adult 04/19/2023 Bipolar II disorder ([facility]) 02/06/2024 Generalized anxiety disorder ([facility]) 02/06/2024 Resolved Ambulatory Problems Diagnosis Date Noted No Resolved Ambulatory Problems Past Medical History: Diagnosis Date Acute headache Depression ([facility]) IUD (intrauterine device) in place 05/2018 Family [...] Odonnell at next visit. Pt will have Sandwich and labs done. Pt is in need [...] or undercooked meat, and stay away from [facility]. Patient has also been advised to [...] Alida Ryan MA documented in this encounter [facility] 06-20-2024 History of Presen t illness [...] discussed diet and exercise. She declines a production engineer consult at this time. She states that her insurance will not cover the cost. We will restart the phentermine today - phentermine (Adipex-P) 37.5 MG tablet; Take 1 tablet (37.5 mg) by mouth in the morning. Dispense: 30 tablet; Refill: 0 No follow-ups on file. documented in this encounter [facility] 04-04-2024 Telephone encount er Note Refill sent. [facility] 04-04-2024 Miscellaneous Notes Formattin g of this note might be different from the original. Refill sent. documented in this encounter [facility] 01-09-2024 Telephone encount er Note OARRS reviewed, Rx sent into patient's pharmacy. [facility] 01-09-2024 Miscellaneous Notes Formattin g of this note might be different from the original. OARRS reviewed, Rx sent into patient's pharmacy. venlafaxine XR (Effexor XR) 75 MG 24 hr capsule lamoTRIgine (LaMICtal) 200 MG tablet BOTH OF THESE NEED SENT TO [facility] [place] - the effexor 37.5 was sent already but she takes 75 mg as well. documented in this encounter [facility] 01-09-2024 Telephone encount er Note venlafaxine XR (Effexor XR) 75 MG 24 hr capsule lamoTRIgine (LaMICtal) 200 MG tablet BOTH OF THESE NEED SENT TO [facility] [place] - the effexor 37.5 was sent already but she takes 75 mg as well. [facility] 01-04-2024 Telephone encount er Note Refill not appropriate. [facility] 01-04-2024 Miscellaneous Notes Formattin g of this note might be different from the original. Refill not appropriate. Refills have been requested for the following medications: Other - Cough medicine Preferred pharmacy: [facility] [address] [place] [address] [address] Delivery method: Pickup documented in this encounter [facility] 01-03-2024 Telephone encount er Note Refills have been requested for the following medications: Other - Cough medicine Preferred pharmacy: [facility] [address] [place] [address] [address] Delivery method: Pickup [facility] 06-08-2023 Telephone encount er Note Pt is trying to get a different mysql developer and wanted to find out if you would be will in send in a refill lamictal, effexor both of these to in [place] [facility] 06-08-2023 Miscellaneous Notes Formattin g of this note might be different from the original. Pt is trying to get a different mysql developer and wanted to find out if you [...] screening Screening for diabetes mellitus Second trimester ([facility]) state, incidental 23 weeks gestation of ([facility]) [...] encounter [facility]ructionsNot on filedocumented [facility] this [facility] Purpose Family History No [...] CREATED AUTHOR AUTHOR'S ORGANIZ ATION 12/19/2019 [facility] DATE CREATED AUTHOR AUTHOR'S ORGANIZ ATION 05/13/2021 [facility] Me dical Specialist DATE CREATED AUTHOR AUTHOR'S ORGANIZ ATION 08/19/2024 [facility] DATE CREATED AUTHOR AUTHOR'S ORGANIZ ATION 02/08/2025 [facility] dical Specialists EPIC Care Teams (unrecognized sec tion and content) Planing Machine Operator Relationship Specialty Start Date End Date Colten Lam MD [address] [place] [address] PCP - General Internal Medicine 09/23/22 Planing Machine Operator Relationship Specialty Start Date End Date Colten Lam MD [address] [place] [address] PCP - [place] [employer] 04/01/22 Colten Lam MD [address] [place] [address] PCP - General Internal Medicine 09/23/22 Planing Machine Operator Relationship Specialty Start Date End Date Colten Lam MD [address] [place] [address] PCP - [place] [employer] 04/01/22 Colten Lam MD [address] [place] [address] PCP - General Internal Medicine 09/23/22 Planing Machine Operator Relationship Specialty Start Date End Date Colten Lam MD [address] [place] [address] PCP - [place] [employer] 04/01/22 Colten Lam MD [address] [place] [address] PCP - General Internal Medicine 09/23/22 Planing Machine Operator Relationship Specialty Start Date End Date Colten Lam MD [address] [place] [address] PCP - [place] [employer] 04/01/22 Colten Lam MD [address] [place] [address] PCP - General Internal Medicine 09/23/22 Planing Machine Operator Relationship Specialty Start Date End Date Colten Lam MD [address] [place] [address] PCP - [place] [employer] 04/01/22 Colten Lam MD [address] [place] [address] PCP - General Internal Medicine 09/23/22 Planing Machine Operator Relationship Specialty Start Date End Date Colten Lam MD [address] [place] [address] PCP - General Internal Medicine 09/23/22 Ema Cruz, AUTHORIZER-MACHINIST SET UP [address] [facility] [address] [place] [address] PCP - [place] [employer] 04/01/24 Planing Machine Operator Relationship Specialty Start Date End Date Colten Lam MD [address] [place] [address] PCP - General Internal Medicine 09/23/22 Ema Cruz, AUTHORIZER-MACHINIST SET UP [address] [place] [address] PCP - [place] [employer] 04/01/24 Planing Machine Operator Relationship Specialty Start Date End Date Colten Lam MD [address] [place] [address] PCP - General Internal Medicine 01/30/24 Planing Machine Operator Relationship Specialty Start Date End Date Colten Lam MD [address] [place] [address] PCP - General Internal Medicine 09/23/22 Ema Cruz, AUTHORIZER-MACHINIST SET UP [address] [place] [address] PCP - [place] [employer] 04/01/24 Planing Machine Operator Relationship Specialty Start Date End Date Colten Lam MD [address] [place] [address] PCP - General Internal Medicine 09/23/22 Ema Cruz, AUTHORIZER-MACHINIST SET UP [address] [place] [address] PCP - [place] [employer] 04/01/24 Planing Machine Operator Relationship Specialty Start Date End Date Colten Lam MD [address] [place] [address] PCP - General Internal Medicine 09/23/22 Ema Cruz, AUTHORIZER-MACHINIST SET UP [address] [place] [address] PCP - [place] [employer] 04/01/24 Planing Machine Operator Relationship Specialty Start Date End Date Colten Lam MD [address] [place] [address] PCP - General Internal Medicine 09/23/22 Planing Machine Operator Relationship Specialty Start Date End Date Colten Lam MD [address] [place] [address] PCP - General Internal Medicine 09/23/22 Planing Machine Operator Relationship Specialty Start Date End Date Colten Lam MD [address] [place] [address] PCP - General Internal Medicine 09/23/22 Planing Machine Operator Relationship Specialty Start Date End Date Colten Lam MD [address] [place] [address] PCP - General Internal Medicine 09/23/22 Planing Machine Operator Relationship Specialty Start Date End Date Colten Lam MD [address] [place] [address] PCP - General Internal Medicine 09/23/22 Planing Machine Operator Relationship Specialty Start Date End Date Colten Lam MD [address] [place] [address] PCP - General Internal Medicine 09/23/22 Planing Machine Operator Relationship Specialty Start Date End Date Colten Lam MD [address] [place] [address] PCP - General Internal Medicine 09/23/22 Planing Machine Operator Relationship Specialty Start Date End Date Colten Lam MD [address] [place] [address] PCP - General Internal Medicine 09/23/22 Planing Machine Operator Relationship Specialty Start Date End Date Colten Lam MD [address] [place] [address] PCP - General Internal Medicine 09/23/22 Planing Machine Operator Relationship Specialty Start Date End Date Colten Lam MD [address] [place] [address] PCP - General Internal Medicine 09/23/22 Planing Machine Operator Relationship Specialty Start Date End Date Colten Lam MD [address] [facility] [address] [place] [address] PCP - General Internal Medicine 09/23/22 Planing Machine Operator Relationship Specialty Start Date End Date Colten Lam MD [address] [facility] [address] [place] [address] PCP - General Internal Medicine 09/23/22 Planing Machine Operator Relationship Specialty Start Date End Date Colten Lam MD [address] [facility] [address] [place] [address] PCP - General Internal Medicine 09/23/22 Planing Machine Operator Relationship Specialty Start Date End Date Colten Lam MD [address] [facility] [address] [place] [address] PCP - General Internal Medicine 09/23/22 Reason [...] BE BASED ON THE PRIMARY CLINICAL RECORDS. [facility] [employer] [facility]. provides no warranty or guarantee of the accuracy or completeness of information in this document.
--- OUTSIDE RECORDS SUMMARY | 2025-02-11 02:18 | XMS_ITS | Encounter Summary ---
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 Not on fi le Not on file documented as of this encounter Plan of Treatment Upcoming Encounters Date Type Department Care Team (Late st Contact Info) Description 02/13/2025 11:30 AM EDT Routine [facility] [address] [facility] [place] [id number] Dominik Odonnell DO [address] [facility] [address] [place] [address] documented as of this encounter Procedures Procedure [...] documented as of this encounter Care Teams Case Coordinator Relationship Specialty Start Date End Date Colten Lam MD [address] [place] [address] PCP - General Internal Medicine 09/23/22 documented as of this encounter
--- OUTSIDE RECORDS SUMMARY | 2025-02-11 02:18 | XMS_ITS | Clinical Summary ---
Author Organization [employer] Address [id number] [address] [place] [address] Care Team Providers Care Cooper Apprentice Name Role Phone Colten Lam MD Primary Care Provider [phone] Allergies No known active allergies Medications * This document contains information received from the source organization and may not represent a complete record from that organization. lamoTRIgine (LaMICtal) 200 mg tabletIndicatio ns:Bipolar II disorder ([facility]) Take 1 tablet (200 mg total) [...] mg 24 hr capsuleIndicati ons:Bipolar II disorder ([facility]),Gener alized anxiety disorder Take 1 capsule [...] 09/27/2017 [employer] Not [place] [address] [place] [id number] Care Teams Cooper Apprentice Relationship Specialty Start Date End Date Colten Lam MD [address] [place] [address] PCP - General Internal Medicine 01/30/24
--- OUTSIDE RECORDS SUMMARY | 2025-02-11 02:18 | XMS_ITS | Encounter Summary ---
Author Organization [facility] Address [address] [place] [place] [address] Care Team Providers Care Studio Owner Name Role Phone Colten Lam MD Unavailable [phone] Colten Lam MD Primary Care Provider [phone] MoraimaEma Hawkins CURTAIN MENDER-DIALYSIS TECH Unavailable Encounter Details Date Type Department Care Team (Late st Contact Info) Description 11/03/2022 Abstract [facility] [address] [facility] [address] [place] [address] [place] [address] [place] [id number] Social History Tobacco Use Types Packs/Day Years [...] 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 Not on fi le [...] EDT Routine [facility] [address] [place] [address] Dominik Odonnell DO [address] [place] [address] documented as of this encounter Visit Diagnoses Not on filedocumented in this encounter Care Teams Studio Owner Relationship Specialty Start Date End Date Colten Lam MD [address] [facility] [address] [place] [address] PCP - [place] [employer] 04/01/2203/31 Colten Lam MD [address] [facility] [address] [place] [address] PCP - General Internal Medicine 09/23/22 Ema Cruz, CURTAIN MENDER-DIALYSIS TECH [address] [facility] [address] [place] [address] PCP - [place] [employer] 04/01/24 documented as of this encounter
--- OUTSIDE RECORDS SUMMARY | 2025-02-11 02:18 | XMS_ITS | Encounter Summary ---
Author Organization [facility] Address [address] [place] [address] Care Team Providers Care Muck Operator Name Role Phone Colten Lam MD Unavailable [phone] Colten Lam MD Primary Care Provider MoraimaEma Hawkins FIELD SERVICES ANALYST-MECHANICAL ENGINEERING DRAFTSPERSON Unavailable Encounter Details Date Type Department Care Team (Late Contact Info) Description 09/16/2022 Abstract [facility] [place] [facility] [address] [facility] 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 [place] [id number] Dominik Odonnell DO [address] [facility] [place] [address] documented as of this encounter Visit Diagnoses Not on filedocumented in this encounter Care Teams Muck Operator Relationship Specialty Start Date End Date Colten Lam MD [address] [facility] [address] [place] [address] PCP - [place] [employer] 04/01/2203/31 Colten Lam MD [address] [facility] [address] [place] [address] PCP - General Internal Medicine 09/23/22 Ema Cruz APRN-MECHANICAL ENGINEERING DRAFTSPERSON [address] [facility] [address] [place] [address] PCP - [place] [employer] 04/01/24 documented as of this encounter
--- OUTSIDE RECORDS SUMMARY | 2025-02-11 02:18 | XMS_ITS | Encounter Summary ---
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 Not on fi le Not on file documented as of this encounter Plan of Treatment Upcoming Encounters Date Type Department Care Team (Late st Contact Info) Description 02/13/2025 11:30 AM EDT Routine [facility] [place] [facility] [address] [address] Dominik Odonnell DO [address] [facility] [place] [address] documented as of this encounter Procedures Procedure [...] THROMBOPLASTIN TIME 21.9(L) 22.3 - 36.2 sec [facility] 01/30/2025 3:03 PM EDT 01/30/2025 3:05 PM EDT Narrative CLINISYNC - 01/30/2025 4:07 PM EDT Annabel Osman NP ELLIEISYGA Final Result Performing Organization Address [facility] Co de Phone Number [facility] * SRMCOH PROTHROMBIN TIME INR W/O [...] NP REINA Final Result Performing Organization Address [facility] de Phone Number [facility] * (ABNORMAL) ALL CBC WITH AUTO [...] - 01/30/2025 3:52 PM EDT Annabel Osman BATCH MAKER CLINISYNC Final Result [facility]INIS[facility]NC TB * (ABNORMAL) ALL LDH (01/30/2025 3:03 PM EDT) LACTATE DEHYDROGENASE 308(H) 81 - 234 U/L [facility] 01/30/2025 3:03 PM EDT 01/30/2025 3:05 PM EDT Narrative CLINISYNC - 01/30/2025 3:25 PM EDT Annabel Osman BATCH MAKER CLINISYNC Final Result [facility] TB * CCF [...] CLINISYNC Final Result Performing Organization Address [facility] Co de Phone Number CLIN[facility]NC TBH * (ABNORMAL) [facility]H CREATININE (01/30/2025 3:03 PM EDT) CREATININE 0.48(L) 0.55 - 1.02 mg/dL [facility]H EGFR-AF ZIMBABWEAN >60 >=60 mL/min/1.7 3m 2 [facility] EGFR-NON AF ZIMBABWEAN >60 >=60 mL/min/1.7 3m 2 [facility] 01/30/2025 3:03 PM EDT 01/30/2025 3:05 PM EDT Narrative CLINISYNC - 01/30/2025 3:25 PM EDT us Annabel Osman NP CLINISYNC Final Result Performing Organization Address City/[facility]/ZIP Co de Phone Number [facility] * (ABNORMAL) ALL BUN (01/30/2025 3:03 PM EDT) BLOOD UREA NITROGEN 5.0(L) 7.0 - 18.0 mg/dL [facility] 01/30/2025 3:03 PM EDT 01/30/2025 3:05 PM EDT Narrative CLINISYNC - 01/30/2025 3:25 PM EDT us Annabel Osman BATCH MAKER CLINISYNC Final Result CLINIS[facility]NC [facility] documented in this encounter Visit Diagnoses Not on filedocumented in this encounter Additional Health Concerns Assessment Noted Time PHQ-9 Depression Total Score: 15 023 2:06 PM EST documented as of this encounter Care Teams Bulb Planter Relationship Specialty Start Date End Date Colten Lam MD [address] [address] PCP - General Internal Medicine 09/23/22 documented as of this encounter
--- OUTSIDE RECORDS SUMMARY | 2025-02-11 02:18 | XMS_ITS | Encounter Summary ---
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 Not on fi le Not on file documented as of this encounter Plan of Treatment Upcoming Encounters Date Type Department Care Team (Late st Contact Info) Description 02/13/2025 11:30 AM EDT Routine [facility] [place] [facility] [address] [address] Dominik Odonnell DO [address] [facility] [place] [address] documented as of this encounter Procedures Procedure Name Priority Date/Time Associated Diagnosis Comments US OB BPP W NON-STRESS 01/30/2025 7:43 PM EDT STREP GP B CULTURE+RFLX Routine 01/30/2025 1:36 PM EDT documented in this encounter Results * US OB BPP W NON-STRESS (01/30/2025 7:43 PM EDT) Anatomical Region Laterality Modality Other 01/30/2025 7:43 PM EDT Narrative 01/30/2025 7:46 PM EDT [address] [address] Ultrasound Report Signed Patient: SHOBHA GA MR#: [id number] : 1990 Acct:[id number] Age/Sex: 34 / F ADM Date: Loc: [facility] 250- Attending Dr: Quinn Osman Ordering Physician: Quinn Osman Date of Service: 01/30/25 Procedure(s): US OB BPP w non-stress Accession Number(s): [id number] cc: COLTEN LAM ; Quinn Osman The [address] [address] Patient Name: SHOBHA GA MRN: [id number] date: 1990 Sex: F Assigned Patient Location: [facility] Current Patient Location: Accession/Order Number: [id number] Exam Date: 01/30/2025 16:09 Report Date: 01/30/2025 [...] Pina M.D. 01/30/2025 7:43 PM Dictation Location: [place] [address] Electronically authenticated by: [id number] Y Date: 01/30/2025 19:43 Dictated By: Tyson Pina M.D. Signed By: 01/30/251945 DD/ 42 TD/TT: Hemmer Automatic: Procedure Note Radiology, Radiologist, - 01/30/2025 [place] [address] Ultrasound Report Signed Patient: SHOBHA GA [facility]#: [id number] : 1990Acct:[id number] Age/Sex: 34 / FADM Date: Loc: [facility] 250-[address]: Quinn Osman Ordering Physician: Quinn Osman Date of Service: 01/30/25 Procedure(s): US OB BPP w non-stress Accession Number(s): [id number] cc: COLTEN LAM ; Quinn Osman [address] [address] Patient Name: SHOBHA GA MRN: [id number] date: 1990 Sex: F Assigned Patient Location: [facility] Current Patient Location: Accession/Order Number: [id number] Exam Date: 01/30/2025 16:09 Report Date: 01/30/2025 [...] Pina M.D. 01/30/2025 7:43 PM Dictation Location: [place] [address] Electronically authenticated by: [id number] Y Date: 9:43 Dictated By: Tyson Pina M.D. Signed By:01/30/251945 DD/ 42 TD/TT: Hemmer Automatic: Quinn Jacqui METAL DRILL OPERATOR [facility] IMAGING Final Resul t * STREP GP B CULTURE+RFLX (01/30/2025 1:36 PM EDT) Pathologist [facility] STREP GP B CULTURE+RFLX Strep Gp B Culture+Rflx TBH STREP GP B CULTURE+RFLX Negative TBH STREP GP B CULTURE+RFLX Centers for Disease Control and Prevention (CDC) and TBH STREP GP B CULTURE+RFLX [employer] TBH STREP [...] STREP GP B CULTURE+RFLX [facility]formed at[facility] STREP GP B CULTURE+RFLX [address] [place], [place] [id number] TBH STREP GP B CULTURE+RFLX Lens Polisher: Isaac Villalpando PhD, Phone: [phone] [facility] 01/30/2025 1:36 PM EDT 01/30/2025 8:51 PM EDT Narrative CLINISYNC - 02/05/2025 10:08 AM EDT us Generic External Data Provider LAB BLOOD ORDERAB LES Final Result CLINISYNC TB documented in this encounter Visit Diagnoses Not on filedocumented in this encounter Additional Health Concerns Assessment Noted Time PHQ-9 Depression Total Score: 15 023 2:06 PM EST documented as of this encounter Care Teams Lending Consultant Relationship Specialty Start Date End Date Colten Lam MD 112 [facility] 110 [place] [address] PCP - General Internal Medicine 09/23/22 documented as of this encounter
--- OUTSIDE RECORDS SUMMARY | 2025-02-11 02:18 | XMS_ITS | Encounter Summary ---
Author Organization [facility] Address [address] [facility] [place] [address] Care Team Providers Care Economic Research Assistant Name Role Phone Colten Lam MD Primary Care Provider Ema Cruz FURNACE REPAIR MECHANIC-BUSINESS SYSTEMS ADVISOR Unavailable Reason for Visit * Reason Onset Date Comments Med Refill 05/28/2024 Encounter Details Date Type Department Care Team (Late st Contact Info) Description 05/28/2024 [facility] [address] [facility] 110 [place] [address] Colten Lam MD 112 [facility] 110 [place], [place] [address] Class 1 obesity without serious comorbidity with [...] 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 Not on [...] AM EDT Routine [facility] [place] [facility] [address] [address] Dominik Odonnell, [address] [place], [place] [address] documented as of this encounter Visit Diagnoses Diagnosis Class 1 obesity without serious comorbidity with body mass index (BMI) of 31.0 to 31.9 in adult, unspecified obesity type Trapezius muscle spasm documented in this encounter Additional Health Concerns Assessment Noted Time PHQ-9 Depression Total Score: 15 023 2:06 PM EST documented as of this encounter Care Teams Economic Research Assistant Relationship Specialty Start Date End Date Colten Lam MD 112 [facility] 110 [place] [address] PCP - General Internal Medicine 09/23/22 Ema Cruz, FURNACE REPAIR MECHANIC-BUSINESS SYSTEMS ADVISOR 112 [facility] 160 [place] [address] PCP - Alexey Fairbanks 04/01/24 documented as of this encounter
--- OUTSIDE RECORDS SUMMARY | 2025-02-11 02:18 | XMS_ITS | Encounter Summary ---
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 Not on fi le Not on file documented as of this encounter Plan of Treatment Upcoming Encounters Date Type Department Care Team (Late st Contact Info) Description 02/13/2025 11:30 AM EDT Routine [facility] [place] [facility] [address] [address] Dominik Odonnell DO [address] [place] [address] documented as of this encounter Procedures Procedure Name Priority Date/Time Associated Diagnosis Comments US OB GROWTH 01/30/2025 7:43 PM EDT documented in this encounter Results * US OB GROWTH (01/30/2025 7:43 PM EDT) Anatomical Region Laterality Modality Other 01/30/2025 7:43 PM EDT Narrative 01/30/2025 7:45 PM EDT [address] [address] Ultrasound Report Signed Patient: SHOBHA GA MR#: [id number] : 1990 Acct:[id number] Age/Sex: 34 / F ADM Date: Loc: [facility] 250-[address]: Quinn Osman Ordering Physician: Quinn Osman Date of Service: 01/30/25 Procedure(s): US OB growth Accession Number(s): [id number] cc: COLTEN LAM ; Quinn Osman The [address] [address] Patient Name: SHOBHA GA MRN: [id number] date: 1990 Sex: F Assigned Patient Location: [facility] Current Patient Location: Accession/Order Number: [id number] Exam Date: 01/30/2025 16:09 Report Date: 01/30/2025 [...] Pina M.D. 01/30/2025 7:43 PM Dictation Location: [place] [address] Electronically authenticated by: [id number] Y Date: 01/30/2025 19:43 Dictated By: Tyson Pina M.D. Signed By: 01/30/251944 DD/ 42 TD/TT: Poacher Wringer Operator: Procedure Note Radiology, Radiologist, MD - 01/30/2025 [place] [address] Ultrasound Report Signed Patient: SHOBHA GA [facility]#: [id number] : 1990Acct:[id number] Age/Sex: 34 / FADM Date: Loc: [facility] 250-[address]: Quinn Osman Ordering Physician: Quinn Osman Date of Service: 01/30/25 Procedure(s): US OB growth Accession Number(s): [id number] cc: COLTEN LAM ; Quinn Osman The [place] [id number] Patient Name: SHOBHA GA MRN: [id number] date: 1990 Sex: F Assigned Patient Location: [facility] Current Patient Location: Accession/Order Number: [id number] Exam Date: 01/30/2025 16:09 Report Date: 01/30/2025 [...] Pina M.D. 01/30/2025 7:43 PM Dictation Location: [place] [address] Electronically authenticated by: [id number] Y Date: 9:43 Dictated By: Tyson Pina M.D. Signed By:01/30/251944 DD/ 42 TD/TT: Poacher Wringer Operator: Quinn Osman [address] [facility] IMAG[facility] Final Resul t documented in this encounter Visit Diagnoses Not on filedocumented in this encounter Additional Health Concerns Assessment Noted Time PHQ-9 Depression Total Score: 15 03/30/ 023 2:06 PM EST documented as of this encounter Care Teams Information Assurance Relationship Specialty Start Date End Date Colten Lam MD 112 [facility] 110 [place] [address] PCP - General Internal Medicine 09/23/22 documented as of this encounter
--- OUTSIDE RECORDS SUMMARY | 2025-02-11 02:18 | XMS_ITS | Clinical Summary ---
Author Organization [facility] Address [address], [address] [place] [address] Care Team Providers Care Sailing Instructor Name Role Phone Hortensia Sheriff MD Primary Care Provider [phone] Allergies No known active allergies Medications Betjsluf-Itt-Nn -FA ( 1 + IRON PO) Take [...] Plan of Treatment Not on file Insurance [place] Advance Directives * Full Code (Latest Code Status on File) Date Activated Date Inactivated Comments 10/06/2017 3:44 AM 10/07/2017 5:06 PM * Full Code Date Activated Date Inactivated Comments 10/05/2017 6:02 AM 10/06/2017 3:44 AM Care Teams Sailing Instructor Relationship Specialty Start Date End Date Hortensia Sheriff MD [address] [place] [address] PCP - General 10/06/17
--- OUTSIDE RECORDS SUMMARY | 2025-02-11 02:18 | XMS_ITS | Encounter Summary ---
Author Organization [facility] Address [address] [place] [address] Care Team Providers Care Director Of Labor Relations Name Role Phone Colten Lam MD Unavailable [phone] Colten Lam MD Primary Care Provider [phone] Ema Cruz ACID BLOWER-BUSINESS AND MARKETING TEACHER Unavailable Reason for Visit * Reason Onset Date Comments Med Refill 10/18/2023 Encounter Details Date Type Department Care Team (Late st Contact Info) Description 10/18/2023 Refill [facility] [address] [place] 110 [place] [address] Colten Lam MD [address] [facility] 110 [place] [address] Class 1 obesity without serious comorbidity with [...] Job 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 Not [...] Routine [facility] [place] [facility] [address] [facility] [place] [place] [address] Dominik Odonnell DO [address] [place] [address] documented as of this encounter Visit Diagnoses Diagnosis Class 1 obesity without serious comorbidity with body mass index (BMI) of 31.0 to 31.9 in adult, unspecified obesity type documented in this encounter Additional Health Concerns Assessment Noted Time PHQ-9 Depression Total Score: 15 023 2:06 PM EST documented as of this encounter Care Teams Director Of Labor Relations Relationship Specialty Start Date End Date Colten Lam MD [address] [facility] 110 [place] [address] PCP - [place] [employer] 04/01/2203/31 Colten Lam MD [address] [facility] 110 [place] [address] PCP - General Internal Medicine 09/23/22 Ema Cruz, ACID BLOWER-BUSINESS AND MARKETING TEACHER [address] [facility] 160 [place] [address] PCP - [place] [employer] 04/01/24 documented as of this encounter
--- OUTSIDE RECORDS SUMMARY | 2025-02-11 02:18 | XMS_ITS | Encounter Summary ---
Author Organization [facility] Address [address] [facility] [place] [address] Care Team Providers Care Junior Project Coordinator Name Role Phone Colten Lam MD Unavailable [phone] Colten Lam MD Primary Care Provider [phone] MoraimaEma Hawkins LEGAL INTERN-OPTICAL MANUFACTURING TECHNICIAN Unavailable Reason for Visit * Reason Comments Med Refill Encounter Details Date Type Department Care Team (Late Contact Info) Description 09/28/2022 Refill [facility] [place] [facility] [address] [facility] [address] [address] [place] [address] [place] [address] [place] [address] Social History Tobacco Use Types Packs/Day Years [...] 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 110 [place] [address] PCP - [place] [employer] 04/01/2203/31 Colten Lam MD [address] [facility] [facility] 110 [place] [address] PCP - General Internal Medicine 09/23/22 Ema Cruz, LEGAL INTERN-OPTICAL MANUFACTURING TECHNICIAN [address] [facility] [facility] 160 [place] [address] PCP - [place] [employer] 04/01/24 documented as of this encounter
--- OUTSIDE RECORDS SUMMARY | 2025-02-11 02:18 | XMS_ITS | Encounter Summary ---
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 [facility] [address] [place], [place] [address] documented as of this encounter Visit Diagnoses Not on filedocumented in this encounter Additional Health Concerns Assessment Noted Time PHQ-9 Depression Total Score: 15 023 2:06 PM EST documented as of this encounter Care Teams Merchandise Execution Leader Relationship Specialty Start Date End Date Colten Lam MD [address] [facility] 110 [place] [address] PCP - General Internal Medicine 09/23/22 documented as of this encounter
--- OUTSIDE RECORDS SUMMARY | 2025-02-11 02:18 | XMS_ITS | Encounter Summary ---
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 Not on fi le Not on file documented as of this encounter Plan of Treatment Upcoming Encounters Date Type Department Care Team (Late st Contact Info) Description 02/13/2025 11:30 AM EDT Routine [facility] [place] [facility] [address] [place] [address] Dominik Odonnell DO [address] [place], [place] [address] documented as of this encounter Procedures Procedure Name Priority Date/Time Associated Diagnosis Comments US OB BPP W NON-STRESS 02/06/2025 11:08 AM EDT documented in this encounter Results * US OB BPP W NON-STRESS (02/06/2025 11:08 AM EDT) Anatomical Region Laterality Modality Other 02/06/2025 11:0 8 AM EDT Narrative 02/06/2025 11:10 [place] [address] Ultrasound Report Signed Patient: SHOBHA GA MR#: [id number] : 1990 Acct:[id number] Age/Sex: 34 / F ADM Date: 02/06/25 Loc: US Attending Dr: Quinn Osman Ordering Physician: Quinn Osman Date of Service: 02/06/25 Procedure(s): US OB BPP w non-stress Accession Number(s): [id number] cc: COLTEN LAM ; Quinn Osman [address] [address] Patient Name: SHOBHA GA MRN: [id number] date: 1990 Sex: F [place]igned [facility] [facility] Current Patient Location: Accession/Order Number: [id number] Exam Date: 02/06/2025 10:07 Report Date: 02/06/2025 [...] Arias M.D. 02/06/2025 11:08 AM Dictation Location: [place] [address] Electronically authenticated by: [id number] Y Date: 02/06/2025 11:08 Dictated By: Estefania Arias M.D. Signed By: 02/06/25 1110 DD/ 1108 TD/TT: Closet Builder: Procedure Note Radiology, Radiologist, - 02/06/2025 [place] [address] Ultrasound Report Signed Patient: SHOBHA GA [facility]#: [id number] : 1990Acct:[id number] Age/Sex: 34 / FADM Date: 02/06/25 Loc: US Attending Dr: Quinn Osman Ordering Physician: Quinn Osman Date of Service: 02/06/25 Procedure(s): US OB BPP w non-stress Accession Number(s): [id number] cc: COLTEN LAM ; Quinn Osman The [place] [id number] Patient Name: SHOBHA GA MRN: [facility]:[id number] date: 1990 Sex: F Assigned Patient Location: [facility] Current Patient Location: Accession/Order Number: [id number] Exam Date: 02/06/2025 10:07 Report Date: 02/06/2025 [...] Arias M.D. 02/06/2025 11:08 AM Dictation Location: [place] [address] Electronically authenticated by: [id number] Y Date: 1:08 Dictated By: Estefania Arias M.D. Signed By:02/06/25 1110 DD/ 1108 TD/TT: Closet Builder: Generic External Data Provider [facility] Final Result documented in this encounter Visit Diagnoses Not on filedocumented in this encounter Additional Health Concerns Assessment Noted Time PHQ-9 Depression Total Score: 15 023 2:06 PM EST documented as of this encounter Care Teams Rn Case Mgr Relationship Specialty Start Date End Date Colten Lam MD [address] [facility] 110 [place] [address] PCP - General Internal Medicine 09/23/22 documented as of this encounter
--- OUTSIDE RECORDS SUMMARY | 2025-02-11 02:18 | XMS_ITS | Encounter Summary ---
Author Organization [facility] Address [address] [place] [address] Care Team Providers Care Plant Technician/Control Room Operator Name Role Phone Colten Lam MD Unavailable [phone] Colten Lam MD Primary Care Provider [phone] Ema Cruz SLOOP CAPTAIN-SORTER OPERATOR Unavailable Reason for Visit * Reason Comments Med Refill Encounter Details Date Type Department Care Team (Late st Contact Info) Description 02/17/2023 Refill [facility] [address] [facility] [address] [place] [id number] Ema Cruz, SLOOP CAPTAIN-[facility] [address] [facility] [address] [place] [address] Bipolar affective disorder, currently depressed, mild (HCC) [...] Date 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 Not on fi le Not on file documented as of this encounter Plan of Treatment Upcoming Encounters Date Type Department Care Team (Late st Contact Info) Description 02/13/2025 11:30 AM EDT Routine [facility] [address] [facility] [place] [phone] Dominik Odonnell DO [address] [facility] [place] [address] documented as of this encounter Visit Diagnoses Diagnosis Bipolar affective disorder, currently depressed, mild (HCC) Bipolar I disorder, most recent episode (or current) depressed, mild documented in this encounter Additional Health Concerns Assessment Noted Time PHQ-9 Depression Total Score: 14 023 10:19 AM EDT documented as of this encounter Care Teams Plant Technician/Control Room Operator Relationship Specialty Start Date End Date Colten Lam MD [address] [facility] [address] [place] [address] PCP - [employer] 04/01/2203/31 Colten Lam MD [address] [facility] [address] [place] [address] PCP - General Internal Medicine 09/23/22 Ema Cruz APRN-SORTER OPERATOR [address] [place] [address] [place] [address] PCP - [employer] 04/01/24 documented as of this encounter
--- OUTSIDE RECORDS SUMMARY | 2025-02-11 02:18 | XMS_ITS | Encounter Summary ---
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 Not on fi le Not on file documented as of this encounter Plan of Treatment Upcoming Encounters Date Type Department Care Team (Late st Contact Info) Description 02/13/2025 11:30 AM EDT Routine [facility] [address] [facility] [place] [address] Dominik Odonnell DO [address] [facility] [place] [address] documented as of this encounter Procedures Procedure [...] Annabel Osman NP [facility] Final Result [facility] documented in this encounter Visit Diagnoses Not on filedocumented in this encounter Additional Health Concerns Assessment Noted Time PHQ-9 Depression Total Score: 15 03/30/ 023 2:06 PM EST documented as of this encounter Care Teams Food Mixer Assembler Relationship Specialty Start Date End Date Colten Lam MD [address] [place] [address] PCP - General Internal Medicine 09/23/22 documented as of this encounter
[2025-02-11 03:19] LABS: Hematocrit 30.8 % (36.0-48.0); Hemoglobin 10.6 g/dL (12.0-16.0); Mean Corpuscular HGB Conc 34.4 g/dL (29.9-35.2); Mean Corpuscular Hemoglobin 29.9 pg (26.7-34.0); Mean Corpuscular Volume 86.8 fL (81.0-99.0); Platelet Count 164 10^3/uL (150-450); Red Blood Count 3.55 10^6/uL (4.20-5.40); White Blood Count 10.8 10^3/uL (4.0-11.0)
[2025-02-11] MEDS: 0.9 % SODIUM CHLORIDE 1,000 ML 1000 ML IV (05:57)
[2025-02-11] MEDS: ROPIVACAINE HCL/PF 400 MG/200 ML PREMIX 10 MG EPIDURAL (06:56)
[2025-02-11] MEDS: 0.9 % SODIUM CHLORIDE 1,000 ML 125 ML IV (07:05)
[2025-02-11 07:22] LABS: Glucose Urine UA NEGATIVE (NEGATIVE)
[2025-02-11 07:38] LABS: Cast Seen? NONE SEEN #/LPF (NONE SEEN); Crystals Seen? None Seen #/HPF (None Seen)
[2025-02-11 07:39] LABS: Urine Culture Indicated NO
[2025-02-11] MEDS: VENLAFAXINE HCL ER 150 MG CAPSULE PO (08:26)
[2025-02-11] MEDS: LAMOTRIGINE 100 MG TABLET 200 MG PO (08:26)
[2025-02-11] MEDS: LABETALOL HCL 100 MG TABLET 200 MG PO ×2 (08:26→23:53)
[2025-02-11] MEDS: VENLAFAXINE HCL ER 75 MG CAPSULE PO (08:26)
[2025-02-11 08:32] LABS: Cannabinoid Screen Urine POSITIVE (NEGATIVE)
[2025-02-11 08:33] LABS: Methamphetamines Screen Urine NEGATIVE (NEGATIVE); Tricyclic Antidepressant Urine NEGATIVE (NEGATIVE)
[2025-02-11] MEDS: ONDANSETRON 4 MG RAPDIS TABLET SL (10:42)
[2025-02-11] MEDS: OXYTOCIN/0.9 % SODIUM CHLORIDE 20 UNITS/1,000 ML PLAST..BAG 125 UNIT IV (11:40)
--- NOTE | 2025-02-11 11:49 | PM.OBPRCVD ---
Procedure Intrapartal events: None Induction method: per pitocin protocol Delivery augmentation: rupture of membranes and pitocin Delivery monitor: external FHT and external uterine Route of delivery: L&D Laceration Description: periurethral - 1st degree Delivery repair: Vicryl Estimated blood loss (mL): 250 Anesthesia type: Epidural Disposition: floor Delivery date: 02/11/25 Gender: female presentation: vertex Placental delivery description: Spontaneous cord description: 3 Vessels
[2025-02-11] MEDS: BENZOCAINE/MENTHOL 85 GRAM SPRAY BOTTLE 1 APPLIC TOPICAL (13:21)
[2025-02-11] MEDS: GLYCERIN/WITCH HAZEL PADS 1 PAD TOPICAL (13:21)
[2025-02-11] MEDS: IBUPROFEN 600 MG TABLET PO ×2 (17:45→23:52)
[2025-02-12] MEDS: GLYCERIN/WITCH HAZEL PADS 1 PAD TOPICAL (00:03)
[2025-02-12 06:18] LABS: Hematocrit 28.9 % (36.0-48.0); Hemoglobin 9.5 g/dL (12.0-16.0); Immature Granulocytes Abs Auto 0.17 10^3/uL (0.00-0.03); Immature Granulocytes Pct Auto 1.3 % (0.0-0.5); Lymphocytes Absolute Auto 2.4 10^3/uL (1.2-3.8); Mean Corpuscular HGB Conc 32.9 g/dL (29.9-35.2); Mean Corpuscular Hemoglobin 28.8 pg (26.7-34.0); Mean Corpuscular Volume 87.6 fL (81.0-99.0); Platelet Count 156 10^3/uL (150-450); Red Blood Count 3.30 10^6/uL (4.20-5.40); White Blood Count 13.6 10^3/uL (4.0-11.0)
[2025-02-12] MEDS: IBUPROFEN 600 MG TABLET PO (06:18)
--- NOTE | 2025-02-12 08:15 | PM.OBPN ---
OB - PN: Subj Subjective Patient comments: no complaints and pain well controlled [place] status: doing well Exam Constitutional Vital Signs, click to edit/add: Last Vital Signs Temp 97.7 F 02/11/25 23:51 Pulse 62 02/11/25 23:51 Resp 16 02/11/25 23:51 BP 136/80 02/11/25 23:51 O2 Del Method Room Air 02/12/25 00:06 Documenting provider has reviewed patient's vital signs: yes Common normals: no apparent distress Respiratory Common normals: clear to auscultation bilaterally Cardio Common normals: regular rate and regular rhythm GI Common normals: Normal to inspection, nondistended, normoactive bowel sounds present Extremity Common normals: no clubbing, cyanosis or edema Results Labs Labs: Short CBC 02/12/25 Range/Units 06:06 WBC 13.6 H (4.0-11.0) 10^3/uL Hgb 9.5 L (12.0-16.0) g/dL Hct 28.9 L (36.0-48.0) % Plt Count 156 (150-450) 10^3/uL OB - PN: A/P Plan - Vaginal Delivery day: 1 Plan: routine care, discharge home and follow up 6 weeks Time Spent with Patient Time: Total time spent is greater than 50% in coordination of care (as documented) at patient's floor/unit and/or counseling patient: Total time spent with greater than 50% in coordination of care (as documented) at patient's floor/unit and/or counseling patient: less than 15 minutes
[2025-02-12] MEDS: LABETALOL HCL 100 MG TABLET 200 MG PO (08:28)
[2025-02-12] MEDS: LAMOTRIGINE 100 MG TABLET 200 MG PO (08:29)
[2025-02-12] MEDS: DOCUSATE SODIUM 100 MG CAPSULE PO (08:29)
[2025-02-12] MEDS: VENLAFAXINE HCL ER 150 MG CAPSULE PO (08:29)
[2025-02-12] MEDS: VENLAFAXINE HCL ER 75 MG CAPSULE PO (08:29)
[2025-02-12 08:31] VITALS: BP 134/74; PULSE 82
[2025-02-12 08:35] VITALS: TEMP 36.6
[2025-02-14 17:09] LABS: Carboxy THC Conf, MS, UR 25 ng/mL (Cutoff=10)
== END 2025-02-12 14:05 | disposition home or self-care (01) | DRG 807 ==
PROVIDERS: Admitting Provider Obstetrics & Gynecology; PCP Internal Medicine; Visit Provider Obstetrics & Gynecology
DX: O99.324 Drug use complicating childbirth (principal); Z37.0 Single live birth; F12.90 Cannabis use, unspecified, uncomplicated; O70.0 First degree perineal laceration during delivery; Z3A.38 38 weeks gestation of pregnancy
CPT/HCPCS: 36415; 59025; 59050; 59410; 80307; 80349; 81001; 84112; 85025; 85027; 86850; 86900; 86901; J2795; Q0162